=== PATIENT | female | born 1945 | race Asian ===

== ENCOUNTER 2016-10-12 08:51 | Inpatient (IN) | payer OTHER ==
[~2016-10-12] VITALS: Ht 152.4 cm; Wt 57.0 kg
[2016-10-12 08:55] VITALS: Ht 152.4 cm; Wt 57.0 kg
[2016-10-12] MEDS ORDERED: ACETAMINOPHEN 500 MG TAB PO STA (09:26)
[2016-10-12] MEDS ORDERED: SODIUM CHLORIDE 0.9% 1L BAG IV* STA (09:26)
[2016-10-12] MEDS ORDERED: CEFEPIME 2GM/50 ML (PMX) 50 ML IVPB STA (09:26)
[2016-10-12] MEDS ORDERED: VANCOMYCIN 1 GM (PMX) 250 ML IVPB ONE (09:30)
--- NOTE | 2016-10-12 10:11 | RADRPT ---
PROCEDURE: Chest Radiograph. CLINICAL INDICATION: Sepsis TECHNIQUE: Single frontal chest radiograph. COMPARISON: None available FINDINGS: Heart size is within normal limits. Atherosclerotic calcifications are present. There is a mild in terstitial prominence, likely related to chronic lung changes. No infiltrate or effusion is identif ied . There is no pneumothorax. The bones are intact. IMPRESSION: 1. No evidence of acute cardiopulmonary disease. 2. Atherosclerotic vascular disease. RPTAT: KK .Erick Wills MD, Date Time Electronically viewed and signed by .Erick Wills MD, on 10/12/2016 10:11 .B/
[2016-10-12 10:13] LABS: ADD SCAN DIFF NO
[2016-10-12 10:20] LABS: BASOPHILS % 0.2 % (0.0-2.0); HEMOGLOBIN 11.3 g/dl (12.0-16.0); LYMPHOCYTES # 0.7 10^3/ul (0.8-2.9); LYMPHOCYTES % 4.1 % (15.0-51.0); MEAN CORPUSCULAR HEMOGLOBIN 31.5 pg (29.0-33.0); MEAN CORPUSCULAR HGB CONC 34.2 g/dl (32.0-37.0); MEAN CORPUSCULAR VOLUME 91.9 fl (82.0-101.0); MEAN PLATELET VOLUME 10.4 fl (7.4-10.4); MONOCYTE # 0.5 10^3/ul (0.3-0.9); MONOCYTES % 3.2 % (0.0-11.0); NEUTROPHIL # 14.7 10^3/ul (1.6-7.5); NEUTROPHILS % 90.9 % (39.0-77.0); PLATELET COUNT 231 10^3/UL (140-415); RED BLOOD COUNT 3.59 10^6/ul (4.20-5.40); RED CELL DISTRIBUTION WIDTH 12.7 % (11.5-14.5); WHITE BLOOD COUNT 16.1 10^3/ul (4.8-10.8)
[2016-10-12 10:28] LABS: INR 1.4; PROTIME 17.2 Sec (12.2-14.2); PT RATIO 1.3
[2016-10-12 10:29] LABS: PARTIAL THROMBOPLASTIN TIME 38.8 Sec (25.0-35.0)
[2016-10-12 10:51] LABS: ALBUMIN 3.8 g/dl (3.3-4.9); POTASSIUM 3.4 mmol/L (3.5-5.1)
[2016-10-12 10:53] LABS: CREATININE 1.33 mg/dl (0.44-1.00)
[2016-10-12 10:54] LABS: ALBUMIN/GLOBULIN RATIO 1.05; BILIRUBIN,INDIRECT 0.4 mg/dl (0-1.1); BILIRUBIN,TOTAL 0.4 mg/dl (0.2-1.3); TOTAL PROTEIN 7.4 g/dl (6.1-8.1)
[2016-10-12 11:14] LABS: TROPONIN-I 3.84 ng/ml (0.00-0.12)
[2016-10-12 11:21] LABS: ADD UMIC YES; URINE BILIRUBIN (Dip) NEGATIVE (NEGATIVE); URINE BLOOD (Dip) 1+ (NEGATIVE); URINE COLOR LT. YELLOW (YELLOW); URINE GLUCOSE (Dip) NEGATIVE (NEGATIVE); URINE KETONES (Dip) NEGATIVE (NEGATIVE); URINE LEUKOCYTE ESTERASE (Dip) 1+ (NEGATIVE); URINE NITRITE (Dip) NEGATIVE (NEGATIVE); URINE TOTAL PROTEIN (Dip) 1+ (NEGATIVE); URINE UROBILINOGEN (Dip) 0.2 E.U./dL (0.1-1.0)
[2016-10-12] MEDS ORDERED: ASPIRIN 325 MG TAB PO ONE (11:30)
[2016-10-12 11:39] LABS: BACTERIA,URINE FEW
--- NOTE | 2016-10-12 11:58 | ERA ---
ER Documentation Chief Complaint Date/Time DATE: 10/12/16 TIME: 11:42 Chief Complaint bib daughter for fever , dizziness x 1 day , also c/o lt side abd pain HPI This is a 71-year-old female with a past medical history of non-insulin- dependent diabetes mellitus and hypertension. The patient indicates that for the past 24 hours she has been experiencing a tactile fever with shaking and chills. Her symptoms began at 2 AM, 48 hours prior to arrival. She indicates she has not had any chest pain or pressure that radiated to the neck arm back or jaw. She has no shortness of breath at rest or exertion. She denies a productive or nonproductive cough. She indicates she has had frequency urgency and dysuria with mild tenderness in her left lower quadrant and also indicates she has been very thirsty. She went to an urgent care clinic yesterday and was told that she has flulike symptoms and is not currently taking any antibiotics. She denies a headache or changes in vision. She has had no recent travel or prolonged immobilization. The patient had Tylenol at 730am, 2 hours prior to arrival ROS All systems reviewed and are negative except as per history of present illness. Medications Home Meds No Active Prescriptions or Reported Meds Allergies Allergies: Coded Allergies: No Known Allergy (Unverified , 10/12/16) PMhx/Soc History of Surgery: No Anesthesia Reaction: No Hx Neurological Disorder: No Hx Respiratory Disorders: No Hx Cardiac Disorders: No Hx Psychiatric Problems: No Hx Miscellaneous Medical Probl: No Hx Alcohol Use: No Hx Substance Use: No Hx Tobacco Use: No Smoking Status: Never smoker Physical Exam Vitals Vital Signs Date Time Temp Pulse Resp B/P Pulse Ox O2 Delivery O2 Flow Rate FiO2 10/12/16 10:04 Nasal Cannula 10/12/16 10:00 99.2 104 20 118/54 98 Room Air 10/12/16 08:55 102.5 110 18 114/56 98 Physical Exam Constitutional:Well-developed. Well-nourished. HEENT:Normocephalic. Atraumatic.Pupils were equal round reactive to light. Dry mucous membranes.No tonsillar exudates. Neck: No nuchal rigidity. No lymphadenopathy. No posterior cervical spine tenderness or step-offs. Respiratory: Not using accessory muscles of respiration.Lungs were clear to auscultation bilaterally. No rhonchi. No rales. No wheezing. Cardiovascular: Regular rate regular rhythm.No murmurs. No rubs were appreciated.S1, S2 normal. Distal pulses are palpable 2+ bilaterally. GI: Abdomen was soft. No tenderness in the left lower quadrant of the right lower quadrant. CVA tenderness. Non Distended. No pulsatile abdominal masses or bruits. No rebound. No guarding. Bowel sounds were present and normal. Muscle skeletal: Full range of motion of both the upper and lower extremities bilaterally.Normal muscle tone.No assymetrical calf tenderness or swelling. Skin: No petechia, no purpura. No lesions on the palms or the soles of the feet. No maculopapular rash. NEURO: Patient was alert, awake, orientated x3.No facial droop. Gait observed and normal with no ataxia.Speech had regular rate and rhythm. No focal neurological deficits. Result Diagram: 10/12/16 0957 10/12/16 0957 Results 24 hrs Laboratory Tests Test 10/12/16 09:57 10/12/16 10:26 Activated Partial Thromboplast Time 38.8Sec Alanine Aminotransferase (ALT/SGPT) 61IU/L Albumin 3.8g/dl Albumin/Globulin Ratio 1.05 Alkaline Phosphatase 207IU/L Amylase Level 127U/L Anion Gap 19 Aspartate Amino Transf (AST/SGOT) 71IU/L Basophils # 0.010^3/ul Basophils % 0.2% Blood Urea Nitrogen 19mg/dl Calcium Level 9.0mg/dl Carbon Dioxide Level 21mmol/L Chloride Level 99mmol/L Creatinine 1.33mg/dl Direct Bilirubin 0.00mg/dl Eosinophils # 0.010^3/ul Eosinophils % 0.0% Globulin 3.60g/dl Glucose Level 178mg/dl Hematocrit 33.0% Hemoglobin 11.3g/dl INR International Normalized Ratio 1.40 Indirect Bilirubin 0.4mg/dl Lactic Acid Level 4.2mmol/L Lipase 125U/L Lymphocytes # 0.710^3/ul Lymphocytes % 4.1% Mean Corpuscular Hemoglobin 31.5pg Mean Corpuscular Hemoglobin Concent 34.2g/dl Mean Corpuscular Volume 91.9fl Mean Platelet Volume 10.4fl Monocytes # 0.510^3/ul Monocytes % 3.2% Neutrophils # 14.710^3/ul Neutrophils % 90.9% Nucleated Red Blood Cells # 0.010^3/ul Nucleated Red Blood Cells % 0.0/100WBC Platelet Count 69694^3/UL Potassium Level 3.4mmol/L Prothrombin Time 17.2Sec Prothrombin Time Ratio 1.3 Red Blood Count 3.5910^6/ul Red Cell Distribution Width 12.7% Sodium Level 136mmol/L Total Bilirubin 0.4mg/dl Total Protein 7.4g/dl Troponin I 3.840ng/ml White Blood Count 16.110^3/ul Urine Bacteria FEW Urine Bilirubin NEGATIVE Urine Clarity CLEAR Urine Coarse Granular Casts RARE Urine Color LT. YELLOW Urine Epithelial Cells FEW Urine Glucose NEGATIVE% Urine Granular Casts RARE Urine Hemoglobin 1+ Urine Ketones NEGATIVE Urine Leukocyte Esterase 1+ Urine Microscopic RBC 2-5/HPF Urine Microscopic WBC 25-50/HPF Urine Nitrite NEGATIVE Urine Specific [place] 1.015 Urine Total Protein 1+ Urine Urobilinogen 0.2 E.U./dL Urine pH 5.5 Current Medications Medications (Trade) Dose Ordered Sig/William Route PRN Reason Start Time Stop Time Status Last Admin Dose Admin Sodium Chloride 1770 ml 1,770 ml BOLUS OVER 2 HOURS STAT IV* 10/12/16 09:26 10/12/16 09:29 DC 10/12/16 10:24 Cefepime HCl 50 ml @ 100 mls/hr ONCE STAT IVPB 10/12/16 09:26 10/12/16 09:55 DC 10/12/16 10:23 Vancomycin HCl (Vancocin) 250 ml @ 125 mls/hr ONCE ONCE IVPB 10/12/16 09:30 10/12/16 11:29 DC Acetaminophen (Tylenol Tab) 1,000 mg ONCE STAT PO 10/12/16 09:26 10/12/16 09:29 DC 10/12/16 10:23 Aspirin (Aspirin) 325 mg ONCE ONCE PO 10/12/16 11:30 10/12/16 11:31 DC Procedures/MDM This patient presented to the emergency department with a fever. The patient was treated for sepsis. She was given a 30 cc/kg bolus of normal saline. She was nontoxic in appearance. She was started on broad-spectrum antibiotics initially for an unknown source which included vancomycin and cefepime. 12 Lead EKG tracing ordered and reviewed by myself showed: Normal sinus rhythm of 98 bpm and no arrhythmia. NE interval normal. QRS duration normal. No ST segment elevation No ST segment depression. No changes consistent with acute ischemia. The patient had an elevated troponin of 3.840. The patient denied any chest pain or pressure. This could be result of sepsis however the patient will be admitted for non-STEMI and undergo serial 12-lead EKG tracings and cardiac set of enzymes. She was given aspirin. Patient's infectious symptoms have not stabilized and the patient is at risk of rapid decompensation. The patient will be admitted for careful hydration, antibiotic therapy, and infectious source control. Severe Sepsis Assessment: Infectious Source: pyleonephritis End organ damage indicated by: Lactate > 2.0 mmol/L Severe Sepsis Managment: Blood Cultures X 2 before broad spectrum antibiotics initiated within 3 hours of recognition. 30 ml/kg NS bolus Completed Initial Lactate: 4.2 Repeat Lactate 2.6 One view chest radiograph for and reviewed by myself showed no infiltrates no pneumothorax or pleural effusion Septic Shock Assessment (1 hour post 30 ml/kg fluid bolus): Hypotension (SBP < 90 or 40 mmHg drop, MAP < 65): No Lactic acid > 4.0 YES Perfusion Reassessment for Septic Shock: Temp 99.2, Pulse 104, RR 14, BP 118/54 Heart Exam: Tachycardic Lung Exam: No Crackles Capillary Refill: Normal Peripheral Pulses: Radially present Skin: Normal I considered further perfusion assessment with CVP measurement, SCVO2, bedside ultrasound volume assessment, passive leg raise, trial of further fluid bolus. And preceded with IV fluids. The patient will be admitted in serious condition under the care of Dr. Allen to the telemetry service in serious condition with an anticipated stay of greater than 2 midnights. Critical Care: Time: 50 minutes Treatments/Evaluations: Close monitoring and treatment of unstable vital signs, cardiorespiratory, and neurologic status, while maintaining tight balance of fluid, respiratory, and cardiac interventions. Time does not include performing any of the above billable procedures. Departure Diagnosis: Primary Impression: Severe sepsis Additional Impressions: Pyelonephritis Non-STEMI (non-ST elevated myocardial infarction) Condition: Serious CINTHIASEEMA WAYNEA Oct 12, 2016 11:53
[2016-10-12] MEDS ORDERED: ACETAMINOPHEN 325 MG TAB PO PRN (12:00)
[2016-10-12] MEDS ORDERED: ONDANSETRON 4 MG INJ IV PRN ×2 (12:00→15:30)
--- NOTE | 2016-10-12 14:59 | CONS ---
Date/Time of Note Date/Time of Note DATE: 10/12/16 TIME: 14:53 Assessment/Plan Assessment/Plan Additional Assessment/Plan SIRS Elevated lactate Elevated troponin Acute kidney injury -Patient with severe fever this morning and leukocytosis. Etiology of possible infection is unclear. Patient also with incidental elevated troponin. She denies any chest pain, shortness of breath and ECG without significant ischemic abnormalities. Echocardiogram preliminary being done at bedside with normal ejection fraction. Will obtain serial cardiac enzymes, start aspirin and statin therapy. IV fluids. Sepsis workup. Will start patient on Lovenox at the current time and evaluate trend of troponins. Would consider further cardiac evaluation including possible coronary CTA versus nuclear perfusion study in the near future based on clinical progress and troponin results. Consultation Date/Type/Reason Admit Date/Time Type of Consultation: cv Reason for Consultation Elevated troponin Hx of Present Illness This is a 71-year-old female who presented with severe fevers and chills and weakness which began early this morning. As per the daughter, patient has been tired and weak over the past 24 hours. She denies any chest pain, dizziness, lightheadedness, abdominal pain, nausea, vomiting, shortness of breath. This morning, as per the daughter, patient with fever of 106. She was given Tylenol with improvement but continued to have rigors. Because of the above, patient was brought to the emergency room for further evaluation and care. She feels much better now. She continues to deny chest pain, shortness of breath, abdominal pain or nausea. 12 point review of systems was performed with all pertinent positives and negatives mentioned above and all else is negative Past Surgical History Past Surgical Hx: cholecystectomy Family History Significant Family History: no pertinent family hx Social History Alcohol Use: none Smoking Status: Never smoker Exam/Review of Systems Vital Signs Vitals Vital Signs Date Time Temp Pulse Resp B/P Pulse Ox O2 Delivery O2 Flow Rate FiO2 10/12/16 14:45 98.5 10/12/16 12:00 90 20 106/64 97 Room Air Exam Fatigued, no apparent distress, follows commands Constitutional: alert, oriented Head: normocephalic Neck: supple Respiratory: clear to auscultation, normal air movement Cardiovascular: other (S1-S2 heard), regular rate and rhythm Gastrointestinal: bowel sounds, non-tender, other (No guarding), soft Extremities: other (No edema) Results Result Diagram: 10/12/16 0957 10/12/16 0957 Results 24 hrs Laboratory Tests Test 10/12/16 09:57 10/12/16 10:26 10/12/16 11:25 Activated Partial Thromboplast Time 38.8 H Alanine Aminotransferase (ALT/SGPT) 61 Albumin 3.8 Albumin/Globulin Ratio 1.05 Alkaline Phosphatase 207 H Amylase Level 127 H Anion Gap 19 H Aspartate Amino Transf (AST/SGOT) 71 H Basophils # 0.0 Basophils % 0.2 Blood Urea Nitrogen 19 Calcium Level 9.0 Carbon Dioxide Level 21 Chloride Level 99 Creatinine 1.33 H Direct Bilirubin 0.00 Eosinophils # 0.0 Eosinophils % 0.0 Globulin 3.60 H Glucose Level 178 Hematocrit 33.0 L Hemoglobin 11.3 L INR International Normalized Ratio 1.40 Indirect Bilirubin 0.4 Lactic Acid Level 4.2 *H 2.6 H Lipase 125 Lymphocytes # 0.7 L Lymphocytes % 4.1 L Mean Corpuscular Hemoglobin 31.5 Mean Corpuscular Hemoglobin Concent 34.2 Mean Corpuscular Volume 91.9 Mean Platelet Volume 10.4 Monocytes # 0.5 Monocytes % 3.2 Neutrophils # 14.7 H Neutrophils % 90.9 H Nucleated Red Blood Cells # 0.0 Nucleated Red Blood Cells % 0.0 Platelet Count 231 Potassium Level 3.4 L Prothrombin Time 17.2 H Prothrombin Time Ratio 1.3 Red Blood Count 3.59 L Red Cell Distribution Width 12.7 Sodium Level 136 Total Bilirubin 0.4 Total Protein 7.4 Troponin I 3.840 *H White Blood Count 16.1 H Urine Bacteria FEW Urine Bilirubin NEGATIVE Urine Clarity CLEAR Urine Coarse Granular Casts RARE Urine Color LT. YELLOW Urine Epithelial Cells FEW Urine Glucose NEGATIVE Urine Granular Casts RARE Urine Hemoglobin 1+ H Urine Ketones NEGATIVE Urine Leukocyte Esterase 1+ H Urine Microscopic RBC 2-5 Urine Microscopic WBC 25-50 Urine Nitrite NEGATIVE Urine Specific [place] 1.015 Urine Total Protein 1+ H Urine Urobilinogen 0.2 E.U./dL Urine pH 5.5 Procedures Procedures ECG demonstrates sinus rhythm, normal QRS duration, no significant ischemic STT wave abnormality Singh Thompson DO Oct 12, 2016 14:59
[2016-10-12] MEDS ORDERED: BISACODYL 10 MG SUPP PR PRN (15:30)
[2016-10-12] MEDS ORDERED: NACL 0.9% 3 ML SYG IV SCH (15:30)
[2016-10-12] MEDS ORDERED: VANCOMYCIN IV PER PHARMACY XX SCH (15:30)
[2016-10-12] MEDS ORDERED: HYDROCODONE/APAP (5/325) TAB PO PRN ×2 (15:30)
[2016-10-12] MEDS ORDERED: MAGNESIUM HYDROXIDE 30ML CUP PO PRN (15:30)
[2016-10-12] MEDS ORDERED: DOCUSATE SODIUM 100 MG CAP PO PRN (15:30)
[2016-10-12] MEDS ORDERED: NITROGLYCERIN (SL) 0.4 MG TAB SL PRN (15:30)
[2016-10-12] MEDS ORDERED: LOSA50TA6 PO (15:36)
[2016-10-12] MEDS ORDERED: GLIP5TAB13 PO (15:36)
[2016-10-12] MEDS: ACETAMINOPHEN 325 MG TAB PO PRN (16:05)
[2016-10-12] MEDS: SOD CHLORIDE 0.9% 1,000 ML IV SCH ×2 (16:08→21:58)
[2016-10-12] MEDS ORDERED: GLUCOSE GEL 15 GRAM TUBE PO PRN ×2 (16:30)
[2016-10-12] MEDS ORDERED: GLUCOSE GEL 15 GRAM TUBE BUCCAL PRN (16:30)
[2016-10-12] MEDS ORDERED: GLUCAGON 1 MG INJ IM PRN (16:30)
[2016-10-12] MEDS ORDERED: DEXTROSE 50% 50 ML SYRINGE IV PRN ×2 (16:30)
--- NOTE | 2016-10-12 17:20 | RADRPT ---
Echocardiogram Report Patient Name: KETAN BAEZ Gender: Female Date: 1945 Study Date: 12-Oct-2016 Meeting Coordinator: Mechelle Damon RDCS Location: 9 Ref. Physician: SINGH THOMPSON Quality: Good Procedures: Transthoracic echocardiogram with complete 2D, M-Mode, and doppler examination. Indications: elevated troponin. 2D/M Mode Doppler Measurement Value Normal Ranges Measurement Value Normal Ranges LVIDd 2D 4.8 3.5 - 5.6 cm AV Peak Lam 1.3 m/sec LVIDs 2D 2.9 2.1 - 4.1 cm AV Peak PG 6.5 mmHg LVPWd 2D 0.7 0.6 - 1.1 cm LVOT Peak Lam 0.9 m/sec IVSd 2D 0.6 0.6 - 1.1 cm LVOT Peak PG 3.2 mmHg AoR Diam 2D 2.6 2.0 - 3.7 cm MV E Peak Lam 0.9 m/sec EDV 2D 106.1 cm3 MV A Peak Lam 1.1 m/sec ESV 2D 23.2 cm3 MV E/A 0.8 LA Dimen 2D 3.0 2.3 - 4.0 cm MV Decel Time 166 msec MV Decel [place] 5 MV E/A 0.8 TR Peak Lam 2.2 m/sec TR Peak PG 18.9 mmHg RVSP 27.0 mmHg Findings Left Ventricle: Normal left ventricular systolic function. Normal left ventricular cavity size. Normal left ventricular wall thickness. Ejection fraction is visually estimated at 65 %. Tissue Doppler/Mitral Doppler indices are consistent with impaired relaxation (Stage I diastolic dysfunction). Right Ventricle: Normal right ventricular size. Normal right ventricular systolic function. Left Atrium: The left atrium is normal in size. Right Atrium: The right atrium is normal in size. Mitral Valve: Normal appearance and function of the mitral valve with trace physiologic regurgitation. Aortic Valve: No significant aortic stenosis or insufficiency. Aortic cusps appear mildly calcified. Tricuspid Valve: Normal appearance and function of the tricuspid valve with trace physiologic regurgitation. Estimated peak PA systolic pressure 27 mmHg. Pulmonic Valve: Normal pulmonic valve appearance. Pericardium: Normal pericardium with no significant pericardial effusion. Aorta: Normal aortic root. IVC: Dilated IVC with respiratory collapse consistent with elevated right atrial pressure. Conclusions Normal left ventricular systolic function. Normal left ventricular cavity size. Normal left ventricular wall thickness. Ejection fraction is visually estimated at 65 %. Tissue Doppler/Mitral Doppler indices are consistent with impaired relaxation (Stage I diastolic dysfunction). Normal right ventricular size. Normal right ventricular systolic function. The left atrium is normal in size. The right atrium is normal in size. No significant valvular stenosis or regurgitation seen. Normal pericardium with no significant pericardial effusion. Electronically Signed By: Singh Thompson 12-Oct-2016 17:19:26 -0800 Patient Name: KETAN BAEZ Study Date: 12-Oct-2016 [id number]
[2016-10-12 17:22] VITALS: TEMP 101.9
[2016-10-12 17:35] LABS: CK-MB 4.59 ng/ml (0.0-2.4)
[2016-10-12 17:39] LABS: TROPONIN-I 1.47 ng/ml (0.00-0.12)
[2016-10-12 17:54] LABS: POTASSIUM 4.3 mmol/L (3.5-5.1)
[2016-10-12 17:56] LABS: CREATININE 1.77 mg/dl (0.44-1.00)
[2016-10-12 17:57] LABS: CALCIUM 8.5 mg/dl (8.4-10.2)
--- NOTE | 2016-10-12 18:09 | RADRPT ---
PROCEDURE: Renal US. CLINICAL INDICATION: Flank pain. TECHNIQUE: Multiple sonographic images of the kidneys and urinary bladder were obtained. The imag es were reviewed on a PACS workstation. COMPARISON: No prior studies are available for comparison. FINDINGS: The right kidney measures 10.0 cm. The left kidney measures 11.9 cm. There is no solid renal mass. There is a small benign right renal cyst measuring 0.8 cm. There is no right hydronephrosis. There is moderate left hydronephrosis with no obstructing lesion visualized. There is no renal calculus. Renal parenchymal thickness and echogenicity is normal bilaterally. The perirenal regions are normal with no fluid collection or mass. The urinary bladder is empty. IMPRESSION: 1. Small benign right renal cyst measuring 0 20 cm. 2. No right hydronephrosis. 3. Moderate left hydronephrosis. Correlation with CT scan of abdomen and pelvis advised. 4. Empty urinary bladder. RPTAT: QQ .Jono Bhagat MD, MD Date Time Electronically viewed and signed by .Jono Bhagat MD, on 10/12/2016 18:09 .R/
[2016-10-12] MEDS: INSULIN ASPART [NOVOLOG] 3 ML PEN SC SCH ×2 (21:00→23:25)
[2016-10-12 21:02] VITALS: PULSE 110
[2016-10-12] MEDS: ATORVASTATIN 20 MG TAB PO SCH (21:55)
[2016-10-12] MEDS: FAMOTIDINE 20 MG INJ IV SCH (21:55)
[2016-10-12] MEDS: ENOXAPARIN 60 MG/0.6 ML SYG SC SCH (21:57)
[2016-10-12] MEDS ORDERED: LEVOFLOXACIN 750MG/D5W (PMX) 150 ML IVPB ONE (23:30)
[2016-10-13] VITALS (36 sets, daily range): BP systolic 57–192; BP diastolic 15–82; PULSE 84–154; RESP 14–46
[2016-10-13] MEDS: CEFEPIME 2GM/50 ML (PMX) 50 ML IVPB SCH ×2 (00:20→08:31)
[2016-10-13 01:22] LABS: CK-MB 3.06 ng/ml (0.0-2.4)
[2016-10-13] MEDS: SOD CHLORIDE 0.9% 1,000 ML IV SCH ×3 (01:23→11:23)
[2016-10-13 01:55] LABS: TROPONIN-I 0.932 ng/ml (0.00-0.12)
[2016-10-13] MEDS: ACETAMINOPHEN 325 MG TAB PO PRN (02:58)
[2016-10-13] MEDS ORDERED: IPRATROPIUM (NEB) 0.5 MG/2.5 ML AMP HHN PRN (04:30)
--- NOTE | 2016-10-13 06:15 | PN ---
Date/Time of Note Date/Time of Note DATE: 10/13/16 TIME: 06:05 Assessment/Plan VTE Prophylaxis VTE Prophylaxis Intervention: LMWH Lines/Catheters IV Catheter Type (from [facility]): Peripheral IV Urinary Cath still in place: No Assessment/Plan Assessment/Plan [facility] 71-year-old patient of Dr. Gordo Roberts with diabetes and febrile illness x 24h and history of antibiotic treatment last month for UTI. Now with NSTEMI and blood cultures positive for Gram-negative rods. Probable Enterobacteriaceae infection. Renal ultrasound shows moderate unilateral left hydronephrosis, suggesting possible ureteral obstruction. Creatinine 1.77 yesterday afternoon; unclear if this represents acute vs chronic renal insufficiency. She became tachypneic overnight, requiring oxygen but with no chest pain or nausea. SBP was elevated to 160. Portable chest x-ray was clear last night. Chest is clear on exam this morning. No acute ischemic changes on EKG, despite tachycardia to 140. Lactic acid trending down, with less concern now for SIRS. GNR sepsis, probable urinary source with complaints of small frequent urination, though no urethritis symptoms. * Hold vancomycin, in light of blood culture results and elevated creatinine. * Given a first dose of Levaquin 750mg IV; switch to PO * Continue Cefepime * Start on acidophillus probiotic; patient was already taking at home. * Repeat portable chest x-ray pending. * Troponins trending down, with pending 3rd troponin this morning * BP too low now (SBP 105) for topical nitrates * Hold CT abd/pelvis until repeat creatinine this morning indicates what baseline renal function may be * Echo pending this morning; my thanks to Dr. Thompson for his thorough consult note. Sunny Gonsales MD PhD [phone] Subjective 24 Hr Interval Summary Free Text/Dictation and daughter at bedside. Denies any pain or nausea. Very unusual for her having dyspnea like this. Currently on a probiotic after treatment for five days in August for a urinary tract infection. Exam/Review of Systems Vital Signs Vitals Vital Signs Date Time Temp Pulse Resp B/P Pulse Ox O2 Delivery O2 Flow Rate FiO2 10/13/16 04:42 95 2.0 10/13/16 04:36 141 32 Nasal Cannula 10/12/16 17:22 101.9 156/94 Intake and Output 210/12/16 10/13/16 15:00 23:00 07:00 Intake Total 1770 ml Balance 1770 ml Exam Constitutional: alert, frail, oriented Psych: nl mood/affect, no complaints Head: atraumatic, normocephalic Eyes: EOMI, PERRL, nl conjunctiva ENMT: mucosa pink and moist Neck: non-tender, supple, No jvd, No masses, No nuchal rigidity, No thyromegaly Respiratory: clear to auscultation, labored breathing, normal air movement, other (mild dullness at both bases), No congested cough, No crackles/rales, No diminished breath sounds, No intercostal retraction, No respirations, No wheezing Cardiovascular: nl pulses, regular rate and rhythm, No bruits, No diastolic murmur, No edema, No gallop, No irregular rhythm, No jugular venous distention (JVD), No murmurs/extra sounds, No rub, No systolic murmur Gastrointestinal: nl liver, spleen, non-tender, soft Genitourinary - Female: nl external genitalia, No CVA tenderness Musculoskeletal: muscle tone, nl extremities to inspection, range of motion, No joint tenderness, No muscle weakness, No nl gait and stance, No swelling Extremities: normal pulses, No calf tenderness, No clubbing, No cyanosis, No edema, No palpable cord, No pitting pedal edema, No tenderness Neurological: BELLOWS TESTER II-XII intact, nl mental status, nl speech, nl strength Skin: diaphoresis, nl turgor, No ecchymosis, No laceration, No rash or lesions Lymph: nl lymph nodes Results Result Diagram: 10/12/16 0957 10/12/16 1645 Results 24 hrs Laboratory Tests Test 10/12/16 09:57 10/12/16 10:26 10/12/16 11:25 10/12/16 16:45 Activated Partial Thromboplast Time 38.8 H Alanine Aminotransferase (ALT/SGPT) 61 Albumin 3.8 Albumin/Globulin Ratio 1.05 Alkaline Phosphatase 207 H Amylase Level 127 H Anion Gap 19 H 22 H Aspartate Amino Transf (AST/SGOT) 71 H Basophils # 0.0 Basophils % 0.2 Blood Urea Nitrogen 19 22 H Calcium Level 9.0 8.5 Carbon Dioxide Level 21 16 L Chloride Level 99 100 Creatinine 1.33 H 1.77 H Direct Bilirubin 0.00 Eosinophils # 0.0 Eosinophils % 0.0 Globulin 3.60 H Glucose Level 178 182 Hematocrit 33.0 L Hemoglobin 11.3 L INR International Normalized Ratio 1.40 Indirect Bilirubin 0.4 Lactic Acid Level 4.2 *H 2.6 H 7.1 *H Lipase 125 Lymphocytes # 0.7 L Lymphocytes % 4.1 L Mean Corpuscular Hemoglobin 31.5 Mean Corpuscular Hemoglobin Concent 34.2 Mean Corpuscular Volume 91.9 Mean Platelet Volume 10.4 Monocytes # 0.5 Monocytes % 3.2 Neutrophils # 14.7 H Neutrophils % 90.9 H Nucleated Red Blood Cells # 0.0 Nucleated Red Blood Cells % 0.0 Platelet Count 231 Potassium Level 3.4 L 4.3 Prothrombin Time 17.2 H Prothrombin Time Ratio 1.3 Red Blood Count 3.59 L Red Cell Distribution Width 12.7 Sodium Level 136 134 L Total Bilirubin 0.4 Total Protein 7.4 Troponin I 3.840 *H 1.470 *H White Blood Count 16.1 H Urine Bacteria FEW Urine Bilirubin NEGATIVE Urine Clarity CLEAR Urine Coarse Granular Casts RARE Urine Color LT. YELLOW Urine Epithelial Cells FEW Urine Glucose NEGATIVE Urine Granular Casts RARE Urine Hemoglobin 1+ H Urine Ketones NEGATIVE Urine Leukocyte Esterase 1+ H Urine Microscopic RBC 2-5 Urine Microscopic WBC 25-50 Urine Nitrite NEGATIVE Urine Specific [place] 1.015 Urine Total Protein 1+ H Urine Urobilinogen 0.2 E.U./dL Urine pH 5.5 Creatine Kinase 519 H Creatine Kinase Index 0.9 Creatinine Kinase MB (Mass) 4.59 H Test 10/12/16 18:53 10/12/16 21:02 10/12/16 22:02 10/13/16 00:48 Bedside Glucose 146 182 Lactic Acid Level 3.0 H Creatine Kinase 486 H Creatine Kinase Index 0.6 Creatinine Kinase MB (Mass) 3.06 H Troponin I 0.932 *H Test 10/13/16 01:05 10/13/16 03:57 Bedside Glucose 192 210 Medications Medications Current Medications Sodium Chloride (NS) 1,000 ml @ 75 mls/hr [id number] IV Last administered on 10/12t 21:58; Admin Dose 75 MLS/HR; Start 10/12/16 at 15:00; Stop 10/13/16 at 17: 39 Aspirin (Aspirin) 81 mg DAILY PO ; Start 10/13/16 at 09:00 Atorvastatin Calcium (Lipitor) 20 mg HS PO Last administered on 10/12/16 21:55 ; Admin Dose 20 MG; Start 10/12/16 at 21:00 Enoxaparin Sodium 55 mg 55 mg Q24H SC Last administered on 10/12/16 21:57; Admin Dose 55 MG; Start 10/12/16 at 21:00 Sodium Chloride (NS) 1,000 ml @ 100 mls/hr Q10H IV Last administered on 16:08; Admin Dose 100 MLS/HR; Start 10/12/16 at 15:23 Ondansetron HCl (Zofran Inj) 4 mg Q6H PRN IV NAUSEA AND/OR VOMITING; Start at 15:30 Nitroglycerin (Nitroglycerin (Sl Tab) 0.4 Mg) 1 tab Q5M PRN SL CHEST PAIN; Start 10/12/16 at 15:30 Acetaminophen (Tylenol Tab) 650 mg Q6H PRN PO PAIN LEVEL 1-3 OR FEVER Last administered on 10/13/16 02:58; Admin Dose 650 MG; Start 10/12/16 at 15:30 Acetaminophen/ Hydrocodone Bitart ([place] (5/325)) 1 tab Q6H PRN PO PAIN LEVEL 4 -6; Start 10/12/16 at 15:30 Acetaminophen/ Hydrocodone Bitart ([place] (5/325)) 2 tab Q6H PRN PO PAIN LEVEL 7 -10; Start 10/12/16 at 15:30 Morphine Sulfate (morphine) 2 mg Q4H PRN IV PAIN LEVEL 7-10; Start 10/12/16 at 15:30 Docusate Sodium (Colace) 100 mg Q12H PRN PO CONSTIPATION; Start 10/12/16 at 15: 30 Magnesium Hydroxide (Milk Of Mag) 30 ml DAILY PRN PO CONSTIPATION; Start at 15:30 Bisacodyl (Dulcolax Supp) 10 mg DAILY PRN [place] CONSTIPATION; Start 10/12/16 at 15 :30 Famotidine 20 mg 20 mg Q24H IV Last administered on 10/12/16 21:55; Admin Dose 20 MG; Start 10/12/16 at 21:00 Cefepime HCl (Maxipime 2gm/50 ml (Pmx)) 50 ml @ 100 mls/hr Q12 IVPB Last administered on 10/13/16t 00:20; Admin Dose 100 MLS/HR; Start 10/12/16 at 21:00 Miscellaneous Information 1 ea NOTE XX ; Start 10/12/16 at 16:30 Glucose (Glutose) 15 gm Q15M PRN PO DECREASED GLUCOSE; Start 10/12/16 at 16:30 Glucose (Glutose) 22.5 gm Q15M PRN PO DECREASED GLUCOSE; Start 10/12/16 at 16: 30 Dextrose (D50w Syringe) 25 ml Q15M PRN IV DECREASED GLUCOSE; Start 10/12/16 at 16:30 Dextrose (D50w Syringe) 50 ml Q15M PRN IV DECREASED GLUCOSE; Start 10/12/16 at 16:30 Glucagon (Glucagen) 1 mg Q15M PRN IM DECREASED GLUCOSE; Start 10/12/16 at 16:30 Glucose 15 gm 15 gm Q15M PRN BUCCAL DECREASED GLUCOSE; Start 10/12/16 at 16:30 Vancomycin HCl (Vancocin) 100 ml @ 100 mls/hr Q24H IVPB ; Start 10/13/16 at 12: 00 Miscellaneous Information Patients own medicat... BID@ XX ; Start 10/13/16 at 10:00 JUANIS GONSALES M.D. Oct 13, 2016 06:15
[2016-10-13 07:48] LABS: ADD SCAN DIFF NO
[2016-10-13 07:55] LABS: ABNORMAL IP MESSAGE 1; HEMOGLOBIN 9.4 g/dl (12.0-16.0); MEAN CORPUSCULAR HEMOGLOBIN 31.1 pg (29.0-33.0); MEAN CORPUSCULAR HGB CONC 33.6 g/dl (32.0-37.0); MEAN CORPUSCULAR VOLUME 92.7 fl (82.0-101.0); MEAN PLATELET VOLUME 9.8 fl (7.4-10.4); PLATELET COUNT 144 10^3/UL (140-415); RED BLOOD COUNT 3.02 10^6/ul (4.20-5.40); RED CELL DISTRIBUTION WIDTH 12.3 % (11.5-14.5); WHITE BLOOD COUNT 20.7 10^3/ul (4.8-10.8)
[2016-10-13 08:05] LABS: POTASSIUM 4.1 mmol/L (3.5-5.1)
[2016-10-13 08:07] LABS: CREATININE 2.16 mg/dl (0.44-1.00)
[2016-10-13 08:08] LABS: CHOL/HDL RATIO 2.1 RATIO
[2016-10-13] MEDS: INSULIN ASPART [NOVOLOG] 3 ML PEN SC SCH ×4 (08:30→21:00)
[2016-10-13] MEDS: LACTOBACILLUS CHEW TAB PO SCH ×3 (08:31→21:00)
[2016-10-13] MEDS: ASPIRIN 81 MG TAB PO SCH (08:31)
--- NOTE | 2016-10-13 08:38 | RADRPT ---
PROCEDURE: XR Chest. CLINICAL INDICATION: Shortness of breath TECHNIQUE: An AP view of the chest was obtained. COMPARISON: Chest x-ray dated 10/12/2016 FINDINGS: Lung volumes are low. There is prominence of the interstitial markings. There are right infrahilar interstitial opacities. No pleural effusion or pneumothorax is seen. The cardiomediastinal silhoue tte is mildly enlarged . Calcifications are seen within the aortic arch. The osseous structures de monstrate senescent changes. IMPRESSION: 1. Mild prominence of the interstitial markings, may reflect mild underlying interstitial edema or chronic lung changes. Findings are increased when compared to the prior examination, at least partia lly related to low lung volumes. 2. Right infrahilar interstitial opacities may reflect atelectasis or pneumonitis. 3. Mild cardiomegaly and aortic atherosclerosis. RPTAT: HH .Bridgette Peters MD, MD Date Time Electronically viewed and signed by .Bridgette Peters MD, on 10/13/2016 08:37 .G/
[2016-10-13 09:12] LABS: CK-MB 7.29 ng/ml (0.0-2.4)
[2016-10-13 09:17] LABS: TROPONIN-I 3.03 ng/ml (0.00-0.12)
--- NOTE | 2016-10-13 09:41 | CONS ---
Date/Time of Note Date/Time of Note DATE: 10/13/16 TIME: 09:38 Assessment/Plan Assessment/Plan Chief Complaint/Hosp Course 1) Troponinelevation 2) preserved LV function 3) Anemia 4) Worsening renal function 5) ENRICO 6) Borderline blood pressure with hypotension and evidence of septic shock 7) positive blood cultures 8) Sepsis 9) increase lactate Problems: Additional Assessment/Plan 1) ASA 2) Lovenox 3) off beta blockers and NAKITA due to hypotension 4) medical therapy for now 5) ABX 6) Transfer to ICU if further drop of BP 7) dw family Consultation Date/Type/Reason Admit Date/Time Oct 12, 2016 at 11:59 Initial Consult Date Type of Consultation: cv Detailed Summary Respiratory: no complaints Cardiovascular: no complaints Gastrointestinal: no complaints Genitourinary: no complaints Musculoskeletal: no complaints Skin: no complaints Neurologic: no complaints Exam/Review of Systems Vital Signs Vitals Vital Signs Date Time Temp Pulse Resp B/P Pulse Ox O2 Delivery O2 Flow Rate FiO2 10/13/16 08:14 105 10/13/16 07:52 98.2 20 92/55 98 10/13/16 05:22 Nasal Cannula 3.0 Intake and Output 10/12/16 10/12/16 10/13/16 15:00 23:00 07:00 Intake Total 1770 ml Balance 1770 ml Exam Constitutional: alert, oriented Head: atraumatic, normocephalic Neck: supple Respiratory: clear to auscultation Cardiovascular: regular rate and rhythm Gastrointestinal: soft Musculoskeletal: nl extremities to inspection Extremities: normal pulses Results Result Diagram: 10/13/16 0715 10/13/16 0715 Results 24 hrs Laboratory Tests Test 10/12/16 09:57 10/12/16 10:26 10/12/16 11:25 10/12/16 16:45 Activated Partial Thromboplast Time 38.8 H Alanine Aminotransferase (ALT/SGPT) 61 Albumin 3.8 Albumin/Globulin Ratio 1.05 Alkaline Phosphatase 207 H Amylase Level 127 H Anion Gap 19 H 22 H Aspartate Amino Transf (AST/SGOT) 71 H Basophils # 0.0 Basophils % 0.2 Blood Urea Nitrogen 19 22 H Calcium Level 9.0 8.5 Carbon Dioxide Level 21 16 L Chloride Level 99 100 Creatinine 1.33 H 1.77 H Direct Bilirubin 0.00 Eosinophils # 0.0 Eosinophils % 0.0 Globulin 3.60 H Glucose Level 178 182 Hematocrit 33.0 L Hemoglobin 11.3 L INR International Normalized Ratio 1.40 Indirect Bilirubin 0.4 Lactic Acid Level 4.2 *H 2.6 H 7.1 *H Lipase 125 Lymphocytes # 0.7 L Lymphocytes % 4.1 L Mean Corpuscular Hemoglobin 31.5 Mean Corpuscular Hemoglobin Concent 34.2 Mean Corpuscular Volume 91.9 Mean Platelet Volume 10.4 Monocytes # 0.5 Monocytes % 3.2 Neutrophils # 14.7 H Neutrophils % 90.9 H Nucleated Red Blood Cells # 0.0 Nucleated Red Blood Cells % 0.0 Platelet Count 231 Potassium Level 3.4 L 4.3 Prothrombin Time 17.2 H Prothrombin Time Ratio 1.3 Red Blood Count 3.59 L Red Cell Distribution Width 12.7 Sodium Level 136 134 L Total Bilirubin 0.4 Total Protein 7.4 Troponin I 3.840 *H 1.470 *H White Blood Count 16.1 H Urine Bacteria FEW Urine Bilirubin NEGATIVE Urine Clarity CLEAR Urine Coarse Granular Casts RARE Urine Color LT. YELLOW Urine Epithelial Cells FEW Urine Glucose NEGATIVE Urine Granular Casts RARE Urine Hemoglobin 1+ H Urine Ketones NEGATIVE Urine Leukocyte Esterase 1+ H Urine Microscopic RBC 2-5 Urine Microscopic WBC 25-50 Urine Nitrite NEGATIVE Urine Specific [place] 1.015 Urine Total Protein 1+ H Urine Urobilinogen 0.2 E.U./dL Urine pH 5.5 Creatine Kinase 519 H Creatine Kinase Index 0.9 Creatinine Kinase MB (Mass) 4.59 H Test 10/12/16 18:53 10/12/16 21:02 10/12/16 22:02 10/13/16 00:48 Bedside Glucose 146 182 Lactic Acid Level 3.0 H Creatine Kinase 486 H Creatine Kinase Index 0.6 Creatinine Kinase MB (Mass) 3.06 H Troponin I 0.932 *H Test 10/13/16 01:05 10/13/16 03:57 10/13/16 07:05 10/13/16 07:15 Bedside Glucose 192 210 151 Anion Gap 22 H Basophils # 0.0 Basophils % 0.1 Blood Urea Nitrogen 26 H Calcium Level 8.0 L Carbon Dioxide Level 13 L Chloride Level 99 Cholesterol Level 103 Cholesterol/HDL Ratio 2.1 Creatine Kinase 670 H Creatine Kinase Index 1.1 Creatinine 2.16 H Creatinine Kinase MB (Mass) 7.29 H Eosinophils # 0.0 Eosinophils % 0.0 Glucose Level 142 # HDL Cholesterol 48 Hematocrit 28.0 L Hemoglobin 9.4 L LDL Cholesterol, Calculated 30 Lymphocytes # 0.6 L Lymphocytes % 2.8 L Magnesium Level 1.8 Mean Corpuscular Hemoglobin 31.1 Mean Corpuscular Hemoglobin Concent 33.6 Mean Corpuscular Volume 92.7 Mean Platelet Volume 9.8 Monocytes # 0.6 Monocytes % 3.1 Neutrophils # 18.3 H Neutrophils % 88.4 H Nucleated Red Blood Cells # 0.0 Nucleated Red Blood Cells % 0.0 Platelet Count 144 # Potassium Level 4.1 Red Blood Count 3.02 L Red Cell Distribution Width 12.3 Sodium Level 130 L Triglycerides Level 123 Troponin I 3.030 *H White Blood Count 20.7 #H Test 10/13/16 08:06 Bedside Glucose 159 Medications Medications Current Medications Sodium Chloride (NS) 1,000 ml @ 75 mls/hr [id number] IV Last administered on 10/12 21:58; Admin Dose 75 MLS/HR; Start 10/12/16 at 15:00; Stop 10/13/16 at 17: 39 Aspirin (Aspirin) 81 mg DAILY PO Last administered on 10/13/16 08:31; Admin Dose 81 MG; Start 10/13/16 at 09:00 Atorvastatin Calcium (Lipitor) 20 mg HS PO Last administered on 10/12/16 21:55 ; Admin Dose 20 MG; Start 10/12/16 at 21:00 Enoxaparin Sodium 55 mg 55 mg Q24H SC Last administered on 10/12/16 21:57; Admin Dose 55 MG; Start 10/12/16 at 21:00 Sodium Chloride (NS) 1,000 ml @ 100 mls/hr Q10H IV Last administered on 16:08; Admin Dose 100 MLS/HR; Start 10/12/16 at 15:23 Ondansetron HCl (Zofran Inj) 4 mg Q6H PRN IV NAUSEA AND/OR VOMITING; Start at 15:30 Nitroglycerin (Nitroglycerin (Sl Tab) 0.4 Mg) 1 tab Q5M PRN SL CHEST PAIN; Start 10/12/16 at 15:30 Acetaminophen (Tylenol Tab) 650 mg Q6H PRN PO PAIN LEVEL 1-3 OR FEVER Last administered on 10/13/16 02:58; Admin Dose 650 MG; Start 10/12/16 at 15:30 Acetaminophen/ Hydrocodone Bitart ([place] (5/325)) 1 tab Q6H PRN PO PAIN LEVEL 4 -6; Start 10/12/16 at 15:30 Acetaminophen/ Hydrocodone Bitart ([place] (5/325)) 2 tab Q6H PRN PO PAIN LEVEL 7 -10; Start 10/12/16 at 15:30 Morphine Sulfate (morphine) 2 mg Q4H PRN IV PAIN LEVEL 7-10; Start 10/12/16 at 15:30 Docusate Sodium (Colace) 100 mg Q12H PRN PO CONSTIPATION; Start 10/12/16 at 15: 30 Magnesium Hydroxide (Milk Of Mag) 30 ml DAILY PRN PO CONSTIPATION; Start at 15:30 Bisacodyl (Dulcolax Supp) 10 mg DAILY PRN [place] CONSTIPATION; Start 10/12/16 at 15 :30 Famotidine 20 mg 20 mg Q24H IV Last administered on 10/12/16 21:55; Admin Dose 20 MG; Start 10/12/16 at 21:00 Cefepime HCl (Maxipime 2gm/50 ml (Pmx)) 50 ml @ 100 mls/hr Q12 IVPB Last administered on 10/13/16 08:31; Admin Dose 100 MLS/HR; Start 10/12/16 at 21:00 Miscellaneous Information 1 ea NOTE XX ; Start 10/12/16 at 16:30 Glucose (Glutose) 15 gm Q15M PRN PO DECREASED GLUCOSE; Start 10/12/16 at 16:30 Glucose (Glutose) 22.5 gm Q15M PRN PO DECREASED GLUCOSE; Start 10/12/16 at 16: 30 Dextrose (D50w Syringe) 25 ml Q15M PRN IV DECREASED GLUCOSE; Start 10/12/16 at 16:30 Dextrose (D50w Syringe) 50 ml Q15M PRN IV DECREASED GLUCOSE; Start 10/12/16 at 16:30 Glucagon (Glucagen) 1 mg Q15M PRN IM DECREASED GLUCOSE; Start 10/12/16 at 16:30 Glucose (Glutose) 15 gm Q15M PRN BUCCAL DECREASED GLUCOSE; Start 10/12/16 at 16 :30 Miscellaneous Information Patients own medicat... BID@ XX ; Start 10/13/16 at 10:00 Lactobacillus Acidoph/Bulgaricus (Floranex) 1 tab TID PO Last administered on t 08:31; Admin Dose 1 TAB; Start 10/13/16 at 09:00 COLEEN NOYOLA MD Oct 13, 2016 09:41
[2016-10-13 11:33] LABS: LYMPHOCYTES # 0.6 10^3/ul (0.8-2.9); MONOCYTE # 0.6 10^3/ul (0.3-0.9); NEUTROPHIL # 11.8 10^3/ul (1.6-7.5)
[2016-10-13] MEDS ORDERED: VANCOMYCIN 500MG/NS (PMX) 100 ML IVPB SCH (12:00)
[2016-10-13] MEDS ORDERED: LABETALOL HCL 20MG INJ IV PRN (16:30)
[2016-10-13] MEDS ORDERED: PROPOFOL 100 ML ONE (17:25)
[2016-10-13] MEDS: PROPOFOL 100 ML IV SCH (17:37)
[2016-10-13] MEDS ORDERED: NORepinephrine 8MG/250 ML (PMX 250 ML ONE (17:53)
--- NOTE | 2016-10-13 17:56 | CONS ---
Date/Time of Note Date/Time of Note DATE: 10/13/16 TIME: 17:50 Assessment/Plan Assessment/Plan Additional Assessment/Plan Chest x-ray was reviewed from earlier today which is showing pulmonary edema. Chest x-ray also was reviewed from yesterday which is essentially clear. Urine analysis positive for UTI. Ventilator settings; assist control of 14, tidal volume of 500, PEEP of 5, 100% FiO2. Patient does have a significant spike in leukocytosis. Patient no developing increased serum creatinine. The less metabolic acidosis. Assessment recommendations; next 1. Patient admitted with UTI with fever and chills was also quite hypertensive received labetalol after which the patient blood pressure dropped precipitously leading to cardiac arrest. Status post CPR with revival of vital signs. 2. Patient is getting hypotensive. 3. Worsening renal function. Likely from hypoperfusion. 4. History of diabetes. 5. History of hypertension. 6. Pulmonary edema likely from diastolic dysfunction. Give the patient a liter of normal saline fluid bolus. Discontinue propofol and switch her to Versed for sedation. Continue current ventilator settings. ABG is pending. Continue current antibiotics. Start the patient on Levophed. Chest x-ray is pending. ABG also pending. Once they are available I will review them and make further recommendations. I did have a detailed discussion the patient's son at bedside and answered all his questions prognosis is guarded. Consultation Date/Type/Reason Admit Date/Time Oct 12, 2016 at 11:59 Date of Consultation: Oct 13, 2016 Type of Consultation: Pulmonary/critical care Reason for Consultation Pulmonary consultation obtained for the patient to manage respiratory failure who had cardiac arrest event short while ago on the medical floor. History presenting in; patient is a 70-year-old oriented lady who was admitted yesterday came into the emergency room with complaints of not feeling well for the last day or so nonspecific fever and chills. Upon medicine here the patient was diagnosed with UTI was admitted to the medical floor. The patient became quite hypertensive and received 1 dose of labetalol IV after the pressure dropped precipitously and the patient had a cardiac arrest event. DELVIS AWAN was called and patient underwent CPR with revival of vital signs. Was intubated by the ER physician and then transferred to ICU. By the time I saw the patient patient is orally intubated is quite tachypneic and is getting progressively more hypotensive. History was obtained from medical records. Past medical history; 1. Diabetes 2. Hypertension. 3. No history of any coronary artery disease. Next Medications; were reviewed. Allergies; none. Social history; most of any smoking, alcohol or drug abuse. Family history; patient is has a supportive family. 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 Review of systems; currently unable to be obtained. General examination; elderly lady, or intubated, tachypneic. Sedated. Respiratory: no complaints Cardiovascular: no complaints Gastrointestinal: no complaints Genitourinary: no complaints Musculoskeletal: no complaints Skin: no complaints Neurologic: no complaints Psychological: nl mood/affect, no complaints Past Surgical History Past Surgical Hx: cholecystectomy Social History Alcohol Use: none Smoking Status: Never smoker Exam/Review of Systems Vital Signs Vitals Vital Signs Date Time Temp Pulse Resp B/P Pulse Ox O2 Delivery O2 Flow Rate FiO2 10/13/16 17:28 108 44 98 100 10/13/16 15:02 2.0 10/13/16 11:57 98.3 116/65 10/13/16 08:00 Nasal Cannula Intake and Output 10/12/16 10/12/16 10/13/16 15:00 23:00 07:00 Intake Total 1770 ml Balance 1770 ml Exam H EENT examination; supple neck, positive JVD. No lymphadenopathy. Orally intubated.has bilateral cataracts. Pupils are small bilaterally. No neck masses. No thyromegaly. Chest examination; diminished breath sound bilaterally. S1-S2 audible, no murmurs. Regular rhythm. Tachycardic. Abdomen examination; soft, nondistended. No organomegaly. Bowel sounds are absent. No scars are present. Extremity examination; no peripheral edema. Femoral pulses 2+ bilaterally. SCHEDULING ASSISTANT examination; patient is sedated. Results Result Diagram: 10/13/16 0715 10/13/16 0715 Results 24 hrs Laboratory Tests Test 10/12/16 18:53 10/12/16 21:02 10/12/16 22:02 10/13/16 00:48 Bedside Glucose 146 182 Lactic Acid Level 3.0 H Creatine Kinase 486 H Creatine Kinase Index 0.6 Creatinine Kinase MB (Mass) 3.06 H Troponin I 0.932 *H Test 10/13/16 01:05 10/13/16 03:57 10/13/16 07:05 10/13/16 07:15 Bedside Glucose 192 210 151 Anion Gap 22 H Band Neutrophils % 37.0 H Basophils # Basophils % Blood Urea Nitrogen 26 H Calcium Level 8.0 L Carbon Dioxide Level 13 L Chloride Level 99 Cholesterol Level 103 Cholesterol/HDL Ratio 2.1 Creatine Kinase 670 H Creatine Kinase Index 1.1 Creatinine 2.16 H Creatinine Kinase MB (Mass) 7.29 H Differential Comment Eosinophils # Eosinophils % Glucose Level 142 # HDL Cholesterol 48 Hematocrit 28.0 L Hemoglobin 9.4 L Hemoglobin A1c 7.8 H LDL Cholesterol, Calculated 30 Lymphocytes # 0.6 L Lymphocytes % 3.0 L Magnesium Level 1.8 Mean Corpuscular Hemoglobin 31.1 Mean Corpuscular Hemoglobin Concent 33.6 Mean Corpuscular Volume 92.7 Mean Platelet Volume 9.8 Monocytes # 0.6 Monocytes % 3.0 Neutrophils # 11.8 H Neutrophils % 57.0 Nucleated Red Blood Cells # Nucleated Red Blood Cells % Platelet Count 144 # Potassium Level 4.1 Red Blood Count 3.02 L Red Cell Distribution Width 12.3 Sodium Level 130 L Triglycerides Level 123 Troponin I 3.030 *H White Blood Count 20.7 #H Test 10/13/16 08:06 10/13/16 12:29 10/13/16 16:24 10/13/16 16:35 Bedside Glucose 159 176 175 167 Test 10/13/16 16:41 Bedside Glucose 152 Medications Medications Current Medications Aspirin (Aspirin) 81 mg DAILY PO Last administered on 10/13/16 08:31; Admin Dose 81 MG; Start 10/13/16 at 09:00 Atorvastatin Calcium (Lipitor) 20 mg HS PO Last administered on 10/12/16 21:55 ; Admin Dose 20 MG; Start 10/12/16 at 21:00 Enoxaparin Sodium 55 mg 55 mg Q24H SC Last administered on 10/12/16 21:57; Admin Dose 55 MG; Start 10/12/16 at 21:00 Sodium Chloride (NS) 1,000 ml @ 100 mls/hr Q10H IV Last administered on 16:08; Admin Dose 100 MLS/HR; Start 10/12/16 at 15:23 Ondansetron HCl (Zofran Inj) 4 mg Q6H PRN IV NAUSEA AND/OR VOMITING; Start at 15:30 Nitroglycerin (Nitroglycerin (Sl Tab) 0.4 Mg) 1 tab Q5M PRN SL CHEST PAIN; Start 10/12/16 at 15:30 Acetaminophen (Tylenol Tab) 650 mg Q6H PRN PO PAIN LEVEL 1-3 OR FEVER Last administered on 10/13/16 02:58; Admin Dose 650 MG; Start 10/12/16 at 15:30 Acetaminophen/ Hydrocodone Bitart ([place] (5/325)) 1 tab Q6H PRN PO PAIN LEVEL 4 -6; Start 10/12/16 at 15:30 Acetaminophen/ Hydrocodone Bitart ([place] (5/325)) 2 tab Q6H PRN PO PAIN LEVEL 7 -10; Start 10/12/16 at 15:30 Morphine Sulfate (morphine) 2 mg Q4H PRN IV PAIN LEVEL 7-10; Start 10/12/16 at 15:30 Docusate Sodium (Colace) 100 mg Q12H PRN PO CONSTIPATION; Start 10/12/16 at 15: 30 Magnesium Hydroxide (Milk Of Mag) 30 ml DAILY PRN PO CONSTIPATION; Start at 15:30 Bisacodyl (Dulcolax Supp) 10 mg DAILY PRN [place] CONSTIPATION; Start 10/12/16 at 15 :30 Famotidine (Pepcid Iv) 20 mg Q24H IV Last administered on 10/12/16 21:55; Admin Dose 20 MG; Start 10/12/16 at 21:00 Miscellaneous Information 1 ea NOTE XX ; Start 10/12/16 at 16:30 Glucose (Glutose) 15 gm Q15M PRN PO DECREASED GLUCOSE; Start 10/12/16 at 16:30 Glucose (Glutose) 22.5 gm Q15M PRN PO DECREASED GLUCOSE; Start 10/12/16 at 16: 30 Dextrose (D50w Syringe) 25 ml Q15M PRN IV DECREASED GLUCOSE; Start 10/12/16 at 16:30 Dextrose (D50w Syringe) 50 ml Q15M PRN IV DECREASED GLUCOSE; Start 10/12/16 at 16:30 Glucagon (Glucagen) 1 mg Q15M PRN IM DECREASED GLUCOSE; Start 10/12/16 at 16:30 Glucose (Glutose) 15 gm Q15M PRN BUCCAL DECREASED GLUCOSE; Start 10/12/16 at 16 :30 Miscellaneous Information Patients own medicat... BID@10,16 XX ; Start 10/13/16 at 10:00 Lactobacillus Acidoph/Bulgaricus (Floranex) 1 tab TID PO Last administered on 12:33; Admin Dose 1 TAB; Start 10/13/16 at 09:00 Labetalol HCl 20 mg 20 mg Q6 PRN IV ELEVATED BLOOD PRESSURE Last administered on 10/13/16 17:29; Admin Dose 20 MG; Start 10/13/16 at 16:30 Cefepime HCl (Maxipime 1gm/50 ml (Pmx)) 50 ml @ 100 mls/hr Q24H IVPB ; Start at 09:00 STAN HOLGUIN Oct 13, 2016 17:56
[2016-10-13] MEDS ORDERED: NORepinephrine 8MG/250 ML (PMX 250 ML IV SCH (18:00)
[2016-10-13] MEDS ORDERED: SOD CHLORIDE 0.9% 1,000 ML IV ONE (18:00)
[2016-10-13 18:02] LABS: AADO2 Arterial 602.1 mmHg (7.0-24.0); Allen Test ACCEPTAB; Arterial Base Excess -17.8 mmol/L (-3.0-3); Arterial COHb 0.2 % (0.0-3.0); Arterial Fraction of Oxyhgb 92.7 % (93.0-99.0); Arterial HCO3 9.3 mmol/L (22.0-26.0); Arterial MetHb 0.3 % (0.0-1.5); MODE VENT - AC
[2016-10-13] MEDS ORDERED: NA BICARBONATE 8.4% 50 ML SYG IV ONE (18:30)
--- NOTE | 2016-10-13 18:32 | RADRPT ---
PROCEDURE: Chest xray. CLINICAL INDICATION: Post intubation. TECHNIQUE: A portable semi supine AP view of the chest was obtained. COMPARISON: 10/13/2016 04:55 a.m. FINDINGS: There has been interval intubation with the tip of the endotracheal tube in the mid thoracic trachea . There is stable mild enlargement of the cardiac silhouette. Atherosclerotic calcifications are again noted in the aortic arch. There is diffuse interstitial pulmonary edema, increased when compared t o the prior chest x-ray. No pleural effusion or pneumothorax is identified. The skeletal structure s and soft tissues are unremarkable. IMPRESSION: Interval intubation with satisfactory positioning of the endotracheal tube. Increased diffuse interstitial pulmonary edema, superimposed pneumonia cannot be excluded. Stable mild cardiomegaly. RPTAT:PP .Pooja Valdez MD, Date Time Electronically viewed and signed by .Pooja Valdez MD, on 10/13/2016 18:32 .K/
[2016-10-13 19:14] LABS: D-DIMER 8681.91 ng/ml (<460)
[2016-10-13] MEDS: MIDAZOLAM (DRIP) 50 mg/50 mL 50 ML IV SCH (19:29)
[2016-10-13] MEDS ORDERED: SODIUM BICARBONATE IV SCH ×4 (19:30)
[2016-10-13] MEDS ORDERED: DEXTROSE 5% IV SCH ×4 (19:30)
[2016-10-13] MEDS ORDERED: ROCURONIUM 50 MG INJ IV ONE (19:30)
--- NOTE | 2016-10-13 19:39 | EN ---
Date/Time of Note Date/Time of Note DATE: 10/13/16 TIME: 19:37 Event Note Cardiology Cardiology Event Note Central Line Placement I was in the intensive care unit rounding on other patients, and this patient needed central venous access, and I was asked to place a central line. Consent obtained from family members. Lidocaine used for anesthesia. Using modified Seldinger technique, the right common femoral artery was accessed, a wire passed, and over the wire a triple lumen catheter was placed. Ports were flushed and the line was sutured in place. EBL: 10 cc No complications. DIEGO HERNÁNDEZ Oct 13, 2016 19:39
--- NOTE | 2016-10-13 19:44 | EN ---
Date/Time of Note Date/Time of Note DATE: 10/13/16 TIME: 19:35 Event Note Medicine Medicine Event Note This is a 71-year-old female who was admitted for sepsis. There is a CODE BLUE called. The nurse reports the patient was hypertensive at 240/130 with a heart rate of 150. The nurse was instructed by cardiology to give 20 mg of labetalol and subsequently after it was given the patient's heart rate started to decline but then continued to decline to asystole. My arrival there is CPR in progress the patient just received a milligram of epinephrine. Patient is unconscious Const: Well-developed, well-nourished being bagged by RT Head: Atraumatic, normocephalic Eyes: Normal Conjunctiva, PERRLA, EOMI, normal sclera, no nystagmus ENT: Normal External Ears, small amount of blood in the oropharynx, moist mucus membranes. Neck: Full range of motion. No meningismus, no lymphadenopathy. Resp: Being bagged by RT, slight rhonchi Cardio: No spontaneous cardiac activity t Abd: Soft, n non distended. ,s Skin: No petechiae or rashes, no ecchymosis , no maculopapular rash Back: not examined Ext: No cyanosis, or edema, Neur: GCS of 3] Psych: [Unable to obtain Endotracheal Intubation by me: Pre assessment performed. See preceding note for details. Pre-oxygenation performed with 100% oxygen RSI: Performed w/o complication or hypoxic events. Medications as ordered. Blade: [Mac 4] ET Tube: [7.0] cm Depth: [22] cm at the lip Intubation confirmed by colorimetric CO2, equal breath sounds, quiet over the stomach. Patient was given 2 more rounds of epinephrine and 2 A of bicarb. Pulse was then obtained. Patient was then transferred to the ICU. Condition: Critical Diagnosis: Cardiac arrest with successful resuscitation, intubation Disposition: Transferred to ICU Critical Care Time: 30 minutes Treatments/Evaluations: Close monitoring and treatment of unstable vital signs, cardiorespiratory, and neurologic status, while maintaining tight balance of fluid, respiratory, and cardiac interventions. This time includes discussing the case with the patient and the patient's family. This time does not include all procedures stated elsewhere in this record. This time also includes reviewing old records, labs and radiological studies. This time includes examining and re-examining the patient. Additionally, this time also includes arranging care with admitting and consulting physicians. MILLIE KOVACS DO Oct 13, 2016 19:44
[2016-10-13] MEDS: ATORVASTATIN 20 MG TAB PO SCH (21:00)
[2016-10-13 21:28] LABS: Allen Test ACCEPTAB; Arterial Base Excess -15.6 mmol/L (-3.0-3); Arterial COHb 0.2 % (0.0-3.0); Arterial Fraction of Oxyhgb 96.8 % (93.0-99.0); Arterial HCO3 10.7 mmol/L (22.0-26.0); Arterial MetHb 0.3 % (0.0-1.5); Arterial Total Hemglobin 10.9 g/dl (12.0-18.0); MODE VENT - AC
[2016-10-13] MEDS ORDERED: FUROSEMIDE 20 MG INJ ONE (22:20)
[2016-10-13] MEDS ORDERED: FUROSEMIDE 20 MG INJ IV ONE (22:30)
[2016-10-13] MEDS: ENOXAPARIN 60 MG/0.6 ML SYG SC SCH (23:06)
[2016-10-13] MEDS: FAMOTIDINE 20 MG INJ IV SCH (23:32)
[2016-10-14] VITALS (106 sets, daily range): BP systolic 67–176; BP diastolic 31–76; PULSE 96–108; RESP 17–46
[2016-10-14] MEDS ORDERED: FUROSEMIDE 40 MG INJ ONE (00:25)
[2016-10-14] MEDS: INSULIN ASPART [NOVOLOG] 3 ML PEN SC SCH ×7 (00:30→21:36)
[2016-10-14] MEDS ORDERED: FUROSEMIDE 40 MG INJ IV ONE (00:30)
[2016-10-14] MEDS: PROPOFOL 100 ML IV SCH ×2 (02:07→17:55)
[2016-10-14] MEDS: MIDAZOLAM (DRIP) 50 mg/50 mL 50 ML IV SCH ×3 (02:34→21:21)
[2016-10-14 05:22] LABS: AADO2 Arterial 435.1 mmHg (7.0-24.0); Arterial Base Excess -12.2 mmol/L (-3.0-3); Arterial COHb 0.3 % (0.0-3.0); Arterial Fraction of Oxyhgb 96.8 % (93.0-99.0); Arterial MetHb 0.4 % (0.0-1.5); Arterial Total Hemglobin 11.2 g/dl (12.0-18.0); MODE VENT - AC
[2016-10-14 05:58] LABS: ADD SCAN DIFF NO
[2016-10-14 06:07] LABS: ABNORMAL IP MESSAGE 1; HEMATOCRIT 27.9 % (37.0-47.0); HEMOGLOBIN 9.3 g/dl (12.0-16.0); MEAN CORPUSCULAR HEMOGLOBIN 30.9 pg (29.0-33.0); MEAN CORPUSCULAR HGB CONC 33.3 g/dl (32.0-37.0); MEAN CORPUSCULAR VOLUME 92.7 fl (82.0-101.0); MEAN PLATELET VOLUME 10.7 fl (7.4-10.4); PLATELET COUNT 137 10^3/UL (140-415); RED BLOOD COUNT 3.01 10^6/ul (4.20-5.40); RED CELL DISTRIBUTION WIDTH 12.5 % (11.5-14.5); WHITE BLOOD COUNT 30.7 10^3/ul (4.8-10.8)
[2016-10-14 06:15] LABS: POTASSIUM 4.3 mmol/L (3.5-5.1)
[2016-10-14 06:18] LABS: CALCIUM 7.4 mg/dl (8.4-10.2); CREATININE 2.75 mg/dl (0.44-1.00)
[2016-10-14 06:19] LABS: MAGNESIUM 1.9 mg/dl (1.7-2.5)
[2016-10-14] MEDS: LACTOBACILLUS CHEW TAB PO SCH ×3 (09:00→21:00)
[2016-10-14] MEDS: ASPIRIN 81 MG TAB PO SCH (09:00)
[2016-10-14] MEDS ORDERED: NA BICARBONATE 8.4% 50 ML SYG IV STA (09:09)
--- NOTE | 2016-10-14 09:16 | RADRPT ---
PROCEDURE: XR Chest. CLINICAL INDICATION: Pulmonary edema. TECHNIQUE: Chest x-ray, single view. COMPARISON: 10/13/2016. FINDINGS: The cardiac silhouette is magnified and unchanged in size and configuration. Aortic arch atheroscler otic calcification is observed. Diffuse coarse interstitial pattern is present and unchanged. The endotracheal tube terminates within the mid trachea. Degenerative changes of the spine are present. The visualized upper abdomen is unremarkable. IMPRESSION: Diffuse coarse interstitial pattern, unchanged. RPTAT: HLST .Coty Manzanares MD, MD Date Time Electronically viewed and signed by .Coty Manzanares MD, MD on 10/14/2016 09:16 .T/
--- NOTE | 2016-10-14 09:18 | CONS ---
Date/Time of Note Date/Time of Note DATE: 10/14/16 TIME: 09:12 Assessment/Plan Assessment/Plan Additional Assessment/Plan Ventilator setting; are AC of 16, tidal volume 500, PEEP of 5, 60% FiO2 . Chest x-ray from today is pending. Assessment recommendations; 1. Patient admitted with severe urosepsis. 2. Status post cardiac arrest and CPR. 3. Renal insufficiency. Patient however having adequate urine output. 4. Severe hypotension from gram-negative bacteremia and pneumonia. 4. History of hypertension and diabetes. 5. Metabolic acidosis. Patient has been adequately fluid resuscitated and also has been given sodium bicarb. Next Continue current treatment. Resume vancomycin. Give additional sodium bicarb. Continue cefepime. Once x-rays available I will reviewed and make further recommendations. I did have a detailed discussion the patient's son at bedside and answered all his questions. About 35 minutes of critical care time was spent evaluated the patient. Consultation Date/Type/Reason Admit Date/Time Oct 12, 2016 at 11:59 Initial Consult Date 10/13/16 Type of Consultation: Pulmonary/critical care 24 HR Interval Summary Free Text/Dictation Patient condition remains critical. Requiring Levophed for blood pressure maintenance. Requiring full ventilator support. She is currently sedated. General exam; elderly lady, orally intubated, sedated. Tachypneic. Exam/Review of Systems Vital Signs Vitals Vital Signs Date Time Temp Pulse Resp B/P Pulse Ox O2 Delivery O2 Flow Rate FiO2 10/14/16 08:45 98 10/14/16 08:30 35 131/74 98 10/14/16 08:00 98.1 Mechanical Ventilator 10/14/16 05:36 60 10/13/16 15:02 2.0 Intake and Output 10/13/16 10/13/16 10/14/16 15:00 23:00 07:00 Intake Total 1600 ml 552.38 ml Output Total 155 ml 280 ml Balance 1445 ml 272.38 ml Exam H EENT examination; supple neck, no JVD. No lymphadenopathy. Midline trachea. Pupils are small bilaterally. She is edentulous. Orally intubated. Chest examination; scattered crackles bilaterally. S1-S2 audible, no murmurs. Regular rhythm. Abdomen examination; soft, nondistended. No organomegaly. Bowel sounds are sluggish. Extremity examination; no peripheral edema. OVERCOILER examination; patient is sedated. Results Result Diagram: 10/14/16 0545 10/14/16 0545 Results 24 hrs Laboratory Tests Test 10/13/16 12:29 10/13/16 16:24 10/13/16 16:35 10/13/16 16:41 Bedside Glucose 176 175 167 152 Test 10/13/16 17:43 10/13/16 18:35 10/13/16 20:48 10/13/16 23:14 Arterial Blood HCO3 9.3 *L 10.7 L Arterial Blood Base Excess -17.8 L -15.6 L Arterial Blood Oxygen Saturation 93.2 L 97.3 Jarod Test ACCEPTAB ACCEPTAB Arterial Blood Gas Puncture Site Right Radial Right Radial Arterial Blood Carboxyhemoglobin 0.2 0.2 Arterial Blood Date Drawn 10/13/2016 5:45:50 PM 10/13/2016 9:16:40 PM Arterial Blood Methemoglobin 0.3 0.3 Arterial Blood pCO2 (Temp correct) 26.3 L 26.9 L Arterial Blood pH (Temp corrected) 7.166 *L 7.217 *L Arterial Blood pO2 (Temp corrected) 84.6 115.1 H Blood Gas A-a O2 Differential 602.1 H 571.0 H Blood Gas Actual Respiration Rate 45 31 Blood Gas Critical Value Read Back Sima BOX RN Blood Gas Low PEEP Setting 5.0 5.0 Blood Gas Modality VENT - AC VENT - AC Blood Gas Notified Time 10/13/2016 6:01:35 PM 10/13/2016 9:26:06 PM Blood Gas Notified Whom RDIX MM Blood Gas Respiration Rate 16.0 16.0 Blood Gas Specimen Source Blood arterial Blood arterial Blood Gas Temperature 37.0 37.0 Blood Gas Tidal Volume 500.0 500.0 FiO2 100.0 100.0 Oxyhemoglobin Percent 92.7 L 96.8 Total Hemoglobin 11.0 L 10.9 L D-Dimer 8681.91 H D-Dimer Comment Erythrocyte Sedimentation Rate 91 H Troponin I 2.500 *H Blood Gas Inspiratory Pressure 36.0 Bedside Glucose 30 *L Test 10/13/16 23:36 10/14/16 00:41 10/14/16 03:41 10/14/16 05:00 Bedside Glucose 181 145 185 Arterial Blood HCO3 12.0 L Arterial Blood Base Excess -12.2 L Arterial Blood Oxygen Saturation 97.5 Jarod Test N/A Arterial Blood Gas Puncture Site Right Brachial Arterial Blood Carboxyhemoglobin 0.3 Arterial Blood Date Drawn 10/14/2016 5:15:11 AM Arterial Blood Methemoglobin 0.4 Arterial Blood pCO2 (Temp correct) 23.3 L Arterial Blood pH (Temp corrected) 7.329 L Arterial Blood pO2 (Temp corrected) 110.8 H Blood Gas A-a O2 Differential 435.1 H Blood Gas Actual Respiration Rate 34 Blood Gas Inspiratory Pressure 34.0 Blood Gas Low PEEP Setting 5.0 Blood Gas Modality VENT - AC Blood Gas Notified Time 10/14/2016 5:22:32 AM Blood Gas Notified Whom BR Blood Gas Respiration Rate 20.0 Blood Gas Specimen Source Blood arterial Blood Gas Temperature 37.0 Blood Gas Tidal Volume 500.0 FiO2 80.0 Oxyhemoglobin Percent 96.8 Total Hemoglobin 11.2 L Test 10/14/16 05:45 10/14/16 06:03 Anion Gap 32 #H Basophils # 0.1 Basophils % 0.2 Blood Urea Nitrogen 38 #H Calcium Level 7.4 L Carbon Dioxide Level 13 L Chloride Level 94 L Creatinine 2.75 H Eosinophils # 0.0 Eosinophils % 0.0 Glucose Level 199 Hematocrit 27.9 L Hemoglobin 9.3 L Lymphocytes # 0.9 Lymphocytes % 2.8 L Magnesium Level 1.9 Mean Corpuscular Hemoglobin 30.9 Mean Corpuscular Hemoglobin Concent 33.3 Mean Corpuscular Volume 92.7 Mean Platelet Volume 10.7 H Monocytes # 0.8 Monocytes % 2.5 Neutrophils # 25.4 H Neutrophils % 82.7 H Nucleated Red Blood Cells # 0.0 Nucleated Red Blood Cells % 0.0 Phosphorus Level 6.6 H Platelet Count 137 L Potassium Level 4.3 Red Blood Count 3.01 L Red Cell Distribution Width 12.5 Sodium Level 135 White Blood Count 30.7 #H Bedside Glucose 216 Medications Medications Current Medications Aspirin (Aspirin) 81 mg DAILY PO Last administered on 10/13/16 08:31; Admin Dose 81 MG; Start 10/13/16 at 09:00 Atorvastatin Calcium (Lipitor) 20 mg HS PO Last administered on 10/12/16 21:55 ; Admin Dose 20 MG; Start 10/12/16 at 21:00 Enoxaparin Sodium (Lovenox) 55 mg Q24H SC Last administered on 10/13/16 23:06 ; Admin Dose 55 MG; Start 10/12/16 at 21:00 Ondansetron HCl (Zofran Inj) 4 mg Q6H PRN IV NAUSEA AND/OR VOMITING; Start at 15:30 Nitroglycerin (Nitroglycerin (Sl Tab) 0.4 Mg) 1 tab Q5M PRN SL CHEST PAIN; Start 10/12/16 at 15:30 Acetaminophen (Tylenol Tab) 650 mg Q6H PRN PO PAIN LEVEL 1-3 OR FEVER Last administered on 10/13/16 02:58; Admin Dose 650 MG; Start 10/12/16 at 15:30 Acetaminophen/ Hydrocodone Bitart ([place] (5/325)) 1 tab Q6H PRN PO PAIN LEVEL 4 -6; Start 10/12/16 at 15:30 Acetaminophen/ Hydrocodone Bitart ([place] (5/325)) 2 tab Q6H PRN PO PAIN LEVEL 7 -10; Start 10/12/16 at 15:30 Morphine Sulfate (morphine) 2 mg Q4H PRN IV PAIN LEVEL 7-10; Start 10/12/16 at 15:30 Docusate Sodium (Colace) 100 mg Q12H PRN PO CONSTIPATION; Start 10/12/16 at 15: 30 Magnesium Hydroxide (Milk Of Mag) 30 ml DAILY PRN PO CONSTIPATION; Start at 15:30 Bisacodyl (Dulcolax Supp) 10 mg DAILY PRN [place] CONSTIPATION; Start 10/12/16 at 15 :30 Famotidine (Pepcid Iv) 20 mg Q24H IV Last administered on 10/13/16 23:32; Admin Dose 20 MG; Start 10/12/16 at 21:00 Miscellaneous Information 1 ea NOTE XX ; Start 10/12/16 at 16:30 Glucose (Glutose) 15 gm Q15M PRN PO DECREASED GLUCOSE; Start 10/12/16 at 16:30 Glucose (Glutose) 22.5 gm Q15M PRN PO DECREASED GLUCOSE; Start 10/12/16 at 16: 30 Dextrose (D50w Syringe) 25 ml Q15M PRN IV DECREASED GLUCOSE; Start 10/12/16 at 16:30 Dextrose (D50w Syringe) 50 ml Q15M PRN IV DECREASED GLUCOSE Last administered on 10/13/16 23:17; Admin Dose 50 ML; Start 10/12/16 at 16:30 Glucagon (Glucagen) 1 mg Q15M PRN IM DECREASED GLUCOSE; Start 10/12/16 at 16:30 Glucose (Glutose) 15 gm Q15M PRN BUCCAL DECREASED GLUCOSE; Start 10/12/16 at 16 :30 Miscellaneous Information Patients own medicat... BID@10,16 XX ; Start 10/13/16 at 10:00 Lactobacillus Acidoph/Bulgaricus (Floranex) 1 tab TID PO Last administered on 12:33; Admin Dose 1 TAB; Start 10/13/16 at 09:00 Labetalol HCl 20 mg 20 mg Q6 PRN IV ELEVATED BLOOD PRESSURE Last administered on 10/13/16 17:29; Admin Dose 20 MG; Start 10/13/16 at 16:30 Cefepime HCl 50 ml @ 100 mls/hr Q24H IVPB ; Start 10/14/16 at 09:00 Propofol 100 ml @ 1.71 mls/hr Q12H IV Last administered on 10/14/16 02:07; Admin Dose 1.71 MLS/HR; Start 10/13/16 at 18:00 Midazolam HCl 50 ml @ 1 mls/hr TITRATE IV Last administered on 10/14/16 02:34 ; Admin Dose 6 MLS/HR; Start 10/13/16 at 18:00 Norepinephrine 16 mg/Dextrose 500 ml @ 0 mls/hr TITRATE IV Last administered on 10/14/16 00:17; Admin Dose 37.5 MLS/HR; Start 10/14/16 at 07:00 Sodium Bicarbonate/ Dextrose (Na Bicarb/D5W) 1,200 ml @ 50 mls/hr Q24H IV Last administered on 10/13/16 20:08; Admin Dose 50 MLS/HR; Start 10/13/16 at 19 :30 Insulin Aspart (Novolog Insulin Pen) NOVOLOG *MODERATE* ALGORI... Q3H SC ; Start 10/14/16 at 00:30 STAN HOLGUIN Oct 14, 2016 09:18
[2016-10-14 09:20] LABS: LYMPHOCYTES # 0.6 10^3/ul (0.8-2.9); MONOCYTE # 0.9 10^3/ul (0.3-0.9)
[2016-10-14] MEDS ORDERED: VANCOMYCIN IV PER PHARMACY XX SCH (09:30)
[2016-10-14] MEDS: CEFEPIME 1GM/50 ML IVPB SCH (09:56)
--- NOTE | 2016-10-14 11:23 | PN ---
Date/Time of Note Date/Time of Note DATE: 10/14/16 TIME: 11:13 Assessment/Plan VTE Prophylaxis VTE Prophylaxis Intervention: LMWH Lines/Catheters IV [facility] Central Line Central line still needed: Yes (critically ill) Urinary Cath still in place: Yes Reason Cath still needed: other (indicate) (critically ill) Assessment/Plan Assessment/Plan [facility] 1. Hospital day 3 for this 71-year-old patient admitted with increased dyspnea and a febrile illness x 24h. Admission labs suggested NSTEMI, and blood/urine cultures now positive for de souza-sensitive E.coli. Troponins elevated again yesterday, after trending down prior to the cardiac arrest yesterday afternoon. * Stop labetalol, in light of timing for the bradycardia and asystole following administration yesterday afternoon. 2. Moderate unilateral left hydronephrosis, suggesting possible ureteral obstruction. Creatinine worse today, at 2.75. Received 60mg Lasix IV yesterday , with good response. * Continue Levaquin 750mg IV q48h; Continue Cefepime * Continue on acidophillus probiotic; patient was already taking at home. * Discussed with Dr. Thompson. Hold further diuretics for now. * Hold CT abd/pelvis until repeat creatinine is improved. * Stop vancomycin in light of renal insufficiency. * Anticipate urology consult on Saturday 3. Hypotension, secondary to sepsis. She had poor urine output last night, but responded well to IV Lasix. * Weaning pressors 4. Prophylaxis * DVT prevention with SCDs * Famotidine for GI protection 5. Disposition * Full-code * Anticipate home with family when recovered Sunny Gonsales MD PhD [phone] Subjective 24 Hr Interval Summary Free Text/Dictation Patient in ICU 102, intubated and sedated (Versed, propafol). Son-in-law [place] was visiting, with his Sravanthi (the patient's daughter) waiting outside. Exam/Review of Systems Vital Signs Vitals Vital Signs Date Time Temp Pulse Resp B/P Pulse Ox O2 Delivery O2 Flow Rate FiO2 10/14/16 08:45 98 10/14/16 08:30 35 131/74 98 10/14/16 08:00 98.1 Mechanical Ventilator 10/14/16 05:36 60 10/13/16 15:02 2.0 Intake and Output 10/13/16 10/13/16 10/14/16 15:00 23:00 07:00 Intake Total 1600 ml 552.38 ml Output Total 155 ml 280 ml Balance 1445 ml 272.38 ml Exam Constitutional: Sedated, intubated. HEENT: Normal round pupils, poorly responsive, no jaundice or conjunctivitis. Neck: Supple, with no jvd and no thyromegaly Respiratory: Mild crackles in the bilateral upper lung tee. But no wheezing , and good air movement. Cardiovascular: nl pulses, regular rhythm, normal rate. No murmur. Gastrointestinal: nl liver, spleen, non-tender, soft Musculoskeletal: muscle tone, nl extremities to inspection, range of motion, no joint tenderness, No muscle weakness, No nl gait and stance, No swelling Extremities: normal pulses, no calf tenderness, No clubbing, No cyanosis, No edema, No palpable cord, No pitting pedal edema, No tenderness Neurological: [employer] II-XII intact, nl mental status, nl speech, nl strength Skin: diaphoresis, nl turgor, no ecchymosis, No laceration, No rash or lesions Lymph: nl lymph nodes Results Result Diagram: 10/14/16 0545 10/14/16 0545 Results 24 hrs Laboratory Tests Test 10/13/16 12:29 10/13/16 16:24 10/13/16 16:35 10/13/16 16:41 Bedside Glucose 176 175 167 152 Test 10/13/16 17:43 10/13/16 18:35 10/13/16 20:48 10/13/16 23:14 Arterial Blood HCO3 9.3 *L 10.7 L Arterial Blood Base Excess -17.8 L -15.6 L Arterial Blood Oxygen Saturation 93.2 L 97.3 Jarod Test ACCEPTAB ACCEPTAB Arterial Blood Gas Puncture Site Right Radial Right Radial Arterial Blood Carboxyhemoglobin 0.2 0.2 Arterial Blood Date Drawn 10/13/2016 5:45:50 PM 10/13/2016 9:16:40 PM Arterial Blood Methemoglobin 0.3 0.3 Arterial Blood pCO2 (Temp correct) 26.3 L 26.9 L Arterial Blood pH (Temp corrected) 7.166 *L 7.217 *L Arterial Blood pO2 (Temp corrected) 84.6 115.1 H Blood Gas A-a O2 Differential 602.1 H 571.0 H Blood Gas Actual Respiration Rate 45 31 Blood Gas Critical Value Read Back Sima BOX RN Blood Gas Low PEEP Setting 5.0 5.0 Blood Gas Modality VENT - AC VENT - AC Blood Gas Notified Time 10/13/2016 6:01:35 PM 10/13/2016 9:26:06 PM Blood Gas Notified Whom RDIX MM Blood Gas Respiration Rate 16.0 16.0 Blood Gas Specimen Source Blood arterial Blood arterial Blood Gas Temperature 37.0 37.0 Blood Gas Tidal Volume 500.0 500.0 FiO2 100.0 100.0 Oxyhemoglobin Percent 92.7 L 96.8 Total Hemoglobin 11.0 L 10.9 L D-Dimer 8681.91 H D-Dimer Comment Erythrocyte Sedimentation Rate 91 H Troponin I 2.500 *H Blood Gas Inspiratory Pressure 36.0 Bedside Glucose 30 *L Test 10/13/16 23:36 10/14/16 00:41 10/14/16 03:41 10/14/16 05:00 Bedside Glucose 181 145 185 Arterial Blood HCO3 12.0 L Arterial Blood Base Excess -12.2 L Arterial Blood Oxygen Saturation 97.5 Jarod Test N/A Arterial Blood Gas Puncture Site Right Brachial Arterial Blood Carboxyhemoglobin 0.3 Arterial Blood Date Drawn 10/14/2016 5:15:11 AM Arterial Blood Methemoglobin 0.4 Arterial Blood pCO2 (Temp correct) 23.3 L Arterial Blood pH (Temp corrected) 7.329 L Arterial Blood pO2 (Temp corrected) 110.8 H Blood Gas A-a O2 Differential 435.1 H Blood Gas Actual Respiration Rate 34 Blood Gas Inspiratory Pressure 34.0 Blood Gas Low PEEP Setting 5.0 Blood Gas Modality VENT - AC Blood Gas Notified Time 10/14/2016 5:22:32 AM Blood Gas Notified Whom BR Blood Gas Respiration Rate 20.0 Blood Gas Specimen Source Blood arterial Blood Gas Temperature 37.0 Blood Gas Tidal Volume 500.0 FiO2 80.0 Oxyhemoglobin Percent 96.8 Total Hemoglobin 11.2 L Test 10/14/16 05:45 10/14/16 06:03 10/14/16 09:55 10/14/16 10:44 Anion Gap 32 #H Band Neutrophils % 16.0 H Basophils # Basophils % Blood Urea Nitrogen 38 #H Calcium Level 7.4 L Carbon Dioxide Level 13 L Chloride Level 94 L Creatinine 2.75 H Differential Comment MANUAL DIFF Eosinophils # Eosinophils % Giant Platelets RARE Glucose Level 199 Hematocrit 27.9 L Hemoglobin 9.3 L Lymphocytes # 0.6 L Lymphocytes % 2.0 L Magnesium Level 1.9 Mean Corpuscular Hemoglobin 30.9 Mean Corpuscular Hemoglobin Concent 33.3 Mean Corpuscular Volume 92.7 Mean Platelet Volume 10.7 H Metamyelocytes # 1.2 Metamyelocytes % 4.0 H Monocytes # 0.9 Monocytes % 3.0 Neutrophils # 23.0 H Neutrophils % 75.0 Nucleated Red Blood Cells # Nucleated Red Blood Cells % Phosphorus Level 6.6 H Platelet Count 137 L Potassium Level 4.3 Red Blood Count 3.01 L Red Cell Distribution Width 12.5 Sodium Level 135 White Blood Count 30.7 #H Bedside Glucose 216 202 Random Vancomycin Level 6.4 Medications Medications Current Medications Aspirin (Aspirin) 81 mg DAILY PO Last administered on 10/13/16 08:31; Admin Dose 81 MG; Start 10/13/16 at 09:00 Atorvastatin Calcium (Lipitor) 20 mg HS PO Last administered on 10/12/16 21:55 ; Admin Dose 20 MG; Start 10/12/16 at 21:00 Enoxaparin Sodium (Lovenox) 55 mg Q24H SC Last administered on 10/13/16 23:06 ; Admin Dose 55 MG; Start 10/12/16 at 21:00 Ondansetron HCl (Zofran Inj) 4 mg Q6H PRN IV NAUSEA AND/OR VOMITING; Start at 15:30 Nitroglycerin (Nitroglycerin (Sl Tab) 0.4 Mg) 1 tab Q5M PRN SL CHEST PAIN; Start 10/12/16 at 15:30 Acetaminophen (Tylenol Tab) 650 mg Q6H PRN PO PAIN LEVEL 1-3 OR FEVER Last administered on 10/13/16 02:58; Admin Dose 650 MG; Start 10/12/16 at 15:30 Acetaminophen/ Hydrocodone Bitart ([place] (5/325)) 1 tab Q6H PRN PO PAIN LEVEL 4 -6; Start 10/12/16 at 15:30 Acetaminophen/ Hydrocodone Bitart ([place] (5/325)) 2 tab Q6H PRN PO PAIN LEVEL 7 -10; Start 10/12/16 at 15:30 Morphine Sulfate (morphine) 2 mg Q4H PRN IV PAIN LEVEL 7-10; Start 10/12/16 at 15:30 Docusate Sodium (Colace) 100 mg Q12H PRN PO CONSTIPATION; Start 10/12/16 at 15: 30 Magnesium Hydroxide (Milk Of Mag) 30 ml DAILY PRN PO CONSTIPATION; Start at 15:30 Bisacodyl (Dulcolax Supp) 10 mg DAILY PRN [place] CONSTIPATION; Start 10/12/16 at 15 :30 Famotidine (Pepcid Iv) 20 mg Q24H IV Last administered on 10/13/16 23:32; Admin Dose 20 MG; Start 10/12/16 at 21:00 Miscellaneous Information 1 ea NOTE XX ; Start 10/12/16 at 16:30 Glucose (Glutose) 15 gm Q15M PRN PO DECREASED GLUCOSE; Start 10/12/16 at 16:30 Glucose (Glutose) 22.5 gm Q15M PRN PO DECREASED GLUCOSE; Start 10/12/16 at 16: 30 Dextrose (D50w Syringe) 25 ml Q15M PRN IV DECREASED GLUCOSE; Start 10/12/16 at 16:30 Dextrose (D50w Syringe) 50 ml Q15M PRN IV DECREASED GLUCOSE Last administered on 10/13/16 23:17; Admin Dose 50 ML; Start 10/12/16 at 16:30 Glucagon (Glucagen) 1 mg Q15M PRN IM DECREASED GLUCOSE; Start 10/12/16 at 16:30 Glucose (Glutose) 15 gm Q15M PRN BUCCAL DECREASED GLUCOSE; Start 10/12/16 at 16 :30 Miscellaneous Information Patients own medicat... BID@16 XX ; Start 10/13/16 at 10:00 Lactobacillus Acidoph/Bulgaricus (Floranex) 1 tab TID PO Last administered on 12:33; Admin Dose 1 TAB; Start 10/13/16 at 09:00 Labetalol HCl 20 mg 20 mg Q6 PRN IV ELEVATED BLOOD PRESSURE Last administered on 10/13/16 17:29; Admin Dose 20 MG; Start 10/13/16 at 16:30 Cefepime HCl 50 ml @ 100 mls/hr Q24H IVPB Last administered on 10/14/16 09:56 ; Admin Dose 100 MLS/HR; Start 10/14/16 at 09:00 Propofol 100 ml @ 1.71 mls/hr Q12H IV Last administered on 10/14/16 02:07; Admin Dose 1.71 MLS/HR; Start 10/13/16 at 18:00 Midazolam HCl 50 ml @ 1 mls/hr TITRATE IV Last administered on 10/14/16 02:34 ; Admin Dose 6 MLS/HR; Start 10/13/16 at 18:00 Norepinephrine 16 mg/Dextrose 500 ml @ 0 mls/hr TITRATE IV Last administered on 10/14/16 00:17; Admin Dose 37.5 MLS/HR; Start 10/14/16 at 07:00 Sodium Bicarbonate/ Dextrose (Na Bicarb/D5W) 1,200 ml @ 50 mls/hr Q24H IV Last administered on 10/13/16 20:08; Admin Dose 50 MLS/HR; Start 10/13/16 at 19 :30 Insulin Aspart (Novolog Insulin Pen) NOVOLOG *MODERATE* ALGORI... Q4 SC Last administered on 10/14/16 10:49; Admin Dose 4 UNIT; Start 10/14/16 at 10:00 JUANIS GONSALES M.D. Oct 14, 2016 11:23
[2016-10-14] MEDS ORDERED: LIDOCAINE 1% (MDV) 20 ML INJ SC ONE (12:00)
--- NOTE | 2016-10-14 12:03 | CONS ---
Date/Time of Note Date/Time of Note DATE: 10/14/16 TIME: 12:00 Assessment/Plan Assessment/Plan Additional Assessment/Plan Possible cardiac arrest Preserved ejection fraction Labile blood pressure Respiratory failure SIRS Elevated lactate Elevated troponin Acute kidney injury -Patient with hypertension yesterday, given IV labetalol and as per medical notes, bradycardia leading to asystole. Patient given epinephrine, intubated and CPR. Pulse obtained and patient transferred to ICU. Would continue to wean down IV pressor as blood pressure permits, would hold any diuretics at the current time given rising creatinine and patient requiring IV pressors. Continue anticoagulation, aspirin and statin therapy. No beta-bull given patient hypotensive. Consultation Date/Type/Reason Admit Date/Time Oct 12, 2016 at 11:59 Initial Consult Date 10/13/16 Type of Consultation: cv 24 HR Interval Summary Free Text/Dictation Patient with bradycardia leading to asystole yesterday afternoon after being given labetalol for hypertension. Currently in ICU intubated and sedated. Family at bedside Exam/Review of Systems Vital Signs Vitals Vital Signs Date Time Temp Pulse Resp B/P Pulse Ox O2 Delivery O2 Flow Rate FiO2 10/14/16 08:45 98 10/14/16 08:30 35 131/74 98 10/14/16 08:00 98.1 Mechanical Ventilator 10/14/16 05:36 60 10/13/16 15:02 2.0 Intake and Output 10/13/16 10/13/16 10/14/16 15:00 23:00 07:00 Intake Total 1600 ml 552.38 ml Output Total 155 ml 280 ml Balance 1445 ml 272.38 ml Exam Intubated and sedated, no apparent distress Head: normocephalic ENMT: intubated Respiratory: other (Coarse breath sounds bilaterally, no wheezing) Cardiovascular: other (S1-S2 heard), regular rate and rhythm Gastrointestinal: bowel sounds, other (No grimacing with palpation), soft Extremities: edema (Trace) Results Result Diagram: 10/14/16 0545 10/14/16 0545 Results 24 hrs Laboratory Tests Test 10/13/16 12:29 10/13/16 16:24 10/13/16 16:35 10/13/16 16:41 Bedside Glucose 176 175 167 152 Test 10/13/16 17:43 10/13/16 18:35 10/13/16 20:48 10/13/16 23:14 Arterial Blood HCO3 9.3 *L 10.7 L Arterial Blood Base Excess -17.8 L -15.6 L Arterial Blood Oxygen Saturation 93.2 L 97.3 Jarod Test ACCEPTAB ACCEPTAB Arterial Blood Gas Puncture Site Right Radial Right Radial Arterial Blood Carboxyhemoglobin 0.2 0.2 Arterial Blood Date Drawn 10/13/2016 5:45:50 PM 10/13/2016 9:16:40 PM Arterial Blood Methemoglobin 0.3 0.3 Arterial Blood pCO2 (Temp correct) 26.3 L 26.9 L Arterial Blood pH (Temp corrected) 7.166 *L 7.217 *L Arterial Blood pO2 (Temp corrected) 84.6 115.1 H Blood Gas A-a O2 Differential 602.1 H 571.0 H Blood Gas Actual Respiration Rate 45 31 Blood Gas Critical Value Read Back Sima BOX RN Blood Gas Low PEEP Setting 5.0 5.0 Blood Gas Modality VENT - AC VENT - AC Blood Gas Notified Time 10/13/2016 6:01:35 PM 10/13/2016 9:26:06 PM Blood Gas Notified Whom RDIX MM Blood Gas Respiration Rate 16.0 16.0 Blood Gas Specimen Source Blood arterial Blood arterial Blood Gas Temperature 37.0 37.0 Blood Gas Tidal Volume 500.0 500.0 FiO2 100.0 100.0 Oxyhemoglobin Percent 92.7 L 96.8 Total Hemoglobin 11.0 L 10.9 L D-Dimer 8681.91 H D-Dimer Comment Erythrocyte Sedimentation Rate 91 H Troponin I 2.500 *H Blood Gas Inspiratory Pressure 36.0 Bedside Glucose 30 *L Test 10/13/16 23:36 10/14/16 00:41 10/14/16 03:41 10/14/16 05:00 Bedside Glucose 181 145 185 Arterial Blood HCO3 12.0 L Arterial Blood Base Excess -12.2 L Arterial Blood Oxygen Saturation 97.5 Jarod Test N/A Arterial Blood Gas Puncture Site Right Brachial Arterial Blood Carboxyhemoglobin 0.3 Arterial Blood Date Drawn 10/14/2016 5:15:11 AM Arterial Blood Methemoglobin 0.4 Arterial Blood pCO2 (Temp correct) 23.3 L Arterial Blood pH (Temp corrected) 7.329 L Arterial Blood pO2 (Temp corrected) 110.8 H Blood Gas A-a O2 Differential 435.1 H Blood Gas Actual Respiration Rate 34 Blood Gas Inspiratory Pressure 34.0 Blood Gas Low PEEP Setting 5.0 Blood Gas Modality VENT - AC Blood Gas Notified Time 10/14/2016 5:22:32 AM Blood Gas Notified Whom BR Blood Gas Respiration Rate 20.0 Blood Gas Specimen Source Blood arterial Blood Gas Temperature 37.0 Blood Gas Tidal Volume 500.0 FiO2 80.0 Oxyhemoglobin Percent 96.8 Total Hemoglobin 11.2 L Test 10/14/16 05:45 10/14/16 06:03 10/14/16 09:55 10/14/16 10:44 Anion Gap 32 #H Band Neutrophils % 16.0 H Basophils # Basophils % Blood Urea Nitrogen 38 #H Calcium Level 7.4 L Carbon Dioxide Level 13 L Chloride Level 94 L Creatinine 2.75 H Differential Comment MANUAL DIFF Eosinophils # Eosinophils % Giant Platelets RARE Glucose Level 199 Hematocrit 27.9 L Hemoglobin 9.3 L Lymphocytes # 0.6 L Lymphocytes % 2.0 L Magnesium Level 1.9 Mean Corpuscular Hemoglobin 30.9 Mean Corpuscular Hemoglobin Concent 33.3 Mean Corpuscular Volume 92.7 Mean Platelet Volume 10.7 H Metamyelocytes # 1.2 Metamyelocytes % 4.0 H Monocytes # 0.9 Monocytes % 3.0 Neutrophils # 23.0 H Neutrophils % 75.0 Nucleated Red Blood Cells # Nucleated Red Blood Cells % Phosphorus Level 6.6 H Platelet Count 137 L Potassium Level 4.3 Red Blood Count 3.01 L Red Cell Distribution Width 12.5 Sodium Level 135 White Blood Count 30.7 #H Bedside Glucose 216 202 Random Vancomycin Level 6.4 Medications Medications Current Medications Aspirin (Aspirin) 81 mg DAILY PO Last administered on 10/13/16 08:31; Admin Dose 81 MG; Start 10/13/16 at 09:00 Atorvastatin Calcium (Lipitor) 20 mg HS PO Last administered on 10/12/16 21:55 ; Admin Dose 20 MG; Start 10/12/16 at 21:00 Enoxaparin Sodium (Lovenox) 55 mg Q24H SC Last administered on 10/13/16 23:06 ; Admin Dose 55 MG; Start 10/12/16 at 21:00 Ondansetron HCl (Zofran Inj) 4 mg Q6H PRN IV NAUSEA AND/OR VOMITING; Start at 15:30 Nitroglycerin (Nitroglycerin (Sl Tab) 0.4 Mg) 1 tab Q5M PRN SL CHEST PAIN; Start 10/12/16 at 15:30 Acetaminophen (Tylenol Tab) 650 mg Q6H PRN PO PAIN LEVEL 1-3 OR FEVER Last administered on 10/13/16 02:58; Admin Dose 650 MG; Start 10/12/16 at 15:30 Acetaminophen/ Hydrocodone Bitart ([place] (5/325)) 1 tab Q6H PRN PO PAIN LEVEL 4 -6; Start 10/12/16 at 15:30 Acetaminophen/ Hydrocodone Bitart ([place] (5/325)) 2 tab Q6H PRN PO PAIN LEVEL 7 -10; Start 10/12/16 at 15:30 Morphine Sulfate (morphine) 2 mg Q4H PRN IV PAIN LEVEL 7-10; Start 10/12/16 at 15:30 Docusate Sodium (Colace) 100 mg Q12H PRN PO CONSTIPATION; Start 10/12/16 at 15: 30 Magnesium Hydroxide (Milk Of Mag) 30 ml DAILY PRN PO CONSTIPATION; Start at 15:30 Bisacodyl (Dulcolax Supp) 10 mg DAILY PRN [place] CONSTIPATION; Start 10/12/16 at 15 :30 Famotidine (Pepcid Iv) 20 mg Q24H IV Last administered on 10/13/16 23:32; Admin Dose 20 MG; Start 10/12/16 at 21:00 Miscellaneous Information 1 ea NOTE XX ; Start 10/12/16 at 16:30 Glucose (Glutose) 15 gm Q15M PRN PO DECREASED GLUCOSE; Start 10/12/16 at 16:30 Glucose (Glutose) 22.5 gm Q15M PRN PO DECREASED GLUCOSE; Start 10/12/16 at 16: 30 Dextrose (D50w Syringe) 25 ml Q15M PRN IV DECREASED GLUCOSE; Start 10/12/16 at 16:30 Dextrose (D50w Syringe) 50 ml Q15M PRN IV DECREASED GLUCOSE Last administered on 10/13/16 23:17; Admin Dose 50 ML; Start 10/12/16 at 16:30 Glucagon (Glucagen) 1 mg Q15M PRN IM DECREASED GLUCOSE; Start 10/12/16 at 16:30 Glucose (Glutose) 15 gm Q15M PRN BUCCAL DECREASED GLUCOSE; Start 10/12/16 at 16 :30 Miscellaneous Information Patients own medicat... BID@10,16 XX ; Start 10/13/16 at 10:00 Lactobacillus Acidoph/Bulgaricus (Floranex) 1 tab TID PO Last administered on 12:33; Admin Dose 1 TAB; Start 10/13/16 at 09:00 Labetalol HCl 20 mg 20 mg Q6 PRN IV ELEVATED BLOOD PRESSURE Last administered on 10/13/16 17:29; Admin Dose 20 MG; Start 10/13/16 at 16:30 Cefepime HCl 50 ml @ 100 mls/hr Q24H IVPB Last administered on 10/14/16 09:56 ; Admin Dose 100 MLS/HR; Start 10/14/16 at 09:00 Propofol 100 ml @ 1.71 mls/hr Q12H IV Last administered on 10/14/16 02:07; Admin Dose 1.71 MLS/HR; Start 10/13/16 at 18:00 Midazolam HCl 50 ml @ 1 mls/hr TITRATE IV Last administered on 10/14/16 11:31 ; Admin Dose 6 MLS/HR; Start 10/13/16 at 18:00 Sodium Bicarbonate/ Dextrose (Na Bicarb/D5W) 1,200 ml @ 50 mls/hr Q24H IV Last administered on 10/13/16 20:08; Admin Dose 50 MLS/HR; Start 10/13/16 at 19 :30 Insulin Aspart NOVOLOG *MODERATE* ALGORI... Q4 SC Last administered on 10:49; Admin Dose 4 UNIT; Start 10/14/16 at 10:00 Vancomycin HCl 1.25 gm/Sodium Chloride 250 ml @ 83.333 mls/ hr 1230 IVPB ; Start 10/14/16 at 12:30; Stop 10/14/16 at 23:00 Vancomycin HCl 250 ml @ 125 mls/hr Q48H IVPB ; Start 10/16/16 at 12:00 Norepinephrine/ Dextrose (Levophed/D5W) 500 ml @ 0 mls/hr TITRATE IV ; Start at 12:00 Lidocaine (Xylocaine 1% (Mdv) 20 ml) 20 ml ONCE ONCE SC ; Start 10/14/16 at 12: 00; Stop 10/14/16 at 12:01 Singh Thompson DO Oct 14, 2016 12:03
[2016-10-14 12:17] LABS: Allen Test ACCEPTAB; Arterial Base Excess 3.2 mmol/L (-3.0-3); Arterial COHb 0.2 % (0.0-3.0); Arterial Fraction of Oxyhgb 96.4 % (93.0-99.0); Arterial HCO3 25.8 mmol/L (22.0-26.0); Arterial MetHb 0.4 % (0.0-1.5); Arterial Total Hemglobin 9.7 g/dl (12.0-18.0); MODE VENT - AC
[2016-10-14] MEDS ORDERED: VANCOMYCIN 1.25 GM in SOD CHLORIDE 0.9% 250 ML IVPB SCH (12:30)
[2016-10-14 18:35] LABS: AADO2 Arterial 179.3 mmHg (7.0-24.0); Allen Test ACCEPTAB; Arterial Base Excess 7.5 mmol/L (-3.0-3); Arterial COHb 0.2 % (0.0-3.0); Arterial Fraction of Oxyhgb 93.1 % (93.0-99.0); Arterial HCO3 29.4 mmol/L (22.0-26.0); Arterial MetHb 0.5 % (0.0-1.5); Arterial Total Hemglobin 10.8 g/dl (12.0-18.0); MODE VENT - AC
[2016-10-14] MEDS: ATORVASTATIN 20 MG TAB PO SCH (21:00)
[2016-10-14] MEDS: FAMOTIDINE 20 MG INJ IV SCH (21:21)
[2016-10-14] MEDS: ENOXAPARIN 60 MG/0.6 ML SYG SC SCH (21:22)
[2016-10-15] VITALS (106 sets, daily range): BP systolic 91–157; BP diastolic 52–80; PULSE 86–101; RESP 14–25
[2016-10-15] MEDS: INSULIN ASPART [NOVOLOG] 3 ML PEN SC SCH ×6 (01:55→20:35)
[2016-10-15 06:01] LABS: CREATININE 2.7 mg/dl (0.44-1.00)
[2016-10-15 06:20] LABS: AADO2 Arterial 163.5 mmHg (7.0-24.0); Allen Test ACCEPTAB; Arterial Base Excess 5.8 mmol/L (-3.0-3); Arterial COHb 0.2 % (0.0-3.0); Arterial Fraction of Oxyhgb 95.6 % (93.0-99.0); Arterial HCO3 27.7 mmol/L (22.0-26.0); Arterial MetHb 0.3 % (0.0-1.5); Arterial Total Hemglobin 10.3 g/dl (12.0-18.0); MODE VENT - AC
[2016-10-15] MEDS: MIDAZOLAM (DRIP) 50 mg/50 mL 50 ML IV SCH (06:30)
[2016-10-15 08:02] LABS: ADD SCAN DIFF NO
[2016-10-15 08:13] LABS: ABNORMAL IP MESSAGE 1; BASOPHIL # 0.1 10^3/ul (0.0-0.1); BASOPHILS % 0.3 % (0.0-2.0); EOSINOPHILS % 0.2 % (0.0-7.0); HEMATOCRIT 26.6 % (37.0-47.0); HEMOGLOBIN 9.3 g/dl (12.0-16.0); LYMPHOCYTES # 1.4 10^3/ul (0.8-2.9); MEAN CORPUSCULAR HEMOGLOBIN 31.3 pg (29.0-33.0); MEAN CORPUSCULAR VOLUME 89.6 fl (82.0-101.0); MEAN PLATELET VOLUME 10.3 fl (7.4-10.4); MONOCYTE # 0.8 10^3/ul (0.3-0.9); MONOCYTES % 3.2 % (0.0-11.0); NEUTROPHILS % 89.3 % (39.0-77.0); NUCLEATED RED BLOOD CELLS # 0.1 10^3/ul (0.0-0.0); NUCLEATED RED BLOOD CELLS% 0.3 /100WBC (0.0-0.0); PLATELET COUNT 137 10^3/UL (140-415); RED BLOOD COUNT 2.97 10^6/ul (4.20-5.40); RED CELL DISTRIBUTION WIDTH 12.3 % (11.5-14.5); WHITE BLOOD COUNT 23.5 10^3/ul (4.8-10.8)
--- NOTE | 2016-10-15 08:14 | RADRPT ---
PROCEDURE: XR Chest. CLINICAL INDICATION: Shortness of breath. TECHNIQUE: Single frontal view. COMPARISON: 10/14/2016. FINDINGS: The endotracheal tube is in satisfactory position. The bilateral pulmonary diffuse air space and in terstitial disease consistent with pulmonary edema is unchanged. The heart is mildly enlarged. There is calcification in the aorta consistent with atherosclerosis. There is no pleural effusion. There is no pneumothorax. IMPRESSION: 1. Endotracheal tube. 2. Pulmonary edema, unchanged. 3. Mild cardiomegaly and atherosclerosis. RPTAT: QQ .Jono Bhagat MD, MD Date Time Electronically viewed and signed by .Jono Bhagat MD, MD on 10/15/2016 08:14 .R/
--- NOTE | 2016-10-15 08:15 | HP ---
DATE OF ADMISSION: 10/12/2016 CONSULT ON THIS ADMISSION: Singh Thompson MD from cardiology. PRIMARY CARE PHYSICIAN: Gordo Roberts MD CHIEF COMPLAINT ON ADMISSION: Fevers. HISTORY OF PRESENT ILLNESS: This is a 71-year-old female with history of poj-fylscck-eukghhfmz diab etes mellitus, hypertension, who presented to the emergency department with 48 hours history of feve rs and chills. The patient reports that her symptoms started on Saturday evening, therefore 48 sean rs ago, when she started having episodes of chills. She was noted to be febrile by the next day. A ccording to the family, her fevers were up to 101, 102. She was taken to urgent care 24 hours ago. She was evaluated and apparently diagnosed with possible urinary tract infection. It is unclear as the patient was not given specific treatment and was just asked to follow up with her primary care physician. Over the past 24 hours, the patient kept having episodes of chills and also fevers, acco rding to the family up to 106. Here at [facility], her temperature max was 102.5 . The patient reports chills, nausea, had 1 episode of vomiting. She reports left flank pain that started today. She denies any dysuria, but does report urinary urgency. She is currently having no nausea or vomiting and actually is hungry and would like to eat. In the emergency department, she was found to have leukocytosis, elevated lactate and a positive UA, all indicative of urinary tract infection with sepsis. She is being admitted to a telemetry bed on IV antibiotics and IV fluids. A lso, as part of her workup, she had a troponin drawn which came back at 3.8. Therefore, cardiology was consulted. Dr. Thompson did see the patient. He is recommending anticoagulation with Lovenox and serial troponins. A 2D echocardiogram is done and will reevaluate the patient for possible need o f angiogram versus CTA cardiac or stress test. ALLERGIES: NO KNOWN ALLERGIES. PAST MEDICAL HISTORY: 1. Hypertension. 2. Kwo-voddrof-qveqxhbkx diabetes mellitus. PAST SURGICAL HISTORY: Status post cholecystectomy, remotely. SOCIAL HISTORY: The patient lives with family. She does not drink alcohol or use tobacco. REVIEW OF SYSTEMS: As per HPI. The patient denies any chest pain. She denies any respiratory symp toms. She denies any neurological deficits, just generalized weakness over the past 2 days. She de nies any gastrointestinal symptoms except for episode of nausea and vomiting x1. OUTPATIENT MEDICATIONS: Include: 1. Glipizide 5 mg p.o. b.i.d. 2. Cozaar 50 mg p.o. daily. PHYSICAL EXAMINATION: VITAL SIGNS: Temperature is 98.5 with a temperature max of 102.5, heart rate of 90, respiratory rat e 20, blood pressure 106/64. The patient is saturating 97% on room air. GENERAL: She is alert and oriented x4. She is in no acute distress; however, she is having chills currently. HEENT: Pupils are equally round and reactive to light. Extraocular muscles are intact. Anicteric sclerae. NECK: No JVD, no thyromegaly noted. HEART: Regular rate and rhythm. No murmur, rubs, or gallops. LUNGS: Clear to auscultation bilaterally. ABDOMEN: Soft, nondistended. She does have left flank pain. Otherwise, no other tenderness to pal pation. EXTREMITIES: No edema, clubbing or cyanosis. NEUROLOGIC: Grossly intact with muscle strength 5/5 throughout. LABORATORY/DIAGNOSTIC DATA: White blood cell count is 16.1 with 90% neutrophils, hemoglobin 11.3, h ematocrit 33.0, platelet count of 231. Chemistry with a sodium of 136, potassium 3.4, chloride 99, bicarbonate 21, BUN 19, creatinine 1.33, glucose of 178. Lactic acid was 4.2 on admission, down to 2.6 on recheck. Calcium of 9.0. Total protein 0.4, AST 71, ALT 61, alkaline phosphatase 207. Troponin 3.840. Total protein 7.4, albumin 3.8. Amylase of 127, lipase of 125. INR is 1.40, PTT 38.8, PT 17.2. Urinalysis is 1+ leukocyte esterase, a few bacteria now. Blood cultures and ur ine cultures are pending. Chest x-ray shows no evidence of acute cardiopulmonary disease. EKG shows sinus rhythm, no acute ST or T wave abnormalities. ASSESSMENT AND PLAN: This is a 71-year-old female with: 1. Urinary tract infection with sepsis. The patient is hemodynamically stable. Her lactate is judy nding down. She will be admitted to telemetry. Continue IV fluids, IV antibiotics. We will resume diet. We will follow up on blood cultures and urine cultures for antibiotic adjustments. For now, we will continue cefepime and vancomycin started already in the emergency department. 2. Diabetes mellitus, [id number]-ggbuxdwih. We will check her hemoglobin A1c in the a.m., sliding scale insulin to be continued for now. We will hold off her glipizide currently. 3. Hypertension in the setting of sepsis. The patient is actually normotensive to slightly hypoten sive. Continue IV fluids and hold Cozaar. 4. Acute kidney injury in setting of urinary tract infection and sepsis, likely prerenal azotemia. Continue IV fluids. I will check a renal ultrasound given the patient's flank pain to rule out any nephrolithiasis. Followup urine culture and continue treating urinary tract infection. 5. Elevated troponin, possible non-ST elevation myocardial infarction. We will continue to trend h er troponins. Continue Lovenox. A 2D echocardiogram done, reading is pending. 6. Prophylaxis. The patient is already on Lovenox treatment dose for possible NSTEMI and we will h ave her on Pepcid for gastrointestinal prophylaxis. DISPOSITION: Admit to telemetry. Dr. Thompson will be following for cardiology. Dictated By: ESE HEREDIA/ZACHARY Conf#: [id number] DID#: [id number]
[2016-10-15 08:21] LABS: ALBUMIN 2.7 g/dl (3.3-4.9)
[2016-10-15] MEDS: PROPOFOL 100 ML IV SCH ×2 (08:22→17:13)
[2016-10-15 08:24] LABS: BILIRUBIN,DIRECT 1.1 mg/dl (0.00-0.20); BILIRUBIN,INDIRECT 0.8 mg/dl (0-1.1); BILIRUBIN,TOTAL 1.9 mg/dl (0.2-1.3); CREATININE 2.47 mg/dl (0.44-1.00)
[2016-10-15 08:25] LABS: ALBUMIN/GLOBULIN RATIO 0.93; CALCIUM 7.4 mg/dl (8.4-10.2); TOTAL PROTEIN 5.6 g/dl (6.1-8.1)
[2016-10-15] MEDS: ASPIRIN 81 MG TAB PO SCH (08:27)
[2016-10-15] MEDS: LACTOBACILLUS CHEW TAB PO SCH ×3 (08:27→20:16)
[2016-10-15] MEDS: CEFEPIME 1GM/50 ML IVPB SCH (08:43)
[2016-10-15] MEDS ORDERED: LIDOCAINE 1% (MDV) 20 ML INJ SC ONE (09:00)
[2016-10-15 09:03] LABS: POTASSIUM 2.7 mmol/L (3.5-5.1); TROPONIN-I 0.74 ng/ml (0.00-0.12)
--- NOTE | 2016-10-15 09:41 | PN ---
Date/Time of Note Date/Time of Note DATE: 10/15/16 TIME: 09:14 Assessment/Plan VTE Prophylaxis VTE Prophylaxis Intervention: LMWH Lines/Catheters IV Catheter Type (from [facility] Saline Lock Urinary Cath still in place: Yes Reason Cath still needed: other (indicate) (critically ill ) Assessment/Plan Assessment/Plan 71-year-old female with: 1. S/p Cardiac arrest, s/p intubation and on mechanical ventilation now VSS better and stable on Vent and also Levo Troponin trending down again 2. Acute respiratory failure: intubated post cardiac arrest CXR with pulmonary edema vs bilateral DAVID but also concerns for ARDS, check BNP and currently unclear volume status in setting of severe sepsis Unlikely PE, patient was on anticoag dose of Lovenox on admission due to NSTEMI dx anyways Continue current abx with double gram neg coverage and Vanco added back per Pulmo 3. E coli Severe sepsis and Urinary tract infection. Now in shock state, ? septic shock On Cefepime and Levaquin. Continue pressors for BP support Repeat blood cx pending 4. Diabetes mellitus, [id number]. A1C of 7.8 continue current insulin regimen 5. Hypertension, currently hypotensive in the setting of sepsis. Holding all meds, on Pressors currently. 6. Acute kidney injury in setting of urinary tract infection and sepsis, likely prerenal azotemia. Renal function declined further with hemodynamic instability but currently with UOP up to 70cc/hr I will discuss with cardio and pulmo, needs IV fluids vs Diuretics based on CXR Renal US showing left moderate hydronephrosis, CT A/P pending Continue abx rx, Replete K today and repeat BMP and check magnesium this afternoon 6. Elevated troponin, possible non-ST elevation myocardial infarction. Trop back up after resuscitation but trending down Continue Lovenox. A 2D echocardiogram with stable EF Appreciate Cardiology recommendations Prophylaxis. Already on Lovenox treatment dose for possible NSTEMI and Pepcid for gastrointestinal prophylaxis. DISPOSITION: In ICU, intubated and on pressors. Followup Cardio and pulmo recs Subjective 24 Hr Interval Summary Free Text/Dictation Patient remains critically il on Vent and pressors but titrating pressors down and vent adjustments to be made Labs trending down Afebrile Exam/Review of Systems Vital Signs Vitals Vital Signs Date Time Temp Pulse Resp B/P Pulse Ox O2 Delivery O2 Flow Rate FiO2 2/27/17 08:00 88 20 117/68 99 Mechanical Ventilator 10/15/16 07:30 98.7 10/15/16 07:15 40 10/13/16 15:02 2.0 Intake and Output 10/14/16 10/14/16 10/15/16 15:00 23:00 07:00 Intake Total 881.010 ml 304.01 ml 196.01 ml Output Total 725 ml 675 ml 495 ml Balance 156.010 ml -370.99 ml -298.99 ml Exam Constitutional: other (sedated and intubated ) Respiratory: diminished breath sounds (bases b/l ), other (intubated) Cardiovascular: nl pulses, regular rate and rhythm Gastrointestinal: non-tender, other (no edema, clubbing or cyanosis ), soft Musculoskeletal: nl extremities to inspection Extremities: normal pulses, other (no edema, clubbing or cyanosis) Neurological: other (sedated and intubated ) Results Result Diagram: 10/15/16 0800 10/15/16 0800 Results 24 hrs Laboratory Tests Test 10/14/16 09:55 10/14/16 10:44 10/14/16 12:00 10/14/16 13:12 Random Vancomycin Level 6.4 Bedside Glucose 202 222 H Arterial Blood HCO3 25.8 Arterial Blood Base Excess 3.2 H Arterial Blood Oxygen Saturation 97.0 Jarod Test ACCEPTAB Arterial Blood Gas Puncture Site Right Radial Arterial Blood Carboxyhemoglobin 0.2 Arterial Blood Date Drawn 10/14/2016 12:00:17 PM Arterial Blood Methemoglobin 0.4 Arterial Blood pCO2 (Temp correct) 31.7 L Arterial Blood pH (Temp corrected) 7.528 H Arterial Blood pO2 (Temp corrected) 100.9 H Blood Gas A-a O2 Differential 292.0 H Blood Gas Actual Respiration Rate 23 Blood Gas Low PEEP Setting 5.0 Blood Gas Modality VENT - AC Blood Gas Notified Time 10/14/2016 12:17:25 PM Blood Gas Notified Whom RDIX Blood Gas Respiration Rate 20.0 Blood Gas Specimen Source Blood arterial Blood Gas Temperature 37.0 Blood Gas Tidal Volume 500.0 FiO2 60.0 Oxyhemoglobin Percent 96.4 Total Hemoglobin 9.7 L Test 10/14/16 17:53 10/14/16 18:00 10/14/16 21:31 10/15/16 01:52 Bedside Glucose 218 218 224 H Arterial Blood HCO3 29.4 H Arterial Blood Base Excess 7.5 H Arterial Blood Oxygen Saturation 93.8 L Jarod Test ACCEPTAB Arterial Blood Gas Puncture Site Right Radial Arterial Blood Carboxyhemoglobin 0.2 Arterial Blood Date Drawn 10/14/2016 6:20:00 PM Arterial Blood Methemoglobin 0.5 Arterial Blood pCO2 (Temp correct) 32.2 L Arterial Blood pH (Temp corrected) 7.579 *H Arterial Blood pO2 (Temp corrected) 68.9 L Blood Gas A-a O2 Differential 179.3 H Blood Gas Actual Respiration Rate 24 Blood Gas Critical Value Read Back Sima BERNAL RN Blood Gas Low PEEP Setting 5.0 Blood Gas Modality VENT - AC Blood Gas Notified Time 10/14/2016 6:34:43 PM Blood Gas Notified Whom RDIX Blood Gas Respiration Rate 20.0 Blood Gas Specimen Source Blood arterial Blood Gas Temperature 37.0 Blood Gas Tidal Volume 450.0 FiO2 40.0 Oxyhemoglobin Percent 93.1 Total Hemoglobin 10.8 L Test 10/15/16 04:30 10/15/16 05:47 10/15/16 06:00 10/15/16 08:00 Blood Urea Nitrogen 54 H 49 H Creatinine 2.70 H 2.47 H Bedside Glucose 187 Arterial Blood HCO3 27.7 H Arterial Blood Base Excess 5.8 H Arterial Blood Oxygen Saturation 96.1 Jarod Test ACCEPTAB Arterial Blood Gas Puncture Site Right Radial Arterial Blood Carboxyhemoglobin 0.2 Arterial Blood Date Drawn 10/15/2016 6:10:18 AM Arterial Blood Methemoglobin 0.3 Arterial Blood pCO2 (Temp correct) 30.8 L Arterial Blood pH (Temp corrected) 7.572 *H Arterial Blood pO2 (Temp corrected) 86.3 Blood Gas A-a O2 Differential 163.5 H Blood Gas Actual Respiration Rate 20 Blood Gas Critical Value Read Back John GANN RN Blood Gas Inspiratory Pressure 33.0 Blood Gas Low PEEP Setting 5.0 Blood Gas Modality VENT - AC Blood Gas Notified Time 10/15/2016 6:20:36 AM Blood Gas Notified Whom MM Blood Gas Respiration Rate 20.0 Blood Gas Specimen Source Blood arterial Blood Gas Temperature 37.0 Blood Gas Tidal Volume 450.0 FiO2 40.0 Oxyhemoglobin Percent 95.6 Total Hemoglobin 10.3 L Alanine Aminotransferase (ALT/SGPT) 151 H Albumin 2.7 L Albumin/Globulin Ratio 0.93 Alkaline Phosphatase 246 H Anion Gap 15 # Aspartate Amino Transf (AST/SGOT) 178 H Basophils # 0.1 Basophils % 0.3 Calcium Level 7.4 L Carbon Dioxide Level 36 #H Chloride Level 93 L Direct Bilirubin 1.10 H Eosinophils # 0.0 Eosinophils % 0.2 Globulin 2.90 Glucose Level 165 Hematocrit 26.6 L Hemoglobin 9.3 L Indirect Bilirubin 0.8 Lipase 461 H Lymphocytes # 1.4 Lymphocytes % 6.0 L Mean Corpuscular Hemoglobin 31.3 Mean Corpuscular Hemoglobin Concent 35.0 Mean Corpuscular Volume 89.6 Mean Platelet Volume 10.3 Monocytes # 0.8 Monocytes % 3.2 Neutrophils # 21.0 H Neutrophils % 89.3 H Nucleated Red Blood Cells # 0.1 H Nucleated Red Blood Cells % 0.3 H Platelet Count 137 L Potassium Level 2.7 *L Red Blood Count 2.97 L Red Cell Distribution Width 12.3 Sodium Level 141 Total Bilirubin 1.9 H Total Protein 5.6 L Troponin I 0.740 *H White Blood Count 23.5 #H Test 10/15/16 08:42 Bedside Glucose 167 Medications Medications Current Medications Aspirin (Aspirin) 81 mg DAILY PO Last administered on 10/13/16 08:31; Admin Dose 81 MG; Start 10/13/16 at 09:00 Atorvastatin Calcium (Lipitor) 20 mg HS PO Last administered on 10/12/16 21:55 ; Admin Dose 20 MG; Start 10/12/16 at 21:00 Enoxaparin Sodium (Lovenox) 55 mg Q24H SC Last administered on 10/14/16 21:22 ; Admin Dose 55 MG; Start 10/12/16 at 21:00 Ondansetron HCl (Zofran Inj) 4 mg Q6H PRN IV NAUSEA AND/OR VOMITING; Start at 15:30 Nitroglycerin (Nitroglycerin (Sl Tab) 0.4 Mg) 1 tab Q5M PRN SL CHEST PAIN; Start 10/12/16 at 15:30 Acetaminophen (Tylenol Tab) 650 mg Q6H PRN PO PAIN LEVEL 1-3 OR FEVER Last administered on 10/13/16 02:58; Admin Dose 650 MG; Start 10/12/16 at 15:30 Acetaminophen/ Hydrocodone Bitart ([place] (5/325)) 1 tab Q6H PRN PO PAIN LEVEL 4 -6; Start 10/12/16 at 15:30 Acetaminophen/ Hydrocodone Bitart ([place] (5/325)) 2 tab Q6H PRN PO PAIN LEVEL 7 -10; Start 10/12/16 at 15:30 Morphine Sulfate (morphine) 2 mg Q4H PRN IV PAIN LEVEL 7-10; Start 10/12/16 at 15:30 Docusate Sodium (Colace) 100 mg Q12H PRN PO CONSTIPATION; Start 10/12/16 at 15: 30 Magnesium Hydroxide (Milk Of Mag) 30 ml DAILY PRN PO CONSTIPATION; Start at 15:30 Bisacodyl (Dulcolax Supp) 10 mg DAILY PRN MI CONSTIPATION; Start 10/12/16 at 15 :30 Famotidine (Pepcid Iv) 20 mg Q24H IV Last administered on 10/14/16 21:21; Admin Dose 20 MG; Start 10/12/16 at 21:00 Miscellaneous Information 1 ea NOTE XX ; Start 10/12/16 at 16:30 Glucose (Glutose) 15 gm Q15M PRN PO DECREASED GLUCOSE; Start 10/12/16 at 16:30 Glucose (Glutose) 22.5 gm Q15M PRN PO DECREASED GLUCOSE; Start 10/12/16 at 16: 30 Dextrose (D50w Syringe) 25 ml Q15M PRN IV DECREASED GLUCOSE; Start 10/12/16 at 16:30 Dextrose (D50w Syringe) 50 ml Q15M PRN IV DECREASED GLUCOSE Last administered on 10/13/16 23:17; Admin Dose 50 ML; Start 10/12/16 at 16:30 Glucagon (Glucagen) 1 mg Q15M PRN IM DECREASED GLUCOSE; Start 10/12/16 at 16:30 Glucose (Glutose) 15 gm Q15M PRN BUCCAL DECREASED GLUCOSE; Start 10/12/16 at 16 :30 Miscellaneous Information Patients own medicat... BID@10,16 XX ; Start 10/13/16 at 10:00 Lactobacillus Acidoph/ [place] 1 tab 1 tab TID PO Last administered on 12:33; Admin Dose 1 TAB; Start 10/13/16 at 09:00 Cefepime HCl 50 ml @ 100 mls/hr Q24H IVPB Last administered on 10/15/16 08:43 ; Admin Dose 100 MLS/HR; Start 10/14/16 at 09:00 Propofol 100 ml @ 1.71 mls/hr Q12H IV Last administered on 10/14/16 17:55; Admin Dose 5.13 MLS/HR; Start 10/13/16 at 18:00 Midazolam HCl (Versed) 50 ml @ 1 mls/hr TITRATE IV Last administered on 06:30; Admin Dose 6 MLS/HR; Start 10/13/16 at 18:00 Insulin Aspart NOVOLOG *MODERATE* ALGORI... Q4 SC Last administered on 08:44; Admin Dose 2 UNIT; Start 10/14/16 at 10:00 Norepinephrine/ Dextrose (Levophed/D5W) 500 ml @ 0 mls/hr TITRATE IV Last administered on 10/14/16 16:15; Admin Dose 26.25 MLS/HR; Start 10/14/16 at 12: 00 ESE SORIANO Oct 15, 2016 09:24
[2016-10-15] MEDS ORDERED: POTASSIUM CHLORIDE 20 MEQ in SOD CHLORIDE 0.9% 100 ML IVPB ONE (10:00)
--- NOTE | 2016-10-15 10:25 | CONS ---
Date/Time of Note Date/Time of Note DATE: 10/15/16 TIME: 10:21 Assessment/Plan Assessment/Plan Additional Assessment/Plan Ventilator settings; assist control of 20, tidal volume 450, PEEP of 5, 40% FiO2. Chest x-ray was reviewed from today which is again showing diffuse bilateral infiltrative changes. Perhaps a very slight interval improvement compared to yesterday. Assessment and recommendations; 1. Patient admitted with severe gram-negative sepsis from UTI. 2. Status post cardiac arrest. 3. Acute renal insufficiency. However serum creatinine is slightly improved from today. Patient maintaining adequate urine output. 4. Severe bilateral pneumonia likely hematogenous in etiology. 5. Hypotension with interval improvement. Next 6. Patient had also presented with severe metabolic acidosis with interval improvement. Patient now getting slightly alkalotic. Continue current supportive care. Levaquin has been added by . Decrease assist-control rate to 16. Gnosis remains guarded. Consultation Date/Type/Reason Admit Date/Time Oct 12, 2016 at 11:59 Initial Consult Date 10/13/16 Type of Consultation: Pulmonary/critical care 24 HR Interval Summary Free Text/Dictation Patient's condition remains critical. Remains sedated. Levophed dosing has been decreased to 5 mics per minute. She is maintaining adequate urine output. General exam; elderly lady, orally intubated. Sedated currentlyand in no distress. Exam/Review of Systems Vital Signs Vitals Vital Signs Date Time Temp Pulse Resp B/P Pulse Ox O2 Delivery O2 Flow Rate FiO2 10/15/16 09:25 85 15 99 40 10/15/16 08:00 117/68 Mechanical Ventilator 10/15/16 07:30 98.7 10/13/16 15:02 2.0 Intake and Output 10/14/16 10/14/16 10/15/16 15:00 23:00 07:00 Intake Total 881.010 ml 304.01 ml 196.01 ml Output Total 725 ml 675 ml 495 ml Balance 156.010 ml -370.99 ml -298.99 ml Exam H EENT examination; neck, no JVD. No lymphadenopathy. Orally intubated. Was a small bilaterally. Patient is edentulous. Chest examination; diminished breath sound bilaterally. No added sounds. S1- S2 audible, no murmurs. Regular rhythm. Abdomen examination; soft, nondistended. No organomegaly. Bowel sounds audible. Extremity examination; no peripheral edema. Next MONORAIL OPERATOR examination; patient is sedated. Results Result Diagram: 10/15/16 0800 10/15/16 0800 Results 24 hrs Laboratory Tests Test 10/14/16 10:44 10/14/16 12:00 10/14/16 13:12 10/14/16 17:53 Bedside Glucose 202 222 H 218 Arterial Blood HCO3 25.8 Arterial Blood Base Excess 3.2 H Arterial Blood Oxygen Saturation 97.0 Jarod Test ACCEPTAB Arterial Blood Gas Puncture Site Right Radial Arterial Blood Carboxyhemoglobin 0.2 Arterial Blood Date Drawn 10/14/2016 12:00:17 PM Arterial Blood Methemoglobin 0.4 Arterial Blood pCO2 (Temp correct) 31.7 L Arterial Blood pH (Temp corrected) 7.528 H Arterial Blood pO2 (Temp corrected) 100.9 H Blood Gas A-a O2 Differential 292.0 H Blood Gas Actual Respiration Rate 23 Blood Gas Low PEEP Setting 5.0 Blood Gas Modality VENT - AC Blood Gas Notified Time 10/14/2016 12:17:25 PM Blood Gas Notified Whom RDIX Blood Gas Respiration Rate 20.0 Blood Gas Specimen Source Blood arterial Blood Gas Temperature 37.0 Blood Gas Tidal Volume 500.0 FiO2 60.0 Oxyhemoglobin Percent 96.4 Total Hemoglobin 9.7 L Test 10/14/16 18:00 10/14/16 21:31 10/15/16 01:52 10/15/16 04:30 Arterial Blood HCO3 29.4 H Arterial Blood Base Excess 7.5 H Arterial Blood Oxygen Saturation 93.8 L Jarod Test ACCEPTAB Arterial Blood Gas Puncture Site Right Radial Arterial Blood Carboxyhemoglobin 0.2 Arterial Blood Date Drawn 10/14/2016 6:20:00 PM Arterial Blood Methemoglobin 0.5 Arterial Blood pCO2 (Temp correct) 32.2 L Arterial Blood pH (Temp corrected) 7.579 *H Arterial Blood pO2 (Temp corrected) 68.9 L Blood Gas A-a O2 Differential 179.3 H Blood Gas Actual Respiration Rate 24 Blood Gas Critical Value Read Back Sima BERNAL RN Blood Gas Low PEEP Setting 5.0 Blood Gas Modality VENT - AC Blood Gas Notified Time 10/14/2016 6:34:43 PM Blood Gas Notified Whom RDIX Blood Gas Respiration Rate 20.0 Blood Gas Specimen Source Blood arterial Blood Gas Temperature 37.0 Blood Gas Tidal Volume 450.0 FiO2 40.0 Oxyhemoglobin Percent 93.1 Total Hemoglobin 10.8 L Bedside Glucose 218 224 H Blood Urea Nitrogen 54 H Creatinine 2.70 H Test 10/15/16 05:47 10/15/16 06:00 10/15/16 08:00 10/15/16 08:42 Bedside Glucose 187 167 Arterial Blood HCO3 27.7 H Arterial Blood Base Excess 5.8 H Arterial Blood Oxygen Saturation 96.1 Jarod Test ACCEPTAB Arterial Blood Gas Puncture Site Right Radial Arterial Blood Carboxyhemoglobin 0.2 Arterial Blood Date Drawn 10/15/2016 6:10:18 AM Arterial Blood Methemoglobin 0.3 Arterial Blood pCO2 (Temp correct) 30.8 L Arterial Blood pH (Temp corrected) 7.572 *H Arterial Blood pO2 (Temp corrected) 86.3 Blood Gas A-a O2 Differential 163.5 H Blood Gas Actual Respiration Rate 20 Blood Gas Critical Value Read Back John GANN RN Blood Gas Inspiratory Pressure 33.0 Blood Gas Low PEEP Setting 5.0 Blood Gas Modality VENT - AC Blood Gas Notified Time 10/15/2016 6:20:36 AM Blood Gas Notified Whom MM Blood Gas Respiration Rate 20.0 Blood Gas Specimen Source Blood arterial Blood Gas Temperature 37.0 Blood Gas Tidal Volume 450.0 FiO2 40.0 Oxyhemoglobin Percent 95.6 Total Hemoglobin 10.3 L Alanine Aminotransferase (ALT/SGPT) 151 H Albumin 2.7 L Albumin/Globulin Ratio 0.93 Alkaline Phosphatase 246 H Anion Gap 15 # Aspartate Amino Transf (AST/SGOT) 178 H Basophils # 0.1 Basophils % 0.3 Blood Urea Nitrogen 49 H Calcium Level 7.4 L Carbon Dioxide Level 36 #H Chloride Level 93 L Creatinine 2.47 H Direct Bilirubin 1.10 H Eosinophils # 0.0 Eosinophils % 0.2 Globulin 2.90 Glucose Level 165 Hematocrit 26.6 L Hemoglobin 9.3 L Indirect Bilirubin 0.8 Lipase 461 H Lymphocytes # 1.4 Lymphocytes % 6.0 L Mean Corpuscular Hemoglobin 31.3 Mean Corpuscular Hemoglobin Concent 35.0 Mean Corpuscular Volume 89.6 Mean Platelet Volume 10.3 Monocytes # 0.8 Monocytes % 3.2 Neutrophils # 21.0 H Neutrophils % 89.3 H Nucleated Red Blood Cells # 0.1 H Nucleated Red Blood Cells % 0.3 H Platelet Count 137 L Potassium Level 2.7 *L Red Blood Count 2.97 L Red Cell Distribution Width 12.3 Sodium Level 141 Total Bilirubin 1.9 H Total Protein 5.6 L Troponin I 0.740 *H White Blood Count 23.5 #H Medications Medications Current Medications Aspirin (Aspirin) 81 mg DAILY PO Last administered on 10/13/16 08:31; Admin Dose 81 MG; Start 10/13/16 at 09:00 Atorvastatin Calcium (Lipitor) 20 mg HS PO Last administered on 10/12/16 21:55 ; Admin Dose 20 MG; Start 10/12/16 at 21:00 Enoxaparin Sodium (Lovenox) 55 mg Q24H SC Last administered on 10/14/16 21:22 ; Admin Dose 55 MG; Start 10/12/16 at 21:00 Ondansetron HCl (Zofran Inj) 4 mg Q6H PRN IV NAUSEA AND/OR VOMITING; Start at 15:30 Nitroglycerin (Nitroglycerin (Sl Tab) 0.4 Mg) 1 tab Q5M PRN SL CHEST PAIN; Start 10/12/16 at 15:30 Acetaminophen (Tylenol Tab) 650 mg Q6H PRN PO PAIN LEVEL 1-3 OR FEVER Last administered on 10/13/16 02:58; Admin Dose 650 MG; Start 10/12/16 at 15:30 Acetaminophen/ Hydrocodone Bitart ([place] (5/325)) 1 tab Q6H PRN PO PAIN LEVEL 4 -6; Start 10/12/16 at 15:30 Acetaminophen/ Hydrocodone Bitart ([place] (5/325)) 2 tab Q6H PRN PO PAIN LEVEL 7 -10; Start 10/12/16 at 15:30 Morphine Sulfate (morphine) 2 mg Q4H PRN IV PAIN LEVEL 7-10; Start 10/12/16 at 15:30 Docusate Sodium (Colace) 100 mg Q12H PRN PO CONSTIPATION; Start 10/12/16 at 15: 30 Magnesium Hydroxide (Milk Of Mag) 30 ml DAILY PRN PO CONSTIPATION; Start at 15:30 Bisacodyl (Dulcolax Supp) 10 mg DAILY PRN [place] CONSTIPATION; Start 10/12/16 at 15 :30 Famotidine (Pepcid Iv) 20 mg Q24H IV Last administered on 10/14/16 21:21; Admin Dose 20 MG; Start 10/12/16 at 21:00 Miscellaneous Information 1 ea NOTE XX ; Start 10/12/16 at 16:30 Glucose (Glutose) 15 gm Q15M PRN PO DECREASED GLUCOSE; Start 10/12/16 at 16:30 Glucose (Glutose) 22.5 gm Q15M PRN PO DECREASED GLUCOSE; Start 10/12/16 at 16: 30 Dextrose (D50w Syringe) 25 ml Q15M PRN IV DECREASED GLUCOSE; Start 10/12/16 at 16:30 Dextrose (D50w Syringe) 50 ml Q15M PRN IV DECREASED GLUCOSE Last administered on 10/13/16 23:17; Admin Dose 50 ML; Start 10/12/16 at 16:30 Glucagon (Glucagen) 1 mg Q15M PRN IM DECREASED GLUCOSE; Start 10/12/16 at 16:30 Glucose (Glutose) 15 gm Q15M PRN BUCCAL DECREASED GLUCOSE; Start 10/12/16 at 16 :30 Miscellaneous Information Patients own medicat... BID@10,16 XX ; Start 10/13/16 at 10:00 Lactobacillus Acidoph/ Bulgaricus 1 tab 1 tab TID PO Last administered on 12:33; Admin Dose 1 TAB; Start 10/13/16 at 09:00 Cefepime HCl 50 ml @ 100 mls/hr Q24H IVPB Last administered on 10/15/16 08:43 ; Admin Dose 100 MLS/HR; Start 10/14/16 at 09:00 Propofol 100 ml @ 1.71 mls/hr Q12H IV Last administered on 10/14/16 17:55; Admin Dose 5.13 MLS/HR; Start 10/13/16 at 18:00 Midazolam HCl (Versed) 50 ml @ 1 mls/hr TITRATE IV Last administered on 06:30; Admin Dose 6 MLS/HR; Start 10/13/16 at 18:00 Insulin Aspart NOVOLOG *MODERATE* ALGORI... Q4 SC Last administered on 08:44; Admin Dose 2 UNIT; Start 10/14/16 at 10:00 Norepinephrine 16 mg/Dextrose 500 ml @ 0 mls/hr TITRATE IV Last administered on 10/14/16t 16:15; Admin Dose 26.25 MLS/HR; Start 10/14/16 at 12:00 Levofloxacin/ Dextrose 150 ml @ 100 mls/hr Q48H IVPB ; Start 10/15/16 at 10:00 Potassium Chloride/Sodium Chloride (KCl/NS) 110 ml @ 55 mls/hr ONCE ONCE IVPB ; Start 10/15/16 at 10:00; Stop 10/15/16 at 11:59 STAN HOLGUIN Oct 15, 2016 10:25
[2016-10-15] MEDS: LEVOFLOXACIN 750MG/D5W (PMX) 150 ML IVPB SCH (12:43)
[2016-10-15] MEDS ORDERED: POTASSIUM CHLORIDE 20 MEQ POWDER FOR ORAL SOLN NGT ONE (13:30)
[2016-10-15 14:20] LABS: POTASSIUM 3.2 mmol/L (3.5-5.1)
[2016-10-15] MEDS: SOD CHLORIDE 0.9% 1,000 ML IV SCH (14:20)
[2016-10-15 14:22] LABS: CREATININE 2.13 mg/dl (0.44-1.00)
[2016-10-15 14:23] LABS: CALCIUM 7.3 mg/dl (8.4-10.2); MAGNESIUM 2.1 mg/dl (1.7-2.5)
--- NOTE | 2016-10-15 14:49 | CONS ---
Date/Time of Note Date/Time of Note DATE: 10/15/16 TIME: 14:44 Assessment/Plan Assessment/Plan Additional Assessment/Plan Possible cardiac arrest Preserved ejection fraction Labile blood pressure Respiratory failure SIRS Elevated lactate Elevated troponin Acute kidney injury -IV pressor requirements are decreasing, potassium supplementation has been ordered. Would hold diuretics at the current time given patient still requiring IV pressors. Consultation Date/Type/Reason Admit Date/Time Oct 12, 2016 at 11:59 Initial Consult Date 10/13/16 Type of Consultation: cv 24 HR Interval Summary Free Text/Dictation Was told of patient's cardiac arrest yesterday morning by Dr. Dietrich while in ICU Patient IV pressor requirements are decreasing. Urine output has increased. Exam/Review of Systems Vital Signs Vitals Vital Signs Date Time Temp Pulse Resp B/P Pulse Ox O2 Delivery O2 Flow Rate FiO2 10/15/16 14:15 99 17 121/71 100 Mechanical Ventilator 10/15/16 13:19 40 10/15/16 12:00 99.1 10/13/16 15:02 2.0 Intake and Output 10/14/16 10/14/16 10/15/16 15:00 23:00 07:00 Intake Total 881.010 ml 304.01 ml 196.01 ml Output Total 725 ml 675 ml 545 ml Balance 156.010 ml -370.99 ml -348.99 ml Exam Sedated and intubated, no apparent distress Head: normocephalic ENMT: intubated Respiratory: other (Coarse breath sounds bilaterally, no wheezing) Cardiovascular: other (S1-S2 heard), regular rate and rhythm Gastrointestinal: bowel sounds, non-tender, other (No grimacing with palpation) , soft Extremities: edema Results Result Diagram: 10/15/16 0800 10/15/16 1350 Results 24 hrs Laboratory Tests Test 10/14/16 17:53 10/14/16 18:00 10/14/16 21:31 10/15/16 01:52 Bedside Glucose 218 218 224 H Arterial Blood HCO3 29.4 H Arterial Blood Base Excess 7.5 H Arterial Blood Oxygen Saturation 93.8 L Jarod Test ACCEPTAB Arterial Blood Gas Puncture Site Right Radial Arterial Blood Carboxyhemoglobin 0.2 Arterial Blood Date Drawn 10/14/2016 6:20:00 PM Arterial Blood Methemoglobin 0.5 Arterial Blood pCO2 (Temp correct) 32.2 L Arterial Blood pH (Temp corrected) 7.579 *H Arterial Blood pO2 (Temp corrected) 68.9 L Blood Gas A-a O2 Differential 179.3 H Blood Gas Actual Respiration Rate 24 Blood Gas Critical Value Read Back Sima BERNAL RN Blood Gas Low PEEP Setting 5.0 Blood Gas Modality VENT - AC Blood Gas Notified Time 10/14/2016 6:34:43 PM Blood Gas Notified Whom RDIX Blood Gas Respiration Rate 20.0 Blood Gas Specimen Source Blood arterial Blood Gas Temperature 37.0 Blood Gas Tidal Volume 450.0 FiO2 40.0 Oxyhemoglobin Percent 93.1 Total Hemoglobin 10.8 L Test 10/15/16 04:30 10/15/16 05:47 10/15/16 06:00 10/15/16 08:00 Blood Urea Nitrogen 54 H 49 H Creatinine 2.70 H 2.47 H Bedside Glucose 187 Arterial Blood HCO3 27.7 H Arterial Blood Base Excess 5.8 H Arterial Blood Oxygen Saturation 96.1 Jarod Test ACCEPTAB Arterial Blood Gas Puncture Site Right Radial Arterial Blood Carboxyhemoglobin 0.2 Arterial Blood Date Drawn 10/15/2016 6:10:18 AM Arterial Blood Methemoglobin 0.3 Arterial Blood pCO2 (Temp correct) 30.8 L Arterial Blood pH (Temp corrected) 7.572 *H Arterial Blood pO2 (Temp corrected) 86.3 Blood Gas A-a O2 Differential 163.5 H Blood Gas Actual Respiration Rate 20 Blood Gas Critical Value Read Back John GANN RN Blood Gas Inspiratory Pressure 33.0 Blood Gas Low PEEP Setting 5.0 Blood Gas Modality VENT - AC Blood Gas Notified Time 10/15/2016 6:20:36 AM Blood Gas Notified Whom MM Blood Gas Respiration Rate 20.0 Blood Gas Specimen Source Blood arterial Blood Gas Temperature 37.0 Blood Gas Tidal Volume 450.0 FiO2 40.0 Oxyhemoglobin Percent 95.6 Total Hemoglobin 10.3 L Alanine Aminotransferase (ALT/SGPT) 151 H Albumin 2.7 L Albumin/Globulin Ratio 0.93 Alkaline Phosphatase 246 H Anion Gap 15 # Aspartate Amino Transf (AST/SGOT) 178 H Basophils # 0.1 Basophils % 0.3 Calcium Level 7.4 L Carbon Dioxide Level 36 #H Chloride Level 93 L Direct Bilirubin 1.10 H Eosinophils # 0.0 Eosinophils % 0.2 Globulin 2.90 Glucose Level 165 Hematocrit 26.6 L Hemoglobin 9.3 L Indirect Bilirubin 0.8 Lipase 461 H Lymphocytes # 1.4 Lymphocytes % 6.0 L Mean Corpuscular Hemoglobin 31.3 Mean Corpuscular Hemoglobin Concent 35.0 Mean Corpuscular Volume 89.6 Mean Platelet Volume 10.3 Monocytes # 0.8 Monocytes % 3.2 Neutrophils # 21.0 H Neutrophils % 89.3 H Nucleated Red Blood Cells # 0.1 H Nucleated Red Blood Cells % 0.3 H Platelet Count 137 L Potassium Level 2.7 *L Red Blood Count 2.97 L Red Cell Distribution Width 12.3 Sodium Level 141 Total Bilirubin 1.9 H Total Protein 5.6 L Troponin I 0.740 *H White Blood Count 23.5 #H Test 10/15/16 08:42 10/15/16 12:49 10/15/16 13:50 Bedside Glucose 167 178 Anion Gap 14 Blood Urea Nitrogen 47 H Calcium Level 7.3 L Carbon Dioxide Level 34 H Chloride Level 96 L Creatinine 2.13 H Glucose Level 186 Magnesium Level 2.1 Potassium Level 3.2 L Sodium Level 141 Medications Medications Current Medications Aspirin (Aspirin) 81 mg DAILY PO Last administered on 10/13/16 08:31; Admin Dose 81 MG; Start 10/13/16 at 09:00 Atorvastatin Calcium (Lipitor) 20 mg HS PO Last administered on 10/12/16 21:55 ; Admin Dose 20 MG; Start 10/12/16 at 21:00 Enoxaparin Sodium (Lovenox) 55 mg Q24H SC Last administered on 10/14/16 21:22 ; Admin Dose 55 MG; Start 10/12/16 at 21:00 Ondansetron HCl (Zofran Inj) 4 mg Q6H PRN IV NAUSEA AND/OR VOMITING; Start at 15:30 Nitroglycerin (Nitroglycerin (Sl Tab) 0.4 Mg) 1 tab Q5M PRN SL CHEST PAIN; Start 10/12/16 at 15:30 Acetaminophen (Tylenol Tab) 650 mg Q6H PRN PO PAIN LEVEL 1-3 OR FEVER Last administered on 10/13/16 02:58; Admin Dose 650 MG; Start 10/12/16 at 15:30 Acetaminophen/ Hydrocodone Bitart ([place] (5/325)) 1 tab Q6H PRN PO PAIN LEVEL 4 -6; Start 10/12/16 at 15:30 Acetaminophen/ Hydrocodone Bitart ([place] (5/325)) 2 tab Q6H PRN PO PAIN LEVEL 7 -10; Start 10/12/16 at 15:30 Morphine Sulfate (morphine) 2 mg Q4H PRN IV PAIN LEVEL 7-10; Start 10/12/16 at 15:30 Docusate Sodium (Colace) 100 mg Q12H PRN PO CONSTIPATION; Start 10/12/16 at 15: 30 Magnesium Hydroxide (Milk Of Mag) 30 ml DAILY PRN PO CONSTIPATION; Start at 15:30 Bisacodyl (Dulcolax Supp) 10 mg DAILY PRN [place] CONSTIPATION; Start 10/12/16 at 15 :30 Famotidine (Pepcid Iv) 20 mg Q24H IV Last administered on 10/14/16 21:21; Admin Dose 20 MG; Start 10/12/16 at 21:00 Miscellaneous Information 1 ea NOTE XX ; Start 10/12/16 at 16:30 Glucose (Glutose) 15 gm Q15M PRN PO DECREASED GLUCOSE; Start 10/12/16 at 16:30 Glucose (Glutose) 22.5 gm Q15M PRN PO DECREASED GLUCOSE; Start 10/12/16 at 16: 30 Dextrose (D50w Syringe) 25 ml Q15M PRN IV DECREASED GLUCOSE; Start 10/12/16 at 16:30 Dextrose (D50w Syringe) 50 ml Q15M PRN IV DECREASED GLUCOSE Last administered on 10/13/16 23:17; Admin Dose 50 ML; Start 10/12/16 at 16:30 Glucagon (Glucagen) 1 mg Q15M PRN IM DECREASED GLUCOSE; Start 10/12/16 at 16:30 Glucose (Glutose) 15 gm Q15M PRN BUCCAL DECREASED GLUCOSE; Start 10/12/16 at 16 :30 Miscellaneous Information Patients own medicat... BID@, XX ; Start 10/13/16 at 10:00 Lactobacillus Acidoph/ Bulgaricus 1 tab 1 tab TID PO Last administered on 12:33; Admin Dose 1 TAB; Start 10/13/16 at 09:00 Cefepime HCl 50 ml @ 100 mls/hr Q24H IVPB Last administered on 10/15/16 08:43 ; Admin Dose 100 MLS/HR; Start 10/14/16 at 09:00 Propofol 100 ml @ 1.71 mls/hr Q12H IV Last administered on 10/14/16 17:55; Admin Dose 5.13 MLS/HR; Start 10/13/16 at 18:00 Midazolam HCl (Versed) 50 ml @ 1 mls/hr TITRATE IV Last administered on 06:30; Admin Dose 6 MLS/HR; Start 10/13/16 at 18:00 Insulin Aspart NOVOLOG *MODERATE* ALGORI... Q4 SC Last administered on 12:51; Admin Dose 2 UNIT; Start 10/14/16 at 10:00 Levofloxacin/ Dextrose 150 ml @ 100 mls/hr Q48H IVPB Last administered on 10/15 12:43; Admin Dose 100 MLS/HR; Start 10/15/16 at 10:00 Norepinephrine 16 mg/Dextrose 500 ml @ 0 mls/hr TITRATE IV ; Start 10/15/16 at 13:30 Sodium Chloride (NS) 1,000 ml @ 50 mls/hr Q20H IV Last administered on 14:20; Admin Dose 50 MLS/HR; Start 10/15/16 at 13:30; Stop 10/17/16 at 05:29 Singh Thompson DO Oct 15, 2016 14:49
--- NOTE | 2016-10-15 19:40 | RADRPT ---
PROCEDURE: XR Chest. CLINICAL INDICATION: Shortness of breath. Nasogastric tube placement TECHNIQUE: A single portable view of the chest was obtained. COMPARISON: 10/15/2016 from 07:34 a.m. FINDINGS: The endotracheal tube is unchanged. A nasogastric tube is seen in the gastric lumen with the tip no t visualized. The aorta is tortuous and atherosclerotic. The cardiomediastinal silhouette is other knight enlarged and is stable. Diffuse pulmonary vascular congestion is seen with likely underlying p ulmonary edema and is unchanged. Bilateral pleural effusions are again noted and are stable. The sof t tissues and osseous structures demonstrate benign age related senescent changes. IMPRESSION: 1. Interval placement of a nasogastric tube in the gastric lumen. 2. Radiographic findings of congestive heart failure again seen which is stable. RPTAT: HPNM Physician Narayan Date Time Electronically viewed and signed by Physician Narayan on 10/15/2016 19:40 /
[2016-10-15] MEDS: ATORVASTATIN 20 MG TAB PO SCH (20:16)
[2016-10-15] MEDS: ENOXAPARIN 60 MG/0.6 ML SYG SC SCH (20:34)
[2016-10-15] MEDS: FAMOTIDINE 20 MG INJ IV SCH (23:01)
--- NOTE | 2016-10-15 23:05 | RADRPT ---
PROCEDURE: XR Chest. CLINICAL INDICATION: Right PICC line. TECHNIQUE: PA and Lateral views of the chest were obtained. COMPARISON: Plain film chest dated today, about 3 hours ago. FINDINGS: Malposition right PICC line with tip in the distal brachial cephalic vein. Recommend withdrawing sa me about 5-6 cm and re-imaging to demonstrate tip position in the superior vena cava. Endotracheal intubation is seen with tip about 2 or 3 cm above the mariann. Nasogastric tube again s een with tip and the side port off the bottom of the film. Cardiomegaly. Atherosclerotic calcifications in the thoracic aorta. Bilateral patchy air space dis ease, which appears increased over interval. No signs of pleural fluid or pneumothorax are seen. The osseous structures and soft tissues are unre markable. IMPRESSION: Malposition right PICC line, and recommend repositioning. RPTAT: [facility] Physician Byron Date Time Electronically viewed and signed by Physician Byron on 10/15/2016 23:05 RS/
--- NOTE | 2016-10-15 23:07 | RADRPT ---
PROCEDURE: XR Chest. CLINICAL INDICATION: Second right PICC line film TECHNIQUE: Single frontal view of the chest. COMPARISON: None. FINDINGS: Successful repositioning of right PICC line to place tip in the superior vena cava. Position of endotracheal intubation and nasogastric tube are without significant supervisor policy change clerks interva l. Cardiomegaly and atherosclerotic calcifications in the thoracic aorta. No significant change in kellie ateral patchy air space disease. No signs of pleural fluid or pneumothorax are seen. The osseous str uctures and soft tissues are unremarkable. IMPRESSION: Successful repositioning of right PICC line to place tip in the superior vena cava. RPTAT: [facility] Physician Byron Date Time Electronically viewed and signed by Physician Byron on 10/15/2016 23:07 RS/
[2016-10-16] VITALS (76 sets, daily range): BP systolic 86–134; BP diastolic 51–74; PULSE 83–115; RESP 13–20
[2016-10-16] MEDS: INSULIN ASPART [NOVOLOG] 3 ML PEN SC SCH ×6 (02:06→20:42)
[2016-10-16 04:43] LABS: ADD SCAN DIFF NO
[2016-10-16 04:54] LABS: HEMATOCRIT 25.2 % (37.0-47.0); HEMOGLOBIN 8.2 g/dl (12.0-16.0); MEAN CORPUSCULAR HEMOGLOBIN 30.5 pg (29.0-33.0); MEAN CORPUSCULAR HGB CONC 32.5 g/dl (32.0-37.0); MEAN CORPUSCULAR VOLUME 93.7 fl (82.0-101.0); MEAN PLATELET VOLUME 10.5 fl (7.4-10.4); PLATELET COUNT 117 10^3/UL (140-415); RED BLOOD COUNT 2.69 10^6/ul (4.20-5.40); RED CELL DISTRIBUTION WIDTH 12.9 % (11.5-14.5); WHITE BLOOD COUNT 14.8 10^3/ul (4.8-10.8)
[2016-10-16 04:59] LABS: INR 1.6; PROTIME 19.2 Sec (12.2-14.2); PT RATIO 1.5
[2016-10-16 05:00] LABS: PARTIAL THROMBOPLASTIN TIME 47.4 Sec (25.0-35.0)
[2016-10-16 05:44] LABS: ALBUMIN 2.4 g/dl (3.3-4.9)
[2016-10-16 05:45] LABS: POTASSIUM 3.3 mmol/L (3.5-5.1)
[2016-10-16 05:47] LABS: BILIRUBIN,DIRECT 0.9 mg/dl (0.00-0.20); BILIRUBIN,INDIRECT 0.6 mg/dl (0-1.1); BILIRUBIN,TOTAL 1.5 mg/dl (0.2-1.3); CREATININE 1.76 mg/dl (0.44-1.00)
[2016-10-16 05:48] LABS: ALBUMIN/GLOBULIN RATIO 0.68; CALCIUM 7.6 mg/dl (8.4-10.2); TOTAL PROTEIN 5.9 g/dl (6.1-8.1)
[2016-10-16] MEDS: PROPOFOL 100 ML IV SCH ×2 (06:00→15:36)
[2016-10-16 06:32] LABS: MAGNESIUM 2.1 mg/dl (1.7-2.5); PHOSPHORUS 1.4 mg/dl (2.5-4.9)
[2016-10-16 07:57] LABS: EOSINOPHILS # 0.1 10^3/ul (0.0-0.5); LYMPHOCYTES # 0.9 10^3/ul (0.8-2.9); MONOCYTE # 0.7 10^3/ul (0.3-0.9); MYELOCYTES # 0.1; NEUTROPHIL # 12.3 10^3/ul (1.6-7.5)
[2016-10-16] MEDS: CEFEPIME 1GM/50 ML IVPB SCH (09:04)
[2016-10-16] MEDS: ASPIRIN 81 MG TAB PO SCH (09:04)
[2016-10-16] MEDS: LACTOBACILLUS CHEW TAB PO SCH ×3 (09:04→20:43)
--- NOTE | 2016-10-16 09:28 | CONS ---
Date/Time of Note Date/Time of Note DATE: 10/16/16 TIME: 09:24 Assessment/Plan Assessment/Plan Additional Assessment/Plan Ventilator settings; AC of 14, tidal volume 450, PEEP of 5, 40% FiO2. Assessment and recommendations; 1. Patient admitted with severe gram-negative sepsis from UTI leading to respiratory failure. 2. Severe metabolic acidosis with interval resolution. 3. Severe bilateral pneumonia likely from hematogenous spread. 4. Acute renal failure with marked improvement in serum creatinine today, patient having good urine output. 5. Severe hypotension with interval resolution as well. Patient off pressor support. 6. Mental unresponsiveness likely on account of underlying renal insufficiency with sedated medication recommendation. Continue current treatment for now pending chest x-ray and ABG. Continue current antibiotic regimen. The chest x-ray and ABGs are done I will review them and make further recommendations if required. I did have a detailed discussion the patient's family at bedside and answered all their questions. Consultation Date/Type/Reason Admit Date/Time Oct 12, 2016 at 11:59 Initial Consult Date 10/13/16 Type of Consultation: Pulmonary/critical care 24 HR Interval Summary Free Text/Dictation Patient's condition remains critical however patient has improved hemodynamically. Off pressor support since early this morning. She has been off sedation since yesterday morning and still not arousable. General examination; elderly lady, orally intubated, unresponsive . Currently in no distress. Exam/Review of Systems Vital Signs Vitals Vital Signs Date Time Temp Pulse Resp B/P Pulse Ox O2 Delivery O2 Flow Rate FiO2 10/16/16 08:15 98 15 102/58 100 10/16/16 08:00 40 10/16/16 08:00 99.5 Mechanical Ventilator 10/13/16 15:02 2.0 Intake and Output 10/15/16 10/15/16 10/16/16 15:00 23:00 07:00 Intake Total 364.74 ml 421.35 ml 624.37 ml Output Total 645 ml 780 ml 545 ml Balance -280.26 ml -358.65 ml 79.37 ml Exam H EENT examination; supple neck, no JVD. No lymphadenopathy. Midline trachea. No thyromegaly. Orally intubated. Pupils are small bilaterally. No neck masses. Chest examination; diminished but clear breath sounds bilaterally. S1-S2 audible, no murmurs. Regular rhythm. Abdomen examination; soft, nondistended. No organomegaly. Bowel sounds audible. Extremity examination; no peripheral edema. SUPERVISOR SHOP examination; patient is currently unresponsive. Results Result Diagram: 10/16/16 0350 10/16/16 0350 Results 24 hrs Laboratory Tests Test 10/15/16 12:49 10/15/16 13:50 10/15/16 17:20 10/15/16 20:32 Bedside Glucose 178 173 150 Anion Gap 14 Blood Urea Nitrogen 47 H Calcium Level 7.3 L Carbon Dioxide Level 34 H Chloride Level 96 L Creatinine 2.13 H Glucose Level 186 Magnesium Level 2.1 Potassium Level 3.2 L Sodium Level 141 Test 10/16/16 02:04 10/16/16 03:50 10/16/16 05:24 10/16/16 09:14 Bedside Glucose 171 171 211 Activated Partial Thromboplast Time 47.4 H Alanine Aminotransferase (ALT/SGPT) 118 H Albumin 2.4 L Albumin/Globulin Ratio 0.68 Alkaline Phosphatase 262 H Anion Gap 10 Aspartate Amino Transf (AST/SGOT) 104 H Band Neutrophils % 4.0 Blood Urea Nitrogen 38 H Calcium Level 7.6 L Carbon Dioxide Level 35 H Chloride Level 102 Creatinine 1.76 H Direct Bilirubin 0.90 #H Eosinophils # 0.1 Eosinophils % 1.0 Globulin 3.50 H Glucose Level 179 Hematocrit 25.2 L Hemoglobin 8.2 L INR International Normalized Ratio 1.60 Indirect Bilirubin 0.6 Lymphocytes # 0.9 Lymphocytes % 6.0 L Magnesium Level 2.1 Mean Corpuscular Hemoglobin 30.5 Mean Corpuscular Hemoglobin Concent 32.5 Mean Corpuscular Volume 93.7 Mean Platelet Volume 10.5 H Monocytes # 0.7 Monocytes % 5.0 Myelocytes # 0.1 Myelocytes % 1.0 H Neutrophils # 12.3 H Neutrophils % 83.0 H Nucleated Red Blood Cells % 2.0 H Phosphorus Level 1.4 #L Platelet Count 117 L Potassium Level 3.3 L Prothrombin Time 19.2 H Prothrombin Time Ratio 1.5 Red Blood Count 2.69 L Red Cell Distribution Width 12.9 Sodium Level 144 Total Bilirubin 1.5 H Total Protein 5.9 L White Blood Count 14.8 #H Medications Medications Current Medications Aspirin (Aspirin) 81 mg DAILY PO Last administered on 10/13/16 08:31; Admin Dose 81 MG; Start 10/13/16 at 09:00 Atorvastatin Calcium (Lipitor) 20 mg HS PO Last administered on 10/15/16 20:16 ; Admin Dose 20 MG; Start 10/12/16 at 21:00 Enoxaparin Sodium (Lovenox) 55 mg Q24H SC Last administered on 10/15/16 20:34 ; Admin Dose 55 MG; Start 10/12/16 at 21:00 Ondansetron HCl (Zofran Inj) 4 mg Q6H PRN IV NAUSEA AND/OR VOMITING; Start at 15:30 Nitroglycerin (Nitroglycerin (Sl Tab) 0.4 Mg) 1 tab Q5M PRN SL CHEST PAIN; Start 10/12/16 at 15:30 Acetaminophen (Tylenol Tab) 650 mg Q6H PRN PO PAIN LEVEL 1-3 OR FEVER Last administered on 10/13/16 02:58; Admin Dose 650 MG; Start 10/12/16 at 15:30 Acetaminophen/ Hydrocodone Bitart ([place] (5/325)) 1 tab Q6H PRN PO PAIN LEVEL 4 -6; Start 10/12/16 at 15:30 Acetaminophen/ Hydrocodone Bitart ([place] (5/325)) 2 tab Q6H PRN PO PAIN LEVEL 7 -10; Start 10/12/16 at 15:30 Morphine Sulfate (morphine) 2 mg Q4H PRN IV PAIN LEVEL 7-10; Start 10/12/16 at 15:30 Docusate Sodium (Colace) 100 mg Q12H PRN PO CONSTIPATION; Start 10/12/16 at 15: 30 Magnesium Hydroxide (Milk Of Mag) 30 ml DAILY PRN PO CONSTIPATION; Start at 15:30 Bisacodyl (Dulcolax Supp) 10 mg DAILY PRN [place] CONSTIPATION; Start 10/12/16 at 15 :30 Famotidine (Pepcid Iv) 20 mg Q24H IV Last administered on 10/15/16 23:01; Admin Dose 20 MG; Start 10/12/16 at 21:00 Miscellaneous Information 1 ea NOTE XX ; Start 10/12/16 at 16:30 Glucose (Glutose) 15 gm Q15M PRN PO DECREASED GLUCOSE; Start 10/12/16 at 16:30 Glucose (Glutose) 22.5 gm Q15M PRN PO DECREASED GLUCOSE; Start 10/12/16 at 16: 30 Dextrose (D50w Syringe) 25 ml Q15M PRN IV DECREASED GLUCOSE; Start 10/12/16 at 16:30 Dextrose (D50w Syringe) 50 ml Q15M PRN IV DECREASED GLUCOSE Last administered on 10/13/16 23:17; Admin Dose 50 ML; Start 10/12/16 at 16:30 Glucagon (Glucagen) 1 mg Q15M PRN IM DECREASED GLUCOSE; Start 10/12/16 at 16:30 Glucose (Glutose) 15 gm Q15M PRN BUCCAL DECREASED GLUCOSE; Start 10/12/16 at 16 :30 Miscellaneous Information Patients own medicat... BID@10,16 XX ; Start 10/13/16 at 10:00 Lactobacillus Acidoph/ Bulgaricus 1 tab 1 tab TID PO Last administered on 20:16; Admin Dose 1 TAB; Start 10/13/16 at 09:00 Cefepime HCl 50 ml @ 100 mls/hr Q24H IVPB Last administered on 10/15/16 08:43 ; Admin Dose 100 MLS/HR; Start 10/14/16 at 09:00 Propofol 100 ml @ 1.71 mls/hr Q12H IV Last administered on 10/14/16 17:55; Admin Dose 5.13 MLS/HR; Start 10/13/16 at 18:00 Midazolam HCl (Versed) 50 ml @ 1 mls/hr TITRATE IV Last administered on 06:30; Admin Dose 6 MLS/HR; Start 10/13/16 at 18:00 Insulin Aspart NOVOLOG *MODERATE* ALGORI... Q4 SC Last administered on 05:28; Admin Dose 2 UNIT; Start 10/14/16 at 10:00 Levofloxacin/ Dextrose 150 ml @ 100 mls/hr Q48H IVPB Last administered on 10/15 12:43; Admin Dose 100 MLS/HR; Start 10/15/16 at 10:00 Norepinephrine 16 mg/Dextrose 500 ml @ 0 mls/hr TITRATE IV ; Start 10/15/16 at 13:30 Sodium Chloride (NS) 1,000 ml @ 50 mls/hr Q20H IV Last administered on t 14:20; Admin Dose 50 MLS/HR; Start 10/15/16 at 13:30; Stop 10/17/16 at 05:29 STAN HOLGUIN Oct 16, 2016 09:28
[2016-10-16 09:58] LABS: AADO2 Arterial 130.8 mmHg (7.0-24.0); Allen Test ACCEPTAB; Arterial Base Excess 9.5 mmol/L (-3.0-3); Arterial COHb 0.3 % (0.0-3.0); Arterial Fraction of Oxyhgb 96.8 % (93.0-99.0); Arterial HCO3 33.5 mmol/L (22.0-26.0); Arterial MetHb 0.4 % (0.0-1.5); Arterial Total Hemglobin 9.9 g/dl (12.0-18.0); MODE VENT - AC
[2016-10-16] MEDS ORDERED: POTASSIUM CHLORIDE 20 MEQ POWDER FOR ORAL SOLN NGT ONE (10:00)
[2016-10-16] MEDS: SOD CHLORIDE 0.9% 1,000 ML IV SCH (10:28)
[2016-10-16] MEDS ORDERED: POTASSIUM PHOSPHATE 15 MM in SOD CHLORIDE 0.9% 250 ML IVPB ONE (11:00)
--- NOTE | 2016-10-16 11:03 | PN ---
Date/Time of Note Date/Time of Note DATE: 10/16/16 TIME: 10:50 Assessment/Plan VTE Prophylaxis VTE Prophylaxis Intervention: LMWH (treatment dose ) Lines/Catheters IV Catheter Type (from Nrsg): PICC Line Central line still needed: Yes (for IV access ) Urinary Cath still in place: Yes Reason Cath still needed: other (indicate) ([place] and critically ill ) Assessment/Plan Assessment/Plan 71-year-old female with: 1. S/p Cardiac arrest, s/p intubation and on mechanical ventilation now VSS better, off pressors and stable on Vent, OFF sedation and still minimally responsive Troponin trending down again 2. Acute respiratory failure: intubated post cardiac arrest Latest CXR with pulmonary edema vs bilateral DAVID but also concerns for ARDS, Repeat CXR in AM Unlikely PE, patient was on anticoag dose of Lovenox on admission due to NSTEMI dx anyways Continue current abx with double gram neg coverage and Vanco added back per Pulmo 3. E coli Severe sepsis and Urinary tract infection. S/p cardiogenic vs septic shock Off pressors now On Cefepime and Levaquin. Repeat blood cx pending 4. Diabetes mellitus, [id number]. A1C of 7.8 continue current insulin regimen 5. Hypertension, s/p shock state, OFF pressors as of this AM Holding all antihypertensive currently. 6. Acute kidney injury in setting of urinary tract infection and sepsis, likely prerenal azotemia. Renal function currently improving with UOP up to 70cc/hr Renal US showing left moderate hydronephrosis, CT A/P pending Continue abx rx, Replete K/phos today and repeat BMP this pm 6. Elevated troponin, possible non-ST elevation myocardial infarction. Trop back up after resuscitation but trending down Continue Lovenox. A 2D echocardiogram with stable EF Appreciate Cardiology recommendations Prophylaxis. Already on Lovenox treatment dose for possible NSTEMI and Pepcid for gastrointestinal prophylaxis. DISPOSITION: In ICU, intubated and off sedation and pressors now. Followup Cardio and pulmo recs Prognosis still guarded Subjective 24 Hr Interval Summary Free Text/Dictation Patient has been OFF sedation x 24 hrs and still minimally responsive VSS off levophed Still critically ill Exam/Review of Systems Vital Signs Vitals Vital Signs Date Time Temp Pulse Resp B/P Pulse Ox O2 Delivery O2 Flow Rate FiO2 10/16/16 10:00 101 16 112/56 99 Mechanical Ventilator 10/16/16 08:00 40 10/16/16 08:00 99.5 10/13/16 15:02 2.0 Intake and Output 10/15/16 10/15/16 10/16/16 15:00 23:00 07:00 Intake Total 364.74 ml 421.35 ml 624.37 ml Output Total 645 ml 780 ml 545 ml Balance -280.26 ml -358.65 ml 79.37 ml Exam Constitutional: other (still minimally responsive ) Respiratory: diminished breath sounds (bilaterally ), other (on vent ) Cardiovascular: nl pulses, regular rate and rhythm Gastrointestinal: non-tender, soft Musculoskeletal: nl extremities to inspection Extremities: normal pulses, other (no edema, clubbing or cyanosis ) Neurological: other (minimally responsive still, off Sedation x 24 hrs ) Results Result Diagram: 10/16/16 0350 10/16/16 0350 Results 24 hrs Laboratory Tests Test 10/15/16 12:49 10/15/16 13:50 10/15/16 17:20 10/15/16 20:32 Bedside Glucose 178 173 150 Anion Gap 14 Blood Urea Nitrogen 47 H Calcium Level 7.3 L Carbon Dioxide Level 34 H Chloride Level 96 L Creatinine 2.13 H Glucose Level 186 Magnesium Level 2.1 Potassium Level 3.2 L Sodium Level 141 Test 10/16/16 02:04 10/16/16 03:50 10/16/16 05:24 10/16/16 09:14 Bedside Glucose 171 171 211 Activated Partial Thromboplast Time 47.4 H Alanine Aminotransferase (ALT/SGPT) 118 H Albumin 2.4 L Albumin/Globulin Ratio 0.68 Alkaline Phosphatase 262 H Anion Gap 10 Aspartate Amino Transf (AST/SGOT) 104 H Band Neutrophils % 4.0 Blood Urea Nitrogen 38 H Calcium Level 7.6 L Carbon Dioxide Level 35 H Chloride Level 102 Creatinine 1.76 H Direct Bilirubin 0.90 #H Eosinophils # 0.1 Eosinophils % 1.0 Globulin 3.50 H Glucose Level 179 Hematocrit 25.2 L Hemoglobin 8.2 L INR International Normalized Ratio 1.60 Indirect Bilirubin 0.6 Lymphocytes # 0.9 Lymphocytes % 6.0 L Magnesium Level 2.1 Mean Corpuscular Hemoglobin 30.5 Mean Corpuscular Hemoglobin Concent 32.5 Mean Corpuscular Volume 93.7 Mean Platelet Volume 10.5 H Monocytes # 0.7 Monocytes % 5.0 Myelocytes # 0.1 Myelocytes % 1.0 H Neutrophils # 12.3 H Neutrophils % 83.0 H Nucleated Red Blood Cells % 2.0 H Phosphorus Level 1.4 #L Platelet Count 117 L Potassium Level 3.3 L Prothrombin Time 19.2 H Prothrombin Time Ratio 1.5 Red Blood Count 2.69 L Red Cell Distribution Width 12.9 Sodium Level 144 Total Bilirubin 1.5 H Total Protein 5.9 L White Blood Count 14.8 #H Test 10/16/16 09:31 Arterial Blood HCO3 33.5 H Arterial Blood Base Excess 9.5 H Arterial Blood Oxygen Saturation 97.5 Jarod Test ACCEPTAB Arterial Blood Gas Puncture Site Right Radial Arterial Blood Carboxyhemoglobin 0.3 Arterial Blood Date Drawn 10/16/2016 9:50:11 AM Arterial Blood Methemoglobin 0.4 Arterial Blood pCO2 (Temp correct) 43.8 Arterial Blood pH (Temp corrected) 7.502 H Arterial Blood pO2 (Temp corrected) 104.0 H Blood Gas A-a O2 Differential 130.8 H Blood Gas Actual Respiration Rate 20 Blood Gas Low PEEP Setting 5.0 Blood Gas Modality VENT - AC Blood Gas Notified Time 10/16/2016 9:58:46 AM Blood Gas Notified Whom TM Blood Gas Respiration Rate 14.0 Blood Gas Specimen Source Blood arterial Blood Gas Temperature 37.0 Blood Gas Tidal Volume 450.0 FiO2 40.0 Oxyhemoglobin Percent 96.8 Total Hemoglobin 9.9 L Medications Medications Current Medications Aspirin (Aspirin) 81 mg DAILY PO Last administered on 10/16/16 09:04; Admin Dose 81 MG; Start 10/13/16 at 09:00 Atorvastatin Calcium (Lipitor) 20 mg HS PO Last administered on 10/15/16 20:16 ; Admin Dose 20 MG; Start 10/12/16 at 21:00 Enoxaparin Sodium (Lovenox) 55 mg Q24H SC Last administered on 10/15/16 20:34 ; Admin Dose 55 MG; Start 10/12/16 at 21:00 Ondansetron HCl (Zofran Inj) 4 mg Q6H PRN IV NAUSEA AND/OR VOMITING; Start at 15:30 Nitroglycerin (Nitroglycerin (Sl Tab) 0.4 Mg) 1 tab Q5M PRN SL CHEST PAIN; Start 10/12/16 at 15:30 Acetaminophen (Tylenol Tab) 650 mg Q6H PRN PO PAIN LEVEL 1-3 OR FEVER Last administered on 10/13/16 02:58; Admin Dose 650 MG; Start 10/12/16 at 15:30 Acetaminophen/ Hydrocodone Bitart ([place] (5/325)) 1 tab Q6H PRN PO PAIN LEVEL 4 -6; Start 10/12/16 at 15:30 Acetaminophen/ Hydrocodone Bitart ([place] (5/325)) 2 tab Q6H PRN PO PAIN LEVEL 7 -10; Start 10/12/16 at 15:30 Morphine Sulfate (morphine) 2 mg Q4H PRN IV PAIN LEVEL 7-10; Start 10/12/16 at 15:30 Docusate Sodium (Colace) 100 mg Q12H PRN PO CONSTIPATION; Start 10/12/16 at 15: 30 Magnesium Hydroxide (Milk Of Mag) 30 ml DAILY PRN PO CONSTIPATION; Start at 15:30 Bisacodyl (Dulcolax Supp) 10 mg DAILY PRN [place] CONSTIPATION; Start 10/12/16 at 15 :30 Famotidine (Pepcid Iv) 20 mg Q24H IV Last administered on 10/15/16 23:01; Admin Dose 20 MG; Start 10/12/16 at 21:00 Miscellaneous Information 1 ea NOTE XX ; Start 10/12/16 at 16:30 Glucose (Glutose) 15 gm Q15M PRN PO DECREASED GLUCOSE; Start 10/12/16 at 16:30 Glucose (Glutose) 22.5 gm Q15M PRN PO DECREASED GLUCOSE; Start 10/12/16 at 16: 30 Dextrose (D50w Syringe) 25 ml Q15M PRN IV DECREASED GLUCOSE; Start 10/12/16 at 16:30 Dextrose (D50w Syringe) 50 ml Q15M PRN IV DECREASED GLUCOSE Last administered on 10/13/16 23:17; Admin Dose 50 ML; Start 10/12/16 at 16:30 Glucagon (Glucagen) 1 mg Q15M PRN IM DECREASED GLUCOSE; Start 10/12/16 at 16:30 Glucose (Glutose) 15 gm Q15M PRN BUCCAL DECREASED GLUCOSE; Start 10/12/16 at 16 :30 Miscellaneous Information Patients own medicat... BID@10,16 XX Last administered on 10/16/16 10:11; Admin Dose 1 EA; Start 10/13/16 at 10:00 Lactobacillus Acidoph/ Bulgaricus 1 tab 1 tab TID PO Last administered on 09:04; Admin Dose 1 TAB; Start 10/13/16 at 09:00 Cefepime HCl 50 ml @ 100 mls/hr Q24H IVPB Last administered on 10/16/16 09:04 ; Admin Dose 100 MLS/HR; Start 10/14/16 at 09:00 Propofol 100 ml @ 1.71 mls/hr Q12H IV Last administered on 10/14/16 17:55; Admin Dose 5.13 MLS/HR; Start 10/13/16 at 18:00 Midazolam HCl (Versed) 50 ml @ 1 mls/hr TITRATE IV Last administered on 06:30; Admin Dose 6 MLS/HR; Start 10/13/16 at 18:00 Insulin Aspart NOVOLOG *MODERATE* ALGORI... Q4 SC Last administered on 09:16; Admin Dose 4 UNIT; Start 10/14/16 at 10:00 Levofloxacin/ Dextrose 150 ml @ 100 mls/hr Q48H IVPB Last administered on 10/15 12:43; Admin Dose 100 MLS/HR; Start 10/15/16 at 10:00 Norepinephrine 16 mg/Dextrose 500 ml @ 0 mls/hr TITRATE IV ; Start 10/15/16 at 13:30 Sodium Chloride (NS) 1,000 ml @ 50 mls/hr Q20H IV Last administered on 10:28; Admin Dose 50 MLS/HR; Start 10/15/16 at 13:30; Stop 10/17/16 at 05:29 ESE SORIANO Oct 16, 2016 11:03
--- NOTE | 2016-10-16 11:08 | RADRPT ---
PROCEDURE: US Intravascular Line Insertion CLINICAL INDICATION: PICC line placement TECHNIQUE: Ultrasound was used to guide intravascular line placement. COMPARISON: None FINDINGS: Images were taken during real time ultrasound guided PICC line insertion. IMPRESSION: Ultrasound-guided intravascular PICC line insertion. Physician Laura Date Time Electronically viewed and signed by Yanira Mattson Physician on 10/16/2016 11:07 /
--- NOTE | 2016-10-16 11:10 | RADRPT ---
PROCEDURE: XR Chest AP portable CLINICAL INDICATION: Severe sepsis TECHNIQUE: An AP portable radiograph of the chest was submitted. COMPARISON: 10/15/2016 FINDINGS: Support Hardware: The endotracheal tube, the NG tube, and the right upper extremity PICC catheter a stable positioning. Cardiovascular: The cardiovascular silhouette appears unremarkable except for persistent atheroscler otic change involving the aorta. Lung [place]: The bilateral pulmonary infiltrates have improved and no more interstitial except for a n area of alveolar infiltrate seen to the heart at the left lung base which remains alveolar. Pleural Spaces: No pneumothorax or pleural effusion is identified. Osseous Structures: Degenerative spine changes are again noted. Soft Tissues: The soft tissues appear unremarkable. IMPRESSION: 1. Tubes and lines are stable positioning. 2. The heart is normal in size with aorta atherosclerotic and the pulmonary vasculature is no upper normal. 3. Improving bilateral largely interstitial infiltrates suspicious for resolving pulmonary edema wi th alveolar infiltrate again projecting to the left lung base. Physician Laura Date Time Electronically viewed and signed by Physician Laura on 10/16/2016 11:10 /
[2016-10-16] MEDS: ACETAZOLAMIDE 250 MG TAB GTB SCH ×2 (11:35→20:43)
[2016-10-16] MEDS ORDERED: VANCOMYCIN 1 GM in NS 250 ML IVPB SCH (12:00)
[2016-10-16 12:15] LABS: PLATELET COUNT 113 10^3/UL (140-415)
[2016-10-16] MEDS: ACETAMINOPHEN 325 MG TAB PO PRN (12:32)
[2016-10-16 12:40] LABS: INR 1.47; PROTIME 17.9 Sec (12.2-14.2); PT RATIO 1.4
[2016-10-16 12:41] LABS: PARTIAL THROMBOPLASTIN TIME 40.5 Sec (25.0-35.0)
--- NOTE | 2016-10-16 12:41 | CONS ---
Date/Time of Note Date/Time of Note DATE: 10/16/16 TIME: 12:38 Assessment/Plan Assessment/Plan Additional Assessment/Plan Possible cardiac arrest Preserved ejection fraction Acute decompensated diastolic congestive heart failure Labile blood pressure Respiratory failure SIRS Elevated lactate Elevated troponin Acute kidney injury -Patient off IV pressors since this morning, patient with urine output. If blood pressure remains stable, 1 dose of IV Lasix this afternoon. On potassium and phosphorus supplementation. Would titrate off IV fluids if blood pressure permits. Consultation Date/Type/Reason Admit Date/Time Oct 12, 2016 at 11:59 Initial Consult Date 10/13/16 Type of Consultation: cv 24 HR Interval Summary Free Text/Dictation Patient seen and examined, off IV pressor since this morning as per nursing staff Exam/Review of Systems Vital Signs Vitals Vital Signs Date Time Temp Pulse Resp B/P Pulse Ox O2 Delivery O2 Flow Rate FiO2 10/16/16 12:00 99 10/16/16 10:00 16 112/56 99 Mechanical Ventilator 10/16/16 08:00 40 10/16/16 08:00 99.5 10/13/16 15:02 2.0 Intake and Output 10/15/16 10/15/16 10/16/16 15:00 23:00 07:00 Intake Total 364.74 ml 421.35 ml 624.37 ml Output Total 645 ml 780 ml 545 ml Balance -280.26 ml -358.65 ml 79.37 ml Exam Intubated, no apparent distress, no response to verbal stimuli Head: normocephalic ENMT: intubated Respiratory: other (Coarse breath sounds bilaterally, no wheezing) Cardiovascular: other (s1s2 heard), regular rate and rhythm Gastrointestinal: bowel sounds, non-tender, other (S1-S2 heard no grimacing with palpation), soft Extremities: edema Results Result Diagram: 10/16/16 1138 10/16/16 0350 Results 24 hrs Laboratory Tests Test 10/15/16 12:49 10/15/16 13:50 10/15/16 17:20 10/15/16 20:32 Bedside Glucose 178 173 150 Anion Gap 14 Blood Urea Nitrogen 47 H Calcium Level 7.3 L Carbon Dioxide Level 34 H Chloride Level 96 L Creatinine 2.13 H Glucose Level 186 Magnesium Level 2.1 Potassium Level 3.2 L Sodium Level 141 Test 10/16/16 02:04 10/16/16 03:50 10/16/16 05:24 10/16/16 09:14 Bedside Glucose 171 171 211 Activated Partial Thromboplast Time 47.4 H Alanine Aminotransferase (ALT/SGPT) 118 H Albumin 2.4 L Albumin/Globulin Ratio 0.68 Alkaline Phosphatase 262 H Anion Gap 10 Aspartate Amino Transf (AST/SGOT) 104 H Band Neutrophils % 4.0 Blood Urea Nitrogen 38 H Calcium Level 7.6 L Carbon Dioxide Level 35 H Chloride Level 102 Creatinine 1.76 H Direct Bilirubin 0.90 #H Eosinophils # 0.1 Eosinophils % 1.0 Globulin 3.50 H Glucose Level 179 Hematocrit 25.2 L Hemoglobin 8.2 L INR International Normalized Ratio 1.60 Indirect Bilirubin 0.6 Lymphocytes # 0.9 Lymphocytes % 6.0 L Magnesium Level 2.1 Mean Corpuscular Hemoglobin 30.5 Mean Corpuscular Hemoglobin Concent 32.5 Mean Corpuscular Volume 93.7 Mean Platelet Volume 10.5 H Monocytes # 0.7 Monocytes % 5.0 Myelocytes # 0.1 Myelocytes % 1.0 H Neutrophils # 12.3 H Neutrophils % 83.0 H Nucleated Red Blood Cells % 2.0 H Phosphorus Level 1.4 #L Platelet Count 117 L Potassium Level 3.3 L Prothrombin Time 19.2 H Prothrombin Time Ratio 1.5 Red Blood Count 2.69 L Red Cell Distribution Width 12.9 Sodium Level 144 Total Bilirubin 1.5 H Total Protein 5.9 L White Blood Count 14.8 #H Test 10/16/16 09:31 10/16/16 11:38 Arterial Blood HCO3 33.5 H Arterial Blood Base Excess 9.5 H Arterial Blood Oxygen Saturation 97.5 Jarod Test ACCEPTAB Arterial Blood Gas Puncture Site Right Radial Arterial Blood Carboxyhemoglobin 0.3 Arterial Blood Date Drawn 10/16/2016 9:50:11 AM Arterial Blood Methemoglobin 0.4 Arterial Blood pCO2 (Temp correct) 43.8 Arterial Blood pH (Temp corrected) 7.502 H Arterial Blood pO2 (Temp corrected) 104.0 H Blood Gas A-a O2 Differential 130.8 H Blood Gas Actual Respiration Rate 20 Blood Gas Low PEEP Setting 5.0 Blood Gas Modality VENT - AC Blood Gas Notified Time 10/16/2016 9:58:46 AM Blood Gas Notified Whom TM Blood Gas Respiration Rate 14.0 Blood Gas Specimen Source Blood arterial Blood Gas Temperature 37.0 Blood Gas Tidal Volume 450.0 FiO2 40.0 Oxyhemoglobin Percent 96.8 Total Hemoglobin 9.9 L Activated Partial Thromboplast Time Pending D-Dimer Pending Fibrinogen Pending INR International Normalized Ratio Pending Plasma Fibrin Degradation Products Pending Platelet Count 113 L Prothrombin Time Pending Prothrombin Time Ratio Pending Thrombin Time Pending Medications Medications Current Medications Aspirin (Aspirin) 81 mg DAILY PO Last administered on 10/16/16 09:04; Admin Dose 81 MG; Start 10/13/16 at 09:00 Atorvastatin Calcium (Lipitor) 20 mg HS PO Last administered on 10/15/16 20:16 ; Admin Dose 20 MG; Start 10/12/16 at 21:00 Enoxaparin Sodium (Lovenox) 55 mg Q24H SC Last administered on 10/15/16 20:34 ; Admin Dose 55 MG; Start 10/12/16 at 21:00 Ondansetron HCl (Zofran Inj) 4 mg Q6H PRN IV NAUSEA AND/OR VOMITING; Start at 15:30 Nitroglycerin (Nitroglycerin (Sl Tab) 0.4 Mg) 1 tab Q5M PRN SL CHEST PAIN; Start 10/12/16 at 15:30 Acetaminophen (Tylenol Tab) 650 mg Q6H PRN PO PAIN LEVEL 1-3 OR FEVER Last administered on 10/16/16 12:32; Admin Dose 650 MG; Start 10/12/16 at 15:30 Acetaminophen/ Hydrocodone Bitart ([place] (5/325)) 1 tab Q6H PRN PO PAIN LEVEL 4 -6; Start 10/12/16 at 15:30 Acetaminophen/ Hydrocodone Bitart ([place] (5/325)) 2 tab Q6H PRN PO PAIN LEVEL 7 -10; Start 10/12/16 at 15:30 Morphine Sulfate (morphine) 2 mg Q4H PRN IV PAIN LEVEL 7-10; Start 10/12/16 at 15:30 Docusate Sodium (Colace) 100 mg Q12H PRN PO CONSTIPATION; Start 10/12/16 at 15: 30 Magnesium Hydroxide (Milk Of Mag) 30 ml DAILY PRN PO CONSTIPATION; Start at 15:30 Bisacodyl (Dulcolax Supp) 10 mg DAILY PRN [place] CONSTIPATION; Start 10/12/16 at 15 :30 Famotidine (Pepcid Iv) 20 mg Q24H IV Last administered on 10/15/16 23:01; Admin Dose 20 MG; Start 10/12/16 at 21:00 Miscellaneous Information 1 ea NOTE XX ; Start 10/12/16 at 16:30 Glucose (Glutose) 15 gm Q15M PRN PO DECREASED GLUCOSE; Start 10/12/16 at 16:30 Glucose (Glutose) 22.5 gm Q15M PRN PO DECREASED GLUCOSE; Start 10/12/16 at 16: 30 Dextrose (D50w Syringe) 25 ml Q15M PRN IV DECREASED GLUCOSE; Start 10/12/16 at 16:30 Dextrose (D50w Syringe) 50 ml Q15M PRN IV DECREASED GLUCOSE Last administered on 10/13/16 23:17; Admin Dose 50 ML; Start 10/12/16 at 16:30 Glucagon (Glucagen) 1 mg Q15M PRN IM DECREASED GLUCOSE; Start 10/12/16 at 16:30 Glucose (Glutose) 15 gm Q15M PRN BUCCAL DECREASED GLUCOSE; Start 10/12/16 at 16 :30 Miscellaneous Information Patients own medicat... BID@10,16 XX Last administered on 10/16/16 10:11; Admin Dose 1 EA; Start 10/13/16 at 10:00 Lactobacillus Acidoph/ Bulgaricus 1 tab 1 tab TID PO Last administered on 12:31; Admin Dose 1 TAB; Start 10/13/16 at 09:00 Cefepime HCl 50 ml @ 100 mls/hr Q24H IVPB Last administered on 10/16/16 09:04 ; Admin Dose 100 MLS/HR; Start 10/14/16 at 09:00 Propofol 100 ml @ 1.71 mls/hr Q12H IV Last administered on 10/14/16 17:55; Admin Dose 5.13 MLS/HR; Start 10/13/16 at 18:00 Midazolam HCl (Versed) 50 ml @ 1 mls/hr TITRATE IV Last administered on 06:30; Admin Dose 6 MLS/HR; Start 10/13/16 at 18:00 Insulin Aspart NOVOLOG *MODERATE* ALGORI... Q4 SC Last administered on 09:16; Admin Dose 4 UNIT; Start 10/14/16 at 10:00 Levofloxacin/ Dextrose 150 ml @ 100 mls/hr Q48H IVPB Last administered on 10/15 12:43; Admin Dose 100 MLS/HR; Start 10/15/16 at 10:00 Norepinephrine 16 mg/Dextrose 500 ml @ 0 mls/hr TITRATE IV ; Start 10/15/16 at 13:30 Potassium Phosphate/Sodium Chloride (K Phos (Mm)/NS) 255 ml @ 63.75 mls/ hr ONCE ONCE IVPB Last administered on 10/16/16 11:35; Admin Dose 63.75 MLS/HR; Start 10/16/16 at 11:00; Stop 10/16/16 at 14:59 Acetazolamide (Diamox) 250 mg BID GTB Last administered on 10/16/16 11:35; Admin Dose 250 MG; Start 10/16/16 at 11:30; Stop 10/16/16 at 21:01 Singh Thompson DO Oct 16, 2016 12:41
[2016-10-16 12:45] LABS: THROMBIN TIME 19.4 SEC (13.8-19.1)
[2016-10-16 12:48] LABS: D-DIMER 2035.04 ng/ml (<460)
[2016-10-16 12:50] LABS: FIBRIN SPLIT PRODUCT <10 ug/ml (<10)
[2016-10-16 17:23] LABS: POTASSIUM 3.9 mmol/L (3.5-5.1)
[2016-10-16 17:25] LABS: CREATININE 1.72 mg/dl (0.44-1.00)
[2016-10-16 17:26] LABS: MAGNESIUM 2.3 mg/dl (1.7-2.5); PHOSPHORUS 2.3 mg/dl (2.5-4.9)
--- NOTE | 2016-10-16 17:56 | RADRPT ---
Vent Rate: 152 bpm RR Interval: 0 msec ND Interval: 146 msec QRS Duration: 142 msec QT Interval: 336 msec QTC Interval: 534 msec P-R-T [place]: 85 - 85 - 89 degrees Sinus tachycardia with frequent artefact Right bundle branch block Abnormal ECG Electronically Signed By: Daryl Reyes [id number]
[2016-10-16 18:08] LABS: CALCIUM 7.8 mg/dl (8.4-10.2)
[2016-10-16] MEDS ORDERED: FUROSEMIDE 20 MG INJ IV ONE (18:30)
[2016-10-16] MEDS: ENOXAPARIN 60 MG/0.6 ML SYG SC SCH (20:42)
[2016-10-16] MEDS: INSULIN GLARGINE [LANtus] 3 ML PEN SC SCH (20:42)
[2016-10-16] MEDS: ATORVASTATIN 20 MG TAB PO SCH (20:43)
[2016-10-16] MEDS: FAMOTIDINE 20 MG INJ IV SCH (20:46)
[2016-10-17] VITALS (39 sets, daily range): BP systolic 96–143; BP diastolic 51–90; PULSE 79–110; RESP 14–29
[2016-10-17] MEDS: INSULIN ASPART [NOVOLOG] 3 ML PEN SC SCH ×6 (00:55→22:07)
[2016-10-17 05:00] LABS: ADD SCAN DIFF NO
[2016-10-17 05:04] LABS: ABNORMAL IP MESSAGE 1; BASOPHIL # 0.1 10^3/ul (0.0-0.1); BASOPHILS % 0.7 % (0.0-2.0); EOSINOPHILS # 0.7 10^3/ul (0.0-0.5); EOSINOPHILS % 4.6 % (0.0-7.0); HEMATOCRIT 27.2 % (37.0-47.0); HEMOGLOBIN 8.4 g/dl (12.0-16.0); LYMPHOCYTES # 1.3 10^3/ul (0.8-2.9); LYMPHOCYTES % 9.2 % (15.0-51.0); MEAN CORPUSCULAR HEMOGLOBIN 30.2 pg (29.0-33.0); MEAN CORPUSCULAR HGB CONC 30.9 g/dl (32.0-37.0); MEAN CORPUSCULAR VOLUME 97.8 fl (82.0-101.0); MEAN PLATELET VOLUME 10.8 fl (7.4-10.4); MONOCYTE # 0.8 10^3/ul (0.3-0.9); MONOCYTES % 5.9 % (0.0-11.0); NEUTROPHIL # 10.2 10^3/ul (1.6-7.5); NEUTROPHILS % 71.3 % (39.0-77.0); NUCLEATED RED BLOOD CELLS # 0.2 10^3/ul (0.0-0.0); NUCLEATED RED BLOOD CELLS% 1.5 /100WBC (0.0-0.0); PLATELET COUNT 141 10^3/UL (140-415); RED BLOOD COUNT 2.78 10^6/ul (4.20-5.40); RED CELL DISTRIBUTION WIDTH 13.5 % (11.5-14.5); WHITE BLOOD COUNT 14.3 10^3/ul (4.8-10.8)
[2016-10-17 05:35] LABS: ALBUMIN 2.5 g/dl (3.3-4.9)
[2016-10-17] MEDS: PROPOFOL 100 ML IV SCH ×2 (05:35→18:00)
[2016-10-17 05:36] LABS: POTASSIUM 3.4 mmol/L (3.5-5.1)
[2016-10-17 05:38] LABS: ALBUMIN/GLOBULIN RATIO 0.65; BILIRUBIN,INDIRECT 0.4 mg/dl (0-1.1); BILIRUBIN,TOTAL 0.4 mg/dl (0.2-1.3); CREATININE 1.8 mg/dl (0.44-1.00); MAGNESIUM 2.2 mg/dl (1.7-2.5); PHOSPHORUS 2.1 mg/dl (2.5-4.9); TOTAL PROTEIN 6.3 g/dl (6.1-8.1)
[2016-10-17 05:39] LABS: CALCIUM 8.3 mg/dl (8.4-10.2)
--- NOTE | 2016-10-17 08:57 | RADRPT ---
PROCEDURE: XR Chest. CLINICAL INDICATION: Pneumonia TECHNIQUE: An AP view of the chest was obtained. COMPARISON: Chest x-ray dated 10/16/2016 FINDINGS: The endotracheal tube tip is approximately 3.0 cm above the mariann. The tip of the enteric tube ex tends below the left diaphragm. There is a right upper extremity PICC line with tip in the mid SVC. There are diffuse bilateral interstitial opacities with small left pleural effusion. No pneumothor ax is seen. The cardiomediastinal silhouette is mildly enlarged . Calcifications are seen within t he aortic arch. The osseous structures demonstrate senescent changes. IMPRESSION: 1. Diffuse bilateral interstitial opacities may reflect interstitial edema or multifocal pneumonia. Overall, no significant interval change. 2. Stable, small left pleural effusion. 3. Mild cardiomegaly and aortic atherosclerosis. 4. Tubes and lines, as described above. RPTAT: HH .Bridgette Peters MD, MD Date Time Electronically viewed and signed by .Bridgette Peters MD, on 10/17/2016 08:57 .G/
[2016-10-17] MEDS: CEFEPIME 1GM/50 ML IVPB SCH (09:14)
[2016-10-17] MEDS: ASPIRIN 81 MG TAB PO SCH (09:14)
[2016-10-17] MEDS: LACTOBACILLUS CHEW TAB PO SCH ×3 (09:14→21:08)
--- NOTE | 2016-10-17 10:15 | CONS ---
Date/Time of Note Date/Time of Note DATE: 10/17/16 TIME: 10:10 Assessment/Plan Assessment/Plan Additional Assessment/Plan Chest x-ray was reviewed from today which is showing continued improvement in extensive bilateral infiltrates. Ventilator settings are assist control of 14, tidal volume 450, PEEP of 5, 30% FiO2. Assessment and recommendations; next 1. Patient admitted with severe sepsis from UTI due to gram-negative bacteremia. Next 2. Acute renal failure with marked and continued improvement. 3. Extensive bilateral pneumonia likely hematogenous spread with interval improvement as well. 4. Severe metabolic acidosis with interval correction. 5. Patient also additional gradually waking up. Next 6. Hypotension, patient off Levophed. Continue current treatment. In current antibiotics. Other supportive measures. Free water administration to be increased. Did have a discussion the patient's daughters and granddaughter and apprised him of her condition. Prognosis is fair at this point. She will be given a weaning trial from ventilator in 24 hours provided her mental status continues to improve. Consultation Date/Type/Reason Admit Date/Time Oct 12, 2016 at 11:59 Initial Consult Date 10/13/16 Type of Consultation: Pulmonary/critical care 24 HR Interval Summary Free Text/Dictation Patient's condition remains critical. However patient is improving daily. Has remained hemodynamically stable. Off pressor support. General examination; elderly lady, or intubated, arousable. Currently in no distress. Exam/Review of Systems Vital Signs Vitals Vital Signs Date Time Temp Pulse Resp B/P Pulse Ox O2 Delivery O2 Flow Rate FiO2 10/17/16 07:00 79 15 104/57 100 Mechanical Ventilator 10/17/16 05:12 40 10/17/16 04:00 99.0 10/13/16 15:02 2.0 Intake and Output 10/16/16 10/16/16 10/17/16 15:00 23:00 07:00 Intake Total 740 ml 390 ml 410 ml Output Total 525 ml 1195 ml 925 ml Balance 215 ml -805 ml -515 ml Exam HEENT examination; supple neck, no JVD. No lymphadenopathy. Orally intubated. Patient is edentulous. Pupils are small bilaterally. There is mild subconjunctival edema present. No neck masses. No thyromegaly. No neck bruits. Chest examination; diminished but clear breath sounds bilaterally. S1-S2 audible, no murmurs. Regular rhythm. Abdomen examination; soft, nondistended. No organomegaly. Bowel sounds audible. Extremity examination; no peripheral edema. [employer] examination; patient opens eyes on name calling. Results Result Diagram: 10/17/16 0320 10/17/16 0320 Results 24 hrs Laboratory Tests Test 10/16/16 11:38 10/16/16 12:35 10/16/16 16:57 10/16/16 20:38 Activated Partial Thromboplast Time 40.5 H D-Dimer 2035.04 #H D-Dimer Comment Fibrinogen 562.0 H INR International Normalized Ratio 1.47 Plasma Fibrin Degradation Products <10 Platelet Count 113 L Prothrombin Time 17.9 H Prothrombin Time Ratio 1.4 Thrombin Time 19.4 H Bedside Glucose 200 214 224 H Anion Gap 11 Blood Urea Nitrogen 35 H Calcium Level 7.8 L Carbon Dioxide Level 33 H Chloride Level 105 Creatinine 1.72 H Glucose Level 205 Magnesium Level 2.3 Phosphorus Level 2.3 L Potassium Level 3.9 Sodium Level 145 H Test 10/17/16 00:51 10/17/16 03:20 10/17/16 05:32 10/17/16 09:17 Bedside Glucose 210 203 189 Alanine Aminotransferase (ALT/SGPT) 93 H Albumin 2.5 L Albumin/Globulin Ratio 0.65 Alkaline Phosphatase 350 H Anion Gap 12 Aspartate Amino Transf (AST/SGOT) 66 H Basophils # 0.1 Basophils % 0.7 Blood Urea Nitrogen 35 H Calcium Level 8.3 L Carbon Dioxide Level 32 H Chloride Level 107 Creatinine 1.80 H Direct Bilirubin 0.00 # Eosinophils # 0.7 H Eosinophils % 4.6 Globulin 3.80 H Glucose Level 180 Hematocrit 27.2 L Hemoglobin 8.4 L Indirect Bilirubin 0.4 Lymphocytes # 1.3 Lymphocytes % 9.2 L Magnesium Level 2.2 Mean Corpuscular Hemoglobin 30.2 Mean Corpuscular Hemoglobin Concent 30.9 L Mean Corpuscular Volume 97.8 Mean Platelet Volume 10.8 H Monocytes # 0.8 Monocytes % 5.9 Neutrophils # 10.2 H Neutrophils % 71.3 Nucleated Red Blood Cells # 0.2 H Nucleated Red Blood Cells % 1.5 H Phosphorus Level 2.1 L Platelet Count 141 # Potassium Level 3.4 L Red Blood Count 2.78 L Red Cell Distribution Width 13.5 Sodium Level 148 H Total Bilirubin 0.4 Total Protein 6.3 White Blood Count 14.3 H Medications Medications Current Medications Aspirin (Aspirin) 81 mg DAILY PO Last administered on 10/17/16 09:14; Admin Dose 81 MG; Start 10/13/16 at 09:00 Atorvastatin Calcium (Lipitor) 20 mg HS PO Last administered on 10/16/16 20:43 ; Admin Dose 20 MG; Start 10/12/16 at 21:00 Enoxaparin Sodium (Lovenox) 55 mg Q24H SC Last administered on 10/16/16 20:42 ; Admin Dose 55 MG; Start 10/12/16 at 21:00 Ondansetron HCl (Zofran Inj) 4 mg Q6H PRN IV NAUSEA AND/OR VOMITING; Start at 15:30 Nitroglycerin (Nitroglycerin (Sl Tab) 0.4 Mg) 1 tab Q5M PRN SL CHEST PAIN; Start 10/12/16 at 15:30 Acetaminophen (Tylenol Tab) 650 mg Q6H PRN PO PAIN LEVEL 1-3 OR FEVER Last administered on 10/16/16 12:32; Admin Dose 650 MG; Start 10/12/16 at 15:30 Acetaminophen/ Hydrocodone Bitart ([place] (5/325)) 1 tab Q6H PRN PO PAIN LEVEL 4 -6; Start 10/12/16 at 15:30 Acetaminophen/ Hydrocodone Bitart ([place] (5/325)) 2 tab Q6H PRN PO PAIN LEVEL 7 -10; Start 10/12/16 at 15:30 Morphine Sulfate (morphine) 2 mg Q4H PRN IV PAIN LEVEL 7-10; Start 10/12/16 at 15:30 Docusate Sodium (Colace) 100 mg Q12H PRN PO CONSTIPATION; Start 10/12/16 at 15: 30 Magnesium Hydroxide (Milk Of Mag) 30 ml DAILY PRN PO CONSTIPATION; Start at 15:30 Bisacodyl (Dulcolax Supp) 10 mg DAILY PRN [place] CONSTIPATION; Start 10/12/16 at 15 :30 Famotidine (Pepcid Iv) 20 mg Q24H IV Last administered on 10/16/16 20:46; Admin Dose 20 MG; Start 10/12/16 at 21:00 Miscellaneous Information 1 ea NOTE XX ; Start 10/12/16 at 16:30 Glucose (Glutose) 15 gm Q15M PRN PO DECREASED GLUCOSE; Start 10/12/16 at 16:30 Glucose (Glutose) 22.5 gm Q15M PRN PO DECREASED GLUCOSE; Start 10/12/16 at 16: 30 Dextrose (D50w Syringe) 25 ml Q15M PRN IV DECREASED GLUCOSE; Start 10/12/16 at 16:30 Dextrose (D50w Syringe) 50 ml Q15M PRN IV DECREASED GLUCOSE Last administered on 10/13/16 23:17; Admin Dose 50 ML; Start 10/12/16 at 16:30 Glucagon (Glucagen) 1 mg Q15M PRN IM DECREASED GLUCOSE; Start 10/12/16 at 16:30 Glucose (Glutose) 15 gm Q15M PRN BUCCAL DECREASED GLUCOSE; Start 10/12/16 at 16 :30 Miscellaneous Information Patients own medicat... BID@10,16 XX Last administered on 10/16/16 15:37; Admin Dose 1 EA; Start 10/13/16 at 10:00 Lactobacillus Acidoph/ Bulgaricus 1 tab 1 tab TID PO Last administered on 09:14; Admin Dose 1 TAB; Start 10/13/16 at 09:00 Cefepime HCl 50 ml @ 100 mls/hr Q24H IVPB Last administered on 10/17/16 09:14 ; Admin Dose 100 MLS/HR; Start 10/14/16 at 09:00 Propofol 100 ml @ 1.71 mls/hr Q12H IV Last administered on 10/14/16 17:55; Admin Dose 5.13 MLS/HR; Start 10/13/16 at 18:00 Midazolam HCl (Versed) 50 ml @ 1 mls/hr TITRATE IV Last administered on 06:30; Admin Dose 6 MLS/HR; Start 10/13/16 at 18:00 Insulin Aspart NOVOLOG *MODERATE* ALGORI... Q4 SC Last administered on 09:26; Admin Dose 2 UNIT; Start 10/14/16 at 10:00 Levofloxacin/ Dextrose 150 ml @ 100 mls/hr Q48H IVPB Last administered on 10/15 12:43; Admin Dose 100 MLS/HR; Start 10/15/16 at 10:00 Norepinephrine/ Dextrose (Levophed/D5W) 500 ml @ 0 mls/hr TITRATE IV ; Start at 13:30 Insulin Glargine (Lantus) 10 unit DAILY@20 SC Last administered on 10/16/16t 20 :42; Admin Dose 10 UNIT; Start 10/16/16 at 20:00 STAN HOLGUIN Oct 17, 2016 10:15
--- NOTE | 2016-10-17 10:23 | PN ---
Date/Time of Note Date/Time of Note DATE: 10/17/16 TIME: 10:02 Assessment/Plan VTE Prophylaxis VTE Prophylaxis Intervention: SCD's Lines/Catheters IV Catheter Type (from Nrsg): PICC Line Central line still needed: Yes (for IV access ) Urinary Cath still in place: Yes Reason Cath still needed: other (indicate) ([place] and monitoring UOP) Assessment/Plan Assessment/Plan 71-year-old female with: 1. S/p Cardiac arrest, s/p intubation and on mechanical ventilation now VSS better, off pressors x 2 days and stable on Vent, OFF sedation and becoming more responsive Troponin trending down again 2. Acute respiratory failure: intubated post cardiac arrest CXR today with improving bilateral pulmonary infiltrates, pulmonary edema vs bilateral PNA, Repeat CXR in AM Unlikely PE, patient was on anticoag dose of Lovenox on admission due to NSTEMI dx anyways Continue current abx with double gram neg coverage and Vanco added back per Pulmo 3. E coli Severe sepsis and Urinary tract infection. S/p cardiogenic vs septic shock Off pressors now On Cefepime and Levaquin. Will plan on d/c 1/2 of the abx by the AM Repeat blood cx pending 4. Diabetes mellitus, [id number]. A1C of 7.8 continue current insulin regimen, Lantus added and will adjust Tube feeding and titrate Lantus up as needed 5. Hypertension, s/p shock state, OFF pressors x 2 days with BP more stable. Holding all antihypertensive currently. 6. Acute kidney injury in setting of urinary tract infection and sepsis, likely prerenal azotemia. S/p Lasix and Diamox x 2 yesterday Renal function mostly unchanged from yesterday, good UOP, ? slighly pre renal with NA up and alkalosis Increase Free H2O to 200 cc q6 and monitor labs Renal US showing left moderate hydronephrosis, CT A/P ordered today and pending Continue abx rx, Replete K/phos today and repeat BMP in AM 6. Elevated troponin, possible non-ST elevation myocardial infarction. Trop back up after resuscitation but trending down Continue Lovenox. A 2D echocardiogram with stable EF Appreciate Cardiology recommendations 7. Thrombocytopenia, improving today Prophylaxis: On Lovenox treatment dose for possible NSTEMI and Pepcid for gastrointestinal prophylaxis. DISPOSITION: In ICU, intubated and off sedation and pressors now. Followup Cardio and pulmo recs. f/u CT a/p Prognosis fair. Subjective 24 Hr Interval Summary Free Text/Dictation Patient seems to be improving clinically CXR improved this AM Waking up slowly, OFF versed now x 2 to 3 days VSS stable off pressors today Exam/Review of Systems Vital Signs Vitals Vital Signs Date Time Temp Pulse Resp B/P Pulse Ox O2 Delivery O2 Flow Rate FiO2 10/17/16 07:00 79 15 104/57 100 Mechanical Ventilator 10/17/16 05:12 40 10/17/16 04:00 99.0 10/13/16 15:02 2.0 Intake and Output 10/16/16 10/16/16 10/17/16 15:00 23:00 07:00 Intake Total 740 ml 390 ml 410 ml Output Total 525 ml 1195 ml 925 ml Balance 215 ml -805 ml -515 ml Exam Constitutional: other (waking up slowly ) Respiratory: diminished breath sounds (bases but much improved ), other (on Vent ) Cardiovascular: nl pulses, regular rate and rhythm Gastrointestinal: non-tender, soft Musculoskeletal: nl extremities to inspection Extremities: normal pulses, other (no edema, clubbing or cyanosis ) Neurological: other (sedation wearing off and waking up slowly ) Results Result Diagram: 10/17/16 0320 10/17/16 0320 Results 24 hrs Laboratory Tests Test 10/16/16 11:38 10/16/16 12:35 10/16/16 16:57 10/16/16 20:38 Activated Partial Thromboplast Time 40.5 H D-Dimer 2035.04 #H D-Dimer Comment Fibrinogen 562.0 H INR International Normalized Ratio 1.47 Plasma Fibrin Degradation Products <10 Platelet Count 113 L Prothrombin Time 17.9 H Prothrombin Time Ratio 1.4 Thrombin Time 19.4 H Bedside Glucose 200 214 224 H Anion Gap 11 Blood Urea Nitrogen 35 H Calcium Level 7.8 L Carbon Dioxide Level 33 H Chloride Level 105 Creatinine 1.72 H Glucose Level 205 Magnesium Level 2.3 Phosphorus Level 2.3 L Potassium Level 3.9 Sodium Level 145 H Test 10/17/16 00:51 10/17/16 03:20 10/17/16 05:32 10/17/16 09:17 Bedside Glucose 210 203 189 Alanine Aminotransferase (ALT/SGPT) 93 H Albumin 2.5 L Albumin/Globulin Ratio 0.65 Alkaline Phosphatase 350 H Anion Gap 12 Aspartate Amino Transf (AST/SGOT) 66 H Basophils # 0.1 Basophils % 0.7 Blood Urea Nitrogen 35 H Calcium Level 8.3 L Carbon Dioxide Level 32 H Chloride Level 107 Creatinine 1.80 H Direct Bilirubin 0.00 # Eosinophils # 0.7 H Eosinophils % 4.6 Globulin 3.80 H Glucose Level 180 Hematocrit 27.2 L Hemoglobin 8.4 L Indirect Bilirubin 0.4 Lymphocytes # 1.3 Lymphocytes % 9.2 L Magnesium Level 2.2 Mean Corpuscular Hemoglobin 30.2 Mean Corpuscular Hemoglobin Concent 30.9 L Mean Corpuscular Volume 97.8 Mean Platelet Volume 10.8 H Monocytes # 0.8 Monocytes % 5.9 Neutrophils # 10.2 H Neutrophils % 71.3 Nucleated Red Blood Cells # 0.2 H Nucleated Red Blood Cells % 1.5 H Phosphorus Level 2.1 L Platelet Count 141 # Potassium Level 3.4 L Red Blood Count 2.78 L Red Cell Distribution Width 13.5 Sodium Level 148 H Total Bilirubin 0.4 Total Protein 6.3 White Blood Count 14.3 H Medications Medications Current Medications Aspirin (Aspirin) 81 mg DAILY PO Last administered on 10/17/16 09:14; Admin Dose 81 MG; Start 10/13/16 at 09:00 Atorvastatin Calcium (Lipitor) 20 mg HS PO Last administered on 10/16/16 20:43 ; Admin Dose 20 MG; Start 10/12/16 at 21:00 Enoxaparin Sodium (Lovenox) 55 mg Q24H SC Last administered on 10/16/16 20:42 ; Admin Dose 55 MG; Start 10/12/16 at 21:00 Ondansetron HCl (Zofran Inj) 4 mg Q6H PRN IV NAUSEA AND/OR VOMITING; Start at 15:30 Nitroglycerin (Nitroglycerin (Sl Tab) 0.4 Mg) 1 tab Q5M PRN SL CHEST PAIN; Start 10/12/16 at 15:30 Acetaminophen (Tylenol Tab) 650 mg Q6H PRN PO PAIN LEVEL 1-3 OR FEVER Last administered on 10/16/16 12:32; Admin Dose 650 MG; Start 10/12/16 at 15:30 Acetaminophen/ Hydrocodone Bitart ([place] (5/325)) 1 tab Q6H PRN PO PAIN LEVEL 4 -6; Start 10/12/16 at 15:30 Acetaminophen/ Hydrocodone Bitart ([place] (5/325)) 2 tab Q6H PRN PO PAIN LEVEL 7 -10; Start 10/12/16 at 15:30 Morphine Sulfate (morphine) 2 mg Q4H PRN IV PAIN LEVEL 7-10; Start 10/12/16 at 15:30 Docusate Sodium (Colace) 100 mg Q12H PRN PO CONSTIPATION; Start 10/12/16 at 15: 30 Magnesium Hydroxide (Milk Of Mag) 30 ml DAILY PRN PO CONSTIPATION; Start at 15:30 Bisacodyl (Dulcolax Supp) [address] CONSTIPATION; Start 10/12/16 at 15 :30 Famotidine (Pepcid Iv) 20 mg Q24H IV Last administered on 10/16/16 20:46; Admin Dose 20 MG; Start 10/12/16 at 21:00 Miscellaneous Information 1 ea NOTE XX ; Start 10/12/16 at 16:30 Glucose (Glutose) 15 gm Q15M PRN PO DECREASED GLUCOSE; Start 10/12/16 at 16:30 Glucose (Glutose) 22.5 gm Q15M PRN PO DECREASED GLUCOSE; Start 10/12/16 at 16: 30 Dextrose (D50w Syringe) 25 ml Q15M PRN IV DECREASED GLUCOSE; Start 10/12/16 at 16:30 Dextrose (D50w Syringe) 50 ml Q15M PRN IV DECREASED GLUCOSE Last administered on 10/13/16 23:17; Admin Dose 50 ML; Start 10/12/16 at 16:30 Glucagon (Glucagen) 1 mg Q15M PRN IM DECREASED GLUCOSE; Start 10/12/16 at 16:30 Glucose (Glutose) 15 gm Q15M PRN BUCCAL DECREASED GLUCOSE; Start 10/12/16 at 16 :30 Miscellaneous Information Patients own medicat... BID@16 XX Last administered on 10/16/16 15:37; Admin Dose 1 EA; Start 10/13/16 at 10:00 Lactobacillus Acidoph/ Bulgaricus 1 tab 1 tab TID PO Last administered on 09:14; Admin Dose 1 TAB; Start 10/13/16 at 09:00 Cefepime HCl 50 ml @ 100 mls/hr Q24H IVPB Last administered on 10/17/16 09:14 ; Admin Dose 100 MLS/HR; Start 10/14/16 at 09:00 Propofol 100 ml @ 1.71 mls/hr Q12H IV Last administered on 10/14/16 17:55; Admin Dose 5.13 MLS/HR; Start 10/13/16 at 18:00 Midazolam HCl (Versed) 50 ml @ 1 mls/hr TITRATE IV Last administered on 06:30; Admin Dose 6 MLS/HR; Start 10/13/16 at 18:00 Insulin Aspart NOVOLOG *MODERATE* ALGORI... Q4 SC Last administered on 09:26; Admin Dose 2 UNIT; Start 10/14/16 at 10:00 Levofloxacin/ Dextrose 150 ml @ 100 mls/hr Q48H IVPB Last administered on 10/15 12:43; Admin Dose 100 MLS/HR; Start 10/15/16 at 10:00 Norepinephrine/ Dextrose (Levophed/D5W) 500 ml @ 0 mls/hr TITRATE IV ; Start at 13:30 Insulin Glargine (Lantus) 10 unit DAILY@20 SC Last administered on 10/16/16 20 :42; Admin Dose 10 UNIT; Start 10/16/16 at 20:00 ESE SORIANO Oct 17, 2016 10:20
[2016-10-17] MEDS ORDERED: POTASSIUM PHOSPHATE 30 MM in SOD CHLORIDE 0.9% 250 ML IVPB SCH (11:30)
[2016-10-17] MEDS: LEVOFLOXACIN 750MG/D5W (PMX) 150 ML IVPB SCH (12:44)
--- NOTE | 2016-10-17 13:57 | CONS ---
Date/Time of Note Date/Time of Note DATE: 10/17/16 TIME: 13:55 Assessment/Plan Assessment/Plan Additional Assessment/Plan Possible cardiac arrest Preserved ejection fraction Acute decompensated diastolic congestive heart failure Labile blood pressure Respiratory failure SIRS Elevated troponin Acute kidney injury -Would start gentle IV diuresis as blood pressure and renal function permits. Maintain potassium above 4.0 and magnesium above 2.0. Consultation Date/Type/Reason Admit Date/Time Oct 12, 2016 at 11:59 Initial Consult Date 10/13/16 Type of Consultation: cv 24 HR Interval Summary Free Text/Dictation Patient seen and examined. Exam/Review of Systems Vital Signs Vitals Vital Signs Date Time Temp Pulse Resp B/P Pulse Ox O2 Delivery O2 Flow Rate FiO2 10/17/16 12:20 40 10/17/16 12:00 98.1 84 15 101/55 99 Mechanical Ventilator 10/13/16 15:02 2.0 Intake and Output 10/16/16 10/16/16 10/17/16 15:00 23:00 07:00 Intake Total 740 ml 390 ml 440 ml Output Total 525 ml 1195 ml 1000 ml Balance 215 ml -805 ml -560 ml Exam No response to verbal stimuli, no apparent distress, intubated Head: normocephalic ENMT: intubated Respiratory: other (Coarse breath sounds bilaterally, no wheezing) Cardiovascular: other (S1-S2 heard), regular rate and rhythm Gastrointestinal: bowel sounds, non-tender, other (No guarding or grimacing with palpation), soft Extremities: edema Results Result Diagram: 10/17/16 0320 10/17/16 0320 Results 24 hrs Laboratory Tests Test 10/16/16 16:57 10/16/16 20:38 10/17/16 00:51 10/17/16 03:20 Anion Gap 11 12 Bedside Glucose 214 224 H 210 Blood Urea Nitrogen 35 H 35 H Calcium Level 7.8 L 8.3 L Carbon Dioxide Level 33 H 32 H Chloride Level 105 107 Creatinine 1.72 H 1.80 H Glucose Level 205 180 Magnesium Level 2.3 2.2 Phosphorus Level 2.3 L 2.1 L Potassium Level 3.9 3.4 L Sodium Level 145 H 148 H Alanine Aminotransferase (ALT/SGPT) 93 H Albumin 2.5 L Albumin/Globulin Ratio 0.65 Alkaline Phosphatase 350 H Aspartate Amino Transf (AST/SGOT) 66 H Basophils # 0.1 Basophils % 0.7 Direct Bilirubin 0.00 # Eosinophils # 0.7 H Eosinophils % 4.6 Globulin 3.80 H Hematocrit 27.2 L Hemoglobin 8.4 L Indirect Bilirubin 0.4 Lymphocytes # 1.3 Lymphocytes % 9.2 L Mean Corpuscular Hemoglobin 30.2 Mean Corpuscular Hemoglobin Concent 30.9 L Mean Corpuscular Volume 97.8 Mean Platelet Volume 10.8 H Monocytes # 0.8 Monocytes % 5.9 Neutrophils # 10.2 H Neutrophils % 71.3 Nucleated Red Blood Cells # 0.2 H Nucleated Red Blood Cells % 1.5 H Platelet Count 141 # Red Blood Count 2.78 L Red Cell Distribution Width 13.5 Total Bilirubin 0.4 Total Protein 6.3 White Blood Count 14.3 H Test 10/17/16 05:32 10/17/16 09:17 10/17/16 13:04 Bedside Glucose 203 189 228 H Medications Medications Current Medications Aspirin (Aspirin) 81 mg DAILY PO Last administered on 10/17/16 09:14; Admin Dose 81 MG; Start 10/13/16 at 09:00 Atorvastatin Calcium (Lipitor) 20 mg HS PO Last administered on 10/16/16 20:43 ; Admin Dose 20 MG; Start 10/12/16 at 21:00 Enoxaparin Sodium (Lovenox) 55 mg Q24H SC Last administered on 10/16/16 20:42 ; Admin Dose 55 MG; Start 10/12/16 at 21:00 Ondansetron HCl (Zofran Inj) 4 mg Q6H PRN IV NAUSEA AND/OR VOMITING; Start at 15:30 Nitroglycerin (Nitroglycerin (Sl Tab) 0.4 Mg) 1 tab Q5M PRN SL CHEST PAIN; Start 10/12/16 at 15:30 Acetaminophen (Tylenol Tab) 650 mg Q6H PRN PO PAIN LEVEL 1-3 OR FEVER Last administered on 10/16/16 12:32; Admin Dose 650 MG; Start 10/12/16 at 15:30 Acetaminophen/ Hydrocodone Bitart ([place] (5/325)) 1 tab Q6H PRN PO PAIN LEVEL 4 -6; Start 10/12/16 at 15:30 Acetaminophen/ Hydrocodone Bitart ([place] (5/325)) 2 tab Q6H PRN PO PAIN LEVEL 7 -10; Start 10/12/16 at 15:30 Morphine Sulfate (morphine) 2 mg Q4H PRN IV PAIN LEVEL 7-10; Start 10/12/16 at 15:30 Docusate Sodium (Colace) 100 mg Q12H PRN PO CONSTIPATION; Start 10/12/16 at 15: 30 Magnesium Hydroxide (Milk Of Mag) 30 ml DAILY PRN PO CONSTIPATION; Start at 15:30 Bisacodyl (Dulcolax Supp) 10 mg DAILY PRN [place] CONSTIPATION; Start 10/12/16 at 15 :30 Famotidine (Pepcid Iv) 20 mg Q24H IV Last administered on 10/16/16 20:46; Admin Dose 20 MG; Start 10/12/16 at 21:00 Miscellaneous Information 1 ea NOTE XX ; Start 10/12/16 at 16:30 Glucose (Glutose) 15 gm Q15M PRN PO DECREASED GLUCOSE; Start 10/12/16 at 16:30 Glucose (Glutose) 22.5 gm Q15M PRN PO DECREASED GLUCOSE; Start 10/12/16 at 16: 30 Dextrose (D50w Syringe) 25 ml Q15M PRN IV DECREASED GLUCOSE; Start 10/12/16 at 16:30 Dextrose (D50w Syringe) 50 ml Q15M PRN IV DECREASED GLUCOSE Last administered on 10/13/16 23:17; Admin Dose 50 ML; Start 10/12/16 at 16:30 Glucagon (Glucagen) 1 mg Q15M PRN IM DECREASED GLUCOSE; Start 10/12/16 at 16:30 Glucose (Glutose) 15 gm Q15M PRN BUCCAL DECREASED GLUCOSE; Start 10/12/16 at 16 :30 Miscellaneous Information Patients own medicat... BID@10,16 XX Last administered on 10/16/16 15:37; Admin Dose 1 EA; Start 10/13/16 at 10:00 Lactobacillus Acidoph/ Bulgaricus 1 tab 1 tab TID PO Last administered on 12:44; Admin Dose 1 TAB; Start 10/13/16 at 09:00 Cefepime HCl 50 ml @ 100 mls/hr Q24H IVPB Last administered on 10/17/16 09:14 ; Admin Dose 100 MLS/HR; Start 10/14/16 at 09:00 Propofol 100 ml @ 1.71 mls/hr Q12H IV Last administered on 10/14/16 17:55; Admin Dose 5.13 MLS/HR; Start 10/13/16 at 18:00 Midazolam HCl 50 ml @ 1 mls/hr TITRATE IV Last administered on 10/15/16 06:30 ; Admin Dose 6 MLS/HR; Start 10/13/16 at 18:00 Levofloxacin/ Dextrose 150 ml @ 100 mls/hr Q48H IVPB Last administered on 12:44; Admin Dose 100 MLS/HR; Start 10/15/16 at 10:00 Norepinephrine/ Dextrose (Levophed/D5W) 500 ml @ 0 mls/hr TITRATE IV ; Start at 13:30 Insulin Glargine 10 unit 10 unit DAILY@20 SC Last administered on 10/16/16 20: 42; Admin Dose 10 UNIT; Start 10/16/16 at 20:00 Potassium Phosphate/Sodium Chloride (K Phos (Mm)/NS) 260 ml @ 65 mls/hr ONCE IVPB Last administered on 10/17/16 12:41; Admin Dose 65 MLS/HR; Start 10/17/16 at 11:30; Stop 10/17/16 at 15:29 Insulin Aspart (Novolog Insulin Pen) NOVOLOG *MILD* ALGORITHM Q4 SC Last administered on 10/17/16 13:06; Admin Dose 2 UNIT; Start 10/17/16 at 13:00 Singh Thompson DO Oct 17, 2016 13:57
[2016-10-17] MEDS: morphine 2 MG INJ IV PRN (14:51)
[2016-10-17] MEDS: FUROSEMIDE 20 MG INJ IV SCH (17:20)
[2016-10-17] MEDS: ACETAMINOPHEN 325 MG TAB PO PRN (17:45)
[2016-10-17] MEDS: INSULIN GLARGINE [LANtus] 3 ML PEN SC SCH (20:39)
[2016-10-17] MEDS: FAMOTIDINE 20 MG INJ IV SCH (21:08)
[2016-10-17] MEDS: ATORVASTATIN 20 MG TAB PO SCH (21:08)
[2016-10-17] MEDS: ENOXAPARIN 60 MG/0.6 ML SYG SC SCH (21:15)
[2016-10-17 23:54] LABS: HEPARIN INDUCED PLATELET AB NEGATIVE (NEGATIVE)
[2016-10-18] VITALS (28 sets, daily range): BP systolic 123–163; BP diastolic 64–100; PULSE 84–112; RESP 14–27
[2016-10-18] MEDS: INSULIN ASPART [NOVOLOG] 3 ML PEN SC SCH ×6 (00:56→21:08)
[2016-10-18] MEDS: morphine 2 MG INJ IV PRN ×2 (01:35→06:03)
[2016-10-18 04:51] LABS: ADD SCAN DIFF NO
[2016-10-18 05:01] LABS: ABNORMAL IP MESSAGE 1; BASOPHIL # 0.1 10^3/ul (0.0-0.1); BASOPHILS % 0.3 % (0.0-2.0); EOSINOPHILS # 0.7 10^3/ul (0.0-0.5); HEMATOCRIT 27.5 % (37.0-47.0); HEMOGLOBIN 8.6 g/dl (12.0-16.0); LYMPHOCYTES # 1.8 10^3/ul (0.8-2.9); MEAN CORPUSCULAR HEMOGLOBIN 30.8 pg (29.0-33.0); MEAN CORPUSCULAR HGB CONC 31.3 g/dl (32.0-37.0); MEAN CORPUSCULAR VOLUME 98.6 fl (82.0-101.0); MEAN PLATELET VOLUME 10.2 fl (7.4-10.4); MONOCYTE # 1.2 10^3/ul (0.3-0.9); MONOCYTES % 7.2 % (0.0-11.0); NEUTROPHILS % 65.6 % (39.0-77.0); NUCLEATED RED BLOOD CELLS # 0.1 10^3/ul (0.0-0.0); NUCLEATED RED BLOOD CELLS% 0.4 /100WBC (0.0-0.0); PLATELET COUNT 155 10^3/UL (140-415); RED BLOOD COUNT 2.79 10^6/ul (4.20-5.40); WHITE BLOOD COUNT 16.7 10^3/ul (4.8-10.8)
[2016-10-18] MEDS: FUROSEMIDE 20 MG INJ IV SCH ×2 (05:06→19:07)
[2016-10-18 05:12] LABS: ALBUMIN 2.7 g/dl (3.3-4.9); POTASSIUM 3.7 mmol/L (3.5-5.1)
[2016-10-18 05:14] LABS: BILIRUBIN,DIRECT 0.1 mg/dl (0.00-0.20); BILIRUBIN,INDIRECT 0.5 mg/dl (0-1.1); BILIRUBIN,TOTAL 0.6 mg/dl (0.2-1.3); CREATININE 2.23 mg/dl (0.44-1.00)
[2016-10-18 05:15] LABS: ALBUMIN/GLOBULIN RATIO 0.69; CALCIUM 8.5 mg/dl (8.4-10.2); TOTAL PROTEIN 6.6 g/dl (6.1-8.1)
[2016-10-18 05:43] LABS: MAGNESIUM 1.9 mg/dl (1.7-2.5); PHOSPHORUS 3.4 mg/dl (2.5-4.9)
[2016-10-18] MEDS: LACTOBACILLUS CHEW TAB PO SCH ×3 (08:43→20:59)
[2016-10-18] MEDS: ASPIRIN 81 MG TAB PO SCH (08:43)
--- NOTE | 2016-10-18 08:49 | CONS ---
Date/Time of Note Date/Time of Note DATE: 10/18/16 TIME: 08:45 Assessment/Plan Assessment/Plan Additional Assessment/Plan Ventilator settings AC of 14, tidal volume 450, PEEP of 5, 40% FiO2. Assessment and recommendations; 1. Patient admitted with severe gram-negative sepsis with clinical improvement. 2. Severe bilateral pneumonia likely hematogenous in etiology. 3. Acute renal failure with slight increase in serum creatinine from today. 4. Hypotension with interval resolution. Next 5. Mild increase in leukocytosis. Patient has been switched over to CPAP mode and is currently doing fairly well. Meanwhile I would recommend resuming vancomycin with continuation of cefepime and Levaquin. I did have a detailed discussion the patient's granddaughters and answered all their questions. ABG will be done in about an hour's time to assess patient's ventilatory status and to decide whether she is weanable from ventilator at this point. Obtain a follow-up chest x-ray 24 hours. Consultation Date/Type/Reason Admit Date/Time Oct 12, 2016 at 11:59 Initial Consult Date 10/13/16 Type of Consultation: Pulmonary/critical care 24 HR Interval Summary Free Text/Dictation Patient condition is critical but the patient is markedly improved overall. Has been off sedation and is completely awake and follows simple commands. Has remained hemodynamically stable. Off Levophed. General examination; elderly lady, awake, or intubated. Currently in no distress. Exam/Review of Systems Vital Signs Vitals Vital Signs Date Time Temp Pulse Resp B/P Pulse Ox O2 Delivery O2 Flow Rate FiO2 10/18/16 08:00 108 10/18/16 05:30 23 100 40 10/18/16 01:00 123/64 10/18/16 00:00 98.8 10/17/16 18:00 Mechanical Ventilator Intake and Output 10/17/16 10/17/16 10/18/16 15:00 23:00 07:00 Intake Total 490 ml 870 ml 210 ml Output Total 572 ml 1655 ml 1160 ml Balance -82 ml -785 ml -950 ml Exam HEENT examination; supple neck, no JVD. No lymphadenopathy. Midline trachea. Patient has bilateral cataracts. Mildly icteric. No neck masses. Patient is edentulous. Chest examination; diminished but clear breath sounds bilaterally. S1-S2 audible, no murmurs. Regular rhythm. Abdomen examination; soft, nondistended. No organomegaly. Bowel sounds audible. Extremity examination; no peripheral edema. 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 Moves all 4 extremities. Results Result Diagram: 10/18/160 10/18/16 0400 Results 24 hrs Laboratory Tests Test 10/17/16 09:17 10/17/16 13:04 10/17/16 17:03 10/17/16 20:36 Bedside Glucose 189 228 H 157 199 Test 10/17/16 22:04 10/18/16 00:52 10/18/16 04:00 10/18/16 05:02 Bedside Glucose 185 157 157 Alanine Aminotransferase (ALT/SGPT) 78 H Albumin 2.7 L Albumin/Globulin Ratio 0.69 Alkaline Phosphatase 437 H Anion Gap 16 Aspartate Amino Transf (AST/SGOT) 57 H Basophils # 0.1 Basophils % 0.3 Blood Urea Nitrogen 35 H Calcium Level 8.5 Carbon Dioxide Level 27 Chloride Level 109 Creatinine 2.23 H Direct Bilirubin 0.10 Eosinophils # 0.7 H Eosinophils % 4.0 Globulin 3.90 H Glucose Level 136 # Hematocrit 27.5 L Hemoglobin 8.6 L Indirect Bilirubin 0.5 Lymphocytes # 1.8 Lymphocytes % 11.0 L Magnesium Level 1.9 Mean Corpuscular Hemoglobin 30.8 Mean Corpuscular Hemoglobin Concent 31.3 L Mean Corpuscular Volume 98.6 Mean Platelet Volume 10.2 Monocytes # 1.2 H Monocytes % 7.2 Neutrophils # 11.0 H Neutrophils % 65.6 Nucleated Red Blood Cells # 0.1 H Nucleated Red Blood Cells % 0.4 H Phosphorus Level 3.4 Platelet Count 155 Potassium Level 3.7 Red Blood Count 2.79 L Red Cell Distribution Width 14.0 Sodium Level 148 H Total Bilirubin 0.6 Total Protein 6.6 White Blood Count 16.7 H Medications Medications Current Medications Aspirin (Aspirin) 81 mg DAILY PO Last administered on 10/17/16 09:14; Admin Dose 81 MG; Start 10/13/16 at 09:00 Atorvastatin Calcium (Lipitor) 20 mg HS PO Last administered on 10/17/16 21:08 ; Admin Dose 20 MG; Start 10/12/16 at 21:00 Enoxaparin Sodium (Lovenox) 55 mg Q24H SC Last administered on 10/17/16 21:15; Admin Dose 55 MG; Start 10/12/16 at 21:00 Ondansetron HCl (Zofran Inj) 4 mg Q6H PRN IV NAUSEA AND/OR VOMITING; Start at 15:30 Nitroglycerin (Nitroglycerin (Sl Tab) 0.4 Mg) 1 tab Q5M PRN SL CHEST PAIN; Start 10/12/16 at 15:30 Acetaminophen (Tylenol Tab) 650 mg Q6H PRN PO PAIN LEVEL 1-3 OR FEVER Last administered on 10/17/16 17:45; Admin Dose 650 MG; Start 10/12/16 at 15:30 Acetaminophen/ Hydrocodone Bitart ([place] (5/325)) 1 tab Q6H PRN PO PAIN LEVEL 4 -6; Start 10/12/16 at 15:30 Acetaminophen/ Hydrocodone Bitart ([place] (5/325)) 2 tab Q6H PRN PO PAIN LEVEL 7 -10; Start 10/12/16 at 15:30 Morphine Sulfate (morphine) 2 mg Q4H PRN IV PAIN LEVEL 7-10 Last administered on 10/18/16 06:03; Admin Dose 2 MG; Start 10/12/16 at 15:30 Docusate Sodium (Colace) 100 mg Q12H PRN PO CONSTIPATION; Start 10/12/16 at 15: 30 Magnesium Hydroxide (Milk Of Mag) 30 ml DAILY PRN PO CONSTIPATION; Start at 15:30 Bisacodyl (Dulcolax Supp) 10 mg DAILY PRN [place] CONSTIPATION; Start 10/12/16 at 15 :30 Famotidine (Pepcid Iv) 20 mg Q24H IV Last administered on 10/17/16 21:08; Admin Dose 20 MG; Start 10/12/16 at 21:00 Miscellaneous Information 1 ea NOTE XX ; Start 10/12/16 at 16:30 Glucose (Glutose) 15 gm Q15M PRN PO DECREASED GLUCOSE; Start 10/12/16 at 16:30 Glucose (Glutose) 22.5 gm Q15M PRN PO DECREASED GLUCOSE; Start 10/12/16 at 16: 30 Dextrose (D50w Syringe) 25 ml Q15M PRN IV DECREASED GLUCOSE; Start 10/12/16 at 16:30 Dextrose (D50w Syringe) 50 ml Q15M PRN IV DECREASED GLUCOSE Last administered on 10/13/16 23:17; Admin Dose 50 ML; Start 10/12/16 at 16:30 Glucagon (Glucagen) 1 mg Q15M PRN IM DECREASED GLUCOSE; Start 10/12/16 at 16:30 Glucose (Glutose) 15 gm Q15M PRN BUCCAL DECREASED GLUCOSE; Start 10/12/16 at 16 :30 Miscellaneous Information Patients own medicat... BID@10,16 XX Last administered on 10/16/16 15:37; Admin Dose 1 EA; Start 10/13/16 at 10:00 Lactobacillus Acidoph/ Bulgaricus 1 tab 1 tab TID PO Last administered on 21:08; Admin Dose 1 TAB; Start 10/13/16 at 09:00 Cefepime HCl 50 ml @ 100 mls/hr Q24H IVPB Last administered on 10/17/16 09:14 ; Admin Dose 100 MLS/HR; Start 10/14/16 at 09:00 Propofol 100 ml @ 1.71 mls/hr Q12H IV Last administered on 10/14/16 17:55; Admin Dose 5.13 MLS/HR; Start 10/13/16 at 18:00 Midazolam HCl 50 ml @ 1 mls/hr TITRATE IV Last administered on 10/15/16 06:30 ; Admin Dose 6 MLS/HR; Start 10/13/16 at 18:00 Levofloxacin/ Dextrose 150 ml @ 100 mls/hr Q48H IVPB Last administered on 12:44; Admin Dose 100 MLS/HR; Start 10/15/16 at 10:00 Norepinephrine/ Dextrose (Levophed/D5W) 500 ml @ 0 mls/hr TITRATE IV ; Start at 13:30 Insulin Glargine (Lantus) 10 unit DAILY@20 SC Last administered on 10/17/16 20: 39; Admin Dose 10 UNIT; Start 10/16/16 at 20:00 Insulin Aspart (Novolog Insulin Pen) NOVOLOG *MILD* ALGORITHM Q4 SC Last administered on 10/18/16 05:05; Admin Dose 1 UNIT; Start 10/17/16 at 13:00 STAN HOLGUIN Oct 18, 2016 08:49
[2016-10-18] MEDS: CEFEPIME 1GM/50 ML IVPB SCH (08:51)
[2016-10-18] MEDS ORDERED: VANCOMYCIN IV PER PHARMACY XX SCH (09:00)
--- NOTE | 2016-10-18 09:40 | PN ---
Date/Time of Note Date/Time of Note DATE: 10/18/16 TIME: 09:23 Assessment/Plan VTE Prophylaxis VTE Prophylaxis Intervention: LMWH (treatment dose ) Lines/Catheters IV Catheter Type (from Nrsg): PICC Line Central line still needed: Yes (IV access ) Urinary Cath still in place: Yes Reason Cath still needed: other (indicate) (for ENRICO and monitor UOP ) Assessment/Plan Assessment/Plan 71-year-old female with: 1. S/p Cardiac arrest, s/p intubation and on mechanical ventilation, doing better and on CPAP trial currently VSS better, off pressors x 3 days and stable on Vent, OFF sedation and awake and alert today on CPAP trial. Troponin trending down. 2. Acute respiratory failure: intubated post cardiac arrest, awake and more alert. On CPAP trial CXR yesterday with improving bilateral pulmonary infiltrates, pulmonary edema vs bilateral PNA, Repeat CXR in AM Unlikely PE, patient was on anticoagulation dose of Lovenox on admission due to NSTEMI dx anyways Continue current abx with double gram neg coverage and Vanco added back per Pulmo 3. E coli Severe sepsis and Urinary tract infection. S/p cardiogenic vs septic shock Off pressors now On Cefepime and Levaquin. Will plan on d/c 1/2 of the abx by the AM Repeat blood NGTD. 4. Diabetes mellitus, [id number]. A1C of 7.8 continue current insulin regimen, Lantus added and will adjust Tube feeding and titrate Lantus up as needed 5. Hypertension, s/p shock state, OFF pressors x 3 days with BP more stable. Holding all antihypertensive currently. 6. Acute kidney injury in setting of urinary tract infection and sepsis, likely prerenal azotemia. S/p Lasix and Diamox x 2 yesterday Renal function declining again, good UOP, seems slighly pre renal with NA up. Will hold Lasix or change to daily Increase Free H2O to 250 cc q6 and monitor labs Renal US showing left moderate hydronephrosis, CT A/P ordered yesterday and still pending Continue abx rx, Electrolytes stable today, repeat BMP in AM 6. Elevated troponin, possible non-ST elevation myocardial infarction. Trop back up after resuscitation but trended back down Continue Lovenox. A 2D echocardiogram with stable EF. If OK with Cardiology will change Lovenox to rx dose of 30 mg daily. Appreciate Cardiology recommendations 7. Thrombocytopenia, improving today Prophylaxis: On Lovenox treatment dose for possible NSTEMI and Pepcid for gastrointestinal prophylaxis. DISPOSITION: In ICU, intubated and off sedation and pressors, on CPAP trial now. Followup Cardio and pulmo recs. F/u CT abdo/pelvis. Prognosis fair. Subjective 24 Hr Interval Summary Free Text/Dictation Patient doing better today, on Lasix with slight bump in creat but good UOP CT abdo/pelvis pending No further complaints Exam/Review of Systems Vital Signs Vitals Vital Signs Date Time Temp Pulse Resp B/P Pulse Ox O2 Delivery O2 Flow Rate FiO2 10/18/16 08:00 108 10/18/16 07:30 19 100 40 10/18/16 01:00 123/64 10/18/16 00:00 98.8 10/17/16 18:00 Mechanical Ventilator Intake and Output 10/17/16 10/17/16 10/18/16 15:00 23:00 07:00 Intake Total 490 ml 870 ml 210 ml Output Total 572 ml 1655 ml 1160 ml Balance -82 ml -785 ml -950 ml Exam Constitutional: alert, other (waking up and on CPAP trial ) Respiratory: diminished breath sounds (improved however ), other (on CPAP trial ) Cardiovascular: nl pulses, regular rate and rhythm Gastrointestinal: non-tender, soft Extremities: normal pulses, other (no edema, clubbing or cyanosis ) 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 intact, other (much more awake, on CPAP trial ) Results Result Diagram: 10/18/16 0400 10/18/16 0400 Results 24 hrs Laboratory Tests Test 10/17/16 13:04 10/17/16 17:03 10/17/16 20:36 10/17/16 22:04 Bedside Glucose 228 H 157 199 185 Test 10/18/16 00:52 10/18/16 04:00 10/18/16 05:02 10/18/16 08:53 Bedside Glucose 157 157 187 Alanine Aminotransferase (ALT/SGPT) 78 H Albumin 2.7 L Albumin/Globulin Ratio 0.69 Alkaline Phosphatase 437 H Anion Gap 16 Aspartate Amino Transf (AST/SGOT) 57 H Basophils # 0.1 Basophils % 0.3 Blood Urea Nitrogen 35 H Calcium Level 8.5 Carbon Dioxide Level 27 Chloride Level 109 Creatinine 2.23 H Direct Bilirubin 0.10 Eosinophils # 0.7 H Eosinophils % 4.0 Globulin 3.90 H Glucose Level 136 # Hematocrit 27.5 L Hemoglobin 8.6 L Indirect Bilirubin 0.5 Lymphocytes # 1.8 Lymphocytes % 11.0 L Magnesium Level 1.9 Mean Corpuscular Hemoglobin 30.8 Mean Corpuscular Hemoglobin Concent 31.3 L Mean Corpuscular Volume 98.6 Mean Platelet Volume 10.2 Monocytes # 1.2 H Monocytes % 7.2 Neutrophils # 11.0 H Neutrophils % 65.6 Nucleated Red Blood Cells # 0.1 H Nucleated Red Blood Cells % 0.4 H Phosphorus Level 3.4 Platelet Count 155 Potassium Level 3.7 Red Blood Count 2.79 L Red Cell Distribution Width 14.0 Sodium Level 148 H Total Bilirubin 0.6 Total Protein 6.6 White Blood Count 16.7 H Medications Medications Current Medications Aspirin (Aspirin) 81 mg DAILY PO Last administered on 10/18/16 08:43; Admin Dose 81 MG; Start 10/13/16 at 09:00 Atorvastatin Calcium (Lipitor) 20 mg HS PO Last administered on 10/17/16 21:08 ; Admin Dose 20 MG; Start 10/12/16 at 21:00 Enoxaparin Sodium (Lovenox) 55 mg Q24H SC Last administered on 10/17/16 21:15; Admin Dose 55 MG; Start 10/12/16 at 21:00 Ondansetron HCl (Zofran Inj) 4 mg Q6H PRN IV NAUSEA AND/OR VOMITING; Start at 15:30 Nitroglycerin (Nitroglycerin (Sl Tab) 0.4 Mg) 1 tab Q5M PRN SL CHEST PAIN; Start 10/12/16 at 15:30 Acetaminophen (Tylenol Tab) 650 mg Q6H PRN PO PAIN LEVEL 1-3 OR FEVER Last administered on 10/17/16 17:45; Admin Dose 650 MG; Start 10/12/16 at 15:30 Acetaminophen/ Hydrocodone Bitart ([place] (5/325)) 1 tab Q6H PRN PO PAIN LEVEL 4 -6; Start 10/12/16 at 15:30 Acetaminophen/ Hydrocodone Bitart ([place] (5/325)) 2 tab Q6H PRN PO PAIN LEVEL 7 -10; Start 10/12/16 at 15:30 Morphine Sulfate (morphine) 2 mg Q4H PRN IV PAIN LEVEL 7-10 Last administered on 10/18/16 06:03; Admin Dose 2 MG; Start 10/12/16 at 15:30 Docusate Sodium (Colace) 100 mg Q12H PRN PO CONSTIPATION; Start 10/12/16 at 15: 30 Magnesium Hydroxide (Milk Of Mag) 30 ml DAILY PRN PO CONSTIPATION; Start at 15:30 Bisacodyl (Dulcolax Supp) 10 mg DAILY PRN [place] CONSTIPATION; Start 10/12/16 at 15 :30 Famotidine (Pepcid Iv) 20 mg Q24H IV Last administered on 10/17/16 21:08; Admin Dose 20 MG; Start 10/12/16 at 21:00 Miscellaneous Information 1 ea NOTE XX ; Start 10/12/16 at 16:30 Glucose (Glutose) 15 gm Q15M PRN PO DECREASED GLUCOSE; Start 10/12/16 at 16:30 Glucose (Glutose) 22.5 gm Q15M PRN PO DECREASED GLUCOSE; Start 10/12/16 at 16: 30 Dextrose (D50w Syringe) 25 ml Q15M PRN IV DECREASED GLUCOSE; Start 10/12/16 at 16:30 Dextrose (D50w Syringe) 50 ml Q15M PRN IV DECREASED GLUCOSE Last administered on 10/13/16 23:17; Admin Dose 50 ML; Start 10/12/16 at 16:30 Glucagon (Glucagen) 1 mg Q15M PRN IM DECREASED GLUCOSE; Start 10/12/16 at 16:30 Glucose (Glutose) 15 gm Q15M PRN BUCCAL DECREASED GLUCOSE; Start 10/12/16 at 16 :30 Miscellaneous Information Patients own medicat... BID@10,16 XX Last administered on 10/16/16 15:37; Admin Dose 1 EA; Start 10/13/16 at 10:00 Lactobacillus Acidoph/ Bulgaricus 1 tab 1 tab TID PO Last administered on 08:43; Admin Dose 1 TAB; Start 10/13/16 at 09:00 Cefepime HCl 50 ml @ 100 mls/hr Q24H IVPB Last administered on 10/18/16 08:51 ; Admin Dose 100 MLS/HR; Start 10/14/16 at 09:00 Propofol 100 ml @ 1.71 mls/hr Q12H IV Last administered on 10/14/16 17:55; Admin Dose 5.13 MLS/HR; Start 10/13/16 at 18:00 Midazolam HCl 50 ml @ 1 mls/hr TITRATE IV Last administered on 10/15/16 06:30 ; Admin Dose 6 MLS/HR; Start 10/13/16 at 18:00 Levofloxacin/ Dextrose 150 ml @ 100 mls/hr Q48H IVPB Last administered on 12:44; Admin Dose 100 MLS/HR; Start 10/15/16 at 10:00 Norepinephrine/ Dextrose (Levophed/D5W) 500 ml @ 0 mls/hr TITRATE IV ; Start at 13:30 Insulin Glargine (Lantus) 10 unit DAILY@20 SC Last administered on 10/17/16 20: 39; Admin Dose 10 UNIT; Start 10/16/16 at 20:00 Insulin Aspart NOVOLOG *MILD* ALGORITHM Q4 SC Last administered on 10/18/16 09: 01; Admin Dose 2 UNIT; Start 10/17/16 at 13:00 Vancomycin HCl 1.25 gm/Sodium Chloride 250 ml @ 83.333 mls/ hr ONCE ONCE IVPB ; Start 10/18/16 at 10:30; Stop 10/18/16 at 13:29 Vancomycin HCl (Vancocin) 250 ml @ 125 mls/hr Q48H IVPB ; Start 10/20/16 at 10: 00 ESE SORIANO Oct 18, 2016 09:33
[2016-10-18] MEDS ORDERED: VANCOMYCIN 1.25 GM in SOD CHLORIDE 0.9% 250 ML IVPB ONE (10:30)
[2016-10-18 12:40] LABS: Allen Test ACCEPTAB; Arterial COHb 0.3 % (0.0-3.0); Arterial HCO3 22.8 mmol/L (22.0-26.0); Arterial MetHb 0.3 % (0.0-1.5); Arterial Total Hemglobin 10.4 g/dl (12.0-18.0); Blood Gas PS 10; MODE VENT - AC
--- NOTE | 2016-10-18 12:45 | CONS ---
Date/Time of Note Date/Time of Note DATE: 10/18/16 TIME: 12:43 Assessment/Plan Assessment/Plan Additional Assessment/Plan Possible cardiac arrest Preserved ejection fraction Acute decompensated diastolic congestive heart failure Labile blood pressure Respiratory failure SIRS Elevated troponin Acute kidney injury -Patient with improvement in mental status and following commands. Creatinine slightly elevated, patient still with significant edema. Would continue IV diuretics. IV hydralazine as needed for hypertension. Ventilator weaning as per our pulmonary colleagues. Consultation Date/Type/Reason Admit Date/Time Oct 12, 2016 at 11:59 Initial Consult Date 10/13/16 Type of Consultation: cv 24 HR Interval Summary Free Text/Dictation Patient more awake today, following commands Exam/Review of Systems Vital Signs Vitals Vital Signs Date Time Temp Pulse Resp B/P Pulse Ox O2 Delivery O2 Flow Rate FiO2 10/18/16 12:00 112 10/18/16 07:30 19 100 40 10/18/16 01:00 123/64 10/18/16 00:00 98.8 10/17/16 18:00 Mechanical Ventilator Intake and Output 10/17/16 10/17/16 10/18/16 15:00 23:00 07:00 Intake Total 490 ml 870 ml 210 ml Output Total 572 ml 1655 ml 1160 ml Balance -82 ml -785 ml -950 ml Exam Following commands, no apparent distress, intubated Constitutional: alert Head: normocephalic ENMT: intubated Respiratory: other (Coarse breath sounds bilaterally, no wheezing) Cardiovascular: other (S1-S2 heard), regular rate and rhythm Gastrointestinal: bowel sounds, non-tender, other (No guarding), soft Extremities: edema Results Result Diagram: 10/18/16 0400 10/18/16 0400 Results 24 hrs Laboratory Tests Test 10/17/16 13:04 10/17/16 17:03 10/17/16 20:36 10/17/16 22:04 Bedside Glucose 228 H 157 199 185 Test 10/18/16 00:52 10/18/16 04:00 10/18/16 05:02 10/18/16 08:53 Bedside Glucose 157 157 187 Alanine Aminotransferase (ALT/SGPT) 78 H Albumin 2.7 L Albumin/Globulin Ratio 0.69 Alkaline Phosphatase 437 H Anion Gap 16 Aspartate Amino Transf (AST/SGOT) 57 H Basophils # 0.1 Basophils % 0.3 Blood Urea Nitrogen 35 H Calcium Level 8.5 Carbon Dioxide Level 27 Chloride Level 109 Creatinine 2.23 H Direct Bilirubin 0.10 Eosinophils # 0.7 H Eosinophils % 4.0 Globulin 3.90 H Glucose Level 136 # Hematocrit 27.5 L Hemoglobin 8.6 L Indirect Bilirubin 0.5 Lymphocytes # 1.8 Lymphocytes % 11.0 L Magnesium Level 1.9 Mean Corpuscular Hemoglobin 30.8 Mean Corpuscular Hemoglobin Concent 31.3 L Mean Corpuscular Volume 98.6 Mean Platelet Volume 10.2 Monocytes # 1.2 H Monocytes % 7.2 Neutrophils # 11.0 H Neutrophils % 65.6 Nucleated Red Blood Cells # 0.1 H Nucleated Red Blood Cells % 0.4 H Phosphorus Level 3.4 Platelet Count 155 Potassium Level 3.7 Red Blood Count 2.79 L Red Cell Distribution Width 14.0 Sodium Level 148 H Total Bilirubin 0.6 Total Protein 6.6 White Blood Count 16.7 H Test 10/18/16 11:58 Arterial Blood HCO3 22.8 Arterial Blood Base Excess -1.0 Arterial Blood Oxygen Saturation 97.6 Jarod Test ACCEPTAB Arterial Blood Gas Puncture Site Right Radial Arterial Blood Carboxyhemoglobin 0.3 Arterial Blood Date Drawn 10/18/2016 12:28:56 PM Arterial Blood Methemoglobin 0.3 Arterial Blood pCO2 (Temp correct) 34.6 L Arterial Blood pH (Temp corrected) 7.437 Arterial Blood pO2 (Temp corrected) 101.2 H Blood Gas A-a O2 Differential 72.0 H Blood Gas Actual Respiration Rate 28 Blood Gas Low PEEP Setting 5.0 Blood Gas Modality VENT - AC Blood Gas Notified Time 10/18/2016 12:39:46 PM Blood Gas Notified Whom TM Blood Gas Pressure Support 10 Blood Gas Specimen Source Blood arterial Blood Gas Temperature 37.0 FiO2 30.0 Oxyhemoglobin Percent 97.0 Total Hemoglobin 10.4 L Medications Medications Current Medications Aspirin (Aspirin) 81 mg DAILY PO Last administered on 10/18/16 08:43; Admin Dose 81 MG; Start 10/13/16 at 09:00 Atorvastatin Calcium (Lipitor) 20 mg HS PO Last administered on 10/17/16 21:08 ; Admin Dose 20 MG; Start 10/12/16 at 21:00 Enoxaparin Sodium (Lovenox) 55 mg Q24H SC Last administered on 10/17/16 21:15; Admin Dose 55 MG; Start 10/12/16 at 21:00 Ondansetron HCl (Zofran Inj) 4 mg Q6H PRN IV NAUSEA AND/OR VOMITING; Start at 15:30 Nitroglycerin (Nitroglycerin (Sl Tab) 0.4 Mg) 1 tab Q5M PRN SL CHEST PAIN; Start 10/12/16 at 15:30 Acetaminophen (Tylenol Tab) 650 mg Q6H PRN PO PAIN LEVEL 1-3 OR FEVER Last administered on 10/17/16 17:45; Admin Dose 650 MG; Start 10/12/16 at 15:30 Acetaminophen/ Hydrocodone Bitart ([place] (5/325)) 1 tab Q6H PRN PO PAIN LEVEL 4 -6; Start 10/12/16 at 15:30 Acetaminophen/ Hydrocodone Bitart ([place] (5/325)) 2 tab Q6H PRN PO PAIN LEVEL 7 -10; Start 10/12/16 at 15:30 Morphine Sulfate (morphine) 2 mg Q4H PRN IV PAIN LEVEL 7-10 Last administered on 10/18/16 06:03; Admin Dose 2 MG; Start 10/12/16 at 15:30 Docusate Sodium (Colace) 100 mg Q12H PRN PO CONSTIPATION; Start 10/12/16 at 15: 30 Magnesium Hydroxide (Milk Of Mag) 30 ml DAILY PRN PO CONSTIPATION; Start at 15:30 Bisacodyl (Dulcolax Supp) 10 mg DAILY PRN [place] CONSTIPATION; Start 10/12/16 at 15 :30 Famotidine (Pepcid Iv) 20 mg Q24H IV Last administered on 10/17/16 21:08; Admin Dose 20 MG; Start 10/12/16 at 21:00 Miscellaneous Information 1 ea NOTE XX ; Start 10/12/16 at 16:30 Glucose (Glutose) 15 gm Q15M PRN PO DECREASED GLUCOSE; Start 10/12/16 at 16:30 Glucose (Glutose) 22.5 gm Q15M PRN PO DECREASED GLUCOSE; Start 10/12/16 at 16: 30 Dextrose (D50w Syringe) 25 ml Q15M PRN IV DECREASED GLUCOSE; Start 10/12/16 at 16:30 Dextrose (D50w Syringe) 50 ml Q15M PRN IV DECREASED GLUCOSE Last administered on 10/13/16 23:17; Admin Dose 50 ML; Start 10/12/16 at 16:30 Glucagon (Glucagen) 1 mg Q15M PRN IM DECREASED GLUCOSE; Start 10/12/16 at 16:30 Glucose (Glutose) 15 gm Q15M PRN BUCCAL DECREASED GLUCOSE; Start 10/12/16 at 16 :30 Miscellaneous Information Patients own medicat... BID@10,16 XX Last administered on 10/16/16 15:37; Admin Dose 1 EA; Start 10/13/16 at 10:00 Lactobacillus Acidoph/ Bulgaricus 1 tab 1 tab TID PO Last administered on 08:43; Admin Dose 1 TAB; Start 10/13/16 at 09:00 Cefepime HCl 50 ml @ 100 mls/hr Q24H IVPB Last administered on 10/18/16 08:51 ; Admin Dose 100 MLS/HR; Start 10/14/16 at 09:00 Propofol 100 ml @ 1.71 mls/hr Q12H IV Last administered on 10/14/16 17:55; Admin Dose 5.13 MLS/HR; Start 10/13/16 at 18:00 Midazolam HCl 50 ml @ 1 mls/hr TITRATE IV Last administered on 10/15/16 06:30 ; Admin Dose 6 MLS/HR; Start 10/13/16 at 18:00 Norepinephrine/ Dextrose (Levophed/D5W) 500 ml @ 0 mls/hr TITRATE IV ; Start at 13:30 Insulin Glargine (Lantus) 10 unit DAILY@20 SC Last administered on 10/17/16 20: 39; Admin Dose 10 UNIT; Start 10/16/16 at 20:00 Insulin Aspart NOVOLOG *MILD* ALGORITHM Q4 SC Last administered on 10/18/16 09: 01; Admin Dose 2 UNIT; Start 10/17/16 at 13:00 Vancomycin HCl 1.25 gm/Sodium Chloride 250 ml @ 83.333 mls/ hr ONCE ONCE IVPB Last administered on 10/18/16 11:01; Admin Dose 83.333 MLS/HR; Start 10/18/16 at 10:30; Stop 10/18/16 at 13:29 Vancomycin HCl 250 ml @ 125 mls/hr Q48H IVPB ; Start 10/20/16 at 10:00 Levofloxacin/ Dextrose (Levaquin 500mg/ D5W 100 ml (Pmx)) 100 ml @ 100 mls/hr Q48H IVPB ; Start 10/19/16 at 12:00 Singh Thompson DO Oct 18, 2016 12:45
[2016-10-18] MEDS ORDERED: hydrALAzine 20 MG INJ IV PRN (13:00)
--- NOTE | 2016-10-18 20:47 | RADRPT ---
PROCEDURE: US Upper extremity Venous. CLINICAL INDICATION: Right upper extremity swelling TECHNIQUE: Multiple sonographic images of the right upper extremity deep venous system was obtaine d utilizing grayscale, color-flow, compressive sonography and doppler imaging with augmentation. COMPARISON: None. FINDINGS: There is normal compressibility / flow within the right internal jugular, subclavian, axillary, brac hial, radial, ulnar, cephalic, and basilic veins. IMPRESSION: No sonographic evidence for deep venous thrombosis of the right upper extremity. RPTAT:HJJR Physician Yanelis Date Time Electronically viewed and signed by Physician Yanelis on 10/18/2016 20:47 JR/
[2016-10-18] MEDS: ENOXAPARIN 60 MG/0.6 ML SYG SC SCH (20:59)
[2016-10-18] MEDS: FAMOTIDINE 20 MG INJ IV SCH (20:59)
[2016-10-18] MEDS: ATORVASTATIN 20 MG TAB PO SCH (20:59)
[2016-10-18] MEDS: INSULIN GLARGINE [LANtus] 3 ML PEN SC SCH (21:00)
[2016-10-19] VITALS (24 sets, daily range): BP systolic 120–160; BP diastolic 65–87; PULSE 94–108; RESP 20–28
[2016-10-19] MEDS: INSULIN ASPART [NOVOLOG] 3 ML PEN SC SCH ×8 (00:59→20:37)
--- NOTE | 2016-10-19 04:51 | RADRPT ---
PROCEDURE: CT of the abdomen and pelvis without contrast CLINICAL INDICATION: Left hydronephrosis seen on ultrasound. Acute kidney injury.. TECHNIQUE: Spiral CT images through the abdomen and pelvis without the use of contrast. The admin istered radiation dose is CTDI 7.24 and DLP 351.7. One or more of the following dose reduction tech niques were used: automated exposure control, adjustment of the mA and/or kV according to patient si ze, or use of iterative reconstruction technique. COMPARISON: None FINDINGS: Lack of oral and intravenous contrast somewhat limits evaluation. There are small bilateral pleur al effusions with bibasilar infiltrates and peribronchial thickening seen. Nasogastric tube courses into the distal stomach. Aortic and coronary artery calcification is seen. There is mild cardiome ronald, accentuated by slight pectus deformity. The liver, spleen, adrenals, and pancreas are unremarkable in appearance. The gallbladder appears t o be surgically absent. The common bile duct is slightly dilated, measuring up to 1.2 cm in diamete r. There are multiple small nonobstructing right renal stones measuring up to 3 mm in diameter. Th ere is mild right pelvicaliectasis but no definite stones are seen in the right ureter or within the urinary bladder. A Ramos catheter and air are seen within the urinary bladder. There is marked le ft hydronephrosis and hydroureter to the level of a 6 x 5 mm stone at the L4-5 level. No other uret er stones are seen. There is moderate left perinephric stranding. Edema of the subcutaneous soft t issues is seen. The uterus is slightly enlarged and lobulated in contour consistent with fibroids. Largest visible fibroid is in the fundus and measures 3.9 cm in diameter. No abnormality of the cha wel is seen. No gross adnexal mass is seen. There is degenerative change of the spine. IMPRESSION: 5 x 6 mm stone in the left ureter at the L4-5 level causing marked left hydronephrosis and hydrouret er as well as left perinephric stranding. Several nonobstructing right renal stones. No definite r ight ureter stones. No additional left renal stones. Prior cholecystectomy. Slightly dilated common bile duct up to 1.2 cm in diameter. No definite int rahepatic ductal dilatation. Uterine fibroids. RPTAT: [facility]BE Almita Ahn, Physician Date Time Electronically viewed and signed by Almita Ahn, Physician on 10/19/2016 04:51 LE/
[2016-10-19 05:30] LABS: ADD SCAN DIFF NO
[2016-10-19 05:43] LABS: ABNORMAL IP MESSAGE 1; BASOPHIL # 0.1 10^3/ul (0.0-0.1); BASOPHILS % 0.5 % (0.0-2.0); EOSINOPHILS # 0.4 10^3/ul (0.0-0.5); EOSINOPHILS % 2.7 % (0.0-7.0); HEMATOCRIT 29.5 % (37.0-47.0); HEMOGLOBIN 9.5 g/dl (12.0-16.0); LYMPHOCYTES # 1.2 10^3/ul (0.8-2.9); MEAN CORPUSCULAR HEMOGLOBIN 30.6 pg (29.0-33.0); MEAN CORPUSCULAR HGB CONC 32.2 g/dl (32.0-37.0); MEAN CORPUSCULAR VOLUME 95.2 fl (82.0-101.0); MEAN PLATELET VOLUME 10.1 fl (7.4-10.4); MONOCYTE # 0.8 10^3/ul (0.3-0.9); MONOCYTES % 5.4 % (0.0-11.0); NEUTROPHIL # 10.7 10^3/ul (1.6-7.5); PLATELET COUNT 200 10^3/UL (140-415); RED CELL DISTRIBUTION WIDTH 13.9 % (11.5-14.5); WHITE BLOOD COUNT 14.7 10^3/ul (4.8-10.8)
[2016-10-19 06:07] LABS: ALBUMIN 3.1 g/dl (3.3-4.9)
[2016-10-19 06:08] LABS: POTASSIUM 3.8 mmol/L (3.5-5.1)
[2016-10-19 06:10] LABS: ALBUMIN/GLOBULIN RATIO 0.83; BILIRUBIN,INDIRECT 0.5 mg/dl (0-1.1); BILIRUBIN,TOTAL 0.5 mg/dl (0.2-1.3); CREATININE 2.74 mg/dl (0.44-1.00); TOTAL PROTEIN 6.8 g/dl (6.1-8.1)
[2016-10-19 06:11] LABS: CALCIUM 8.7 mg/dl (8.4-10.2)
[2016-10-19] MEDS: FUROSEMIDE 20 MG INJ IV SCH (06:21)
[2016-10-19 07:43] LABS: MAGNESIUM 2.1 mg/dl (1.7-2.5); PHOSPHORUS 3.5 mg/dl (2.5-4.9)
--- NOTE | 2016-10-19 07:53 | CONS ---
Date/Time of Note Date/Time of Note DATE: 10/19/16 TIME: 07:51 Assessment/Plan Assessment/Plan Additional Assessment/Plan Assessment and recommendations; 1. Patient admitted with severe gram-negative sepsis from UTI with marked overall clinical improvement. 2. Status post successful extubation yesterday afternoon patient exhibiting excellent overall status. 3. Increasing serum creatinine likely on the basis of left hydronephrosis from ureteral stone. 4. Interval resolution of metabolic acidosis as well as resolution of hypotension. 5. Bilateral pneumonia. Continue current treatment. Obtain a urology consult. Patient also can be transferred to the medical floor. Consultation Date/Type/Reason Admit Date/Time Oct 12, 2016 at 11:59 Initial Consult Date 10/13/16 Type of Consultation: Pulmonary/critical care 24 HR Interval Summary Free Text/Dictation Patient condition is stable. She was successfully extubated yesterday afternoon. Has remained hemodynamically stable. Patient is completely awake and alert denies any shortness of breath any abdominal pain nausea vomiting . General exam; elderly lady, awake alert currently in no distress. Exam/Review of Systems Vital Signs Vitals Vital Signs Date Time Temp Pulse Resp B/P Pulse Ox O2 Delivery O2 Flow Rate FiO2 10/19/16 06:00 104 21 132/87 99 Nasal Cannula 10/19/16 04:00 99.3 10/19/16 02:28 2.0 28 Intake and Output 10/18/16 10/18/16 10/19/16 15:00 23:00 07:00 Intake Total 650 ml 440 ml 610 ml Output Total 1540 ml 1495 ml 750 ml Balance -890 ml -1055 ml -140 ml Exam HEENT examination; supple neck, no JVD. No lymphadenopathy. Midline trachea. Patient is edentulous. Pupils are small bilaterally. Mild icterus is present. Chest examination; decreased breath sounds lung bases, upper lobes are clear to auscultation. S1-S2 audible, no murmurs. Regular rhythm. Abdomen examination; soft, nontender, non-distended. No organomegaly. Bowel sounds audible. Extremity examination; no peripheral edema. ACCOUNT DEVELOPMENT REPRESENTATIVE examination; no focal deficit. Results Result Diagram: 10/19/16 0500 10/19/16 0500 Results 24 hrs Laboratory Tests Test 10/18/16 08:53 10/18/16 11:58 10/18/16 12:44 10/18/16 17:00 Bedside Glucose 187 201 169 Arterial Blood HCO3 22.8 Arterial Blood Base Excess -1.0 Arterial Blood Oxygen Saturation 97.6 Jarod Test ACCEPTAB Arterial Blood Gas Puncture Site Right Radial Arterial Blood Carboxyhemoglobin 0.3 Arterial Blood Date Drawn 10/18/2016 12:28:56 PM Arterial Blood Methemoglobin 0.3 Arterial Blood pCO2 (Temp correct) 34.6 L Arterial Blood pH (Temp corrected) 7.437 Arterial Blood pO2 (Temp corrected) 101.2 H Blood Gas A-a O2 Differential 72.0 H Blood Gas Actual Respiration Rate 28 Blood Gas Low PEEP Setting 5.0 Blood Gas Modality VENT - AC Blood Gas Notified Time 10/18/2016 12:39:46 PM Blood Gas Notified Whom TM Blood Gas Pressure Support 10 Blood Gas Specimen Source Blood arterial Blood Gas Temperature 37.0 FiO2 30.0 Oxyhemoglobin Percent 97.0 Total Hemoglobin 10.4 L Test 10/18/16 20:23 10/18/16 21:06 10/19/16 00:56 10/19/16 05:00 Bedside Glucose 217 203 210 Alanine Aminotransferase (ALT/SGPT) 65 Albumin 3.1 L Albumin/Globulin Ratio 0.83 Alkaline Phosphatase 508 H Anion Gap 17 H Aspartate Amino Transf (AST/SGOT) 47 H Basophils # 0.1 Basophils % 0.5 Blood Urea Nitrogen 45 H Calcium Level 8.7 Carbon Dioxide Level 28 Chloride Level 101 Creatinine 2.74 H Direct Bilirubin 0.00 Eosinophils # 0.4 Eosinophils % 2.7 Globulin 3.70 H Glucose Level 218 Hematocrit 29.5 L Hemoglobin 9.5 L Indirect Bilirubin 0.5 Lymphocytes # 1.2 Lymphocytes % 8.0 L Magnesium Level 2.1 Mean Corpuscular Hemoglobin 30.6 Mean Corpuscular Hemoglobin Concent 32.2 Mean Corpuscular Volume 95.2 Mean Platelet Volume 10.1 Monocytes # 0.8 Monocytes % 5.4 Neutrophils # 10.7 H Neutrophils % 73.0 Nucleated Red Blood Cells # 0.0 Nucleated Red Blood Cells % 0.0 Phosphorus Level 3.5 Platelet Count 200 # Potassium Level 3.8 Red Blood Count 3.10 L Red Cell Distribution Width 13.9 Sodium Level 142 Total Bilirubin 0.5 Total Protein 6.8 White Blood Count 14.7 H Test 10/19/16 05:11 Bedside Glucose 211 Medications Medications Current Medications Aspirin (Aspirin) 81 mg DAILY PO Last administered on 10/18/16 08:43; Admin Dose 81 MG; Start 10/13/16 at 09:00 Atorvastatin Calcium (Lipitor) 20 mg HS PO Last administered on 10/18/16 20:59 ; Admin Dose 20 MG; Start 10/12/16 at 21:00 Enoxaparin Sodium (Lovenox) 55 mg Q24H SC Last administered on 10/18/16 20:59; Admin Dose 55 MG; Start 10/12/16 at 21:00 Ondansetron HCl (Zofran Inj) 4 mg Q6H PRN IV NAUSEA AND/OR VOMITING; Start at 15:30 Nitroglycerin (Nitroglycerin (Sl Tab) 0.4 Mg) 1 tab Q5M PRN SL CHEST PAIN; Start 10/12/16 at 15:30 Acetaminophen (Tylenol Tab) 650 mg Q6H PRN PO PAIN LEVEL 1-3 OR FEVER Last administered on 10/17/16 17:45; Admin Dose 650 MG; Start 10/12/16 at 15:30 Acetaminophen/ Hydrocodone Bitart ([place] (5/325)) 1 tab Q6H PRN PO PAIN LEVEL 4 -6; Start 10/12/16 at 15:30 Acetaminophen/ Hydrocodone Bitart ([place] (5/325)) 2 tab Q6H PRN PO PAIN LEVEL 7 -10; Start 10/12/16 at 15:30 Morphine Sulfate (morphine) 2 mg Q4H PRN IV PAIN LEVEL 7-10 Last administered on 10/18/16 06:03; Admin Dose 2 MG; Start 10/12/16 at 15:30 Docusate Sodium (Colace) 100 mg Q12H PRN PO CONSTIPATION; Start 10/12/16 at 15: 30 Magnesium Hydroxide (Milk Of Mag) 30 ml DAILY PRN PO CONSTIPATION; Start at 15:30 Bisacodyl (Dulcolax Supp) 10 mg DAILY PRN [place] CONSTIPATION; Start 10/12/16 at 15 :30 Famotidine (Pepcid Iv) 20 mg Q24H IV Last administered on 10/18/16 20:59; Admin Dose 20 MG; Start 10/12/16 at 21:00 Miscellaneous Information 1 ea NOTE XX ; Start 10/12/16 at 16:30 Glucose (Glutose) 15 gm Q15M PRN PO DECREASED GLUCOSE; Start 10/12/16 at 16:30 Glucose (Glutose) 22.5 gm Q15M PRN PO DECREASED GLUCOSE; Start 10/12/16 at 16: 30 Dextrose (D50w Syringe) 25 ml Q15M PRN IV DECREASED GLUCOSE; Start 10/12/16 at 16:30 Dextrose (D50w Syringe) 50 ml Q15M PRN IV DECREASED GLUCOSE Last administered on 10/13/16 23:17; Admin Dose 50 ML; Start 10/12/16 at 16:30 Glucagon (Glucagen) 1 mg Q15M PRN IM DECREASED GLUCOSE; Start 10/12/16 at 16:30 Glucose (Glutose) 15 gm Q15M PRN BUCCAL DECREASED GLUCOSE; Start 10/12/16 at 16 :30 Miscellaneous Information Patients own medicat... BID@10,16 XX Last administered on 10/16/16 15:37; Admin Dose 1 EA; Start 10/13/16 at 10:00 Lactobacillus Acidoph/ Bulgaricus 1 tab 1 tab TID PO Last administered on 20:59; Admin Dose 1 TAB; Start 10/13/16 at 09:00 Cefepime HCl (Maxipime 1gm/50 ml (Pmx)) 50 ml @ 100 mls/hr Q24H IVPB Last administered on 10/18/16 08:51; Admin Dose 100 MLS/HR; Start 10/14/16 at 09:00 Insulin Glargine (Lantus) 10 unit DAILY@20 SC Last administered on 10/18/16 21: 00; Admin Dose 10 UNIT; Start 10/16/16 at 20:00 Insulin Aspart NOVOLOG *MILD* ALGORITHM Q4 SC Last administered on 10/19/16 05: 16; Admin Dose 1 UNIT; Start 10/17/16 at 13:00 Vancomycin HCl (Vancocin) 250 ml @ 125 mls/hr Q48H IVPB ; Start 10/20/16 at 10: 00 Hydralazine HCl (Apresoline) 10 mg Q6H PRN IV sbp>160; Start 10/18/16 at 13:00 STAN HOLGUIN Oct 19, 2016 07:53
[2016-10-19] MEDS: LACTOBACILLUS CHEW TAB PO SCH ×3 (08:46→20:12)
[2016-10-19] MEDS: ASPIRIN 81 MG TAB PO SCH (08:46)
[2016-10-19] MEDS: CEFEPIME 1GM/50 ML IVPB SCH (08:46)
--- NOTE | 2016-10-19 09:22 | RADRPT ---
PROCEDURE: XR Chest. CLINICAL INDICATION: Pneumonia TECHNIQUE: Single frontal chest x-ray. COMPARISON: 10/17/2016 FINDINGS: The endotracheal tube has been removed. The enteric tube courses below the diaphragm. The right PI CC line is in place. Similar, bilateral interstitial opacities seen in both lungs, without interval change. Small left p leural effusion. No evidence for pneumothorax. The aortic arch is calcified. The cardiac silhouet te is enlarged. The osseous structures are unchanged. IMPRESSION: 1. Interval removal of the endotracheal tube. 2. Similar appearance of the lungs with a persistent small left pleural effusion and left basilar a telectasis versus infiltrate. 3. Supporting tubes and lines in satisfactory position. No evidence for pneumothorax. RPTAT: AA .Panda Funk MD, Date Time Electronically viewed and signed by .Panda Funk MD, on 10/19/2016 09:22 .d/
--- NOTE | 2016-10-19 10:20 | CONS ---
Date/Time of Note Date/Time of Note DATE: 10/19/16 TIME: 10:17 Assessment/Plan Assessment/Plan Additional Assessment/Plan Possible cardiac arrest Preserved ejection fraction Acute decompensated diastolic congestive heart failure Labile blood pressure Respiratory failure status post extubation Sepsis Elevated troponin Acute kidney injury -Patient extubated yesterday. Renal function worsening but CT scan with evidence of hydronephrosis and likely obstructive stone. Awaiting urologic evaluation. Patient still with significant edema and has been improving with IV Lasix. Would give 1 dose today and monitor renal function closely. Blood pressure trend has improved. No AV niko blocking agents given severe bradycardia and possible asystole recently. Consultation Date/Type/Reason Admit Date/Time Oct 12, 2016 at 11:59 Initial Consult Date 10/13/16 Type of Consultation: cv 24 HR Interval Summary Free Text/Dictation Patient extubated, denies shortness of breath, chest pain, feeling much better Exam/Review of Systems Vital Signs Vitals Vital Signs Date Time Temp Pulse Resp B/P Pulse Ox O2 Delivery O2 Flow Rate FiO2 10/19/16 10:00 94 20 137/76 100 Nasal Cannula 2.0 10/19/16 07:00 98.8 10/19/16 02:28 28 Intake and Output 10/18/16 10/18/16 10/19/16 15:00 23:00 07:00 Intake Total 650 ml 440 ml 610 ml Output Total 1540 ml 1495 ml 750 ml Balance -890 ml -1055 ml -140 ml Exam Follows commands, no apparent distress Constitutional: alert, oriented Head: normocephalic Neck: supple Respiratory: other (Coarse breath sounds bilaterally, decreased at the bases, no wheezing) Cardiovascular: other (S1-S2 heard), regular rate and rhythm Gastrointestinal: bowel sounds, non-tender, other (No guarding), soft Extremities: edema, other (No cyanosis) Results Result Diagram: 10/19/16 0500 10/19/16 0500 Results 24 hrs Laboratory Tests Test 10/18/16 11:58 10/18/16 12:44 10/18/16 17:00 10/18/16 20:23 Arterial Blood HCO3 22.8 Arterial Blood Base Excess -1.0 Arterial Blood Oxygen Saturation 97.6 Jarod Test ACCEPTAB Arterial Blood Gas Puncture Site Right Radial Arterial Blood Carboxyhemoglobin 0.3 Arterial Blood Date Drawn 10/18/2016 12:28:56 PM Arterial Blood Methemoglobin 0.3 Arterial Blood pCO2 (Temp correct) 34.6 L Arterial Blood pH (Temp corrected) 7.437 Arterial Blood pO2 (Temp corrected) 101.2 H Blood Gas A-a O2 Differential 72.0 H Blood Gas Actual Respiration Rate 28 Blood Gas Low PEEP Setting 5.0 Blood Gas Modality VENT - AC Blood Gas Notified Time 10/18/2016 12:39:46 PM Blood Gas Notified Whom TM Blood Gas Pressure Support 10 Blood Gas Specimen Source Blood arterial Blood Gas Temperature 37.0 FiO2 30.0 Oxyhemoglobin Percent 97.0 Total Hemoglobin 10.4 L Bedside Glucose 201 169 217 Test 10/18/16 21:06 10/19/16 00:56 10/19/16 05:00 10/19/16 05:11 Bedside Glucose 203 210 211 Alanine Aminotransferase (ALT/SGPT) 65 Albumin 3.1 L Albumin/Globulin Ratio 0.83 Alkaline Phosphatase 508 H Anion Gap 17 H Aspartate Amino Transf (AST/SGOT) 47 H Basophils # 0.1 Basophils % 0.5 Blood Urea Nitrogen 45 H Calcium Level 8.7 Carbon Dioxide Level 28 Chloride Level 101 Creatinine 2.74 H Direct Bilirubin 0.00 Eosinophils # 0.4 Eosinophils % 2.7 Globulin 3.70 H Glucose Level 218 Hematocrit 29.5 L Hemoglobin 9.5 L Indirect Bilirubin 0.5 Lymphocytes # 1.2 Lymphocytes % 8.0 L Magnesium Level 2.1 Mean Corpuscular Hemoglobin 30.6 Mean Corpuscular Hemoglobin Concent 32.2 Mean Corpuscular Volume 95.2 Mean Platelet Volume 10.1 Monocytes # 0.8 Monocytes % 5.4 Neutrophils # 10.7 H Neutrophils % 73.0 Nucleated Red Blood Cells # 0.0 Nucleated Red Blood Cells % 0.0 Phosphorus Level 3.5 Platelet Count 200 # Potassium Level 3.8 Red Blood Count 3.10 L Red Cell Distribution Width 13.9 Sodium Level 142 Total Bilirubin 0.5 Total Protein 6.8 White Blood Count 14.7 H Test 10/19/16 08:48 Bedside Glucose 232 H Medications Medications Current Medications Aspirin (Aspirin) 81 mg DAILY PO Last administered on 10/19/16 08:46; Admin Dose 81 MG; Start 10/13/16 at 09:00 Atorvastatin Calcium (Lipitor) 20 mg HS PO Last administered on 10/18/16 20:59 ; Admin Dose 20 MG; Start 10/12/16 at 21:00 Enoxaparin Sodium (Lovenox) 55 mg Q24H SC Last administered on 10/18/16 20:59; Admin Dose 55 MG; Start 10/12/16 at 21:00 Ondansetron HCl (Zofran Inj) 4 mg Q6H PRN IV NAUSEA AND/OR VOMITING; Start at 15:30 Nitroglycerin (Nitroglycerin (Sl Tab) 0.4 Mg) 1 tab Q5M PRN SL CHEST PAIN; Start 10/12/16 at 15:30 Acetaminophen (Tylenol Tab) 650 mg Q6H PRN PO PAIN LEVEL 1-3 OR FEVER Last administered on 10/17/16 17:45; Admin Dose 650 MG; Start 10/12/16 at 15:30 Acetaminophen/ Hydrocodone Bitart ([place] (5/325)) 1 tab Q6H PRN PO PAIN LEVEL 4 -6; Start 10/12/16 at 15:30 Acetaminophen/ Hydrocodone Bitart ([place] (5/325)) 2 tab Q6H PRN PO PAIN LEVEL 7 -10; Start 10/12/16 at 15:30 Morphine Sulfate (morphine) 2 mg Q4H PRN IV PAIN LEVEL 7-10 Last administered on 10/18/16 06:03; Admin Dose 2 MG; Start 10/12/16 at 15:30 Docusate Sodium (Colace) 100 mg Q12H PRN PO CONSTIPATION; Start 10/12/16 at 15: 30 Magnesium Hydroxide (Milk Of Mag) 30 ml DAILY PRN PO CONSTIPATION; Start at 15:30 Bisacodyl (Dulcolax Supp) 10 mg DAILY PRN [place] CONSTIPATION; Start 10/12/16 at 15 :30 Famotidine (Pepcid Iv) 20 mg Q24H IV Last administered on 10/18/16 20:59; Admin Dose 20 MG; Start 10/12/16 at 21:00 Miscellaneous Information 1 ea NOTE XX ; Start 10/12/16 at 16:30 Glucose (Glutose) 15 gm Q15M PRN PO DECREASED GLUCOSE; Start 10/12/16 at 16:30 Glucose (Glutose) 22.5 gm Q15M PRN PO DECREASED GLUCOSE; Start 10/12/16 at 16: 30 Dextrose (D50w Syringe) 25 ml Q15M PRN IV DECREASED GLUCOSE; Start 10/12/16 at 16:30 Dextrose (D50w Syringe) 50 ml Q15M PRN IV DECREASED GLUCOSE Last administered on 10/13/16 23:17; Admin Dose 50 ML; Start 10/12/16 at 16:30 Glucagon (Glucagen) 1 mg Q15M PRN IM DECREASED GLUCOSE; Start 10/12/16 at 16:30 Glucose (Glutose) 15 gm Q15M PRN BUCCAL DECREASED GLUCOSE; Start 10/12/16 at 16 :30 Miscellaneous Information Patients own medicat... BID@10,16 XX Last administered on 10/16/16 15:37; Admin Dose 1 EA; Start 10/13/16 at 10:00 Lactobacillus Acidoph/ [place] 1 tab 1 tab TID PO Last administered on 08:46; Admin Dose 1 TAB; Start 10/13/16 at 09:00 Cefepime HCl (Maxipime 1gm/50 ml (Pmx)) 50 ml @ 100 mls/hr Q24H IVPB Last administered on 10/19/16 08:46; Admin Dose 100 MLS/HR; Start 10/14/16 at 09:00 Insulin Glargine (Lantus) 10 unit DAILY@20 SC Last administered on 10/18/16 21: 00; Admin Dose 10 UNIT; Start 10/16/16 at 20:00 Insulin Aspart NOVOLOG *MILD* ALGORITHM Q4 SC Last administered on 10/19/16 08: 49; Admin Dose 3 UNIT; Start 10/17/16 at 13:00 Vancomycin HCl (Vancocin) 250 ml @ 125 mls/hr Q48H IVPB ; Start 10/20/16 at 10: 00 Hydralazine HCl (Apresoline) 10 mg Q6H PRN IV sbp>160; Start 10/18/16 at 13:00 Singh Thompson DO Oct 19, 2016 10:20
[2016-10-19] MEDS ORDERED: LEVOFLOXACIN 500MG/D5W (PMX) 100 ML IVPB SCH (12:00)
--- NOTE | 2016-10-19 13:03 | PN ---
Date/Time of Note Date/Time of Note DATE: 10/19/16 TIME: 12:29 Assessment/Plan VTE Prophylaxis VTE Prophylaxis Intervention: SCD's Lines/Catheters IV Catheter Type (from Nrsg): PICC Line Central line still needed: Yes (for IV access ) Urinary Cath still in place: Yes Reason Cath still needed: other (indicate) ([place], need to monitor UOP ) Assessment/Plan Assessment/Plan 71-year-old female with: 1. Acute kidney injury in setting of urinary tract infection and sepsis, likely prerenal azotemia. CT A/P overnight with severe left hydronephrosis and nephrolithiasis, Urology, Dr Massey has been consulted Renal function declining again, good UOP, seems slightly pre renal with Na up also. Will change Lasix to daily dosing. Monitor labs Continue current antibiotics, 2. S/p Cardiac arrest, patient now extubated and on RA. Elevated troponin, possible non-ST elevation myocardial infarction. Resolved 2D echocardiogram with stable EF. Appreciate Cardiology recommendations, discussed with Dr Thompson, patient considered a intermediate to high risk for surgery but in this setting pyelonephritis, sepsis, and complications likely related to obstructive uropathy and benefits outweights the risk so per cardiology should proceed with cystoscopy/lithotrypsy/?ureteral stent Cardiac status stable and back to baseline currently Cardiology following 3. S/p Acute respiratory failure: s/p extubation and on RA now. Respiratory status stable. CXR yesterday with improving bilateral pulmonary infiltrates, pulmonary edema vs bilateral PNA, Continue current abx Cefepime and Vanco. 4. E coli Severe sepsis and Pyelonephritis. S/p cardiogenic vs septic shock On Cefepime now Repeat blood NGTD. 5. Diabetes mellitus, [id number]. Change Accuchecks QAC and HS with SSI and pre meal insulin with Novolog 5 units QAC A1C of 7.8 Continue Lantus and to start ADA puree diet 6. Hypertension, s/p shock state, OFF pressors and now normotensive to hypertensive again. Holding all antihypertensive for now. 7. Thrombocytopenia, resolved. Prophylaxis: On Lovenox treatment dose for possible NSTEMI and Pepcid for gastrointestinal prophylaxis. DISPOSITION: S/p extubation yesterday and on RA now. Follow up Urology evaluation and recommendations. Prognosis fair. Subjective 24 Hr Interval Summary Free Text/Dictation Patient doing better, no complaints this AM and on RA CT a/p finally done and showing severe left hydronephrosis with stranding and pyelonephrosis, Urology consulted Afebrile and VSS Exam/Review of Systems Vital Signs Vitals Vital Signs Date Time Temp Pulse Resp B/P Pulse Ox O2 Delivery O2 Flow Rate FiO2 10/19/16 12:00 102 10/19/16 11:00 21 149/76 97 Room Air 10/19/16 10:00 2.0 10/19/16 07:00 98.8 10/19/16 02:28 28 Intake and Output 10/18/16 10/18/16 10/19/16 15:00 23:00 07:00 Intake Total 650 ml 440 ml 640 ml Output Total 1540 ml 1495 ml 1000 ml Balance -890 ml -1055 ml -360 ml Exam Constitutional: alert, oriented, other (generalised weakness), well developed Respiratory: clear to auscultation, normal air movement Cardiovascular: nl pulses, regular rate and rhythm Gastrointestinal: non-tender, soft Musculoskeletal: nl extremities to inspection, nl gait and stance Extremities: normal pulses, other (no edema, cluibbing or cyanosis ) 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, nl mental status, nl speech, other ( generalised weakness ) Results Result Diagram: 10/19/16 0500 10/19/16 0500 Results 24 hrs Laboratory Tests Test 10/18/16 12:44 10/18/16 17:00 10/18/16 20:23 10/18/16 21:06 Bedside Glucose 201 169 217 203 Test 10/19/16 00:56 10/19/16 05:00 10/19/16 05:11 10/19/16 08:48 Bedside Glucose 210 211 232 H Alanine Aminotransferase (ALT/SGPT) 65 Albumin 3.1 L Albumin/Globulin Ratio 0.83 Alkaline Phosphatase 508 H Anion Gap 17 H Aspartate Amino Transf (AST/SGOT) 47 H Basophils # 0.1 Basophils % 0.5 Blood Urea Nitrogen 45 H Calcium Level 8.7 Carbon Dioxide Level 28 Chloride Level 101 Creatinine 2.74 H Direct Bilirubin 0.00 Eosinophils # 0.4 Eosinophils % 2.7 Globulin 3.70 H Glucose Level 218 Hematocrit 29.5 L Hemoglobin 9.5 L Indirect Bilirubin 0.5 Lymphocytes # 1.2 Lymphocytes % 8.0 L Magnesium Level 2.1 Mean Corpuscular Hemoglobin 30.6 Mean Corpuscular Hemoglobin Concent 32.2 Mean Corpuscular Volume 95.2 Mean Platelet Volume 10.1 Monocytes # 0.8 Monocytes % 5.4 Neutrophils # 10.7 H Neutrophils % 73.0 Nucleated Red Blood Cells # 0.0 Nucleated Red Blood Cells % 0.0 Phosphorus Level 3.5 Platelet Count 200 # Potassium Level 3.8 Red Blood Count 3.10 L Red Cell Distribution Width 13.9 Sodium Level 142 Total Bilirubin 0.5 Total Protein 6.8 White Blood Count 14.7 H Medications Medications Current Medications Aspirin (Aspirin) 81 mg DAILY PO Last administered on 10/19/16 08:46; Admin Dose 81 MG; Start 10/13/16 at 09:00 Atorvastatin Calcium (Lipitor) 20 mg HS PO Last administered on 10/18/16 20:59 ; Admin Dose 20 MG; Start 10/12/16 at 21:00 Enoxaparin Sodium (Lovenox) 55 mg Q24H SC Last administered on 10/18/16 20:59; Admin Dose 55 MG; Start 10/12/16 at 21:00 Ondansetron HCl (Zofran Inj) 4 mg Q6H PRN IV NAUSEA AND/OR VOMITING; Start at 15:30 Nitroglycerin (Nitroglycerin (Sl Tab) 0.4 Mg) 1 tab Q5M PRN SL CHEST PAIN; Start 10/12/16 at 15:30 Acetaminophen (Tylenol Tab) 650 mg Q6H PRN PO PAIN LEVEL 1-3 OR FEVER Last administered on 10/17/16 17:45; Admin Dose 650 MG; Start 10/12/16 at 15:30 Acetaminophen/ Hydrocodone Bitart ([place] (5/325)) 1 tab Q6H PRN PO PAIN LEVEL 4 -6; Start 10/12/16 at 15:30 Acetaminophen/ Hydrocodone Bitart ([place] (5/325)) 2 tab Q6H PRN PO PAIN LEVEL 7 -10; Start 10/12/16 at 15:30 Morphine Sulfate (morphine) 2 mg Q4H PRN IV PAIN LEVEL 7-10 Last administered on 10/18/16 06:03; Admin Dose 2 MG; Start 10/12/16 at 15:30 Docusate Sodium (Colace) 100 mg Q12H PRN PO CONSTIPATION; Start 10/12/16 at 15: 30 Magnesium Hydroxide (Milk Of Mag) 30 ml DAILY PRN PO CONSTIPATION; Start at 15:30 Bisacodyl (Dulcolax Supp) 10 mg DAILY PRN [place] CONSTIPATION; Start 10/12/16 at 15 :30 Famotidine (Pepcid Iv) 20 mg Q24H IV Last administered on 10/18/16 20:59; Admin Dose 20 MG; Start 10/12/16 at 21:00 Miscellaneous Information 1 ea NOTE XX ; Start 10/12/16 at 16:30 Glucose (Glutose) 15 gm Q15M PRN PO DECREASED GLUCOSE; Start 10/12/16 at 16:30 Glucose (Glutose) 22.5 gm Q15M PRN PO DECREASED GLUCOSE; Start 10/12/16 at 16: 30 Dextrose (D50w Syringe) 25 ml Q15M PRN IV DECREASED GLUCOSE; Start 10/12/16 at 16:30 Dextrose (D50w Syringe) 50 ml Q15M PRN IV DECREASED GLUCOSE Last administered on 10/13/16 23:17; Admin Dose 50 ML; Start 10/12/16 at 16:30 Glucagon (Glucagen) 1 mg Q15M PRN IM DECREASED GLUCOSE; Start 10/12/16 at 16:30 Glucose (Glutose) 15 gm Q15M PRN BUCCAL DECREASED GLUCOSE; Start 10/12/16 at 16 :30 Miscellaneous Information Patients own medicat... BID@10,16 XX Last administered on 10/16/16 15:37; Admin Dose 1 EA; Start 10/13/16 at 10:00 Lactobacillus Acidoph/ Bulgaricus 1 tab 1 tab TID PO Last administered on 08:46; Admin Dose 1 TAB; Start 10/13/16 at 09:00 Cefepime HCl (Maxipime 1gm/50 ml (Pmx)) 50 ml @ 100 mls/hr Q24H IVPB Last administered on 10/19/16 08:46; Admin Dose 100 MLS/HR; Start 10/14/16 at 09:00 Insulin Glargine (Lantus) 10 unit DAILY@20 SC Last administered on 10/18/16 21: 00; Admin Dose 10 UNIT; Start 10/16/16 at 20:00 Insulin Aspart NOVOLOG *MILD* ALGORITHM Q4 SC Last administered on 10/19/16t 08: 49; Admin Dose 3 UNIT; Start 10/17/16 at 13:00 Vancomycin HCl (Vancocin) 250 ml @ 125 mls/hr Q48H IVPB ; Start 10/20/16 at 10: 00 Hydralazine HCl (Apresoline) 10 mg Q6H PRN IV sbp>160; Start 10/18/16 at 13:00 Procedures Procedures PROCEDURE: CT of the abdomen and pelvis without contrast CLINICAL INDICATION: Left hydronephrosis seen on ultrasound. Acute kidney injury.. TECHNIQUE: Spiral CT images through the abdomen and pelvis without the use of contrast. The administered radiation dose is CTDI 7.24 and DLP 351.7. One or more of the following dose reduction techniques were used: automated exposure control, adjustment of the mA and/or kV according to patient size, or use of iterative reconstruction technique. COMPARISON: None FINDINGS: Lack of oral and intravenous contrast somewhat limits evaluation. There are small bilateral pleural effusions with bibasilar infiltrates and peribronchial thickening seen. Nasogastric tube courses into the distal stomach. Aortic and coronary artery calcification is seen. There is mild cardiomegaly, accentuated by slight pectus deformity. The liver, spleen, adrenals, and pancreas are unremarkable in appearance. The gallbladder appears to be surgically absent. The common bile duct is slightly dilated, measuring up to 1.2 cm in diameter. There are multiple small nonobstructing right renal stones measuring up to 3 mm in diameter. There is mild right pelvicaliectasis but no definite stones are seen in the right ureter or within the urinary bladder. A Ramos catheter and air are seen within the urinary bladder. There is marked left hydronephrosis and hydroureter to the level of a 6 x 5 mm stone at the L4-5 level. No other ureter stones are seen. There is moderate left perinephric stranding. Edema of the subcutaneous soft tissues is seen. The uterus is slightly enlarged and lobulated in contour consistent with fibroids. Largest visible fibroid is in the fundus and measures 3.9 cm in diameter. No abnormality of the bowel is seen. No gross adnexal mass is seen. There is degenerative change of the spine. IMPRESSION: 5 x 6 mm stone in the left ureter at the L4-5 level causing marked left hydronephrosis and hydroureter as well as left perinephric stranding. Several nonobstructing right renal stones. No definite right ureter stones. No additional left renal stones. Prior cholecystectomy. Slightly dilated common bile duct up to 1.2 cm in diameter. No definite intrahepatic ductal dilatation. Uterine fibroids. ESE SORIANO Oct 19, 2016 12:40
--- NOTE | 2016-10-19 17:26 | CONS ---
Date/Time of Note Date/Time of Note DATE: 10/19/16 TIME: 17:20 Assessment/Plan Assessment/Plan Chief Complaint/Hosp Course Pt needs left ureteroscopy with laser litho and jj stent, scheduled for Saturday at 530 PM Procedure explained in detail to pt and and daughter thru recruiting team lead Pt agrees to proceed laser not available til Saturday Problems: Consultation Date/Type/Reason Admit Date/Time Oct 12, 2016 at 11:59 Date of Consultation: Oct 19, 2016 Type of Consultation: Urology Reason for Consultation Obstructing left ureteral stone Hx of Present Illness 6 mm left mid ureteral stone with recent sepsis Respiratory: no complaints Cardiovascular: no complaints Gastrointestinal: no complaints Genitourinary: no complaints Musculoskeletal: no complaints Skin: no complaints Neurologic: no complaints Psychological: nl mood/affect, no complaints Past Surgical History Past Surgical Hx: cholecystectomy Social History Alcohol Use: none Smoking Status: Never smoker Exam/Review of Systems Vital Signs Vitals Vital Signs Date Time Temp Pulse Resp B/P Pulse Ox O2 Delivery O2 Flow Rate FiO2 10/19/16 16:00 104 23 139/75 93 Room Air 10/19/16 12:00 98.9 10/19/16 10:00 2.0 10/19/16 02:28 28 Intake and Output 10/18/16 10/18/16 10/19/16 15:00 23:00 07:00 Intake Total 650 ml 440 ml 640 ml Output Total 1540 ml 1495 ml 1000 ml Balance -890 ml -1055 ml -360 ml Results Result Diagram: 10/19/16 0500 10/19/16 0500 Results 24 hrs Laboratory Tests Test 10/18/16 20:23 10/18/16 21:06 10/19/16 00:56 10/19/16 05:00 Bedside Glucose 217 203 210 Alanine Aminotransferase (ALT/SGPT) 65 Albumin 3.1 L Albumin/Globulin Ratio 0.83 Alkaline Phosphatase 508 H Anion Gap 17 H Aspartate Amino Transf (AST/SGOT) 47 H Basophils # 0.1 Basophils % 0.5 Blood Urea Nitrogen 45 H Calcium Level 8.7 Carbon Dioxide Level 28 Chloride Level 101 Creatinine 2.74 H Direct Bilirubin 0.00 Eosinophils # 0.4 Eosinophils % 2.7 Globulin 3.70 H Glucose Level 218 Hematocrit 29.5 L Hemoglobin 9.5 L Indirect Bilirubin 0.5 Lymphocytes # 1.2 Lymphocytes % 8.0 L Magnesium Level 2.1 Mean Corpuscular Hemoglobin 30.6 Mean Corpuscular Hemoglobin Concent 32.2 Mean Corpuscular Volume 95.2 Mean Platelet Volume 10.1 Monocytes # 0.8 Monocytes % 5.4 Neutrophils # 10.7 H Neutrophils % 73.0 Nucleated Red Blood Cells # 0.0 Nucleated Red Blood Cells % 0.0 Phosphorus Level 3.5 Platelet Count 200 # Potassium Level 3.8 Red Blood Count 3.10 L Red Cell Distribution Width 13.9 Sodium Level 142 Total Bilirubin 0.5 Total Protein 6.8 White Blood Count 14.7 H Test 10/19/16 05:11 10/19/16 08:48 10/19/16 13:23 Bedside Glucose 211 232 H 203 Medications Medications Current Medications Aspirin (Aspirin) 81 mg DAILY PO Last administered on 10/19/16 08:46; Admin Dose 81 MG; Start 10/13/16 at 09:00 Atorvastatin Calcium (Lipitor) 20 mg HS PO Last administered on 10/18/16 20:59 ; Admin Dose 20 MG; Start 10/12/16 at 21:00 Ondansetron HCl (Zofran Inj) 4 mg Q6H PRN IV NAUSEA AND/OR VOMITING; Start at 15:30 Nitroglycerin (Nitroglycerin (Sl Tab) 0.4 Mg) 1 tab Q5M PRN SL CHEST PAIN; Start 10/12/16 at 15:30 Acetaminophen (Tylenol Tab) 650 mg Q6H PRN PO PAIN LEVEL 1-3 OR FEVER Last administered on 10/17/16 17:45; Admin Dose 650 MG; Start 10/12/16 at 15:30 Acetaminophen/ Hydrocodone Bitart ([place] (5/325)) 1 tab Q6H PRN PO PAIN LEVEL 4 -6; Start 10/12/16 at 15:30 Acetaminophen/ Hydrocodone Bitart ([place] (5/325)) 2 tab Q6H PRN PO PAIN LEVEL 7 -10; Start 10/12/16 at 15:30 Morphine Sulfate (morphine) 2 mg Q4H PRN IV PAIN LEVEL 7-10 Last administered on 10/18/16 06:03; Admin Dose 2 MG; Start 10/12/16 at 15:30 Docusate Sodium (Colace) 100 mg Q12H PRN PO CONSTIPATION; Start 10/12/16 at 15: 30 Magnesium Hydroxide (Milk Of Mag) 30 ml DAILY PRN PO CONSTIPATION; Start at 15:30 Bisacodyl (Dulcolax Supp) 10 mg DAILY PRN [place] CONSTIPATION; Start 10/12/16 at 15 :30 Famotidine (Pepcid Iv) 20 mg Q24H IV Last administered on 10/18/16 20:59; Admin Dose 20 MG; Start 10/12/16 at 21:00 Miscellaneous Information 1 ea NOTE XX ; Start 10/12/16 at 16:30 Glucose (Glutose) 15 gm Q15M PRN PO DECREASED GLUCOSE; Start 10/12/16 at 16:30 Glucose (Glutose) 22.5 gm Q15M PRN PO DECREASED GLUCOSE; Start 10/12/16 at 16: 30 Dextrose (D50w Syringe) 25 ml Q15M PRN IV DECREASED GLUCOSE; Start 10/12/16 at 16:30 Dextrose (D50w Syringe) 50 ml Q15M PRN IV DECREASED GLUCOSE Last administered on 10/13/16 23:17; Admin Dose 50 ML; Start 10/12/16 at 16:30 Glucagon (Glucagen) 1 mg Q15M PRN IM DECREASED GLUCOSE; Start 10/12/16 at 16:30 Glucose (Glutose) 15 gm Q15M PRN BUCCAL DECREASED GLUCOSE; Start 10/12/16 at 16 :30 Miscellaneous Information Patients own medicat... BID@10,16 XX Last administered on 10/16/16 15:37; Admin Dose 1 EA; Start 10/13/16 at 10:00 Lactobacillus Acidoph/ Bulgaricus 1 tab 1 tab TID PO Last administered on 13:24; Admin Dose 1 TAB; Start 10/13/16 at 09:00 Cefepime HCl (Maxipime 1gm/50 ml (Pmx)) 50 ml @ 100 mls/hr Q24H IVPB Last administered on 10/19/16 08:46; Admin Dose 100 MLS/HR; Start 10/14/16 at 09:00 Insulin Glargine 10 unit 10 unit DAILY@20 SC Last administered on 10/18/16 21: 00; Admin Dose 10 UNIT; Start 10/16/16 at 20:00 Vancomycin HCl (Vancocin) 250 ml @ 125 mls/hr Q48H IVPB ; Start 10/20/16 at 10: 00 Hydralazine HCl (Apresoline) 10 mg Q6H PRN IV sbp>160; Start 10/18/16 at 13:00 Diagnostic Test (Pha) (Accucheck) 1 ea 02 XX ; Start 10/20/16 at 02:00 Heparin Sodium (Porcine) (Heparin (5000 Units/0.5 ml)) 5,000 unit BID SC ; Start 10/19/16 at 21:00 GALLO CUI MD Oct 19, 2016 17:26
[2016-10-19] MEDS: ATORVASTATIN 20 MG TAB PO SCH (20:12)
[2016-10-19] MEDS: FAMOTIDINE 20 MG INJ IV SCH (20:12)
[2016-10-19] MEDS: INSULIN GLARGINE [LANtus] 3 ML PEN SC SCH (20:36)
[2016-10-19] MEDS: HEPARIN 5,000 UNIT/0.5 ML SYG SC SCH (20:37)
[2016-10-20] VITALS (16 sets, daily range): BP systolic 126–147; BP diastolic 68–98; PULSE 86–100; RESP 16–25
[2016-10-20] MEDS: ACCUCHECK XX SCH (02:00)
[2016-10-20 05:01] LABS: ADD SCAN DIFF NO
[2016-10-20 05:18] LABS: ABNORMAL IP MESSAGE 1; BASOPHILS % 0.3 % (0.0-2.0); EOSINOPHILS # 0.2 10^3/ul (0.0-0.5); EOSINOPHILS % 1.6 % (0.0-7.0); HEMATOCRIT 31.1 % (37.0-47.0); LYMPHOCYTES # 1.3 10^3/ul (0.8-2.9); LYMPHOCYTES % 9.5 % (15.0-51.0); MEAN CORPUSCULAR HEMOGLOBIN 30.2 pg (29.0-33.0); MEAN CORPUSCULAR HGB CONC 32.2 g/dl (32.0-37.0); MONOCYTE # 0.8 10^3/ul (0.3-0.9); MONOCYTES % 6.3 % (0.0-11.0); NEUTROPHIL # 9.8 10^3/ul (1.6-7.5); NEUTROPHILS % 74.8 % (39.0-77.0); PLATELET COUNT 254 10^3/UL (140-415); RED BLOOD COUNT 3.31 10^6/ul (4.20-5.40); RED CELL DISTRIBUTION WIDTH 13.9 % (11.5-14.5); WHITE BLOOD COUNT 13.1 10^3/ul (4.8-10.8)
[2016-10-20 07:31] LABS: POTASSIUM 3.5 mmol/L (3.5-5.1)
[2016-10-20 07:33] LABS: CREATININE 2.68 mg/dl (0.44-1.00)
[2016-10-20 07:34] LABS: CALCIUM 8.6 mg/dl (8.4-10.2)
--- NOTE | 2016-10-20 07:49 | CONS ---
Date/Time of Note Date/Time of Note DATE: 10/20/16 TIME: 07:46 Assessment/Plan Assessment/Plan Chief Complaint/Hosp Course Possible cardiac arrest Preserved ejection fraction Acute decompensated diastolic congestive heart failure Labile blood pressure Respiratory failure status post extubation Sepsis Elevated troponin Acute kidney injury Sepsis Problems: Additional Assessment/Plan 1) Avoid AV niko blockers though unclear whether this was cause if events 2) patient at intermediate to high risk of cardiac events amid uro procedure, however, given lifethreatening nature of underlying uro issues the benefits of the procedure/surgery may well outweigh the risk. councelled and family agrees. No new cardiac studies are suited to minmize the risk Consultation Date/Type/Reason Admit Date/Time Oct 12, 2016 at 11:59 Type of Consultation: cv 24 HR Interval Summary Subjective hx not possible: pt critical status Detailed Summary Respiratory: no complaints Cardiovascular: no complaints Gastrointestinal: no complaints Genitourinary: flank pain Musculoskeletal: no complaints Exam/Review of Systems Vital Signs Vitals Vital Signs Date Time Temp Pulse Resp B/P Pulse Ox O2 Delivery O2 Flow Rate FiO2 10/20/16 07:26 126/98 Room Air 10/20/16 06:00 88 22 95 10/20/16 04:00 98.6 10/20/16 02:08 2.0 28 Intake and Output 10/19/16 10/19/16 10/20/16 15:00 23:00 07:00 Intake Total 290 ml 150 ml 240 ml Output Total 1500 ml 830 ml 640 ml Balance -1210 ml -680 ml -400 ml Exam Constitutional: alert Head: atraumatic, normocephalic Neck: supple Respiratory: clear to auscultation Cardiovascular: regular rate and rhythm Musculoskeletal: nl extremities to inspection Extremities: normal pulses Results Result Diagram: 10/20/16 0400 10/20/16 0400 Results 24 hrs Laboratory Tests Test 10/19/16 08:48 10/19/16 13:23 10/19/16 17:35 10/19/16 20:09 Bedside Glucose 232 H 203 147 162 Test 10/20/16 01:45 10/20/16 04:00 Bedside Glucose 156 Anion Gap 20 H Basophils # 0.0 Basophils % 0.3 Blood Urea Nitrogen 50 H Calcium Level 8.6 Carbon Dioxide Level 23 Chloride Level 106 Creatinine 2.68 H Eosinophils # 0.2 Eosinophils % 1.6 Glucose Level 151 Hematocrit 31.1 L Hemoglobin 10.0 L Lymphocytes # 1.3 Lymphocytes % 9.5 L Mean Corpuscular Hemoglobin 30.2 Mean Corpuscular Hemoglobin Concent 32.2 Mean Corpuscular Volume 94.0 Mean Platelet Volume 10.0 Monocytes # 0.8 Monocytes % 6.3 Neutrophils # 9.8 H Neutrophils % 74.8 Nucleated Red Blood Cells # 0.0 Nucleated Red Blood Cells % 0.0 Phosphorus Level 3.5 Platelet Count 254 # Potassium Level 3.5 Red Blood Count 3.31 L Red Cell Distribution Width 13.9 Sodium Level 145 H White Blood Count 13.1 H Medications Medications Current Medications Aspirin (Aspirin) 81 mg DAILY PO Last administered on 10/19/16 08:46; Admin Dose 81 MG; Start 10/13/16 at 09:00 Atorvastatin Calcium (Lipitor) 20 mg HS PO Last administered on 10/19/16 20:12 ; Admin Dose 20 MG; Start 10/12/16 at 21:00 Ondansetron HCl (Zofran Inj) 4 mg Q6H PRN IV NAUSEA AND/OR VOMITING; Start at 15:30 Nitroglycerin (Nitroglycerin (Sl Tab) 0.4 Mg) 1 tab Q5M PRN SL CHEST PAIN; Start 10/12/16 at 15:30 Acetaminophen (Tylenol Tab) 650 mg Q6H PRN PO PAIN LEVEL 1-3 OR FEVER Last administered on 10/17/16 17:45; Admin Dose 650 MG; Start 10/12/16 at 15:30 Acetaminophen/ Hydrocodone Bitart ([place] (5/325)) 1 tab Q6H PRN PO PAIN LEVEL 4 -6; Start 10/12/16 at 15:30 Acetaminophen/ Hydrocodone Bitart ([place] (5/325)) 2 tab Q6H PRN PO PAIN LEVEL 7 -10; Start 10/12/16 at 15:30 Morphine Sulfate (morphine) 2 mg Q4H PRN IV PAIN LEVEL 7-10 Last administered on 10/18/16 06:03; Admin Dose 2 MG; Start 10/12/16 at 15:30 Docusate Sodium (Colace) 100 mg Q12H PRN PO CONSTIPATION; Start 10/12/16 at 15: 30 Magnesium Hydroxide (Milk Of Mag) 30 ml DAILY PRN PO CONSTIPATION; Start at 15:30 Bisacodyl (Dulcolax Supp) 10 mg DAILY PRN [place] CONSTIPATION; Start 10/12/16 at 15 :30 Famotidine (Pepcid Iv) 20 mg Q24H IV Last administered on 10/19/16 20:12; Admin Dose 20 MG; Start 10/12/16 at 21:00 Miscellaneous Information 1 ea NOTE XX ; Start 10/12/16 at 16:30 Glucose (Glutose) 15 gm Q15M PRN PO DECREASED GLUCOSE; Start 10/12/16 at 16:30 Glucose (Glutose) 22.5 gm Q15M PRN PO DECREASED GLUCOSE; Start 10/12/16 at 16: 30 Dextrose (D50w Syringe) 25 ml Q15M PRN IV DECREASED GLUCOSE; Start 10/12/16 at 16:30 Dextrose (D50w Syringe) 50 ml Q15M PRN IV DECREASED GLUCOSE Last administered on 10/13/16 23:17; Admin Dose 50 ML; Start 10/12/16 at 16:30 Glucagon (Glucagen) 1 mg Q15M PRN IM DECREASED GLUCOSE; Start 10/12/16 at 16:30 Glucose (Glutose) 15 gm Q15M PRN BUCCAL DECREASED GLUCOSE; Start 10/12/16 at 16 :30 Miscellaneous Information Patients own medicat... BID@10,16 XX Last administered on 10/16/16 15:37; Admin Dose 1 EA; Start 10/13/16 at 10:00 Lactobacillus Acidoph/ [place]icus 1 tab 1 tab TID PO Last administered on 20:12; Admin Dose 1 TAB; Start 10/13/16 at 09:00 Cefepime HCl (Maxipime 1gm/50 ml (Pmx)) 50 ml @ 100 mls/hr Q24H IVPB Last administered on 10/19/16 08:46; Admin Dose 100 MLS/HR; Start 10/14/16 at 09:00 Insulin Glargine 10 unit 10 unit DAILY@20 SC Last administered on 10/19/16 20: 36; Admin Dose 10 UNIT; Start 10/16/16 at 20:00 Vancomycin HCl (Vancocin) 250 ml @ 125 mls/hr Q48H IVPB ; Start 10/20/16 at 10: 00 Hydralazine HCl (Apresoline) 10 mg Q6H PRN IV sbp>160; Start 10/18/16 at 13:00 Diagnostic Test (Pha) (Accucheck) 1 XX ; Start 10/20/16 at 02:00 Heparin Sodium (Porcine) (Heparin (5000 Units/0.5 ml)) 5,000 unit BID SC Last administered on 10/19/16t 20:37; Admin Dose 5,000 UNIT; Start 10/19/16 at 21:00 COLEEN NOYOLA MD Oct 20, 2016 07:48
[2016-10-20] MEDS: INSULIN ASPART [NOVOLOG] 3 ML PEN SC SCH ×9 (08:00→21:00)
[2016-10-20] MEDS: CEFEPIME 1GM/50 ML IVPB SCH (09:36)
[2016-10-20] MEDS: ASPIRIN 81 MG TAB PO SCH (09:36)
[2016-10-20] MEDS: LACTOBACILLUS CHEW TAB PO SCH ×3 (09:36→21:14)
[2016-10-20] MEDS: HEPARIN 5,000 UNIT/0.5 ML SYG SC SCH ×2 (09:38→21:15)
[2016-10-20] MEDS ORDERED: VANCOMYCIN 1 GM in NS 250 ML IVPB SCH (10:00)
--- NOTE | 2016-10-20 10:57 | PN ---
Date/Time of Note Date/Time of Note DATE: 10/20/16 TIME: 10:49 Assessment/Plan VTE Prophylaxis VTE Prophylaxis Intervention: heparin Lines/Catheters IV Catheter Type (from Nrsg): PICC Line Central line still needed: Yes (for IV access ) Urinary Cath still in place: Yes Reason Cath still needed: other (indicate) ([place]) Assessment/Plan Assessment/Plan 71-year-old female with: 1. Acute kidney injury in setting of urinary tract infection and sepsis, likely prerenal azotemia. CT A/P with severe left hydronephrosis and nephrolithiasis, Urology, Dr Massey has been consulted and plan for lithotripsy on Saturday at 5 30pm Renal function expected to improve post stone removal hopefully, for now unchanged Good UOP, Lasix discontinued Monitor labs Continue current antibiotics. 2. S/p Cardiac arrest, patient now extubated and on RA. Elevated troponin, possible non-ST elevation myocardial infarction. Resolved 2D echocardiogram with stable EF. Appreciate Cardiology recommendations, discussed with Dr Thompson, patient considered a intermediate to high risk for surgery but in this setting pyelonephritis, sepsis, and complications likely related to obstructive uropathy and benefits outweighs the risk so per cardiology should proceed with cystoscopy/lithotripsy/?ureteral stent Cardiac status stable and back to baseline currently Cardiology following 3. S/p Acute respiratory failure: s/p extubation and on RA now. Respiratory status stable. Latest CXR with improving bilateral pulmonary infiltrates, pulmonary edema vs bilateral PNA, Continue current abx Cefepime and Vanco. 4. E coli Severe sepsis and Pyelonephritis. S/p cardiogenic vs septic shock On Cefepime. Repeat blood NGTD. 5. Diabetes mellitus, [id number]. Change Accuchecks QAC and HS with SSI and pre meal insulin with Novolog 5 units QAC A1C of 7.8 Continue Lantus and to start ADA diet 6. Hypertension, s/p shock state, OFF pressors and now normotensive to hypertensive again. Hydralazine added. 7. Thrombocytopenia, resolved. Prophylaxis: Heparin SC for DVT ppx and Pepcid for gastrointestinal prophylaxis. DISPOSITION: On Tele on RA now. Appreciate Urology evaluation and plan for lithotripsy Saturday . Prognosis good. Subjective 24 Hr Interval Summary Free Text/Dictation Patient remains stable on RA Afebrile and WBC trending down slowly No complaints Appreciate recommendations from Urology and cardiology Exam/Review of Systems Vital Signs Vitals Vital Signs Date Time Temp Pulse Resp B/P Pulse Ox O2 Delivery O2 Flow Rate FiO2 10/20/16 08:26 96 10/20/16 07:55 98.5 18 147/78 95 10/20/16 07:26 Room Air 10/20/16 02:08 2.0 28 Intake and Output 10/19/16 10/19/16 10/20/16 15:00 23:00 07:00 Intake Total 290 ml 150 ml 240 ml Output Total 1500 ml 830 ml 640 ml Balance -1210 ml -680 ml -400 ml Exam Constitutional: alert, oriented, well developed Respiratory: clear to auscultation, normal air movement Cardiovascular: nl pulses, regular rate and rhythm Gastrointestinal: non-tender, soft Musculoskeletal: nl extremities to inspection Extremities: normal pulses, other (no edema, clubbing or cyanosis ) 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, nl mental status, nl speech, other ( generalised weakness ) Results Result Diagram: 10/20/16 0400 10/20/16 0400 Results 24 hrs Laboratory Tests Test 10/19/16 13:23 10/19/16 17:35 10/19/16 20:09 10/20/16 01:45 Bedside Glucose 203 147 162 156 Test 10/20/16 04:00 10/20/16 07:56 Anion Gap 20 H Basophils # 0.0 Basophils % 0.3 Blood Urea Nitrogen 50 H Calcium Level 8.6 Carbon Dioxide Level 23 Chloride Level 106 Creatinine 2.68 H Eosinophils # 0.2 Eosinophils % 1.6 Glucose Level 151 Hematocrit 31.1 L Hemoglobin 10.0 L Lymphocytes # 1.3 Lymphocytes % 9.5 L Mean Corpuscular Hemoglobin 30.2 Mean Corpuscular Hemoglobin Concent 32.2 Mean Corpuscular Volume 94.0 Mean Platelet Volume 10.0 Monocytes # 0.8 Monocytes % 6.3 Neutrophils # 9.8 H Neutrophils % 74.8 Nucleated Red Blood Cells # 0.0 Nucleated Red Blood Cells % 0.0 Phosphorus Level 3.5 Platelet Count 254 # Potassium Level 3.5 Red Blood Count 3.31 L Red Cell Distribution Width 13.9 Sodium Level 145 H White Blood Count 13.1 H Bedside Glucose 158 Medications Medications Current Medications Aspirin (Aspirin) 81 mg DAILY PO Last administered on 10/20/16 09:36; Admin Dose 81 MG; Start 10/13/16 at 09:00 Atorvastatin Calcium (Lipitor) 20 mg HS PO Last administered on 10/19/16 20:12 ; Admin Dose 20 MG; Start 10/12/16 at 21:00 Ondansetron HCl (Zofran Inj) 4 mg Q6H PRN IV NAUSEA AND/OR VOMITING; Start at 15:30 Nitroglycerin (Nitroglycerin (Sl Tab) 0.4 Mg) 1 tab Q5M PRN SL CHEST PAIN; Start 10/12/16 at 15:30 Acetaminophen (Tylenol Tab) 650 mg Q6H PRN PO PAIN LEVEL 1-3 OR FEVER Last administered on 10/17/16 17:45; Admin Dose 650 MG; Start 10/12/16 at 15:30 Acetaminophen/ Hydrocodone Bitart ([place] (5/325)) 1 tab Q6H PRN PO PAIN LEVEL 4 -6; Start 10/12/16 at 15:30 Acetaminophen/ Hydrocodone Bitart ([place] (5/325)) 2 tab Q6H PRN PO PAIN LEVEL 7 -10; Start 10/12/16 at 15:30 Morphine Sulfate (morphine) 2 mg Q4H PRN IV PAIN LEVEL 7-10 Last administered on 10/18/16 06:03; Admin Dose 2 MG; Start 10/12/16 at 15:30 Docusate Sodium (Colace) 100 mg Q12H PRN PO CONSTIPATION; Start 10/12/16 at 15: 30 Magnesium Hydroxide (Milk Of Mag) 30 ml DAILY PRN PO CONSTIPATION; Start at 15:30 Bisacodyl (Dulcolax Supp) 10 mg DAILY PRN [place] CONSTIPATION; Start 10/12/16 at 15 :30 Famotidine (Pepcid Iv) 20 mg Q24H IV Last administered on 10/19/16 20:12; Admin Dose 20 MG; Start 10/12/16 at 21:00 Miscellaneous Information 1 ea NOTE XX ; Start 10/12/16 at 16:30 Glucose (Glutose) 15 gm Q15M PRN PO DECREASED GLUCOSE; Start 10/12/16 at 16:30 Glucose (Glutose) 22.5 gm Q15M PRN PO DECREASED GLUCOSE; Start 10/12/16 at 16: 30 Dextrose (D50w Syringe) 25 ml Q15M PRN IV DECREASED GLUCOSE; Start 10/12/16 at 16:30 Dextrose (D50w Syringe) 50 ml Q15M PRN IV DECREASED GLUCOSE Last administered on 10/13/16 23:17; Admin Dose 50 ML; Start 10/12/16 at 16:30 Glucagon (Glucagen) 1 mg Q15M PRN IM DECREASED GLUCOSE; Start 10/12/16 at 16:30 Glucose (Glutose) 15 gm Q15M PRN BUCCAL DECREASED GLUCOSE; Start 10/12/16 at 16 :30 Miscellaneous Information Patients own medicat... BID@10,16 XX Last administered on 10/20/16 09:46; Admin Dose 1 EA; Start 10/13/16 at 10:00 Lactobacillus Acidoph/ Bulgaricus 1 tab 1 tab TID PO Last administered on 09:36; Admin Dose 1 TAB; Start 10/13/16 at 09:00 Cefepime HCl (Maxipime 1gm/50 ml (Pmx)) 50 ml @ 100 mls/hr Q24H IVPB Last administered on 10/20/16 09:36; Admin Dose 100 MLS/HR; Start 10/14/16 at 09:00 Insulin Glargine 10 unit 10 unit DAILY@20 SC Last administered on 10/19/16 20: 36; Admin Dose 10 UNIT; Start 10/16/16 at 20:00 Vancomycin HCl (Vancocin) 250 ml @ 125 mls/hr Q48H IVPB ; Start 10/20/16 at 10: 00 Hydralazine HCl (Apresoline) 10 mg Q6H PRN IV sbp>160; Start 10/18/16 at 13:00 Diagnostic Test (Pha) (Accucheck) 1 ea 02 XX ; Start 10/20/16 at 02:00 Heparin Sodium (Porcine) (Heparin (5000 Units/0.5 ml)) 5,000 unit BID SC Last administered on 10/20/16 09:38; Admin Dose 5,000 UNIT; Start 10/19/16 at 21:00 ESE SORIANO Oct 20, 2016 10:57
--- NOTE | 2016-10-20 16:17 | CONS ---
Date/Time of Note Date/Time of Note DATE: 10/20/16 TIME: 16:15 Consult Date/Type/Reason Admit Date/Time Oct 12, 2016 at 11:59 Initial Consult Date 10/19/16 Type of Consultation: Pulm Subjective No events. On room air. Objective Vital Signs Date Time Temp Pulse Resp B/P Pulse Ox O2 Delivery O2 Flow Rate FiO2 10/20/16 15:54 98.8 90 16 142/75 94 10/20/16 07:26 Room Air 10/20/16 02:08 2.0 28 Intake and Output 10/19/16 10/19/16 10/20/16 15:00 23:00 07:00 Intake Total 290 ml 150 ml 240 ml Output Total 1500 ml 830 ml 640 ml Balance -1210 ml -680 ml -400 ml HEENT: Neck supple; no JVD; no LAD CVS: RRR, S1 and S2 CHEST: Coarse bs at bases b/l ABD: Soft, NT, + BS EXT: No c/c/e Results/Medications Result Diagram: 10/20/16 0400 10/20/16 0400 Results 24 hrs Laboratory Tests Test 10/19/16 17:35 10/19/16 20:09 10/20/16 01:45 10/20/16 04:00 Bedside Glucose 147 162 156 Anion Gap 20 H Basophils # 0.0 Basophils % 0.3 Blood Urea Nitrogen 50 H Calcium Level 8.6 Carbon Dioxide Level 23 Chloride Level 106 Creatinine 2.68 H Eosinophils # 0.2 Eosinophils % 1.6 Glucose Level 151 Hematocrit 31.1 L Hemoglobin 10.0 L Lymphocytes # 1.3 Lymphocytes % 9.5 L Mean Corpuscular Hemoglobin 30.2 Mean Corpuscular Hemoglobin Concent 32.2 Mean Corpuscular Volume 94.0 Mean Platelet Volume 10.0 Monocytes # 0.8 Monocytes % 6.3 Neutrophils # 9.8 H Neutrophils % 74.8 Nucleated Red Blood Cells # 0.0 Nucleated Red Blood Cells % 0.0 Phosphorus Level 3.5 Platelet Count 254 # Potassium Level 3.5 Red Blood Count 3.31 L Red Cell Distribution Width 13.9 Sodium Level 145 H White Blood Count 13.1 H Test 10/20/16 07:56 10/20/16 11:59 Bedside Glucose 158 180 Medications Current Medications Aspirin (Aspirin) 81 mg DAILY PO Last administered on 10/20/16 09:36; Admin Dose 81 MG; Start 10/13/16 at 09:00 Atorvastatin Calcium (Lipitor) 20 mg HS PO Last administered on 10/19/16 20:12 ; Admin Dose 20 MG; Start 10/12/16 at 21:00 Ondansetron HCl (Zofran Inj) 4 mg Q6H PRN IV NAUSEA AND/OR VOMITING; Start at 15:30 Nitroglycerin (Nitroglycerin (Sl Tab) 0.4 Mg) 1 tab Q5M PRN SL CHEST PAIN; Start 10/12/16 at 15:30 Acetaminophen (Tylenol Tab) 650 mg Q6H PRN PO PAIN LEVEL 1-3 OR FEVER Last administered on 10/17/16 17:45; Admin Dose 650 MG; Start 10/12/16 at 15:30 Acetaminophen/ Hydrocodone Bitart ([place] (5/325)) 1 tab Q6H PRN PO PAIN LEVEL 4 -6; Start 10/12/16 at 15:30 Acetaminophen/ Hydrocodone Bitart ([place] (5/325)) 2 tab Q6H PRN PO PAIN LEVEL 7 -10; Start 10/12/16 at 15:30 Morphine Sulfate (morphine) 2 mg Q4H PRN IV PAIN LEVEL 7-10 Last administered on 10/18/16 06:03; Admin Dose 2 MG; Start 10/12/16 at 15:30 Docusate Sodium (Colace) 100 mg Q12H PRN PO CONSTIPATION; Start 10/12/16 at 15: 30 Magnesium Hydroxide (Milk Of Mag) 30 ml DAILY PRN PO CONSTIPATION; Start at 15:30 Bisacodyl (Dulcolax Supp) 10 mg DAILY PRN [place] CONSTIPATION; Start 10/12/16 at 15 :30 Famotidine (Pepcid Iv) 20 mg Q24H IV Last administered on 10/19/16 20:12; Admin Dose 20 MG; Start 10/12/16 at 21:00 Miscellaneous Information 1 ea NOTE XX ; Start 10/12/16 at 16:30 Glucose (Glutose) 15 gm Q15M PRN PO DECREASED GLUCOSE; Start 10/12/16 at 16:30 Glucose (Glutose) 22.5 gm Q15M PRN PO DECREASED GLUCOSE; Start 10/12/16 at 16: 30 Dextrose (D50w Syringe) 25 ml Q15M PRN IV DECREASED GLUCOSE; Start 10/12/16 at 16:30 Dextrose (D50w Syringe) 50 ml Q15M PRN IV DECREASED GLUCOSE Last administered on 10/13/16 23:17; Admin Dose 50 ML; Start 10/12/16 at 16:30 Glucagon (Glucagen) 1 mg Q15M PRN IM DECREASED GLUCOSE; Start 10/12/16 at 16:30 Glucose (Glutose) 15 gm Q15M PRN BUCCAL DECREASED GLUCOSE; Start 10/12/16 at 16 :30 Miscellaneous Information Patients own medicat... BID@10,16 XX Last administered on 10/20/16 15:39; Admin Dose 1 EA; Start 10/13/16 at 10:00 Lactobacillus Acidoph/ [place]icus 1 tab 1 tab TID PO Last administered on 12:44; Admin Dose 1 TAB; Start 10/13/16 at 09:00 Cefepime HCl (Maxipime 1gm/50 ml (Pmx)) 50 ml @ 100 mls/hr Q24H IVPB Last administered on 10/20/16 09:36; Admin Dose 100 MLS/HR; Start 10/14/16 at 09:00 Insulin Glargine 10 unit 10 unit DAILY@20 SC Last administered on 10/19/16 20: 36; Admin Dose 10 UNIT; Start 10/16/16 at 20:00 Vancomycin HCl (Vancocin) 250 ml @ 125 mls/hr Q48H IVPB Last administered on 13:22; Admin Dose 125 MLS/HR; Start 10/20/16 at 10:00 Hydralazine HCl (Apresoline) 10 mg Q6H PRN IV sbp>160; Start 10/18/16 at 13:00 Diagnostic Test (Pha) (Accucheck) 1 ea 02 XX ; Start 10/20/16 at 02:00 Heparin Sodium (Porcine) (Heparin (5000 Units/0.5 ml)) 5,000 unit BID SC Last administered on 10/20/16 09:38; Admin Dose 5,000 UNIT; Start 10/19/16 at 21:00 Assessment/Plan Additional Assessment/Plan IMP: 1. Urosepsis 2. s/p Resp failure 3. ARF/nephrolithiasis 4. Multilobar pneumonia RECS: 1. continue abx per ID 2. aspiration precautions 3. mobilize OOB CINDI FRY MD Oct 20, 2016 16:17
[2016-10-20] MEDS ORDERED: VITAMIN A & D 5 GM OINT PACKET TOP ONE (18:42)
[2016-10-20] MEDS: FAMOTIDINE 20 MG INJ IV SCH (21:14)
[2016-10-20] MEDS: ATORVASTATIN 20 MG TAB PO SCH (21:14)
[2016-10-20] MEDS: INSULIN GLARGINE [LANtus] 3 ML PEN SC SCH (22:38)
[2016-10-21] VITALS (13 sets, daily range): BP systolic 125–137; BP diastolic 66–73; PULSE 82–141; RESP 15–20
[2016-10-21] MEDS: ACETAMINOPHEN 325 MG TAB PO PRN (01:10)
[2016-10-21] MEDS: ACCUCHECK XX SCH (01:13)
[2016-10-21 06:37] LABS: ADD SCAN DIFF NO
[2016-10-21 06:54] LABS: ABNORMAL IP MESSAGE 1; BASOPHILS % 0.3 % (0.0-2.0); EOSINOPHILS # 0.3 10^3/ul (0.0-0.5); EOSINOPHILS % 2.9 % (0.0-7.0); HEMATOCRIT 31.7 % (37.0-47.0); LYMPHOCYTES # 1.1 10^3/ul (0.8-2.9); LYMPHOCYTES % 10.5 % (15.0-51.0); MEAN CORPUSCULAR HGB CONC 31.5 g/dl (32.0-37.0); MEAN CORPUSCULAR VOLUME 95.2 fl (82.0-101.0); MEAN PLATELET VOLUME 10.9 fl (7.4-10.4); MONOCYTE # 0.7 10^3/ul (0.3-0.9); MONOCYTES % 6.6 % (0.0-11.0); NEUTROPHIL # 8.1 10^3/ul (1.6-7.5); NEUTROPHILS % 74.3 % (39.0-77.0); PLATELET COUNT 248 10^3/UL (140-415); RED BLOOD COUNT 3.33 10^6/ul (4.20-5.40); RED CELL DISTRIBUTION WIDTH 14.1 % (11.5-14.5); WHITE BLOOD COUNT 10.8 10^3/ul (4.8-10.8)
[2016-10-21 07:51] LABS: POTASSIUM 3.8 mmol/L (3.5-5.1)
[2016-10-21 07:54] LABS: CALCIUM 8.4 mg/dl (8.4-10.2); CREATININE 2.48 mg/dl (0.44-1.00)
[2016-10-21] MEDS: LACTOBACILLUS CHEW TAB PO SCH ×3 (08:23→21:44)
[2016-10-21] MEDS: ASPIRIN 81 MG TAB PO SCH (08:23)
[2016-10-21] MEDS: INSULIN ASPART [NOVOLOG] 3 ML PEN SC SCH ×7 (08:24→21:00)
[2016-10-21] MEDS: HEPARIN 5,000 UNIT/0.5 ML SYG SC SCH (08:26)
--- NOTE | 2016-10-21 09:40 | PN ---
Date/Time of Note Date/Time of Note DATE: 10/21/16 TIME: 09:34 Assessment/Plan VTE Prophylaxis VTE Prophylaxis Intervention: SCD's Lines/Catheters IV Catheter Type (from Nrsg): PICC Line Central line still needed: Yes Urinary Cath still in place: Yes Reason Cath still needed: pres ulcer contaminated by urine, other (indicate) Assessment/Plan Assessment/Plan 71-year-old female with: 1. Acute kidney injury in setting of urinary tract infection and sepsis, likely prerenal azotemia. CT A/P with severe left hydronephrosis and nephrolithiasis, Urology, Dr Massey has been consulted and plan for lithotripsy on Saturday at 5 30pm Although some improvement with renal function, will likely improve post stone removal. Good UOP, Lasix discontinued Monitor labs Continue current antibiotics. 2. S/p Cardiac arrest, patient now extubated and on RA. Elevated troponin, possible non-ST elevation myocardial infarction. Resolved 2D echocardiogram with stable EF. Appreciate Cardiology recommendations, discussed with Dr Thompson, patient considered a intermediate to high risk for surgery but in this setting pyelonephritis, sepsis, and complications likely related to obstructive uropathy and benefits outweighs the risk so per cardiology should proceed with cystoscopy/lithotripsy/possible ureteral stent Cardiac status stable and back to baseline currently Cardiology following Holding lovenox secondary to hematuria. Also, procedure tomorrow evening. 3. S/p Acute respiratory failure: s/p extubation and on RA now. Respiratory status stable. Latest CXR with improving bilateral pulmonary infiltrates, pulmonary edema vs bilateral PNA, Continue current abx Cefepime and Vanco. As respiratory status markedly improved, consider changing antibiotics to levaquin if clinically warranted. 4. E coli Severe sepsis and Pyelonephritis. S/p cardiogenic vs septic shock On Cefepime; may consider switching to levaquin post-procedure. Repeat blood NGTD. 5. Diabetes mellitus, [id number]. Change Accuchecks QAC and HS with SSI and pre meal insulin with Novolog 5 units QAC A1C of 7.8 Continue Lantus and to start ADA diet 6. Hypertension, s/p shock state, OFF pressors and now normotensive to hypertensive again. Hydralazine added. 7. Thrombocytopenia, resolved. Prophylaxis: Heparin SC for DVT ppx and Pepcid for gastrointestinal prophylaxis. DISPOSITION: On Tele on RA now. Appreciate Urology evaluation and plan for lithotripsy Saturday. Plan of care d/w family and all questions answered to their satisfaction. Prognosis good. Subjective 24 Hr Interval Summary Free Text/Dictation Feels well, but noticed that she had increased blood in abad catheter. Currently on lovenox. Will hold. No other complaints. Exam/Review of Systems Vital Signs Vitals Vital Signs Date Time Temp Pulse Resp B/P Pulse Ox O2 Delivery O2 Flow Rate FiO2 10/21/16 08:31 98.1 83 17 133/66 95 10/20/16 07:26 Room Air 10/20/16 02:08 2.0 28 Intake and Output 10/20/16 10/20/16 10/21/16 15:00 23:00 07:00 Intake Total 50 ml 250 ml 300 ml Output Total 450 ml Balance 50 ml 250 ml -150 ml Exam Constitutional: alert, oriented, well developed Psych: no complaints Head: normocephalic Eyes: nl conjunctiva ENMT: nl external ears & nose Neck: supple Respiratory: clear to auscultation Cardiovascular: regular rate and rhythm Gastrointestinal: soft Musculoskeletal: nl extremities to inspection Extremities: normal pulses Results Result Diagram: 10/21/16 0524 10/21/16 0524 Results 24 hrs Laboratory Tests Test 10/20/16 11:59 10/20/16 17:07 10/20/16 21:11 10/21/16 05:24 Bedside Glucose 180 129 150 Anion Gap 16 Basophils # 0.0 Basophils % 0.3 Blood Urea Nitrogen 51 H Calcium Level 8.4 Carbon Dioxide Level 24 Chloride Level 107 Creatinine 2.48 H Eosinophils # 0.3 Eosinophils % 2.9 Glucose Level 142 Hematocrit 31.7 L Hemoglobin 10.0 L Lymphocytes # 1.1 Lymphocytes % 10.5 L Magnesium Level 2.5 Mean Corpuscular Hemoglobin 30.0 Mean Corpuscular Hemoglobin Concent 31.5 L Mean Corpuscular Volume 95.2 Mean Platelet Volume 10.9 H Monocytes # 0.7 Monocytes % 6.6 Neutrophils # 8.1 H Neutrophils % 74.3 Nucleated Red Blood Cells # 0.0 Nucleated Red Blood Cells % 0.0 Platelet Count 248 Potassium Level 3.8 Red Blood Count 3.33 L Red Cell Distribution Width 14.1 Sodium Level 143 White Blood Count 10.8 Test 10/21/16 07:20 Bedside Glucose 145 Medications Medications Current Medications Aspirin (Aspirin) 81 mg DAILY PO Last administered on 10/21/16 08:23; Admin Dose 81 MG; Start 10/13/16 at 09:00 Atorvastatin Calcium (Lipitor) 20 mg HS PO Last administered on 10/20/16 21:14 ; Admin Dose 20 MG; Start 10/12/16 at 21:00 Ondansetron HCl (Zofran Inj) 4 mg Q6H PRN IV NAUSEA AND/OR VOMITING; Start at 15:30 Nitroglycerin (Nitroglycerin (Sl Tab) 0.4 Mg) 1 tab Q5M PRN SL CHEST PAIN; Start 10/12/16 at 15:30 Acetaminophen (Tylenol Tab) 650 mg Q6H PRN PO PAIN LEVEL 1-3 OR FEVER Last administered on 10/21/16 01:10; Admin Dose 650 MG; Start 10/12/16 at 15:30 Acetaminophen/ Hydrocodone Bitart ([place] (5/325)) 1 tab Q6H PRN PO PAIN LEVEL 4 -6; Start 10/12/16 at 15:30 Acetaminophen/ Hydrocodone Bitart ([place] (5/325)) 2 tab Q6H PRN PO PAIN LEVEL 7 -10; Start 10/12/16 at 15:30 Morphine Sulfate (morphine) 2 mg Q4H PRN IV PAIN LEVEL 7-10 Last administered on 10/18/16 06:03; Admin Dose 2 MG; Start 10/12/16 at 15:30 Docusate Sodium (Colace) 100 mg Q12H PRN PO CONSTIPATION; Start 10/12/16 at 15: 30 Magnesium Hydroxide (Milk Of Mag) 30 ml DAILY PRN PO CONSTIPATION; Start at 15:30 Bisacodyl (Dulcolax Supp) 10 mg DAILY PRN [place] CONSTIPATION; Start 10/12/16 at 15 :30 Famotidine (Pepcid Iv) 20 mg Q24H IV Last administered on 10/20/16 21:14; Admin Dose 20 MG; Start 10/12/16 at 21:00 Miscellaneous Information 1 ea NOTE XX ; Start 10/12/16 at 16:30 Glucose (Glutose) 15 gm Q15M PRN PO DECREASED GLUCOSE; Start 10/12/16 at 16:30 Glucose (Glutose) 22.5 gm Q15M PRN PO DECREASED GLUCOSE; Start 10/12/16 at 16: 30 Dextrose (D50w Syringe) 25 ml Q15M PRN IV DECREASED GLUCOSE; Start 10/12/16 at 16:30 Dextrose (D50w Syringe) 50 ml Q15M PRN IV DECREASED GLUCOSE Last administered on 10/13/16 23:17; Admin Dose 50 ML; Start 10/12/16 at 16:30 Glucagon (Glucagen) 1 mg Q15M PRN IM DECREASED GLUCOSE; Start 10/12/16 at 16:30 Glucose (Glutose) 15 gm Q15M PRN BUCCAL DECREASED GLUCOSE; Start 10/12/16 at 16 :30 Miscellaneous Information Patients own medicat... BID@10,16 XX Last administered on 10/21/16 08:19; Admin Dose 1 EA; Start 10/13/16 at 10:00 Lactobacillus Acidoph/ [place]icus 1 tab 1 tab TID PO Last administered on 08:23; Admin Dose 1 TAB; Start 10/13/16 at 09:00 Cefepime HCl (Maxipime 1gm/50 ml (Pmx)) 50 ml @ 100 mls/hr Q24H IVPB Last administered on 10/20/16 09:36; Admin Dose 100 MLS/HR; Start 10/14/16 at 09:00 Insulin Glargine 10 unit 10 unit DAILY@20 SC Last administered on 10/20/16 22: 38; Admin Dose 10 UNIT; Start 10/16/16 at 20:00 Vancomycin HCl (Vancocin) 250 ml @ 125 mls/hr Q48H IVPB Last administered on 13:22; Admin Dose 125 MLS/HR; Start 10/20/16 at 10:00 Hydralazine HCl (Apresoline) 10 mg Q6H PRN IV sbp>160; Start 10/18/16 at 13:00 Diagnostic Test (Pha) (Accucheck) 1 ea 02 XX ; Start 10/20/16 at 02:00 Miscellaneous Information (*Rx Drug Level Order Reminder*) RANDOM VANCOMYCIN LEVEL IN AM ONCE ONCE XX ; Start 10/22/16 at 05:00; Stop 10/22/16 at 05:01 KEILY RODAS MD Oct 21, 2016 09:40
[2016-10-21] MEDS: CEFEPIME 1GM/50 ML IVPB SCH (12:36)
--- NOTE | 2016-10-21 13:54 | CONS ---
Date/Time of Note Date/Time of Note DATE: 10/21/16 TIME: 13:51 Assessment/Plan Assessment/Plan Additional Assessment/Plan Possible cardiac arrest Preserved ejection fraction Acute decompensated diastolic congestive heart failure Labile blood pressure Respiratory failure status post extubation Sepsis Elevated troponin Acute kidney injury -Patient with obstructive uropathy likely sepsis secondary to pyelonephritis. Extensive discussion had with patient and family at bedside. Given recent elevated troponin, possible cardiac arrest, patient had a intermediate to high risk for any untoward cardiac events for any procedures. Furthermore, given obstructive uropathy and pyelonephritis is likely the etiology of her sepsis, intervention needs to be performed. Would recommend the least invasive method for correction. This was discussed with the patient and family in detail. Consultation Date/Type/Reason Admit Date/Time Oct 12, 2016 at 11:59 Initial Consult Date 10/13/16 Type of Consultation: cv 24 HR Interval Summary Free Text/Dictation Shortness of breath continues to improve. Denies chest pain, palpitations or dizziness Exam/Review of Systems Vital Signs Vitals Vital Signs Date Time Temp Pulse Resp B/P Pulse Ox O2 Delivery O2 Flow Rate FiO2 10/21/16 12:40 88 10/21/16 12:18 98.9 17 128/72 96 10/20/16 07:26 Room Air 10/20/16 02:08 2.0 28 Intake and Output 10/20/16 10/20/16 10/21/16 15:00 23:00 07:00 Intake Total 50 ml 250 ml 300 ml Output Total 450 ml Balance 50 ml 250 ml -150 ml Exam No apparent distress, sitting up in bed Constitutional: alert, oriented Head: normocephalic Neck: supple Respiratory: other (Coarse breath sounds bilaterally, no wheezing rhonchi) Cardiovascular: other (S1-S2 heard), regular rate and rhythm Gastrointestinal: bowel sounds, non-tender, other (No guarding), soft Extremities: edema (Trace), other (No cyanosis) Results Result Diagram: 10/21/1624 10/21/16 0524 Results 24 hrs Laboratory Tests Test 10/20/16 17:07 10/20/16 21:11 10/21/16 05:24 10/21/16 07:20 Bedside Glucose 129 150 145 Anion Gap 16 Basophils # 0.0 Basophils % 0.3 Blood Urea Nitrogen 51 H Calcium Level 8.4 Carbon Dioxide Level 24 Chloride Level 107 Creatinine 2.48 H Eosinophils # 0.3 Eosinophils % 2.9 Glucose Level 142 Hematocrit 31.7 L Hemoglobin 10.0 L Lymphocytes # 1.1 Lymphocytes % 10.5 L Magnesium Level 2.5 Mean Corpuscular Hemoglobin 30.0 Mean Corpuscular Hemoglobin Concent 31.5 L Mean Corpuscular Volume 95.2 Mean Platelet Volume 10.9 H Monocytes # 0.7 Monocytes % 6.6 Neutrophils # 8.1 H Neutrophils % 74.3 Nucleated Red Blood Cells # 0.0 Nucleated Red Blood Cells % 0.0 Platelet Count 248 Potassium Level 3.8 Red Blood Count 3.33 L Red Cell Distribution Width 14.1 Sodium Level 143 White Blood Count 10.8 Test 10/21/16 11:48 Bedside Glucose 126 Medications Medications Current Medications Aspirin (Aspirin) 81 mg DAILY PO Last administered on 10/21/16 08:23; Admin Dose 81 MG; Start 10/13/16 at 09:00 Atorvastatin Calcium (Lipitor) 20 mg HS PO Last administered on 10/20/16 21:14 ; Admin Dose 20 MG; Start 10/12/16 at 21:00 Ondansetron HCl (Zofran Inj) 4 mg Q6H PRN IV NAUSEA AND/OR VOMITING; Start at 15:30 Nitroglycerin (Nitroglycerin (Sl Tab) 0.4 Mg) 1 tab Q5M PRN SL CHEST PAIN; Start 10/12/16 at 15:30 Acetaminophen (Tylenol Tab) 650 mg Q6H PRN PO PAIN LEVEL 1-3 OR FEVER Last administered on 10/21/16 01:10; Admin Dose 650 MG; Start 10/12/16 at 15:30 Acetaminophen/ Hydrocodone Bitart ([place] (5/325)) 1 tab Q6H PRN PO PAIN LEVEL 4 -6; Start 10/12/16 at 15:30 Acetaminophen/ Hydrocodone Bitart ([place] (5/325)) 2 tab Q6H PRN PO PAIN LEVEL 7 -10; Start 10/12/16 at 15:30 Morphine Sulfate (morphine) 2 mg Q4H PRN IV PAIN LEVEL 7-10 Last administered on 10/18/16 06:03; Admin Dose 2 MG; Start 10/12/16 at 15:30 Docusate Sodium (Colace) 100 mg Q12H PRN PO CONSTIPATION; Start 10/12/16 at 15: 30 Magnesium Hydroxide (Milk Of Mag) 30 ml DAILY PRN PO CONSTIPATION; Start at 15:30 Bisacodyl (Dulcolax Supp) 10 mg DAILY PRN [place] CONSTIPATION; Start 10/12/16 at 15 :30 Famotidine (Pepcid Iv) 20 mg Q24H IV Last administered on 10/20/16 21:14; Admin Dose 20 MG; Start 10/12/16 at 21:00 Miscellaneous Information 1 ea NOTE XX ; Start 10/12/16 at 16:30 Glucose (Glutose) 15 gm Q15M PRN PO DECREASED GLUCOSE; Start 10/12/16 at 16:30 Glucose (Glutose) 22.5 gm Q15M PRN PO DECREASED GLUCOSE; Start 10/12/16 at 16: 30 Dextrose (D50w Syringe) 25 ml Q15M PRN IV DECREASED GLUCOSE; Start 10/12/16 at 16:30 Dextrose (D50w Syringe) 50 ml Q15M PRN IV DECREASED GLUCOSE Last administered on 10/13/16 23:17; Admin Dose 50 ML; Start 10/12/16 at 16:30 Glucagon (Glucagen) 1 mg Q15M PRN IM DECREASED GLUCOSE; Start 10/12/16 at 16:30 Glucose (Glutose) 15 gm Q15M PRN BUCCAL DECREASED GLUCOSE; Start 10/12/16 at 16 :30 Miscellaneous Information Patients own medicat... BID@10,16 XX Last administered on 10/21/16 08:19; Admin Dose 1 EA; Start 10/13/16 at 10:00 Lactobacillus Acidoph/ Bulgaricus 1 tab 1 tab TID PO Last administered on 12:24; Admin Dose 1 TAB; Start 10/13/16 at 09:00 Cefepime HCl (Maxipime 1gm/50 ml (Pmx)) 50 ml @ 100 mls/hr Q24H IVPB Last administered on 10/21/16 12:36; Admin Dose 100 MLS/HR; Start 10/14/16 at 09:00 Insulin Glargine 10 unit 10 unit DAILY@20 SC Last administered on 10/20/16 22: 38; Admin Dose 10 UNIT; Start 10/16/16 at 20:00 Vancomycin HCl (Vancocin) 250 ml @ 125 mls/hr Q48H IVPB Last administered on t 13:22; Admin Dose 125 MLS/HR; Start 10/20/16 at 10:00 Hydralazine HCl (Apresoline) 10 mg Q6H PRN IV sbp>160; Start 10/18/16 at 13:00 Diagnostic Test (Pha) (Accucheck) 1 ea 02 XX ; Start 10/20/16 at 02:00 Miscellaneous Information (*Rx Drug Level Order Reminder*) RANDOM VANCOMYCIN LEVEL IN AM ONCE ONCE XX ; Start 10/22/16 at 05:00; Stop 10/22/16 at 05:01 Singh Thompson DO Oct 21, 2016 13:54
--- NOTE | 2016-10-21 14:38 | CONS ---
Date/Time of Note Date/Time of Note DATE: 10/21/16 TIME: 14:28 Consult Date/Type/Reason Admit Date/Time Oct 12, 2016 at 11:59 Initial Consult Date 10/19/16 Type of Consultation: Pulm Subjective No events. Cardiology pre-op input appreciated. Objective Vital Signs Date Time Temp Pulse Resp B/P Pulse Ox O2 Delivery O2 Flow Rate FiO2 10/21/16 12:40 88 10/21/16 12:18 98.9 17 128/72 96 10/20/16 07:26 Room Air 10/20/16 02:08 2.0 28 Intake and Output 10/20/16 10/20/16 10/21/16 15:00 23:00 07:00 Intake Total 50 ml 250 ml 300 ml Output Total 450 ml Balance 50 ml 250 ml -150 ml HEENT: Neck supple; no JVD; no LAD CVS: RRR, S1 and S2 CHEST: Coarse bs at bases b/l ABD: Soft, NT, + BS EXT: No c/c/e Results/Medications Result Diagram: 10/21/16 0524 10/21/16 0524 Results 24 hrs Laboratory Tests Test 10/20/16 17:07 10/20/16 21:11 10/21/16 05:24 10/21/16 07:20 Bedside Glucose 129 150 145 Anion Gap 16 Basophils # 0.0 Basophils % 0.3 Blood Urea Nitrogen 51 H Calcium Level 8.4 Carbon Dioxide Level 24 Chloride Level 107 Creatinine 2.48 H Eosinophils # 0.3 Eosinophils % 2.9 Glucose Level 142 Hematocrit 31.7 L Hemoglobin 10.0 L Lymphocytes # 1.1 Lymphocytes % 10.5 L Magnesium Level 2.5 Mean Corpuscular Hemoglobin 30.0 Mean Corpuscular Hemoglobin Concent 31.5 L Mean Corpuscular Volume 95.2 Mean Platelet Volume 10.9 H Monocytes # 0.7 Monocytes % 6.6 Neutrophils # 8.1 H Neutrophils % 74.3 Nucleated Red Blood Cells # 0.0 Nucleated Red Blood Cells % 0.0 Platelet Count 248 Potassium Level 3.8 Red Blood Count 3.33 L Red Cell Distribution Width 14.1 Sodium Level 143 White Blood Count 10.8 Test 10/21/16 11:48 Bedside Glucose 126 Medications Current Medications Aspirin (Aspirin) 81 mg DAILY PO Last administered on 10/21/16t 08:23; Admin Dose 81 MG; Start 10/13/16 at 09:00 Atorvastatin Calcium (Lipitor) 20 mg HS PO Last administered on 10/20/16 21:14 ; Admin Dose 20 MG; Start 10/12/16 at 21:00 Ondansetron HCl (Zofran Inj) 4 mg Q6H PRN IV NAUSEA AND/OR VOMITING; Start at 15:30 Nitroglycerin (Nitroglycerin (Sl Tab) 0.4 Mg) 1 tab Q5M PRN SL CHEST PAIN; Start 10/12/16 at 15:30 Acetaminophen (Tylenol Tab) 650 mg Q6H PRN PO PAIN LEVEL 1-3 OR FEVER Last administered on 10/21/16 01:10; Admin Dose 650 MG; Start 10/12/16 at 15:30 Acetaminophen/ Hydrocodone Bitart ([place] (5/325)) 1 tab Q6H PRN PO PAIN LEVEL 4 -6; Start 10/12/16 at 15:30 Acetaminophen/ Hydrocodone Bitart ([place] (5/325)) 2 tab Q6H PRN PO PAIN LEVEL 7 -10; Start 10/12/16 at 15:30 Morphine Sulfate (morphine) 2 mg Q4H PRN IV PAIN LEVEL 7-10 Last administered on 10/18/16 06:03; Admin Dose 2 MG; Start 10/12/16 at 15:30 Docusate Sodium (Colace) 100 mg Q12H PRN PO CONSTIPATION; Start 10/12/16 at 15: 30 Magnesium Hydroxide (Milk Of Mag) 30 ml DAILY PRN PO CONSTIPATION; Start at 15:30 Bisacodyl (Dulcolax Supp) 10 mg DAILY PRN [place] CONSTIPATION; Start 10/12/16 at 15 :30 Famotidine (Pepcid Iv) 20 mg Q24H IV Last administered on 10/20/16 21:14; Admin Dose 20 MG; Start 10/12/16 at 21:00 Miscellaneous Information 1 ea NOTE XX ; Start 10/12/16 at 16:30 Glucose (Glutose) 15 gm Q15M PRN PO DECREASED GLUCOSE; Start 10/12/16 at 16:30 Glucose (Glutose) 22.5 gm Q15M PRN PO DECREASED GLUCOSE; Start 10/12/16 at 16: 30 Dextrose (D50w Syringe) 25 ml Q15M PRN IV DECREASED GLUCOSE; Start 10/12/16 at 16:30 Dextrose (D50w Syringe) 50 ml Q15M PRN IV DECREASED GLUCOSE Last administered on 10/13/16 23:17; Admin Dose 50 ML; Start 10/12/16 at 16:30 Glucagon (Glucagen) 1 mg Q15M PRN IM DECREASED GLUCOSE; Start 10/12/16 at 16:30 Glucose (Glutose) 15 gm Q15M PRN BUCCAL DECREASED GLUCOSE; Start 10/12/16 at 16 :30 Miscellaneous Information Patients own medicat... BID@10,16 XX Last administered on 10/21/16 08:19; Admin Dose 1 EA; Start 10/13/16 at 10:00 Lactobacillus Acidoph/ Bulgaricus 1 tab 1 tab TID PO Last administered on 12:24; Admin Dose 1 TAB; Start 10/13/16 at 09:00 Cefepime HCl (Maxipime 1gm/50 ml (Pmx)) 50 ml @ 100 mls/hr Q24H IVPB Last administered on 10/21/16 12:36; Admin Dose 100 MLS/HR; Start 10/14/16 at 09:00 Insulin Glargine 10 unit 10 unit DAILY@20 SC Last administered on 10/20/16 22: 38; Admin Dose 10 UNIT; Start 10/16/16 at 20:00 Vancomycin HCl (Vancocin) 250 ml @ 125 mls/hr Q48H IVPB Last administered on 13:22; Admin Dose 125 MLS/HR; Start 10/20/16 at 10:00 Hydralazine HCl (Apresoline) 10 mg Q6H PRN IV sbp>160; Start 10/18/16 at 13:00 Diagnostic Test (Pha) (Accucheck) 1 ea 02 XX ; Start 10/20/16 at 02:00 Miscellaneous Information (*Rx Drug Level Order Reminder*) RANDOM VANCOMYCIN LEVEL IN AM ONCE ONCE XX ; Start 10/22/16 at 05:00; Stop 10/22/16 at 05:01 Assessment/Plan Additional Assessment/Plan IMP: 1. Urosepsis/nephrolithiasis 2. s/p Resp failure 3. ARF 4. Multilobar pneumonia RECS: 1. continue abx per ID 2. aspiration precautions 3. agree with cardiology that a percutaneous nephrostomy may be more reasonable for the time being in view of maria a-op cardiac risk factors. CINDI FRY MD Oct 21, 2016 14:38
[2016-10-21] MEDS: ATORVASTATIN 20 MG TAB PO SCH (21:44)
[2016-10-21] MEDS: FAMOTIDINE 20 MG INJ IV SCH (21:44)
[2016-10-21] MEDS: INSULIN GLARGINE [LANtus] 3 ML PEN SC SCH (21:45)
[2016-10-22] VITALS (12 sets, daily range): BP systolic 140–158; BP diastolic 63–78; PULSE 88–150; RESP 18–20
[2016-10-22] MEDS: ACCUCHECK XX SCH (02:00)
[2016-10-22 06:46] LABS: ADD SCAN DIFF NO
[2016-10-22 06:51] LABS: BASOPHILS % 0.3 % (0.0-2.0); EOSINOPHILS # 0.3 10^3/ul (0.0-0.5); EOSINOPHILS % 3.4 % (0.0-7.0); HEMATOCRIT 28.8 % (37.0-47.0); HEMOGLOBIN 9.3 g/dl (12.0-16.0); LYMPHOCYTES # 1.4 10^3/ul (0.8-2.9); LYMPHOCYTES % 15.9 % (15.0-51.0); MEAN CORPUSCULAR HEMOGLOBIN 30.4 pg (29.0-33.0); MEAN CORPUSCULAR HGB CONC 32.3 g/dl (32.0-37.0); MEAN CORPUSCULAR VOLUME 94.1 fl (82.0-101.0); MEAN PLATELET VOLUME 9.7 fl (7.4-10.4); MONOCYTE # 0.8 10^3/ul (0.3-0.9); MONOCYTES % 9.5 % (0.0-11.0); NEUTROPHIL # 5.8 10^3/ul (1.6-7.5); NEUTROPHILS % 67.5 % (39.0-77.0); PLATELET COUNT 316 10^3/UL (140-415); RED BLOOD COUNT 3.06 10^6/ul (4.20-5.40); RED CELL DISTRIBUTION WIDTH 13.6 % (11.5-14.5); WHITE BLOOD COUNT 8.6 10^3/ul (4.8-10.8)
[2016-10-22 07:04] LABS: POTASSIUM 3.9 mmol/L (3.5-5.1)
[2016-10-22 07:07] LABS: CALCIUM 8.6 mg/dl (8.4-10.2); CREATININE 0.94 mg/dl (0.44-1.00)
[2016-10-22] MEDS: ASPIRIN 81 MG TAB PO SCH (09:00)
[2016-10-22] MEDS: CEFEPIME 1GM/50 ML IVPB SCH (09:02)
[2016-10-22] MEDS: LACTOBACILLUS CHEW TAB PO SCH ×3 (09:03→20:10)
[2016-10-22] MEDS: INSULIN ASPART [NOVOLOG] 3 ML PEN SC SCH ×8 (09:06→20:15)
[2016-10-22] MEDS ORDERED: VANCOMYCIN 1 GM in NS 250 ML IVPB SCH (10:00)
[2016-10-22 10:59] LABS: INR 1.22; PROTIME 15.5 Sec (12.2-14.2); PT RATIO 1.2
[2016-10-22 11:00] LABS: PARTIAL THROMBOPLASTIN TIME 39.7 Sec (25.0-35.0)
[2016-10-22] MEDS ORDERED: Insulin NOVOLOG SS MODERATE Algorithm(NPO/TPN/ENTERAL FEEDS) SC SCH ×2 (13:00→16:00)
--- NOTE | 2016-10-22 13:31 | PN ---
DATE: 10/22/2016 SUBJECTIVE: The patient is stable this morning. No evidence of respiratory distress. PHYSICAL EXAMINATION: VITAL SIGNS: Temperature 98, pulse is 99, blood pressure 156/78, O2 saturation 96% on room air. NECK: Supple, no JVD or lymphadenopathy. CARDIAC: S1, S2, no added sounds or murmurs. CHEST: Diminished air entry bilaterally. ABDOMEN: Soft, nontender. No guarding or rebound. EXTREMITIES: No cyanosis, clubbing, or edema. NEUROLOGIC: Generalized weakness. IMPRESSION AND PLAN: 1. Multilobar pneumonia. 2. Status post renal failure. 3. Urosepsis with nephrolithiasis. PLAN: 1. Percutaneous nephrostomy per nephrology. 2. Intravenous antibiotics. 3. Encourage out of bed as tolerated. Dictated By: ANGI MARIO/ZACHARY Conf#: [id number] DID#: [id number]
--- NOTE | 2016-10-22 14:55 | PN ---
Date/Time of Note Date/Time of Note DATE: 10/22/16 TIME: 14:50 Assessment/Plan VTE Prophylaxis VTE Prophylaxis Intervention: SCD's Lines/Catheters IV Catheter Type (from Nrs): Peripheral IV Urinary Cath still in place: Yes Reason Cath still needed: other (indicate) ([place]) Assessment/Plan Assessment/Plan 71-year-old female with: 1. Acute kidney injury in setting of urinary tract infection and sepsis, likely prerenal azotemia. CT A/P with severe left hydronephrosis and nephrolithiasis, Urology, Dr Massey has been consulted and plan for lithotripsy +/- ureteral stent today but now may need to settle for nephrostomy tube if the former procedure too invasive. Renal function today wnl .. Repeat Renal US pending to re eval left hydronephrosis Good UOP, Monitor labs Continue current antibiotics. 2. S/p Cardiac arrest, patient now extubated and on RA. Elevated troponin, possible non-ST elevation myocardial infarction. Resolved 2D echocardiogram with stable EF. Appreciate Cardiology recommendations, and note over the weekend reviewed, now per cardiology concerns about patient cardiac risk factors and recent events, would recommended the least invasive option that may end up to be nephrostomy tube.. Dr Thompson to discuss options with Dr Massey and if nephrostomy tube is the plan may need to have IR place it. Cardiac status stable and back to baseline currently Cardiology following 3. S/p Acute respiratory failure: s/p extubation and on RA now. Respiratory status stable and on RA Latest CXR with improving bilateral pulmonary infiltrates, pulmonary edema vs bilateral PNA, Continue current abx Cefepime and Vanco. 4. E coli Severe sepsis and Pyelonephritis. S/p cardiogenic vs septic shock On Cefepime. Repeat blood NGTD. 5. Diabetes mellitus, [id number]. Change Accuchecks QAC and HS with SSI and pre meal insulin with Novolog 5 units QAC A1C of 7.8 Continue Lantus and to start ADA diet 6. Hypertension, s/p shock state, OFF pressors and now normotensive to hypertensive again. Hydralazine added. 7. Thrombocytopenia, resolved. Prophylaxis: SCDs for DVT ppx and Pepcid for gastrointestinal prophylaxis. DISPOSITION: On Tele on RA now. Appreciate Cardiology, Pulmonary recommendations , Urology procedure today with Dr Massey vs IR if repeat Renal US still showing obstructive nephrolithiasis. Prognosis good. Subjective 24 Hr Interval Summary Free Text/Dictation Patient doing Ok Renal function wnl today, per Cardio and Pulmonary by 10/21 now recommending least possible invasive procedure, discussed with Dr Thompson and Dr Massey Exam/Review of Systems Vital Signs Vitals Vital Signs Date Time Temp Pulse Resp B/P Pulse Ox O2 Delivery O2 Flow Rate FiO2 10/22/16 14:38 150 10/22/16 12:19 98.0 18 156/78 98 10/20/16 07:26 Room Air 10/20/16 02:08 2.0 28 Intake and Output 10/21/16 10/21/16 10/22/16 15:00 23:00 07:00 Intake Total 50 ml 900 ml 600 ml Output Total 1050 ml 600 ml Balance 50 ml -150 ml 0 ml Exam Constitutional: alert, oriented, well developed Respiratory: clear to auscultation, normal air movement Cardiovascular: nl pulses, regular rate and rhythm Gastrointestinal: non-tender, soft Musculoskeletal: nl extremities to inspection Extremities: normal pulses, other (no edema, clubbing or cyanosis ) Neurological: PLATER BARREL II-XII intact, nl mental status, nl speech, other (generali) Results Result Diagram: 10/22/16 0600 10/22/16 0600 Results 24 hrs Laboratory Tests Test 10/21/16 16:55 10/21/16 20:33 10/21/16 21:42 10/22/16 06:00 Bedside Glucose 171 81 151 Anion Gap 14 Basophils # 0.0 Basophils % 0.3 Blood Urea Nitrogen 23 #H Calcium Level 8.6 Carbon Dioxide Level 26 Chloride Level 107 Creatinine 0.94 # Eosinophils # 0.3 Eosinophils % 3.4 Glucose Level 129 Hematocrit 28.8 L Hemoglobin 9.3 L Lymphocytes # 1.4 Lymphocytes % 15.9 Mean Corpuscular Hemoglobin 30.4 Mean Corpuscular Hemoglobin Concent 32.3 Mean Corpuscular Volume 94.1 Mean Platelet Volume 9.7 Monocytes # 0.8 Monocytes % 9.5 Neutrophils # 5.8 Neutrophils % 67.5 Nucleated Red Blood Cells # 0.0 Nucleated Red Blood Cells % 0.0 Platelet Count 316 # Potassium Level 3.9 Random Vancomycin Level 7.8 Red Blood Count 3.06 L Red Cell Distribution Width 13.6 Sodium Level 143 White Blood Count 8.6 # Test 10/22/16 08:11 10/22/16 10:11 10/22/16 11:47 Bedside Glucose 154 146 Activated Partial Thromboplast Time 39.7 H INR International Normalized Ratio 1.22 Prothrombin Time 15.5 H Prothrombin Time Ratio 1.2 Medications Medications Current Medications Aspirin (Aspirin) 81 mg DAILY PO Last administered on 10/21/16 08:23; Admin Dose 81 MG; Start 10/13/16 at 09:00 Atorvastatin Calcium (Lipitor) 20 mg HS PO Last administered on 10/21/16 21:44 ; Admin Dose 20 MG; Start 10/12/16 at 21:00 Ondansetron HCl (Zofran Inj) 4 mg Q6H PRN IV NAUSEA AND/OR VOMITING; Start at 15:30 Nitroglycerin (Nitroglycerin (Sl Tab) 0.4 Mg) 1 tab Q5M PRN SL CHEST PAIN; Start 10/12/16 at 15:30 Acetaminophen (Tylenol Tab) 650 mg Q6H PRN PO PAIN LEVEL 1-3 OR FEVER Last administered on 10/21/16 01:10; Admin Dose 650 MG; Start 10/12/16 at 15:30 Acetaminophen/ Hydrocodone Bitart ([place] (5/325)) 1 tab Q6H PRN PO PAIN LEVEL 4 -6; Start 10/12/16 at 15:30 Acetaminophen/ Hydrocodone Bitart ([place] (5/325)) 2 tab Q6H PRN PO PAIN LEVEL 7 -10; Start 10/12/16 at 15:30 Morphine Sulfate (morphine) 2 mg Q4H PRN IV PAIN LEVEL 7-10 Last administered on 10/18/16 06:03; Admin Dose 2 MG; Start 10/12/16 at 15:30 Docusate Sodium (Colace) 100 mg Q12H PRN PO CONSTIPATION; Start 10/12/16 at 15: 30 Magnesium Hydroxide (Milk Of Mag) 30 ml DAILY PRN PO CONSTIPATION; Start at 15:30 Bisacodyl (Dulcolax Supp) 10 mg DAILY PRN [place] CONSTIPATION; Start 10/12/16 at 15 :30 Famotidine (Pepcid Iv) 20 mg Q24H IV Last administered on 10/21/16 21:44; Admin Dose 20 MG; Start 10/12/16 at 21:00 Miscellaneous Information 1 ea NOTE XX ; Start 10/12/16 at 16:30 Glucose (Glutose) 15 gm Q15M PRN PO DECREASED GLUCOSE; Start 10/12/16 at 16:30 Glucose (Glutose) 22.5 gm Q15M PRN PO DECREASED GLUCOSE; Start 10/12/16 at 16: 30 Dextrose (D50w Syringe) 25 ml Q15M PRN IV DECREASED GLUCOSE; Start 10/12/16 at 16:30 Dextrose (D50w Syringe) 50 ml Q15M PRN IV DECREASED GLUCOSE Last administered on 10/13/16 23:17; Admin Dose 50 ML; Start 10/12/16 at 16:30 Glucagon (Glucagen) 1 mg Q15M PRN IM DECREASED GLUCOSE; Start 10/12/16 at 16:30 Glucose (Glutose) 15 gm Q15M PRN BUCCAL DECREASED GLUCOSE; Start 10/12/16 at 16 :30 Miscellaneous Information Patients own medicat... BID@10,16 XX Last administered on 10/21/16 15:42; Admin Dose 1 EA; Start 10/13/16 at 10:00 Lactobacillus Acidoph/ Bulgaricus 1 tab 1 tab TID PO Last administered on 09:03; Admin Dose 1 TAB; Start 10/13/16 at 09:00 Cefepime HCl (Maxipime 1gm/50 ml (Pmx)) 50 ml @ 100 mls/hr Q24H IVPB Last administered on 10/22/16 09:02; Admin Dose 100 MLS/HR; Start 10/14/16 at 09:00 Insulin Glargine (Lantus) 10 unit DAILY@20 SC Last administered on 10/21/16 21: 45; Admin Dose 10 UNIT; Start 10/16/16 at 20:00 Hydralazine HCl (Apresoline) 10 mg Q6H PRN IV sbp>160; Start 10/18/16 at 13:00 Diagnostic Test (Pha) 1 ea 1 ea 02 XX ; Start 10/20/16 at 02:00 Vancomycin HCl (Vancocin) 250 ml @ 125 mls/hr Q36H IVPB Last administered on 09:03; Admin Dose 125 MLS/HR; Start 10/22/16 at 10:00 Insulin Aspart (Novolog Insulin Pen) (Adult SC Insulin - Moder... Q4 SC ; Start 10/22/16 at 16:00 ESE SORIANO Oct 22, 2016 14:55
[2016-10-22] MEDS ORDERED: INSULIN ASPART [NOVOLOG] 3 ML PEN SC SCH (16:00)
--- NOTE | 2016-10-22 16:38 | RADRPT ---
PROCEDURE: Renal US. CLINICAL INDICATION: Renal dysfunction. TECHNIQUE: Multiple sonographic images of the kidneys and urinary bladder were obtained. The imag es were reviewed on a PACS workstation. COMPARISON: CT scan of the abdomen and pelvis dated 10/18/2016 which demonstrated an obstructing c alculus in the left ureter with marked left hydronephrosis, multiple nonobstructing right renal calc landry, and previous cholecystectomy.. FINDINGS: The right kidney measures 10.9 cm. The left kidney measures 10.8 cm. There is no solid renal mass. There is a benign cyst inferiorly in the right kidney measuring 1.1 c m in maximal dimension. There is no right hydronephrosis. There is moderate left hydronephrosis, probably improved when com pared with prior CT scan. The small nonobstructing right renal calculi seen on prior CT scan or not well seen with ultrasound. Renal parenchymal thickness and echogenicity is normal bilaterally. The perirenal regions are normal with no fluid collection or mass. The urinary bladder is unremarkable. IMPRESSION: 1. Small benign cyst inferiorly in the right kidney. 2. No right hydronephrosis. 3. Moderate left hydronephrosis, probably improved when compared with prior scan. 4. Nonobstructing right renal calculi seen on prior CT scan are not well seen with ultrasound. RPTAT: QQ .Jono Bhagat MD, Date Time Electronically viewed and signed by .Jono Bhagat MD, on 10/22/2016 16:38 .R/
[2016-10-22] MEDS: ATORVASTATIN 20 MG TAB PO SCH (20:10)
[2016-10-22] MEDS: FAMOTIDINE 20 MG INJ IV SCH (20:10)
[2016-10-22] MEDS: INSULIN GLARGINE [LANtus] 3 ML PEN SC SCH (20:10)
[2016-10-23] VITALS (10 sets, daily range): BP systolic 119–141; BP diastolic 58–74; PULSE 91–102; RESP 16–19
[2016-10-23] MEDS: ACCUCHECK XX SCH (02:00)
[2016-10-23 07:07] LABS: ADD SCAN DIFF NO
[2016-10-23 07:16] LABS: BASOPHILS % 0.4 % (0.0-2.0); EOSINOPHILS # 0.3 10^3/ul (0.0-0.5); EOSINOPHILS % 3.1 % (0.0-7.0); HEMATOCRIT 30.4 % (37.0-47.0); HEMOGLOBIN 9.7 g/dl (12.0-16.0); LYMPHOCYTES # 1.4 10^3/ul (0.8-2.9); LYMPHOCYTES % 16.3 % (15.0-51.0); MEAN CORPUSCULAR HEMOGLOBIN 30.3 pg (29.0-33.0); MEAN CORPUSCULAR HGB CONC 31.9 g/dl (32.0-37.0); MEAN PLATELET VOLUME 9.5 fl (7.4-10.4); MONOCYTE # 0.9 10^3/ul (0.3-0.9); MONOCYTES % 10.1 % (0.0-11.0); NEUTROPHIL # 5.8 10^3/ul (1.6-7.5); NEUTROPHILS % 68.1 % (39.0-77.0); PLATELET COUNT 382 10^3/UL (140-415); RED CELL DISTRIBUTION WIDTH 13.4 % (11.5-14.5); WHITE BLOOD COUNT 8.5 10^3/ul (4.8-10.8)
[2016-10-23 07:23] LABS: POTASSIUM 4.2 mmol/L (3.5-5.1)
[2016-10-23 07:26] LABS: CREATININE 0.85 mg/dl (0.44-1.00)
[2016-10-23 07:27] LABS: CALCIUM 8.7 mg/dl (8.4-10.2); PHOSPHORUS 2.7 mg/dl (2.5-4.9)
[2016-10-23] MEDS: INSULIN ASPART [NOVOLOG] 3 ML PEN SC SCH ×7 (07:30→21:00)
[2016-10-23] MEDS: CEFEPIME 1GM/50 ML IVPB SCH ×2 (08:38→21:58)
[2016-10-23] MEDS: ASPIRIN 81 MG TAB PO SCH (08:38)
[2016-10-23] MEDS: LACTOBACILLUS CHEW TAB PO SCH ×3 (08:39→21:58)
[2016-10-23] MEDS: VANCOMYCIN 500MG/NS (PMX) 100 ML IVPB SCH (12:16)
--- NOTE | 2016-10-23 13:28 | PN ---
Date/Time of Note Date/Time of Note DATE: 10/23/16 TIME: 13:18 Assessment/Plan VTE Prophylaxis VTE Prophylaxis Intervention: SCD's Lines/Catheters IV Catheter Type (from Nrsg): PICC Line Central line still needed: Yes (IV access ) Urinary Cath still in place: Yes Reason Cath still needed: other (indicate) (monitor UOP ) Assessment/Plan Assessment/Plan 71-year-old female with: 1. Acute kidney injury in setting of urinary tract infection and sepsis, likely prerenal azotemia. CT A/P with severe left hydronephrosis and nephrolithiasis, After discussion yesterday again between Cardio and Urology, plan changed to left nephrostomy tube placement Discussed with IR Dr Bhagat and after discussion with Cardiology also needs Anesthesia fo conscious sedation, patient was NPo for procedure today but had to be rescheduled tomorrow due to anesthesia unavailability today Repeat Renal US yesterday showing left moderate hydro Renal function wnl x 2 days and WBC wnl. Good UOP, Monitor labs Continue current antibiotics. 2. S/p Cardiac arrest, patient now extubated and on RA. Elevated troponin, possible non-ST elevation myocardial infarction. Resolved 2D echocardiogram with stable EF. Appreciate Cardiology recommendations, and note over the weekend reviewed, now per cardiology concerns about patient cardiac risk factors and recent events, would recommended the least invasive option that may end up to be nephrostomy tube, now rescheduled for tomorrow to be done with by IRDr Bhagat. Cardiac status stable and back to baseline currently Cardiology following 3. S/p Acute respiratory failure: s/p extubation and on RA now. Respiratory status stable and on RA Latest CXR with improving bilateral pulmonary infiltrates, pulmonary edema vs bilateral PNA, Continue current abx Cefepime and Vanco. 4. E coli Severe sepsis and Pyelonephritis. S/p cardiogenic vs septic shock On Cefepime. Repeat blood negative. 5. Diabetes mellitus, [id number]. Change Accuchecks QAC and HS with SSI and pre meal insulin with Novolog 5 units QAC A1C of 7.8 Continue Lantus and to start ADA diet 6. Hypertension, s/p shock state, OFF pressors and now normotensive to hypertensive again. Hydralazine added. 7. Thrombocytopenia, resolved. Prophylaxis: SCDs for DVT ppx and Pepcid for gastrointestinal prophylaxis. DISPOSITION: On Tele on RA now. Appreciate Cardiology, Pulmonary recommendations , left nephrostomy placement now rescheduled for tomorrow with Dr Bhagat. Prognosis good. Subjective 24 Hr Interval Summary Free Text/Dictation Patient doing much better and renal function back to normal x 2 days now Afebrile and Left nephrostomy tube placement by IR rescheduled for tomorrow due to lack of anesthesia availability today Exam/Review of Systems Vital Signs Vitals Vital Signs Date Time Temp Pulse Resp B/P Pulse Ox O2 Delivery O2 Flow Rate FiO2 10/23/16 12:15 101 10/23/16 12:04 98.1 17 141/74 98 10/20/16 07:26 Room Air 10/20/16 02:08 2.0 28 Intake and Output 10/22/16 10/22/16 10/23/16 15:00 23:00 07:00 Intake Total 750 ml Output Total 800 ml 700 ml Balance -50 ml -700 ml Exam Constitutional: alert, oriented, well developed Cardiovascular: nl pulses, regular rate and rhythm Gastrointestinal: nl liver, spleen, non-tender, soft Genitourinary - Female: other (Ramos in place ) Musculoskeletal: nl extremities to inspection, nl gait and stance Extremities: normal pulses, other (no edema, clubbing or cyanosis ) Neurological: BLUE 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 II-XII intact, nl mental status, nl speech, other (much improved strength ) Results Result Diagram: 10/23/16 0632 10/23/16 0632 Results 24 hrs Laboratory Tests Test 10/22/16 16:11 10/22/16 17:45 10/22/16 20:13 10/23/16 03:03 Bedside Glucose 113 118 160 109 Test 10/23/16 06:32 10/23/16 08:31 10/23/16 12:02 Anion Gap 16 Basophils # 0.0 Basophils % 0.4 Blood Urea Nitrogen 17 Calcium Level 8.7 Carbon Dioxide Level 25 Chloride Level 107 Creatinine 0.85 Eosinophils # 0.3 Eosinophils % 3.1 Glucose Level 121 Hematocrit 30.4 L Hemoglobin 9.7 L Lymphocytes # 1.4 Lymphocytes % 16.3 Magnesium Level 2.0 Mean Corpuscular Hemoglobin 30.3 Mean Corpuscular Hemoglobin Concent 31.9 L Mean Corpuscular Volume 95.0 Mean Platelet Volume 9.5 Monocytes # 0.9 Monocytes % 10.1 Neutrophils # 5.8 Neutrophils % 68.1 Nucleated Red Blood Cells # 0.0 Nucleated Red Blood Cells % 0.0 Phosphorus Level 2.7 Platelet Count 382 # Potassium Level 4.2 Red Blood Count 3.20 L Red Cell Distribution Width 13.4 Sodium Level 144 White Blood Count 8.5 Bedside Glucose 120 182 Medications Medications Current Medications Aspirin (Aspirin) 81 mg DAILY PO Last administered on 10/21/16 08:23; Admin Dose 81 MG; Start 10/13/16 at 09:00 Atorvastatin Calcium (Lipitor) 20 mg HS PO Last administered on 10/22/16 20:10 ; Admin Dose 20 MG; Start 10/12/16 at 21:00 Ondansetron HCl (Zofran Inj) 4 mg Q6H PRN IV NAUSEA AND/OR VOMITING; Start at 15:30 Nitroglycerin (Nitroglycerin (Sl Tab) 0.4 Mg) 1 tab Q5M PRN SL CHEST PAIN; Start 10/12/16 at 15:30 Acetaminophen (Tylenol Tab) 650 mg Q6H PRN PO PAIN LEVEL 1-3 OR FEVER Last administered on 10/21/16 01:10; Admin Dose 650 MG; Start 10/12/16 at 15:30 Acetaminophen/ Hydrocodone Bitart ([place] (5/325)) 1 tab Q6H PRN PO PAIN LEVEL 4 -6; Start 10/12/16 at 15:30 Acetaminophen/ Hydrocodone Bitart ([place] (5/325)) 2 tab Q6H PRN PO PAIN LEVEL 7 -10; Start 10/12/16 at 15:30 Morphine Sulfate (morphine) 2 mg Q4H PRN IV PAIN LEVEL 7-10 Last administered on 10/18/16 06:03; Admin Dose 2 MG; Start 10/12/16 at 15:30 Docusate Sodium (Colace) 100 mg Q12H PRN PO CONSTIPATION; Start 10/12/16 at 15: 30 Magnesium Hydroxide (Milk Of Mag) 30 ml DAILY PRN PO CONSTIPATION; Start at 15:30 Bisacodyl (Dulcolax Supp) 10 mg DAILY PRN [place] CONSTIPATION; Start 10/12/16 at 15 :30 Famotidine (Pepcid Iv) 20 mg Q24H IV Last administered on 10/22/16 20:10; Admin Dose 20 MG; Start 10/12/16 at 21:00 Miscellaneous Information 1 ea NOTE XX ; Start 10/12/16 at 16:30 Glucose (Glutose) 15 gm Q15M PRN PO DECREASED GLUCOSE; Start 10/12/16 at 16:30 Glucose (Glutose) 22.5 gm Q15M PRN PO DECREASED GLUCOSE; Start 10/12/16 at 16: 30 Dextrose (D50w Syringe) 25 ml Q15M PRN IV DECREASED GLUCOSE; Start 10/12/16 at 16:30 Dextrose (D50w Syringe) 50 ml Q15M PRN IV DECREASED GLUCOSE Last administered on 10/13/16 23:17; Admin Dose 50 ML; Start 10/12/16 at 16:30 Glucagon (Glucagen) 1 mg Q15M PRN IM DECREASED GLUCOSE; Start 10/12/16 at 16:30 Glucose (Glutose) 15 gm Q15M PRN BUCCAL DECREASED GLUCOSE; Start 10/12/16 at 16 :30 Miscellaneous Information Patients own medicat... BID@10,16 XX Last administered on 10/21/16 15:42; Admin Dose 1 EA; Start 10/13/16 at 10:00 Lactobacillus Acidoph/Bulgaricus (Floranex) 1 tab TID PO Last administered on 12:04; Admin Dose 1 TAB; Start 10/13/16 at 09:00 Insulin Glargine (Lantus) 10 unit DAILY@20 SC Last administered on 10/22/16 20: 10; Admin Dose 10 UNIT; Start 10/16/16 at 20:00 Hydralazine HCl (Apresoline) 10 mg Q6H PRN IV sbp>160; Start 10/18/16 at 13:00 Diagnostic Test (Pha) 1 ea 1 ea 02 XX ; Start 10/20/16 at 02:00 Cefepime HCl 50 ml @ 100 mls/hr Q12 IVPB Last administered on 10/23/16 08:38; Admin Dose 100 MLS/HR; Start 10/23/16 at 09:00 Vancomycin HCl (Vancocin) 100 ml @ 100 mls/hr Q24H IVPB Last administered on 12:16; Admin Dose 100 MLS/HR; Start 10/23/16 at 10:00 ESE SORIANO Oct 23, 2016 13:28
[2016-10-23] MEDS ORDERED: GUAIFENESIN/CODEINE 5ML CUP PO PRN (13:30)
--- NOTE | 2016-10-23 17:04 | CONS ---
Date/Time of Note Date/Time of Note DATE: 10/23/16 TIME: 17:01 Assessment/Plan Assessment/Plan Additional Assessment/Plan Possible cardiac arrest Preserved ejection fraction Acute decompensated diastolic congestive heart failure Labile blood pressure Respiratory failure status post extubation Sepsis Elevated troponin Acute kidney injury, improving -Patient planned to undergo percutaneous nephrostomy placement tomorrow. No new cardiac orders at the current time. Consultation Date/Type/Reason Admit Date/Time Oct 12, 2016 at 11:59 Initial Consult Date 10/13/16 Type of Consultation: cv 24 HR Interval Summary Free Text/Dictation Patient denies shortness of breath, chest pain or dizziness Exam/Review of Systems Vital Signs Vitals Vital Signs Date Time Temp Pulse Resp B/P Pulse Ox O2 Delivery O2 Flow Rate FiO2 10/23/16 16:39 97.9 94 17 134/69 98 10/20/16 07:26 Room Air 10/20/16 02:08 2.0 28 Intake and Output 10/22/16 10/22/16 10/23/16 15:00 23:00 07:00 Intake Total 750 ml Output Total 800 ml 700 ml Balance -50 ml -700 ml Exam Undergoing physical therapy, no apparent distress Constitutional: alert, oriented Head: normocephalic Neck: supple Respiratory: other (Coarse breath sounds bilaterally, no wheezing) Cardiovascular: other (S1-S2 heard), regular rate and rhythm Gastrointestinal: bowel sounds, non-tender, other (No guarding), soft Extremities: edema (Trace) Results Result Diagram: 10/23/16 0632 10/23/16 0632 Results 24 hrs Laboratory Tests Test 10/22/16 17:45 10/22/16 20:13 10/23/16 03:03 10/23/16 06:32 Bedside Glucose 118 160 109 Anion Gap 16 Basophils # 0.0 Basophils % 0.4 Blood Urea Nitrogen 17 Calcium Level 8.7 Carbon Dioxide Level 25 Chloride Level 107 Creatinine 0.85 Eosinophils # 0.3 Eosinophils % 3.1 Glucose Level 121 Hematocrit 30.4 L Hemoglobin 9.7 L Lymphocytes # 1.4 Lymphocytes % 16.3 Magnesium Level 2.0 Mean Corpuscular Hemoglobin 30.3 Mean Corpuscular Hemoglobin Concent 31.9 L Mean Corpuscular Volume 95.0 Mean Platelet Volume 9.5 Monocytes # 0.9 Monocytes % 10.1 Neutrophils # 5.8 Neutrophils % 68.1 Nucleated Red Blood Cells # 0.0 Nucleated Red Blood Cells % 0.0 Phosphorus Level 2.7 Platelet Count 382 # Potassium Level 4.2 Red Blood Count 3.20 L Red Cell Distribution Width 13.4 Sodium Level 144 White Blood Count 8.5 Test 10/23/16 08:31 10/23/16 12:02 Bedside Glucose 120 182 Medications Medications Current Medications Aspirin (Aspirin) 81 mg DAILY PO Last administered on 10/21/16 08:23; Admin Dose 81 MG; Start 10/13/16 at 09:00 Atorvastatin Calcium (Lipitor) 20 mg HS PO Last administered on 10/22/16 20:10 ; Admin Dose 20 MG; Start 10/12/16 at 21:00 Ondansetron HCl (Zofran Inj) 4 mg Q6H PRN IV NAUSEA AND/OR VOMITING; Start at 15:30 Nitroglycerin (Nitroglycerin (Sl Tab) 0.4 Mg) 1 tab Q5M PRN SL CHEST PAIN; Start 10/12/16 at 15:30 Acetaminophen (Tylenol Tab) 650 mg Q6H PRN PO PAIN LEVEL 1-3 OR FEVER Last administered on 10/21/16 01:10; Admin Dose 650 MG; Start 10/12/16 at 15:30 Acetaminophen/ Hydrocodone Bitart ([place] (5/325)) 1 tab Q6H PRN PO PAIN LEVEL 4 -6; Start 10/12/16 at 15:30 Acetaminophen/ Hydrocodone Bitart ([place] (5/325)) 2 tab Q6H PRN PO PAIN LEVEL 7 -10; Start 10/12/16 at 15:30 Morphine Sulfate (morphine) 2 mg Q4H PRN IV PAIN LEVEL 7-10 Last administered on 10/18/16 06:03; Admin Dose 2 MG; Start 10/12/16 at 15:30 Docusate Sodium (Colace) 100 mg Q12H PRN PO CONSTIPATION; Start 10/12/16 at 15: 30 Magnesium Hydroxide (Milk Of Mag) 30 ml DAILY PRN PO CONSTIPATION; Start at 15:30 Bisacodyl (Dulcolax Supp) 10 mg DAILY PRN [place] CONSTIPATION; Start 10/12/16 at 15 :30 Famotidine (Pepcid Iv) 20 mg Q24H IV Last administered on 10/22/16 20:10; Admin Dose 20 MG; Start 10/12/16 at 21:00 Miscellaneous Information 1 ea NOTE XX ; Start 10/12/16 at 16:30 Glucose (Glutose) 15 gm Q15M PRN PO DECREASED GLUCOSE; Start 10/12/16 at 16:30 Glucose (Glutose) 22.5 gm Q15M PRN PO DECREASED GLUCOSE; Start 10/12/16 at 16: 30 Dextrose (D50w Syringe) 25 ml Q15M PRN IV DECREASED GLUCOSE; Start 10/12/16 at 16:30 Dextrose (D50w Syringe) 50 ml Q15M PRN IV DECREASED GLUCOSE Last administered on 10/13/16 23:17; Admin Dose 50 ML; Start 10/12/16 at 16:30 Glucagon (Glucagen) 1 mg Q15M PRN IM DECREASED GLUCOSE; Start 10/12/16 at 16:30 Glucose (Glutose) 15 gm Q15M PRN BUCCAL DECREASED GLUCOSE; Start 10/12/16 at 16 :30 Miscellaneous Information Patients own medicat... BID@10,16 XX Last administered on 10/21/16 15:42; Admin Dose 1 EA; Start 10/13/16 at 10:00 Lactobacillus Acidoph/Bulgaricus (Floranex) 1 tab TID PO Last administered on 12:04; Admin Dose 1 TAB; Start 10/13/16 at 09:00 Insulin Glargine (Lantus) 10 unit DAILY@20 SC Last administered on 10/22/16 20: 10; Admin Dose 10 UNIT; Start 10/16/16 at 20:00 Hydralazine HCl (Apresoline) 10 mg Q6H PRN IV sbp>160; Start 10/18/16 at 13:00 Diagnostic Test (Pha) 1 ea 1 ea 02 XX ; Start 10/20/16 at 02:00 Cefepime HCl 50 ml @ 100 mls/hr Q12 IVPB Last administered on 10/23/16 08:38; Admin Dose 100 MLS/HR; Start 10/23/16 at 09:00 Vancomycin HCl (Vancocin) 100 ml @ 100 mls/hr Q24H IVPB Last administered on 12:16; Admin Dose 100 MLS/HR; Start 10/23/16 at 10:00 Guaifenesin/ Codeine Phosphate (Robitussin Ac Liquid Cup) 10 ml Q4H PRN PO COUGH; Start 10/23/16 at 13:30 Singh Thompson DO Oct 23, 2016 17:04
--- NOTE | 2016-10-23 17:12 | PN ---
DATE: 10/23/2016 SUBJECTIVE: The patient Anum remains stable this morning, says she has some shortness of breath o n exertion but overall continuing to improve. OBJECTIVE: VITAL SIGNS: Temperature 98, pulse is 100, blood pressure 140/74, O2 saturation 98% on room air. NECK: Supple. No JVD or lymphadenopathy. CARDIAC: S1, S2. No added sounds or murmurs. CHEST: Diminished air entry bilaterally. ABDOMEN: Soft, nontender. No guarding or rebound. EXTREMITIES: No cyanosis, clubbing, edema. NEUROLOGIC: Generalized weakness. LABORATORY DATA: White count 8.5, hemoglobin 9.7, platelets of 382. BUN 17, creatinine 0.85. IMPRESSION AND PLAN: 1. Status post respiratory failure, now improved hypoxemia. 2. Acute kidney injury with hydronephrosis, slowly improving, also pending changing of nephrostomy tube. 3. History of cardiopulmonary arrest. 4. Escherichia coli sepsis. 5. Diabetes mellitus. The patient to continue with: 1. Renal recommendations. 2. Continue pulmonary toilet. 3. IV antibiotics. 4. Urology recommendations. 5. Discharge planning after change of nephrostomy tube. Dictated By: ANGI MARIO/ZACHARY Conf#: [id number] DID#: [id number]
[2016-10-23] MEDS: ATORVASTATIN 20 MG TAB PO SCH (21:58)
[2016-10-23] MEDS: FAMOTIDINE 20 MG INJ IV SCH (21:58)
[2016-10-23] MEDS: INSULIN GLARGINE [LANtus] 3 ML PEN SC SCH (23:49)
[2016-10-24] VITALS (18 sets, daily range): BP systolic 126–144; BP diastolic 60–74; PULSE 88–110; RESP 16–21
[2016-10-24] MEDS: ACCUCHECK XX SCH (02:00)
[2016-10-24 06:48] LABS: ADD SCAN DIFF NO
[2016-10-24] MEDS ORDERED: CEFAZOLIN 1 GM INJ ONE (07:00)
[2016-10-24 07:01] LABS: INR 1.28; PROTIME 16.1 Sec (12.2-14.2); PT RATIO 1.3
[2016-10-24 07:02] LABS: PARTIAL THROMBOPLASTIN TIME 38.5 Sec (25.0-35.0)
[2016-10-24 07:04] LABS: POTASSIUM 4.8 mmol/L (3.5-5.1)
[2016-10-24 07:06] LABS: BASOPHIL # 0.1 10^3/ul (0.0-0.1); BASOPHILS % 0.7 % (0.0-2.0); EOSINOPHILS # 0.3 10^3/ul (0.0-0.5); EOSINOPHILS % 4.2 % (0.0-7.0); HEMATOCRIT 28.9 % (37.0-47.0); HEMOGLOBIN 9.2 g/dl (12.0-16.0); LYMPHOCYTES # 1.5 10^3/ul (0.8-2.9); LYMPHOCYTES % 20.4 % (15.0-51.0); MEAN CORPUSCULAR HEMOGLOBIN 30.5 pg (29.0-33.0); MEAN CORPUSCULAR HGB CONC 31.8 g/dl (32.0-37.0); MEAN CORPUSCULAR VOLUME 95.7 fl (82.0-101.0); MEAN PLATELET VOLUME 9.2 fl (7.4-10.4); MONOCYTE # 0.7 10^3/ul (0.3-0.9); MONOCYTES % 9.1 % (0.0-11.0); NEUTROPHIL # 4.7 10^3/ul (1.6-7.5); PLATELET COUNT 441 10^3/UL (140-415); RED BLOOD COUNT 3.02 10^6/ul (4.20-5.40); RED CELL DISTRIBUTION WIDTH 13.5 % (11.5-14.5); WHITE BLOOD COUNT 7.3 10^3/ul (4.8-10.8)
[2016-10-24 07:06] LABS: CREATININE 0.9 mg/dl (0.44-1.00)
[2016-10-24] MEDS: INSULIN ASPART [NOVOLOG] 3 ML PEN SC SCH ×7 (07:30→20:19)
--- NOTE | 2016-10-24 08:42 | RADRPT ---
PROCEDURE: XR Chest. CLINICAL INDICATION: Congestive heart failure. TECHNIQUE: Chest x-ray, single view. COMPARISON: 10/19/2016. FINDINGS: The heart is mildly enlarged and unchanged in size and configuration. Aortic arch atherosclerotic c alcification is present. A right upper extremity PICC terminates at the SVC/right atrial junction. Low lung volumes are observed. Mild residual atelectatic changes seen within the left lung base an d improved since prior examination. Degenerative changes of the spine are present. The visualized upper abdomen is unremarkable. IMPRESSION: Low lung volumes with improved atelectatic changes of the left lung base. RPTAT: EE .Coty Manzanares MD, MD Date Time Electronically viewed and signed by .Coty Manzanares MD, MD on 10/24/2016 08:42 .T/
[2016-10-24] MEDS ORDERED: LIDOCAINE 2% (SDV) 5 ML INJ ONE (08:52)
[2016-10-24] MEDS ORDERED: PROPOFOL 20 ML ONE (08:52)
[2016-10-24] MEDS ORDERED: ROCURONIUM 50 MG INJ ONE (08:52)
[2016-10-24] MEDS ORDERED: NEOSTIGMINE 3 MG/3 ML SYRINGE ONE (08:52)
[2016-10-24] MEDS ORDERED: FENTAnyl 50 MCG/ML VIAL ONE (08:52)
[2016-10-24] MEDS ORDERED: GLYCOPYRROLATE 1 MG INJ ONE (08:52)
[2016-10-24] MEDS ORDERED: MIDAZOLAM 1 MG/ML 2 ML INJ ONE (08:52)
[2016-10-24] MEDS ORDERED: MIDAZOLAM 1 MG/ML 2 ML INJ IV PRN (09:00)
[2016-10-24] MEDS ORDERED: hydrALAzine 20 MG INJ IV PRN (09:00)
[2016-10-24] MEDS ORDERED: EPHEDrine SULFATE 50 MG/5 ML SYG IV PRN (09:00)
[2016-10-24] MEDS ORDERED: MEPERIDINE 25 MG INJ IV PRN (09:00)
[2016-10-24] MEDS ORDERED: OXYCODONE/ACETAMINOPHEN (5/325) TAB PO PRN ×2 (09:00)
[2016-10-24] MEDS ORDERED: FENTAnyl 50 MCG/ML VIAL IV PRN ×2 (09:00)
[2016-10-24] MEDS ORDERED: morphine (1 MG/ML) 10ML SYRINGE IV PRN ×3 (09:00)
[2016-10-24] MEDS ORDERED: ATROPINE 1 MG/10 ML SYRINGE IV PRN (09:00)
[2016-10-24] MEDS ORDERED: LABETALOL HCL 20MG INJ IV PRN (09:00)
[2016-10-24] MEDS ORDERED: ONDANSETRON 4 MG INJ IV PRN (09:00)
[2016-10-24] MEDS ORDERED: DIPHENHYDRAMINE 50 MG INJ IV PRN (09:00)
[2016-10-24] MEDS ORDERED: HYDROmorphONE (0.2 MG/ML) 10ML SYG IV PRN ×3 (09:00)
[2016-10-24] MEDS: CEFEPIME 1GM/50 ML IVPB SCH ×2 (09:20→20:18)
--- NOTE | 2016-10-24 11:27 | PN ---
Date/Time of Note Date/Time of Note DATE: 10/24/16 TIME: 11:21 Assessment/Plan VTE Prophylaxis VTE Prophylaxis Intervention: SCD's Lines/Catheters IV Catheter Type (from Nrsg): PICC Line Central line still needed: Yes (for iv access ) Urinary Cath still in place: Yes Reason Cath still needed: other (indicate) ([place], paln to d/c later today or in AM ) Assessment/Plan Assessment/Plan 71-year-old female with: 1. Acute kidney injury in setting of urinary tract infection and sepsis, likely prerenal azotemia. CT A/P with severe left hydronephrosis and nephrolithiasis, After discussion yesterday again between Cardio and Urology, plan changed to left nephrostomy tube placement Discussed with IR Dr Bhagat and after discussion with Cardiology also needs Anesthesia fo conscious sedation, patient NPO for procedure today. Repeat Renal US 2 days ago showing left moderate hydro Renal function wnl x 2 days and WBC wnl. Good UOP, Monitor labs Continue current antibiotics. 2. S/p Cardiac arrest, patient now extubated and on RA. Elevated troponin, possible non-ST elevation myocardial infarction. Resolved 2D echocardiogram with stable EF. Appreciate Cardiology recommendations, and note over the weekend reviewed, now per cardiology concerns about patient cardiac risk factors and recent events, would recommended the least invasive option that may end up to be nephrostomy tube, planned for today with IRDr Bhagat. Cardiac status stable and back to baseline currently Cardiology following 3. S/p Acute respiratory failure: s/p extubation and on RA now. Respiratory status stable and on RA Latest CXR with improving bilateral pulmonary infiltrates, pulmonary edema vs bilateral PNA, Continue current abx Cefepime and Vanco. 4. E coli Severe sepsis and Pyelonephritis. S/p cardiogenic vs septic shock On Cefepime. Repeat blood negative. 5. Diabetes mellitus, [id number]. Change Accuchecks QAC and HS with SSI and pre meal insulin with Novolog 5 units QAC A1C of 7.8 Continue Lantus and to start ADA diet 6. Hypertension: Hydralazine added. 7. Thrombocytopenia, resolved. Prophylaxis: SCDs for DVT ppx and Pepcid for gastrointestinal prophylaxis. DISPOSITION: On Tele on RA now. Appreciate Cardiology, Pulmonary recommendations , left nephrostomy placement planned for today with Dr Bhagat. Prognosis good. Subjective 24 Hr Interval Summary Free Text/Dictation Patient doing well currently on RA and renal function back to normal NPO for left nephrostomy tube placement today by IR Exam/Review of Systems Vital Signs Vitals Vital Signs Date Time Temp Pulse Resp B/P Pulse Ox O2 Delivery O2 Flow Rate FiO2 10/24/16 08:31 96 10/24/16 07:52 98.4 18 126/66 98 10/20/16 07:26 Room Air Exam Constitutional: alert, oriented, well developed Respiratory: clear to auscultation, normal air movement Cardiovascular: nl pulses, regular rate and rhythm Gastrointestinal: non-tender, soft Genitourinary - Female: other (abad cathter in place ) Musculoskeletal: nl extremities to inspection, nl gait and stance Extremities: normal pulses, other (no edema, clubbing oe cyanosis ) Neurological: MERCERIZER MACHINE OPERATOR II-XII intact, nl mental status, nl speech, nl strength ( much improved ) Results Result Diagram: 10/24/16 0605 10/24/16 0607 Results 24 hrs Laboratory Tests Test 10/23/16 12:02 10/23/16 17:21 10/23/16 21:12 10/24/16 06:05 Bedside Glucose 182 131 167 Activated Partial Thromboplast Time 38.5 H Basophils # 0.1 Basophils % 0.7 Eosinophils # 0.3 Eosinophils % 4.2 Hematocrit 28.9 L Hemoglobin 9.2 L INR International Normalized Ratio 1.28 Lymphocytes # 1.5 Lymphocytes % 20.4 Mean Corpuscular Hemoglobin 30.5 Mean Corpuscular Hemoglobin Concent 31.8 L Mean Corpuscular Volume 95.7 Mean Platelet Volume 9.2 Monocytes # 0.7 Monocytes % 9.1 Neutrophils # 4.7 Neutrophils % 64.0 Nucleated Red Blood Cells # 0.0 Nucleated Red Blood Cells % 0.0 Platelet Count 441 H Prothrombin Time 16.1 H Prothrombin Time Ratio 1.3 Red Blood Count 3.02 L Red Cell Distribution Width 13.5 White Blood Count 7.3 Test 10/24/16 06:07 10/24/16 08:10 10/24/16 11:09 Anion Gap 14 Blood Urea Nitrogen 19 Calcium Level 9.0 Carbon Dioxide Level 27 Chloride Level 108 Creatinine 0.90 Glucose Level 140 Magnesium Level 1.9 Potassium Level 4.8 Sodium Level 144 Bedside Glucose 134 117 Medications Medications Current Medications Aspirin (Aspirin) 81 mg DAILY PO Last administered on 10/21/16 08:23; Admin Dose 81 MG; Start 10/13/16 at 09:00 Atorvastatin Calcium (Lipitor) 20 mg HS PO Last administered on 10/23/16 21:58 ; Admin Dose 20 MG; Start 10/12/16 at 21:00 Ondansetron HCl (Zofran Inj) 4 mg Q6H PRN IV NAUSEA AND/OR VOMITING; Start at 15:30 Nitroglycerin (Nitroglycerin (Sl Tab) 0.4 Mg) 1 tab Q5M PRN SL CHEST PAIN; Start 10/12/16 at 15:30 Acetaminophen (Tylenol Tab) 650 mg Q6H PRN PO PAIN LEVEL 1-3 OR FEVER Last administered on 10/21/16 01:10; Admin Dose 650 MG; Start 10/12/16 at 15:30 Acetaminophen/ Hydrocodone Bitart ([place] (5/325)) 1 tab Q6H PRN PO PAIN LEVEL 4 -6; Start 10/12/16 at 15:30 Acetaminophen/ Hydrocodone Bitart ([place] (5/325)) 2 tab Q6H PRN PO PAIN LEVEL 7 -10; Start 10/12/16 at 15:30 Morphine Sulfate (morphine) 2 mg Q4H PRN IV PAIN LEVEL 7-10 Last administered on 10/18/16 06:03; Admin Dose 2 MG; Start 10/12/16 at 15:30 Docusate Sodium (Colace) 100 mg Q12H PRN PO CONSTIPATION; Start 10/12/16 at 15: 30 Magnesium Hydroxide (Milk Of Mag) 30 ml DAILY PRN PO CONSTIPATION; Start at 15:30 Bisacodyl (Dulcolax Supp) 10 mg DAILY PRN [place] CONSTIPATION; Start 10/12/16 at 15 :30 Famotidine (Pepcid Iv) 20 mg Q24H IV Last administered on 10/23/16 21:58; Admin Dose 20 MG; Start 10/12/16 at 21:00 Miscellaneous Information 1 ea NOTE XX ; Start 10/12/16 at 16:30 Glucose (Glutose) 15 gm Q15M PRN PO DECREASED GLUCOSE; Start 10/12/16 at 16:30 Glucose (Glutose) 22.5 gm Q15M PRN PO DECREASED GLUCOSE; Start 10/12/16 at 16: 30 Dextrose (D50w Syringe) 25 ml Q15M PRN IV DECREASED GLUCOSE; Start 10/12/16 at 16:30 Dextrose (D50w Syringe) 50 ml Q15M PRN IV DECREASED GLUCOSE Last administered on 10/13/16 23:17; Admin Dose 50 ML; Start 10/12/16 at 16:30 Glucagon (Glucagen) 1 mg Q15M PRN IM DECREASED GLUCOSE; Start 10/12/16 at 16:30 Glucose (Glutose) 15 gm Q15M PRN BUCCAL DECREASED GLUCOSE; Start 10/12/16 at 16 :30 Miscellaneous Information Patients own medicat... BID@10,16 XX Last administered on 10/21/16 15:42; Admin Dose 1 EA; Start 10/13/16 at 10:00 Lactobacillus Acidoph/Bulgaricus (Floranex) 1 tab TID PO Last administered on 21:58; Admin Dose 1 TAB; Start 10/13/16 at 09:00 Insulin Glargine (Lantus) 10 unit DAILY@20 SC Last administered on 10/23/16 23: 49; Admin Dose 10 UNIT; Start 10/16/16 at 20:00 Hydralazine HCl (Apresoline) 10 mg Q6H PRN IV sbp>160; Start 10/18/16 at 13:00 Diagnostic Test (Pha) 1 ea 1 ea 02 XX ; Start 10/20/16 at 02:00 Cefepime HCl 50 ml @ 100 mls/hr Q12 IVPB Last administered on 10/24/16 09:20; Admin Dose 100 MLS/HR; Start 10/23/16 at 09:00 Vancomycin HCl (Vancocin) 100 ml @ 100 mls/hr Q24H IVPB Last administered on 12:16; Admin Dose 100 MLS/HR; Start 10/23/16 at 10:00 Guaifenesin/ Codeine Phosphate (Robitussin Ac Liquid Cup) 10 ml Q4H PRN PO COUGH; Start 10/23/16 at 13:30 ESE SORIANO Oct 24, 2016 11:27
[2016-10-24] MEDS ORDERED: IOHEXOL 300MG/ML 30 ML BTL ONE (11:58)
--- NOTE | 2016-10-24 12:32 | CONS ---
Date/Time of Note Date/Time of Note DATE: 10/24/16 TIME: 12:27 Assessment/Plan Assessment/Plan Additional Assessment/Plan Possible cardiac arrest Preserved ejection fraction Acute decompensated diastolic congestive heart failure Labile blood pressure Respiratory failure status post extubation Sepsis Elevated troponin Acute kidney injury, improving -Patient planned to undergo percutaneous nephrostomy placement today. No new cardiac orders at the current time. Consultation Date/Type/Reason Admit Date/Time Oct 12, 2016 at 11:59 Initial Consult Date 10/13/16 Type of Consultation: cv 24 HR Interval Summary Free Text/Dictation Patient denies shortness of breath, chest pain or palpitations Exam/Review of Systems Vital Signs Vitals Vital Signs Date Time Temp Pulse Resp B/P Pulse Ox O2 Delivery O2 Flow Rate FiO2 10/24/16 11:58 98.5 103 20 144/74 98 10/20/16 07:26 Room Air Exam No apparent distress, family at bedside Constitutional: alert, oriented Head: normocephalic Neck: supple Respiratory: other (Coarse breath sounds bilaterally, no wheezing) Cardiovascular: other (S1-S2 heard), regular rate and rhythm Gastrointestinal: bowel sounds, non-tender, other (No guarding), soft Extremities: edema (Trace), other (No cyanosis) Results Result Diagram: 10/24/16 0605 10/24/16 0607 Results 24 hrs Laboratory Tests Test 10/23/16 17:21 10/23/16 21:12 10/24/16 06:05 10/24/16 06:07 Bedside Glucose 131 167 Activated Partial Thromboplast Time 38.5 H Basophils # 0.1 Basophils % 0.7 Eosinophils # 0.3 Eosinophils % 4.2 Hematocrit 28.9 L Hemoglobin 9.2 L INR International Normalized Ratio 1.28 Lymphocytes # 1.5 Lymphocytes % 20.4 Mean Corpuscular Hemoglobin 30.5 Mean Corpuscular Hemoglobin Concent 31.8 L Mean Corpuscular Volume 95.7 Mean Platelet Volume 9.2 Monocytes # 0.7 Monocytes % 9.1 Neutrophils # 4.7 Neutrophils % 64.0 Nucleated Red Blood Cells # 0.0 Nucleated Red Blood Cells % 0.0 Platelet Count 441 H Prothrombin Time 16.1 H Prothrombin Time Ratio 1.3 Red Blood Count 3.02 L Red Cell Distribution Width 13.5 White Blood Count 7.3 Anion Gap 14 Blood Urea Nitrogen 19 Calcium Level 9.0 Carbon Dioxide Level 27 Chloride Level 108 Creatinine 0.90 Glucose Level 140 Magnesium Level 1.9 Potassium Level 4.8 Sodium Level 144 Test 10/24/16 08:10 10/24/16 11:09 Bedside Glucose 134 117 Medications Medications Current Medications Aspirin (Aspirin) 81 mg DAILY PO Last administered on 10/21/16 08:23; Admin Dose 81 MG; Start 10/13/16 at 09:00 Atorvastatin Calcium (Lipitor) 20 mg HS PO Last administered on 10/23/16 21:58 ; Admin Dose 20 MG; Start 10/12/16 at 21:00 Ondansetron HCl (Zofran Inj) 4 mg Q6H PRN IV NAUSEA AND/OR VOMITING; Start at 15:30 Nitroglycerin (Nitroglycerin (Sl Tab) 0.4 Mg) 1 tab Q5M PRN SL CHEST PAIN; Start 10/12/16 at 15:30 Acetaminophen (Tylenol Tab) 650 mg Q6H PRN PO PAIN LEVEL 1-3 OR FEVER Last administered on 10/21/16 01:10; Admin Dose 650 MG; Start 10/12/16 at 15:30 Acetaminophen/ Hydrocodone Bitart ([place] (5/325)) 1 tab Q6H PRN PO PAIN LEVEL 4 -6; Start 10/12/16 at 15:30 Acetaminophen/ Hydrocodone Bitart ([place] (5/325)) 2 tab Q6H PRN PO PAIN LEVEL 7 -10; Start 10/12/16 at 15:30 Morphine Sulfate (morphine) 2 mg Q4H PRN IV PAIN LEVEL 7-10 Last administered on 10/18/16 06:03; Admin Dose 2 MG; Start 10/12/16 at 15:30 Docusate Sodium (Colace) 100 mg Q12H PRN PO CONSTIPATION; Start 10/12/16 at 15: 30 Magnesium Hydroxide (Milk Of Mag) 30 ml DAILY PRN PO CONSTIPATION; Start at 15:30 Bisacodyl (Dulcolax Supp) 10 mg DAILY PRN [place] CONSTIPATION; Start 10/12/16 at 15 :30 Famotidine (Pepcid Iv) 20 mg Q24H IV Last administered on 10/23/16 21:58; Admin Dose 20 MG; Start 10/12/16 at 21:00 Miscellaneous Information 1 ea NOTE XX ; Start 10/12/16 at 16:30 Glucose (Glutose) 15 gm Q15M PRN PO DECREASED GLUCOSE; Start 10/12/16 at 16:30 Glucose (Glutose) 22.5 gm Q15M PRN PO DECREASED GLUCOSE; Start 10/12/16 at 16: 30 Dextrose (D50w Syringe) 25 ml Q15M PRN IV DECREASED GLUCOSE; Start 10/12/16 at 16:30 Dextrose (D50w Syringe) 50 ml Q15M PRN IV DECREASED GLUCOSE Last administered on 10/13/16 23:17; Admin Dose 50 ML; Start 10/12/16 at 16:30 Glucagon (Glucagen) 1 mg Q15M PRN IM DECREASED GLUCOSE; Start 10/12/16 at 16:30 Glucose (Glutose) 15 gm Q15M PRN BUCCAL DECREASED GLUCOSE; Start 10/12/16 at 16 :30 Miscellaneous Information Patients own medicat... BID@10,16 XX Last administered on 10/21/16 15:42; Admin Dose 1 EA; Start 10/13/16 at 10:00 Lactobacillus Acidoph/Bulgaricus (Floranex) 1 tab TID PO Last administered on 21:58; Admin Dose 1 TAB; Start 10/13/16 at 09:00 Insulin Glargine (Lantus) 10 unit DAILY@20 SC Last administered on 10/23/16 23: 49; Admin Dose 10 UNIT; Start 10/16/16 at 20:00 Hydralazine HCl (Apresoline) 10 mg Q6H PRN IV sbp>160; Start 10/18/16 at 13:00 Diagnostic Test (Pha) 1 ea 1 ea 02 XX ; Start 10/20/16 at 02:00 Cefepime HCl 50 ml @ 100 mls/hr Q12 IVPB Last administered on 10/24/16 09:20; Admin Dose 100 MLS/HR; Start 10/23/16 at 09:00 Vancomycin HCl (Vancocin) 100 ml @ 100 mls/hr Q24H IVPB Last administered on 12:16; Admin Dose 100 MLS/HR; Start 10/23/16 at 10:00 Guaifenesin/ Codeine Phosphate (Robitussin Ac Liquid Cup) 10 ml Q4H PRN PO COUGH; Start 10/23/16 at 13:30 Singh Thompson DO Oct 24, 2016 12:32
[2016-10-24] MEDS ORDERED: LIDOCAINE 1% (STERILE-PAK) 30 ML INJ ONE (12:51)
[2016-10-24] MEDS: LACTOBACILLUS CHEW TAB PO SCH ×3 (13:00→20:18)
--- NOTE | 2016-10-24 15:16 | RADRPT ---
PROCEDURE: Ultrasound and fluoroscopic guided left nephrostomy. CLINICAL INDICATION: Left hydronephrosis. TECHNIQUE: Informed consent was obtained. The procedure, risks, benefits, complications and alternatives were explained to the patient. Risks including bleeding and infection were explained. The patient underst ood and was willing to proceed. The procedure was performed in the operating room with anesthesiolog y due to recent cardiac event. A procedural pause was performed. The patient's name, date of , and procedure to be performed w ere verified. Using local anesthetic, sterile technique and ultrasound guidance, a 22-gauge Chiba needle was advan galen into a posterior aaron in the lower left kidney. A 0.018 in guidewire was inserted. The tract was dilated to 6-Ugandan. Urine was aspirated and contrast was injected confirming position. A 0.035 -inch Amplatz guidewire was advanced through the catheter into the renal pelvis with fluoroscopic gu idance. The catheter was removed. The tract was dilated to 8-[place]andan. An 8.5 [place]an multipurpose d rainage catheter was advanced over the guidewire into the renal pelvis with fluoroscopic guidance. The guidewire was removed. Additional contrast was injected confirming position. The catheter was then sutured to the patient's skin with 3-0 monofilament. The catheter was connected to a drainage bag. A dressing was applied. The patient tolerated procedure well. COMPARISON: None. FINDINGS: The nephrostogram demonstrates the nephrostomy tube in satisfactory position within the left renal p yvrose. There is a partially obstructing calculus in the mid left ureter at the mid L4 level. IMPRESSION: 1. Successful ultrasound and fluoroscopic guided left nephrostomy. 2. The nephrostogram demonstrates the tube in satisfactory position within the left renal pelvis. 3. Partially obstructing calculus in the mid left ureter at the mid L4 level. RPTAT: QQ .Jono Bhagat MD, Date Time Electronically viewed and signed by .Jono Bhagat MD, on 10/24/2016 15:16 .R/
--- NOTE | 2016-10-24 15:19 | RADRPT ---
PROCEDURE: Ultrasound guidance for placement of needle in left kidney. CLINICAL INDICATION: Left hydronephrosis. TECHNIQUE: Prior to the procedure, informed consent was obtained. Risks including bleeding, infection, and pneu mothorax were explained to the patient. The patient understood and was willing to proceed. A procedu ral pause was performed. The patient's name, date of , and procedure to be performed were verif ied. The needle was inserted with all elements of maximal sterile barrier technique. All of the foll owing were used: head covering, facial mask, sterile gown, sterile gloves, a large sterile sheet, kirkpatrick nd hygiene, and 2% chlorhexidine for cutaneous antisepsis. The left flank was prepped and draped i n usual sterile fashion. Limited sonography of the left flank was then performed. Noted is moderate left hydronephrosis. Ultr asound images were recorded and stored in the patient's medical record. Following the local injection of Xylocaine, using ultrasound guidance, the left kidney was punctured with a 22-gauge needle. The needle is seen to entering the the mid posterior aaron and urine was a spirated. The patient tolerated the procedure well. The remainder of the procedure was performed a nd dictated under separate cover. COMPARISON: Renal ultrasound dated 10/22/2016. FINDINGS: The ultrasound images demonstrate moderate left hydronephrosis. The subsequent images demonstrate t he needle entering the left the mid posterior aaron. IMPRESSION: 1. Ultrasound guidance for a needle placement in left kidney within the mid posterior aaron. RPTAT: QQ .Jono Bhagat MD, Date Time Electronically viewed and signed by .Jono Bhagat MD, on 10/24/2016 15:18 .R/
[2016-10-24] MEDS: VANCOMYCIN 500MG/NS (PMX) 100 ML IVPB SCH (16:14)
[2016-10-24] MEDS: ASPIRIN 81 MG TAB PO SCH (16:14)
--- NOTE | 2016-10-24 16:56 | PN ---
DATE: 10/24/2016 SUBJECTIVE: The patient is stable this morning. No new events. PHYSICAL EXAMINATION: VITAL SIGNS: Temperature 98, pulse is 92, blood pressure 137/70, O2 saturation 96% on room air. NECK: Supple. No JVD or lymphadenopathy. CARDIAC: S1, S2, no added sounds or murmurs. CHEST: Diminished air entry bilaterally. ABDOMEN: Soft, nontender. No guarding or rebound. EXTREMITIES: No cyanosis, clubbing, or edema. NEUROLOGIC: Generalized weakness. LABORATORY DATA: White count 7.3, hemoglobin 9.2, platelets of 441. BUN 19, creatinine 0.9. IMPRESSION AND PLAN: 1. Resolving multilobar pneumonia. 2. Improved hypoxemia. Dictated By: ANGI MARIO/ZACHARY Conf#: [id number] DID#: [id number]
[2016-10-24] MEDS: INSULIN GLARGINE [LANtus] 3 ML PEN SC SCH (20:18)
[2016-10-24] MEDS: FAMOTIDINE 20 MG INJ IV SCH (20:18)
[2016-10-24] MEDS: ATORVASTATIN 20 MG TAB PO SCH (20:18)
[2016-10-25] VITALS (12 sets, daily range): BP systolic 119–166; BP diastolic 60–77; PULSE 94–104; RESP 16–19
[2016-10-25] MEDS: ACCUCHECK XX SCH (02:00)
[2016-10-25 06:43] LABS: ADD SCAN DIFF NO
[2016-10-25 06:50] LABS: BASOPHILS % 0.5 % (0.0-2.0); EOSINOPHILS # 0.3 10^3/ul (0.0-0.5); EOSINOPHILS % 3.3 % (0.0-7.0); HEMATOCRIT 27.8 % (37.0-47.0); HEMOGLOBIN 8.9 g/dl (12.0-16.0); LYMPHOCYTES # 1.4 10^3/ul (0.8-2.9); LYMPHOCYTES % 16.4 % (15.0-51.0); MEAN CORPUSCULAR HEMOGLOBIN 30.7 pg (29.0-33.0); MEAN CORPUSCULAR VOLUME 95.9 fl (82.0-101.0); MEAN PLATELET VOLUME 9.1 fl (7.4-10.4); MONOCYTE # 0.6 10^3/ul (0.3-0.9); MONOCYTES % 7.2 % (0.0-11.0); NEUTROPHILS % 71.8 % (39.0-77.0); PLATELET COUNT 511 10^3/UL (140-415); RED CELL DISTRIBUTION WIDTH 13.3 % (11.5-14.5); WHITE BLOOD COUNT 8.4 10^3/ul (4.8-10.8)
[2016-10-25 07:00] LABS: POTASSIUM 4.1 mmol/L (3.5-5.1)
[2016-10-25 07:02] LABS: CREATININE 0.79 mg/dl (0.44-1.00)
[2016-10-25 07:03] LABS: CALCIUM 8.7 mg/dl (8.4-10.2)
[2016-10-25 07:14] LABS: MAGNESIUM 1.7 mg/dl (1.7-2.5); PHOSPHORUS 2.9 mg/dl (2.5-4.9)
[2016-10-25] MEDS: LACTOBACILLUS CHEW TAB PO SCH ×3 (08:35→20:30)
[2016-10-25] MEDS: CEFEPIME 1GM/50 ML IVPB SCH (08:35)
[2016-10-25] MEDS: ASPIRIN 81 MG TAB PO SCH (08:35)
[2016-10-25] MEDS: INSULIN ASPART [NOVOLOG] 3 ML PEN SC SCH ×7 (08:38→20:32)
[2016-10-25] MEDS ORDERED: MAGNESIUM SULFATE 2 GM/50 ML 50 ML IVPB ONE (10:00)
[2016-10-25] MEDS ORDERED: LEVOFLOXACIN 750 MG TABLET PO SCH (11:00)
--- NOTE | 2016-10-25 11:32 | PN ---
DATE: 10/25/2016 SUBJECTIVE: The patient Anum remains stable this morning. No new events. PHYSICAL EXAMINATION: VITAL SIGNS: Temperature 98, pulse is 100, blood pressure 134/62, O2 saturation 96%, FIO2 of room a ir. NECK: Supple. No JVD or lymphadenopathy. CARDIAC: S1, S2, no added sounds or murmurs. CHEST: Diminished air entry bilaterally. ABDOMEN: Soft, nontender. No guarding or rebound. EXTREMITIES: No cyanosis, clubbing, edema. NEUROLOGIC: Grossly intact. No focal deficits. Chemistry within normal limits. IMPRESSION AND PLAN: 1. Resolving hypoxemia, respiratory failure. 2. Status post nephrostomy tube placement, remains stable. 3. History of hydronephrosis with nephrolithiasis. 4. From a pulmonary standpoint, if the patient continues to improve, she can likely be discharged h ome with a repeat chest x-ray in 2 to 3 weeks' time. Dictated By: ANGI MARIO/ZACHARY Conf#: [id number] DID#: [id number]
[2016-10-25] MEDS: FAMOTIDINE 20 MG TAB PO SCH (11:52)
--- NOTE | 2016-10-25 13:14 | PN ---
Date/Time of Note Date/Time of Note DATE: 10/25/16 TIME: 13:10 Assessment/Plan VTE Prophylaxis VTE Prophylaxis Intervention: SCD's Lines/Catheters IV Catheter Type (from Nrsg): PICC Line Central line still needed: Yes (for IV access ) Urinary Cath still in place: Yes Reason Cath still needed: other (indicate) ([place]) Assessment/Plan Assessment/Plan 71-year-old female with: 1. Acute kidney injury in setting of urinary tract infection and sepsis, likely prerenal azotemia. CT A/P with severe left hydronephrosis and nephrolithiasis, s/p left nephrostomy tube placement POD#1 Renal function and WBC wnl. Good UOP, d/c abad catheter and abx changed to po Levaquin based on sensitivities Monitor labs in AM 2. S/p Cardiac arrest, patient now extubated and on RA. Elevated troponin, possible non-ST elevation myocardial infarction. Resolved 2D echocardiogram with stable EF. Cardiac status stable and back to baseline currently Cardiology following, follow up recs for d/c planning. 3. S/p Acute respiratory failure: s/p extubation and on RA now. Respiratory status stable and on RA Latest CXR 10/24 much improved, IS. Abx changed to Levaquin. 4. E coli Severe sepsis and Pyelonephritis. S/p cardiogenic vs septic shock On Levaquin as of today . Repeat blood negative. 5. Diabetes mellitus, [id number]. Change Accuchecks QAC and HS with SSI and pre meal insulin with Novolog 5 units QAC A1C of 7.8 Continue Lantus and ADA diet 6. Hypertension: Hydralazine. 7. Thrombocytopenia, resolved, actually now with thrombocytosis.... Prophylaxis: SCDs for DVT ppx and Pepcid for gastrointestinal prophylaxis. DISPOSITION: On Tele on RA now. Appreciate Cardiology, Pulmonary recommendations , s/p left nephrostomy tube placement, d/c Abad D/c plan for home within 24 hrs if remains stable. Prognosis good. Subjective 24 Hr Interval Summary Free Text/Dictation Patient doing well D/c Abad catheter today Left Nephrostomy tube in place Labs and renal function wnl Antibiotics regimen being simplified Exam/Review of Systems Vital Signs Vitals Vital Signs Date Time Temp Pulse Resp B/P Pulse Ox O2 Delivery O2 Flow Rate FiO2 10/25/16 12:29 103 3/9/17 11:31 98.1 19 155/64 99 10/25/16 03:40 Room Air Intake and Output 10/24/16 10/24/16 10/25/16 15:00 23:00 07:00 Intake Total 730 ml 470 ml 60 ml Output Total 20 ml 1700 ml 750 ml Balance 710 ml -1230 ml -690 ml Exam Constitutional: alert, oriented, well developed Respiratory: clear to auscultation, normal air movement Cardiovascular: nl pulses, regular rate and rhythm Gastrointestinal: non-tender, soft Genitourinary - Female: other (left nephrostomy tube in place with some mild hematuria ) Musculoskeletal: nl extremities to inspection, nl gait and stance Extremities: normal pulses 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, nl mental status, nl speech Results Result Diagram: 10/25/1612 10/25/16 0612 Results 24 hrs Laboratory Tests Test 10/24/16 14:42 10/24/16 17:33 10/24/16 19:58 10/25/16 05:40 Bedside Glucose 115 110 171 99 Test 10/25/16 06:12 10/25/16 08:17 10/25/16 11:58 Anion Gap 14 Basophils # 0.0 Basophils % 0.5 Blood Urea Nitrogen 12 Calcium Level 8.7 Carbon Dioxide Level 27 Chloride Level 106 Creatinine 0.79 Eosinophils # 0.3 Eosinophils % 3.3 Glucose Level 96 # Hematocrit 27.8 L Hemoglobin 8.9 L Lymphocytes # 1.4 Lymphocytes % 16.4 Magnesium Level 1.7 Mean Corpuscular Hemoglobin 30.7 Mean Corpuscular Hemoglobin Concent 32.0 Mean Corpuscular Volume 95.9 Mean Platelet Volume 9.1 Monocytes # 0.6 Monocytes % 7.2 Neutrophils # 6.0 Neutrophils % 71.8 Nucleated Red Blood Cells # 0.0 Nucleated Red Blood Cells % 0.0 Phosphorus Level 2.9 Platelet Count 511 H Potassium Level 4.1 Red Blood Count 2.90 L Red Cell Distribution Width 13.3 Sodium Level 143 White Blood Count 8.4 Bedside Glucose 190 116 Medications Medications Current Medications Aspirin (Aspirin) 81 mg DAILY PO Last administered on 10/25/16 08:35; Admin Dose 81 MG; Start 10/13/16 at 09:00 Atorvastatin Calcium (Lipitor) 20 mg HS PO Last administered on 10/24/16 20:18 ; Admin Dose 20 MG; Start 10/12/16 at 21:00 Ondansetron HCl (Zofran Inj) 4 mg Q6H PRN IV NAUSEA AND/OR VOMITING; Start at 15:30 Nitroglycerin (Nitroglycerin (Sl Tab) 0.4 Mg) 1 tab Q5M PRN SL CHEST PAIN; Start 10/12/16 at 15:30 Acetaminophen (Tylenol Tab) 650 mg Q6H PRN PO PAIN LEVEL 1-3 OR FEVER Last administered on 10/21/16 01:10; Admin Dose 650 MG; Start 10/12/16 at 15:30 Acetaminophen/ Hydrocodone Bitart ([place] (5/325)) 1 tab Q6H PRN PO PAIN LEVEL 4 -6; Start 10/12/16 at 15:30 Acetaminophen/ Hydrocodone Bitart ([place] (5/325)) 2 tab Q6H PRN PO PAIN LEVEL 7 -10; Start 10/12/16 at 15:30 Morphine Sulfate (morphine) 2 mg Q4H PRN IV PAIN LEVEL 7-10 Last administered on 10/18/16 06:03; Admin Dose 2 MG; Start 10/12/16 at 15:30 Docusate Sodium (Colace) 100 mg Q12H PRN PO CONSTIPATION; Start 10/12/16 at 15: 30 Magnesium Hydroxide (Milk Of Mag) 30 ml DAILY PRN PO CONSTIPATION; Start at 15:30 Bisacodyl (Dulcolax Supp) 10 mg DAILY PRN [place] CONSTIPATION; Start 10/12/16 at 15 :30 Miscellaneous Information 1 ea NOTE XX ; Start 10/12/16 at 16:30 Glucose (Glutose) 15 gm Q15M PRN PO DECREASED GLUCOSE; Start 10/12/16 at 16:30 Glucose (Glutose) 22.5 gm Q15M PRN PO DECREASED GLUCOSE; Start 10/12/16 at 16: 30 Dextrose (D50w Syringe) 25 ml Q15M PRN IV DECREASED GLUCOSE; Start 10/12/16 at 16:30 Dextrose (D50w Syringe) 50 ml Q15M PRN IV DECREASED GLUCOSE Last administered on 10/13/16 23:17; Admin Dose 50 ML; Start 10/12/16 at 16:30 Glucagon (Glucagen) 1 mg Q15M PRN IM DECREASED GLUCOSE; Start 10/12/16 at 16:30 Glucose (Glutose) 15 gm Q15M PRN BUCCAL DECREASED GLUCOSE; Start 10/12/16 at 16 :30 Miscellaneous Information Patients own medicat... BID@10,16 XX Last administered on 10/21/16 15:42; Admin Dose 1 EA; Start 10/13/16 at 10:00 Lactobacillus Acidoph/Bulgaricus (Floranex) 1 tab TID PO Last administered on 08:35; Admin Dose 1 TAB; Start 10/13/16 at 09:00 Insulin Glargine (Lantus) 10 unit DAILY@20 SC Last administered on 10/24/16 20: 18; Admin Dose 10 UNIT; Start 10/16/16 at 20:00 Hydralazine HCl (Apresoline) 10 mg Q6H PRN IV sbp>160; Start 10/18/16 at 13:00 Diagnostic Test (Pha) (Accucheck) 1 ea 02 XX ; Start 10/20/16 at 02:00 Guaifenesin/ Codeine Phosphate (Robitussin Ac Liquid Cup) 10 ml Q4H PRN PO COUGH; Start 10/23/16 at 13:30 Famotidine (Pepcid) 20 mg DAILY PO Last administered on 10/25/16 11:52; Admin Dose 20 MG; Start 10/25/16 at 10:00 Levofloxacin (Levaquin) 750 mg Q48H PO Last administered on 10/25/16 12:02; Admin Dose 750 MG; Start 10/25/16 at 11:00 Procedures Procedures PROCEDURE: Ultrasound and fluoroscopic guided left nephrostomy. CLINICAL INDICATION: Left hydronephrosis. TECHNIQUE: Informed consent was obtained. The procedure, risks, benefits, complications and alternatives were explained to the patient. Risks including bleeding and infection were explained. The patient understood and was willing to proceed. The procedure was performed in the operating room with anesthesiology due to recent cardiac event. A procedural pause was performed. The patient's name, date of , and procedure to be performed were verified. Using local anesthetic, sterile technique and ultrasound guidance, a 22-gauge Chiba needle was advanced into a posterior aaron in the lower left kidney. A 0.018 in guidewire was inserted. The tract was dilated to 6-Congolese. Urine was aspirated and contrast was injected confirming position. A 0.035-inch Amplatz guidewire was advanced through the catheter into the renal pelvis with fluoroscopic guidance. The catheter was removed. The tract was dilated to 8- Congolese. An 8.5 Congolese multipurpose drainage catheter was advanced over the guidewire into the renal pelvis with fluoroscopic guidance. The guidewire was removed. Additional contrast was injected confirming position. The catheter was then sutured to the patient's skin with 3-0 monofilament. The catheter was connected to a drainage bag. A dressing was applied. The patient tolerated procedure well. COMPARISON: None. FINDINGS: The nephrostogram demonstrates the nephrostomy tube in satisfactory position within the left renal pelvis. There is a partially obstructing calculus in the mid left ureter at the mid L4 level. IMPRESSION: 1. Successful ultrasound and fluoroscopic guided left nephrostomy. 2. The nephrostogram demonstrates the tube in satisfactory position within the left renal pelvis. 3. Partially obstructing calculus in the mid left ureter at the mid L4 level. ESE SORIANO Oct 25, 2016 13:14 ESE SORIANO Oct 25, 2016 13:14
--- NOTE | 2016-10-25 15:10 | CONS ---
Date/Time of Note Date/Time of Note DATE: 10/25/16 TIME: 15:02 Assessment/Plan Assessment/Plan Additional Assessment/Plan Possible cardiac arrest Preserved ejection fraction Acute decompensated diastolic congestive heart failure Labile blood pressure Respiratory failure status post extubation Sepsis Elevated troponin Acute kidney injury, improving -Patient status post percutaneous nephrostomy placement yesterday. Doing well today. Supplement potassium to maintain above 4.0 and magnesium above 2.0. Blood pressure remains elevated, given possible issue with beta-bull, would hold off on initiation at the current time. Patient was on losartan at home, renal function is currently improving, given recent ENRICO, would start Norvasc at the current time. Consultation Date/Type/Reason Admit Date/Time Oct 12, 2016 at 11:59 Initial Consult Date 10/13/16 Type of Consultation: cv 24 HR Interval Summary Free Text/Dictation Patient status post procedure yesterday. Denies chest pain or shortness of breath Exam/Review of Systems Vital Signs Vitals Vital Signs Date Time Temp Pulse Resp B/P Pulse Ox O2 Delivery O2 Flow Rate FiO2 10/25/16 12:29 103 10/25/16 11:31 98.1 19 155/64 99 10/25/16 03:40 Room Air Intake and Output 10/24/16 10/24/16 10/25/16 15:00 23:00 07:00 Intake Total 730 ml 470 ml 60 ml Output Total 20 ml 1700 ml 750 ml Balance 710 ml -1230 ml -690 ml Exam Sitting in chair, no apparent distress Constitutional: alert, oriented Head: normocephalic Neck: supple Respiratory: other (Coarse breath sounds bilaterally, no wheezing) Cardiovascular: other (S1-S2 heard), regular rate and rhythm Gastrointestinal: bowel sounds, non-tender, other (No guarding), soft Extremities: edema (Trace), other (No cyanosis) Results Result Diagram: 10/25/16 0612 10/25/16 0612 Results 24 hrs Laboratory Tests Test 10/24/16 17:33 10/24/16 19:58 10/25/16 05:40 10/25/16 06:12 Bedside Glucose 110 171 99 Anion Gap 14 Basophils # 0.0 Basophils % 0.5 Blood Urea Nitrogen 12 Calcium Level 8.7 Carbon Dioxide Level 27 Chloride Level 106 Creatinine 0.79 Eosinophils # 0.3 Eosinophils % 3.3 Glucose Level 96 # Hematocrit 27.8 L Hemoglobin 8.9 L Lymphocytes # 1.4 Lymphocytes % 16.4 Magnesium Level 1.7 Mean Corpuscular Hemoglobin 30.7 Mean Corpuscular Hemoglobin Concent 32.0 Mean Corpuscular Volume 95.9 Mean Platelet Volume 9.1 Monocytes # 0.6 Monocytes % 7.2 Neutrophils # 6.0 Neutrophils % 71.8 Nucleated Red Blood Cells # 0.0 Nucleated Red Blood Cells % 0.0 Phosphorus Level 2.9 Platelet Count 511 H Potassium Level 4.1 Red Blood Count 2.90 L Red Cell Distribution Width 13.3 Sodium Level 143 White Blood Count 8.4 Test 10/25/16 08:17 10/25/16 11:58 Bedside Glucose 190 116 Medications Medications Current Medications Aspirin (Aspirin) 81 mg DAILY PO Last administered on 10/25/16 08:35; Admin Dose 81 MG; Start 10/13/16 at 09:00 Atorvastatin Calcium (Lipitor) 20 mg HS PO Last administered on 10/24/16 20:18 ; Admin Dose 20 MG; Start 10/12/16 at 21:00 Ondansetron HCl (Zofran Inj) 4 mg Q6H PRN IV NAUSEA AND/OR VOMITING; Start at 15:30 Nitroglycerin (Nitroglycerin (Sl Tab) 0.4 Mg) 1 tab Q5M PRN SL CHEST PAIN; Start 10/12/16 at 15:30 Acetaminophen (Tylenol Tab) 650 mg Q6H PRN PO PAIN LEVEL 1-3 OR FEVER Last administered on 10/21/16 01:10; Admin Dose 650 MG; Start 10/12/16 at 15:30 Acetaminophen/ Hydrocodone Bitart ([place] (5/325)) 1 tab Q6H PRN PO PAIN LEVEL 4 -6; Start 10/12/16 at 15:30 Acetaminophen/ Hydrocodone Bitart ([place] (5/325)) 2 tab Q6H PRN PO PAIN LEVEL 7 -10; Start 10/12/16 at 15:30 Morphine Sulfate (morphine) 2 mg Q4H PRN IV PAIN LEVEL 7-10 Last administered on 10/18/16 06:03; Admin Dose 2 MG; Start 10/12/16 at 15:30 Docusate Sodium (Colace) 100 mg Q12H PRN PO CONSTIPATION; Start 10/12/16 at 15: 30 Magnesium Hydroxide (Milk Of Mag) 30 ml DAILY PRN PO CONSTIPATION; Start at 15:30 Bisacodyl (Dulcolax Supp) 10 mg DAILY PRN [place] CONSTIPATION; Start 10/12/16 at 15 :30 Miscellaneous Information 1 ea NOTE XX ; Start 10/12/16 at 16:30 Glucose (Glutose) 15 gm Q15M PRN PO DECREASED GLUCOSE; Start 10/12/16 at 16:30 Glucose (Glutose) 22.5 gm Q15M PRN PO DECREASED GLUCOSE; Start 10/12/16 at 16: 30 Dextrose (D50w Syringe) 25 ml Q15M PRN IV DECREASED GLUCOSE; Start 10/12/16 at 16:30 Dextrose (D50w Syringe) 50 ml Q15M PRN IV DECREASED GLUCOSE Last administered on 10/13/16 23:17; Admin Dose 50 ML; Start 10/12/16 at 16:30 Glucagon (Glucagen) 1 mg Q15M PRN IM DECREASED GLUCOSE; Start 10/12/16 at 16:30 Glucose (Glutose) 15 gm Q15M PRN BUCCAL DECREASED GLUCOSE; Start 10/12/16 at 16 :30 Miscellaneous Information Patients own medicat... BID@10,16 XX Last administered on 10/21/16 15:42; Admin Dose 1 EA; Start 10/13/16 at 10:00 Lactobacillus Acidoph/Bulgaricus (Floranex) 1 tab TID PO Last administered on 13:42; Admin Dose 1 TAB; Start 10/13/16 at 09:00 Insulin Glargine (Lantus) 10 unit DAILY@20 SC Last administered on 10/24/16 20: 18; Admin Dose 10 UNIT; Start 10/16/16 at 20:00 Hydralazine HCl (Apresoline) 10 mg Q6H PRN IV sbp>160; Start 10/18/16 at 13:00 Diagnostic Test (Pha) (Accucheck) 1 ea 02 XX ; Start 10/20/16 at 02:00 Guaifenesin/ Codeine Phosphate (Robitussin Ac Liquid Cup) 10 ml Q4H PRN PO COUGH; Start 10/23/16 at 13:30 Famotidine (Pepcid) 20 mg DAILY PO Last administered on 10/25/16 11:52; Admin Dose 20 MG; Start 10/25/16 at 10:00 Levofloxacin (Levaquin) 750 mg Q48H PO Last administered on 10/25/16 12:02; Admin Dose 750 MG; Start 10/25/16 at 11:00 Singh Thompson DO Oct 25, 2016 15:10
[2016-10-25] MEDS ORDERED: VANCOMYCIN 500MG/NS (PMX) 100 ML IVPB SCH (16:00)
[2016-10-25] MEDS: ATORVASTATIN 20 MG TAB PO SCH (20:30)
[2016-10-25] MEDS: AMLODIPINE 2.5 MG TAB PO SCH (20:31)
[2016-10-25] MEDS: INSULIN GLARGINE [LANtus] 3 ML PEN SC SCH (20:32)
[2016-10-26] VITALS (10 sets, daily range): BP systolic 116–155; BP diastolic 58–74; PULSE 100–161; RESP 17–20
[2016-10-26] MEDS: ACCUCHECK XX SCH (02:04)
[2016-10-26 07:57] LABS: ADD SCAN DIFF NO
[2016-10-26 08:02] LABS: BASOPHILS % 0.5 % (0.0-2.0); EOSINOPHILS # 0.2 10^3/ul (0.0-0.5); EOSINOPHILS % 3.3 % (0.0-7.0); HEMATOCRIT 28.4 % (37.0-47.0); HEMOGLOBIN 8.9 g/dl (12.0-16.0); LYMPHOCYTES # 1.2 10^3/ul (0.8-2.9); LYMPHOCYTES % 18.7 % (15.0-51.0); MEAN CORPUSCULAR HEMOGLOBIN 30.4 pg (29.0-33.0); MEAN CORPUSCULAR HGB CONC 31.3 g/dl (32.0-37.0); MEAN CORPUSCULAR VOLUME 96.9 fl (82.0-101.0); MEAN PLATELET VOLUME 10.2 fl (7.4-10.4); MONOCYTE # 0.6 10^3/ul (0.3-0.9); NEUTROPHIL # 4.2 10^3/ul (1.6-7.5); NEUTROPHILS % 66.9 % (39.0-77.0); PLATELET COUNT 251 10^3/UL (140-415); RED BLOOD COUNT 2.93 10^6/ul (4.20-5.40); RED CELL DISTRIBUTION WIDTH 13.4 % (11.5-14.5); WHITE BLOOD COUNT 6.3 10^3/ul (4.8-10.8)
[2016-10-26 08:26] LABS: POTASSIUM 3.8 mmol/L (3.5-5.1)
[2016-10-26 08:29] LABS: CREATININE 0.79 mg/dl (0.44-1.00)
[2016-10-26] MEDS: LACTOBACILLUS CHEW TAB PO SCH ×2 (08:58→12:06)
[2016-10-26] MEDS: ASPIRIN 81 MG TAB PO SCH (08:59)
[2016-10-26] MEDS: AMLODIPINE 2.5 MG TAB PO SCH (08:59)
[2016-10-26] MEDS: FAMOTIDINE 20 MG TAB PO SCH (08:59)
[2016-10-26] MEDS: INSULIN ASPART [NOVOLOG] 3 ML PEN SC SCH ×4 (09:02→12:02)
[2016-10-26] MEDS ORDERED: METOPROLOL 25 MG TAB PO SCH (11:00)
[2016-10-26 11:01] LABS: POTASSIUM 4.4 mmol/L (3.5-5.1)
[2016-10-26 11:03] LABS: CREATININE 0.75 mg/dl (0.44-1.00)
[2016-10-26 11:04] LABS: CALCIUM 9.2 mg/dl (8.4-10.2); MAGNESIUM 2.1 mg/dl (1.7-2.5)
--- NOTE | 2016-10-26 12:39 | CONS ---
Date/Time of Note Date/Time of Note DATE: 10/26/16 TIME: 12:35 Assessment/Plan Assessment/Plan Additional Assessment/Plan Possible cardiac arrest Preserved ejection fraction Acute decompensated diastolic congestive heart failure Labile blood pressure Respiratory failure status post extubation Sepsis Elevated troponin Acute kidney injury, improving -Patient continues to improve. Heart rate still on the higher end, would start low-dose beta-bull and monitor on telemetry. Blood pressure trend overall better. Continue aspirin and statin therapy if no contraindication. Consultation Date/Type/Reason Admit Date/Time Oct 12, 2016 at 11:59 Initial Consult Date 10/13/16 Type of Consultation: cv 24 HR Interval Summary Free Text/Dictation Patient continued to feel better. Denies chest pain, shortness of breath or dizziness. Exam/Review of Systems Vital Signs Vitals Vital Signs Date Time Temp Pulse Resp B/P Pulse Ox O2 Delivery O2 Flow Rate FiO2 10/26/16 12:26 100 10/26/16 11:00 98.5 20 116/58 95 10/25/16 20:00 Room Air Intake and Output 10/25/16 10/25/16 10/26/16 15:00 23:00 07:00 Intake Total 650 ml 300 ml Output Total 300 ml 1575 ml 1900 ml Balance -300 ml -925 ml -1600 ml Exam Sitting in chair, no apparent distress Constitutional: alert, oriented Head: normocephalic Neck: supple Respiratory: other (Coarse breath sounds bilaterally, no wheezing) Cardiovascular: other (S1-S2 heard), regular rate and rhythm Gastrointestinal: bowel sounds, non-tender, other (No guarding), soft Extremities: edema (Trace), other (No cyanosis) Results Result Diagram: 10/26/16 0725 10/26/16 1030 Results 24 hrs Laboratory Tests Test 10/25/16 17:10 10/25/16 19:43 10/26/16 07:25 10/26/16 07:58 Bedside Glucose 112 142 187 Anion Gap 14 Basophils # 0.0 Basophils % 0.5 Blood Urea Nitrogen 12 Calcium Level 8.0 L Carbon Dioxide Level 24 Chloride Level 95 #L Creatinine 0.79 Eosinophils # 0.2 Eosinophils % 3.3 Glucose Level 114 Hematocrit 28.4 L Hemoglobin 8.9 L Lymphocytes # 1.2 Lymphocytes % 18.7 Mean Corpuscular Hemoglobin 30.4 Mean Corpuscular Hemoglobin Concent 31.3 L Mean Corpuscular Volume 96.9 Mean Platelet Volume 10.2 Monocytes # 0.6 Monocytes % 10.0 Neutrophils # 4.2 Neutrophils % 66.9 Nucleated Red Blood Cells # 0.0 Nucleated Red Blood Cells % 0.0 Platelet Count 251 # Potassium Level 3.8 Red Blood Count 2.93 L Red Cell Distribution Width 13.4 Sodium Level 129 L White Blood Count 6.3 # Test 10/26/16 10:30 10/26/16 11:58 Anion Gap 18 H Blood Urea Nitrogen 14 Calcium Level 9.2 Carbon Dioxide Level 23 Chloride Level 104 Creatinine 0.75 Glucose Level 136 Magnesium Level 2.1 Potassium Level 4.4 Sodium Level 141 Bedside Glucose 170 Medications Medications Current Medications Aspirin (Aspirin) 81 mg DAILY PO Last administered on 10/26/16 08:59; Admin Dose 81 MG; Start 10/13/16 at 09:00 Atorvastatin Calcium (Lipitor) 20 mg HS PO Last administered on 10/25/16 20:30 ; Admin Dose 20 MG; Start 10/12/16 at 21:00 Ondansetron HCl (Zofran Inj) 4 mg Q6H PRN IV NAUSEA AND/OR VOMITING; Start at 15:30 Nitroglycerin (Nitroglycerin (Sl Tab) 0.4 Mg) 1 tab Q5M PRN SL CHEST PAIN; Start 10/12/16 at 15:30 Acetaminophen (Tylenol Tab) 650 mg Q6H PRN PO PAIN LEVEL 1-3 OR FEVER Last administered on 10/21/16 01:10; Admin Dose 650 MG; Start 10/12/16 at 15:30 Acetaminophen/ Hydrocodone Bitart ([place] (5/325)) 1 tab Q6H PRN PO PAIN LEVEL 4 -6; Start 10/12/16 at 15:30 Acetaminophen/ Hydrocodone Bitart ([place] (5/325)) 2 tab Q6H PRN PO PAIN LEVEL 7 -10; Start 10/12/16 at 15:30 Morphine Sulfate (morphine) 2 mg Q4H PRN IV PAIN LEVEL 7-10 Last administered on 10/18/16 06:03; Admin Dose 2 MG; Start 10/12/16 at 15:30 Docusate Sodium (Colace) 100 mg Q12H PRN PO CONSTIPATION; Start 10/12/16 at 15: 30 Magnesium Hydroxide (Milk Of Mag) 30 ml DAILY PRN PO CONSTIPATION; Start at 15:30 Bisacodyl (Dulcolax Supp) 10 mg DAILY PRN [place] CONSTIPATION; Start 10/12/16 at 15 :30 Miscellaneous Information 1 ea NOTE XX ; Start 10/12/16 at 16:30 Glucose (Glutose) 15 gm Q15M PRN PO DECREASED GLUCOSE; Start 10/12/16 at 16:30 Glucose (Glutose) 22.5 gm Q15M PRN PO DECREASED GLUCOSE; Start 10/12/16 at 16: 30 Dextrose (D50w Syringe) 25 ml Q15M PRN IV DECREASED GLUCOSE; Start 10/12/16 at 16:30 Dextrose (D50w Syringe) 50 ml Q15M PRN IV DECREASED GLUCOSE Last administered on 10/13/16 23:17; Admin Dose 50 ML; Start 10/12/16 at 16:30 Glucagon (Glucagen) 1 mg Q15M PRN IM DECREASED GLUCOSE; Start 10/12/16 at 16:30 Glucose (Glutose) 15 gm Q15M PRN BUCCAL DECREASED GLUCOSE; Start 10/12/16 at 16 :30 Miscellaneous Information Patients own medicat... BID@10,16 XX Last administered on 10/21/16 15:42; Admin Dose 1 EA; Start 10/13/16 at 10:00 Lactobacillus Acidoph/Bulgaricus (Floranex) 1 tab TID PO Last administered on 12:06; Admin Dose 1 TAB; Start 10/13/16 at 09:00 Insulin Glargine (Lantus) 10 unit DAILY@20 SC Last administered on 10/25/16 20: 32; Admin Dose 10 UNIT; Start 10/16/16 at 20:00 Hydralazine HCl (Apresoline) 10 mg Q6H PRN IV sbp>160; Start 10/18/16 at 13:00 Diagnostic Test (Pha) (Accucheck) 1 ea 02 XX Last administered on 10/26/16 02: 04; Admin Dose 1 EA; Start 10/20/16 at 02:00 Guaifenesin/ Codeine Phosphate (Robitussin Ac Liquid Cup) 10 ml Q4H PRN PO COUGH; Start 10/23/16 at 13:30 Famotidine (Pepcid) 20 mg DAILY PO Last administered on 10/26/16 08:59; Admin Dose 20 MG; Start 10/25/16 at 10:00 Levofloxacin (Levaquin) 750 mg Q48H PO Last administered on 10/25/16 12:02; Admin Dose 750 MG; Start 10/25/16 at 11:00 Amlodipine Besylate (Norvasc) 2.5 mg BID PO Last administered on 10/26/16 08: 59; Admin Dose 2.5 MG; Start 10/25/16 at 21:00 Metoprolol Tartrate (Lopressor) 25 mg BID PO Last administered on 10/26/16 12: 01; Admin Dose 25 MG; Start 10/26/16 at 11:00 iSngh Thompson DO Oct 26, 2016 12:39
--- NOTE | 2016-10-26 13:35 | PN ---
Date/Time of Note Date/Time of Note DATE: 10/26/16 TIME: 13:29 Assessment/Plan VTE Prophylaxis VTE Prophylaxis Intervention: SCD's Lines/Catheters IV Catheter Type (from Nrs): PICC Line Central line still needed: Yes (to be removed ) Urinary Cath still in place: No Reason Cath still needed: other (indicate) Assessment/Plan Assessment/Plan 71-year-old female with: 1. Acute kidney injury in setting of urinary tract infection and sepsis, likely prerenal azotemia. CT A/P with severe left hydronephrosis and nephrolithiasis, s/p left nephrostomy tube placement POD#2 Renal function and WBC wnl. Good UOP, Abx changed to po Levaquin based on sensitivities D/c home with nephrostomy tube 2. S/p Cardiac arrest, patient now extubated and on RA. Elevated troponin, possible non-ST elevation myocardial infarction. Resolved 2D echocardiogram with stable EF. Cardiac status stable and back to baseline currently Outpatient follow up with Cardiology within 1 to 2 weeks. 3. S/p Acute respiratory failure: s/p extubation and on RA now. Respiratory status stable and on RA Latest CXR 10/24 much improved, IS. Abx changed to Levaquin. 4. E coli Severe sepsis and Pyelonephritis. S/p cardiogenic vs septic shock On Levaquin x . Repeat blood negative. 5. Diabetes mellitus, [id number]. Change Accuchecks QAC and HS with SSI and pre meal insulin with Novolog 5 units QAC A1C of 7.8 Continue Lantus and ADA diet 6. Hypertension: Hydralazine. 7. Thrombocytopenia, resolved, actually now with thrombocytosis.... Prophylaxis: SCDs for DVT ppx and Pepcid for gastrointestinal prophylaxis. DISPOSITION: On Tele on RA now. Appreciate Cardiology, Pulmonary recommendations , s/p left nephrostomy tube placement, d/c PICC line today D/c plan for home with RN check today with f/u with Urology, PCP and high risk clinic within 1 week. Prognosis good. Subjective 24 Hr Interval Summary Free Text/Dictation Patient feels better and abad out with good UOP Left nephrostomy tube in place Labs OK today Exam/Review of Systems Vital Signs Vitals Vital Signs Date Time Temp Pulse Resp B/P Pulse Ox O2 Delivery O2 Flow Rate FiO2 10/26/16 12:26 100 10/26/16 11:00 98.5 20 116/58 95 10/25/16 20:00 Room Air Intake and Output 10/25/16 10/25/16 10/26/16 15:00 23:00 07:00 Intake Total 650 ml 300 ml Output Total 300 ml 1575 ml 1900 ml Balance -300 ml -925 ml -1600 ml Exam Constitutional: alert, oriented, well developed Respiratory: clear to auscultation, normal air movement Cardiovascular: nl pulses, regular rate and rhythm Gastrointestinal: non-tender, soft Genitourinary - Female: other (left nephrostomy tube in place ) Musculoskeletal: nl extremities to inspection Extremities: normal pulses Neurological: FLARE BREAKER II-XII intact, nl mental status, nl speech, other (much improved strength ) Results Result Diagram: 10/26/16 0725 10/26/16 1030 Results 24 hrs Laboratory Tests Test 10/25/16 17:10 10/25/16 19:43 10/26/16 07:25 10/26/16 07:58 Bedside Glucose 112 142 187 Anion Gap 14 Basophils # 0.0 Basophils % 0.5 Blood Urea Nitrogen 12 Calcium Level 8.0 L Carbon Dioxide Level 24 Chloride Level 95 #L Creatinine 0.79 Eosinophils # 0.2 Eosinophils % 3.3 Glucose Level 114 Hematocrit 28.4 L Hemoglobin 8.9 L Lymphocytes # 1.2 Lymphocytes % 18.7 Mean Corpuscular Hemoglobin 30.4 Mean Corpuscular Hemoglobin Concent 31.3 L Mean Corpuscular Volume 96.9 Mean Platelet Volume 10.2 Monocytes # 0.6 Monocytes % 10.0 Neutrophils # 4.2 Neutrophils % 66.9 Nucleated Red Blood Cells # 0.0 Nucleated Red Blood Cells % 0.0 Platelet Count 251 # Potassium Level 3.8 Red Blood Count 2.93 L Red Cell Distribution Width 13.4 Sodium Level 129 L White Blood Count 6.3 # Test 10/26/16 10:30 10/26/16 11:58 Anion Gap 18 H Blood Urea Nitrogen 14 Calcium Level 9.2 Carbon Dioxide Level 23 Chloride Level 104 Creatinine 0.75 Glucose Level 136 Magnesium Level 2.1 Potassium Level 4.4 Sodium Level 141 Bedside Glucose 170 Medications Medications Current Medications Aspirin (Aspirin) 81 mg DAILY PO Last administered on 10/26/16t 08:59; Admin Dose 81 MG; Start 10/13/16 at 09:00 Atorvastatin Calcium (Lipitor) 20 mg HS PO Last administered on 10/25/16 20:30 ; Admin Dose 20 MG; Start 10/12/16 at 21:00 Ondansetron HCl (Zofran Inj) 4 mg Q6H PRN IV NAUSEA AND/OR VOMITING; Start at 15:30 Nitroglycerin (Nitroglycerin (Sl Tab) 0.4 Mg) 1 tab Q5M PRN SL CHEST PAIN; Start 10/12/16 at 15:30 Acetaminophen (Tylenol Tab) 650 mg Q6H PRN PO PAIN LEVEL 1-3 OR FEVER Last administered on 10/21/16 01:10; Admin Dose 650 MG; Start 10/12/16 at 15:30 Acetaminophen/ Hydrocodone Bitart ([place] (5/325)) 1 tab Q6H PRN PO PAIN LEVEL 4 -6; Start 10/12/16 at 15:30 Acetaminophen/ Hydrocodone Bitart ([place] [employer] (5/325)) 2 tab Q6H PRN PO PAIN LEVEL 7 -10; Start 10/12/16 at 15:30 Morphine Sulfate (morphine) 2 mg Q4H PRN IV PAIN LEVEL 7-10 Last administered on 10/18/16 06:03; Admin Dose 2 MG; Start 10/12/16 at 15:30 Docusate Sodium (Colace) 100 mg Q12H PRN PO CONSTIPATION; Start 10/12/16 at 15: 30 Magnesium Hydroxide (Milk Of Mag) 30 ml DAILY PRN PO CONSTIPATION; Start at 15:30 Bisacodyl (Dulcolax Supp) 10 mg DAILY PRN [place] CONSTIPATION; Start 10/12/16 at 15 :30 Miscellaneous Information 1 ea NOTE XX ; Start 10/12/16 at 16:30 Glucose (Glutose) 15 gm Q15M PRN PO DECREASED GLUCOSE; Start 10/12/16 at 16:30 Glucose (Glutose) 22.5 gm Q15M PRN PO DECREASED GLUCOSE; Start 10/12/16 at 16: 30 Dextrose (D50w Syringe) 25 ml Q15M PRN IV DECREASED GLUCOSE; Start 10/12/16 at 16:30 Dextrose (D50w Syringe) 50 ml Q15M PRN IV DECREASED GLUCOSE Last administered on 10/13/16 23:17; Admin Dose 50 ML; Start 10/12/16 at 16:30 Glucagon (Glucagen) 1 mg Q15M PRN IM DECREASED GLUCOSE; Start 10/12/16 at 16:30 Glucose (Glutose) 15 gm Q15M PRN BUCCAL DECREASED GLUCOSE; Start 10/12/16 at 16 :30 Miscellaneous Information Patients own medicat... BID@10,16 XX Last administered on 10/21/16 15:42; Admin Dose 1 EA; Start 10/13/16 at 10:00 Lactobacillus Acidoph/Bulgaricus (Floranex) 1 tab TID PO Last administered on 12:06; Admin Dose 1 TAB; Start 10/13/16 at 09:00 Insulin Glargine (Lantus) 10 unit DAILY@20 SC Last administered on 10/25/16 20: 32; Admin Dose 10 UNIT; Start 10/16/16 at 20:00 Hydralazine HCl (Apresoline) 10 mg Q6H PRN IV sbp>160; Start 10/18/16 at 13:00 Diagnostic Test (Pha) (Accucheck) 1 ea 02 XX Last administered on 10/26/16 02: 04; Admin Dose 1 EA; Start 10/20/16 at 02:00 Guaifenesin/ Codeine Phosphate (Robitussin Ac Liquid Cup) 10 ml Q4H PRN PO COUGH; Start 10/23/16 at 13:30 Famotidine (Pepcid) 20 mg DAILY PO Last administered on 10/26/16 08:59; Admin Dose 20 MG; Start 10/25/16 at 10:00 Levofloxacin (Levaquin) 750 mg Q48H PO Last administered on 10/25/16 12:02; Admin Dose 750 MG; Start 10/25/16 at 11:00 Metoprolol Tartrate (Lopressor) 25 mg BID PO Last administered on 10/26/16 12: 01; Admin Dose 25 MG; Start 10/26/16 at 11:00 Amlodipine Besylate (Norvasc) 2.5 mg DAILY PO ; Start 10/27/16 at 09:00 ESE SORIANO Oct 26, 2016 13:34
--- NOTE | 2016-10-26 14:04 | PDOCDIS ---
Discharge Instructions CONDITION Patient Condition: Stable HOME CARE INSTRUCTIONS: Special Diet: regular, ADA diet ACTIVITY: Activity Restrictions: Slowly Increase Activity Avoid heavy lifting Avoid Heavy Housework FOLLOW UP/APPOINTMENTS Appointments Follow up with Urology, Dr Massey, within 1 week re moderate left nephrolithiasis s/p left nephrostomy tube, will have it removed after re eval from Urology re timing for lithotripsy if still needed Follow up with PCP within 1 week Referral to High risk clinic within 1 to 2 weeks through [facility] Follow up with Cardiology, Dr Romero's group within 1 to2 weeks ESE SORIANO Oct 26, 2016 14:04
[2016-10-26] MEDS ORDERED: ACID1TAB14 PO (14:08)
[2016-10-26] MEDS ORDERED: LEVO500T72 PO (14:08)
[2016-10-26] MEDS ORDERED: AMLO2.5T78 PO (14:08)
[2016-10-26] MEDS ORDERED: METO-448 PO (14:08)
[2016-10-26] MEDS ORDERED: ASPI81TA3 PO (14:08)
[2016-10-26] MEDS ORDERED: ATOR20TA65 PO (14:08)
[2016-10-26] MEDS ORDERED: HYDR-3498 PO (14:08)
--- NOTE | 2016-10-26 14:11 | PN ---
DATE: 10/26/2016 SUBJECTIVE: The patient is stable this morning. No shortness of breath. PHYSICAL EXAMINATION: VITAL SIGNS: Temperature 98, pulse 100, blood pressure 116/58, O2 saturation 98% on room air. NECK: Supple. No JVD or lymphadenopathy. CARDIAC: S1, S2, no added sounds or murmurs. CHEST: Diminished air entry bilaterally. ABDOMEN: Soft, nontender. No guarding or rebound. EXTREMITIES: No cyanosis, clubbing, edema. NEUROLOGIC: Generalized weakness. LABORATORY DATA: Chemistry within normal limits. IMPRESSION AND PLAN: 1. Resolving hypoxemia. 2. Acute kidney injury secondary to nephrolithiasis, status post nephrostomy placement. 3. History of cardiopulmonary arrest. PLAN: 1. Continue urology recommendations. 2. Encourage out of bed. 3. Consider discharge planning. Dictated By: ANGI WHITNEY MD SV/ZACHARY Conf#: [id number] DID#: [id number]
[2016-10-27] MEDS ORDERED: AMLODIPINE 2.5 MG TAB PO SCH (09:00)
== END 2016-10-26 18:20 | disposition home or self-care (01) | DRG 870 ==
LOC: E/R 08:51 → MS4 11:59 → ICU 10-13 17:00 → MS4 10-20 07:47
PROVIDERS: ADMIT Internal Medicine; ATTEND Internal Medicine
PROC: 04HK33Z Insertion of Infusion Device into Right Femoral Artery, Percutaneous Approach (ICD-10-PCS; principal; 2016-10-13)
PROC: 5A1955Z Respiratory Ventilation, Greater than 96 Consecutive Hours (ICD-10-PCS; 2016-10-13)
PROC: 5A12012 Performance of Cardiac Output, Single, Manual (ICD-10-PCS; 2016-10-13)
PROC: 0BH17EZ Insertion of Endotracheal Airway into Trachea, Via Natural or Artificial Opening (ICD-10-PCS; 2016-10-13)
PROC: 02HV33Z Insertion of Infusion Device into Superior Vena Cava, Percutaneous Approach (ICD-10-PCS; 2016-10-15)
PROC: 0T9430Z Drainage of Left Kidney Pelvis with Drainage Device, Percutaneous Approach (ICD-10-PCS; 2016-10-24)
DX: A41.51 Sepsis due to Escherichia coli [E. coli] (principal); J96.01 Acute respiratory failure with hypoxia; I46.9 Cardiac arrest, cause unspecified; R57.9 Shock, unspecified; I50.33 Acute on chronic diastolic (congestive) heart failure; D69.6 Thrombocytopenia, unspecified; J18.9 Pneumonia, unspecified organism; N17.9 Acute kidney failure, unspecified; E87.2 Acidosis; N12 Tubulo-interstitial nephritis, not specified as acute or chronic; N13.2 Hydronephrosis with renal and ureteral calculous obstruction; E11.9 Type 2 diabetes mellitus without complications; I10 Essential (primary) hypertension; R65.20 Severe sepsis without septic shock; Z79.84 Long term (current) use of oral hypoglycemic drugs
CPT/HCPCS: 31500; 36415; 36569; 36600; 71010; 74176; 74475; 76775; 76937; 76942; 80048; 80053; 80061; 80202; 81001; 81003; 82150; 82550; 82553; 82565; 82803; 82962; 83036; 83605; 83690; 83735; 84100; 84132; 84295; 84484; 84520; 85025; 85049; 85362; 85378; 85384; 85610; 85651; 85670; 85730; 86022; 86850; 86900; 86901; 87040; 87081; 87086; 92526; 92610; 92950; 93005; 93306; 93971; 94002; 94003; 94664; 94770; 96361; 96374; 96375; 97110; 97116; 97162; 97530; J1940; J0690; J0692; J1815; J1956; J2250; J2270; J2710; J3010; J3370; J3475; J3480; J7030; J7050; J7070; Q9967

== ENCOUNTER → 2016-12-07 | Outpatient (CLI) | payer OTHER ==
[~2016-12-07] MED LIST: ACID1TAB14 PO; AMLO2.5T78 PO; ASPI81TA3 PO; ATOR20TA65 PO; GLIP5TAB13 PO; HYDR-3498 PO; IOHEXOL 300MG/ML 30 ML BTL ONE; LEVO500T72 PO; LIDOCAINE 1% (MDV) 20 ML INJ ONE; METO-448 PO
--- NOTE | 2016-12-07 16:40 | RADRPT ---
PROCEDURE: Nephrostogram CLINICAL INDICATION: Left ureteral calculus TECHNIQUE: Informed consent was obtained from the patient following careful explanation of the risks and benefi ts of the procedure. The patient was placed prone on the fluoroscopic table and the existing left nephrostomy was prepped and draped in the usual sterile fashion. Fluoroscopy time: 0.4 minute Contrast was injected through the existing left nephrostomy tube which demonstrated moderate left hy dronephrosis and proximal hydroureter to the level of a filling defect in the mid ureter. Contrast was noted to trickle past this filling defect in the mid left ureter in the distal left ureter was n oted to be decompressed. Contrast was also noted to freely flowing to the bladder. A filling defec t of a similar size and location in the mid left ureteral calculus was seen on the prior CT study fr om 10/18/2016. This case was discussed with Dr. Sahil Massey who agreed with the decision to not remove the nephrostomy catheter. The tube was reattached to a drainage bag. The patient tolerated the procedure well. COMPARISON: CT abdomen/pelvis from 10/18/2016 FINDINGS: Nonocclusive mid left ureteral calculus with proximal moderate hydronephrosis and hydroureter. IMPRESSION: Nephrostogram via the existing left nephrostomy demonstrating a nonocclusive mid left ureteral calcu bernie with proximal moderate hydronephrosis and hydroureter. RPTAT: AA Physician Bernice Date Time Electronically viewed and signed by Physician Bernice on 12/07/2016 16:39 /
== END | disposition home or self-care (01) ==
LOC: RAD 12:44
PROVIDERS: ATTEND Urology
DX: N13.2 Hydronephrosis with renal and ureteral calculous obstruction (principal); Z93.6 Other artificial openings of urinary tract status
CPT/HCPCS: 74425; Q9967; Z7610

== ENCOUNTER 2017-02-14 07:26 | Day surgery (SDC) | payer OTHER ==
[2017-02-14] VITALS (9 sets, daily range): BP systolic 137–177; BP diastolic 70–86; PULSE 66–75; RESP 14–20
[~2017-02-14] VITALS: Ht 152.4 cm; Wt 55.4 kg
[~2017-02-14 07:26] MED LIST changes: -IOHEXOL 300MG/ML 30 ML BTL ONE; -LIDOCAINE 1% (MDV) 20 ML INJ ONE
[2017-02-14] MEDS ORDERED: CIPR500T4 PO (08:20)
[2017-02-14] MEDS ORDERED: LIDOCAINE 1% (MDV) 20 ML INJ ONE (08:26)
[2017-02-14] MEDS ORDERED: SOD CHLORIDE 0.9% 1,000 ML IV SCH (08:30)
[2017-02-14] MEDS ORDERED: MIDAZOLAM 1 MG/ML 2 ML INJ ONE (08:35)
[2017-02-14] MEDS ORDERED: DIPHENHYDRAMINE 50 MG INJ ONE (08:35)
[2017-02-14] MEDS ORDERED: FENTAnyl 50 MCG/ML VIAL ONE (08:35)
[2017-02-14] MEDS ORDERED: METO-448 PO (08:55)
[2017-02-14] MEDS ORDERED: IOHEXOL 300MG/ML 30 ML BTL ONE (09:37)
--- NOTE | 2017-02-14 11:09 | RADRPT ---
PROCEDURE: Fluoroscopic guided left nephrostomy tube replacement. CLINICAL INDICATION: Left hydronephrosis. TECHNIQUE: Informed consent was obtained. The procedure, risks, benefits, complications and alternatives were explained to the patient. Risks including bleeding and infection were explained. The patient underst ood and was willing to proceed. A procedural pause was performed. The patient's name, date of , and procedure to be performed w ere verified. 20 ml of Omnipaque-300 was injected through the existing nephrostomy tube and multiple digital image s were obtained. Using local anesthetic, sterile technique and fluoroscopic guidance, a 0.035-inch Amplatz guidewire was advanced through the existing nephrostomy tube into the left renal pelvis with fluoroscopic guidance. The existing nephrostomy tube was removed. The new 8.5 [place] multipurpose drainage catheter was advanced over the guidewire into the left renal pelvis with fluoroscopic guid ance. The guidewire was removed. Additional contrast was injected confirming position. The cathet er was then sutured to the patient's skin with 2-0 silk suture. The catheter was connected to a amado inage bag. A dressing was applied. The patient tolerated procedure well. COMPARISON: 12/07/2016. FINDINGS: The nephrostogram demonstrates the existing nephrostomy tube in satisfactory position within the lef t renal pelvis. Subsequent nephrostogram demonstrates the new nephrostomy tube in satisfactory posi tion coiled in the left renal pelvis. Additional imaging of the left ureter with contrast demonstrat es the partially obstructing calculus in the mid left ureter at the L4 level. This is unchanged fro m 12/07/2016. IMPRESSION: 1. Successful fluoroscopic guided left nephrostomy replacement. 2. The nephrostogram demonstrates the tube in satisfactory position within the left renal pelvis. 3. A partially obstructing calculus in the mid left ureter is unchanged from 12/07/2016. RPTAT: QQ .Jono Bhagat MD, MD Date Time Electronically viewed and signed by .Jono hBagat MD, on 02/14/2017 11:09 .R/
== END 2017-02-14 13:02 | disposition home or self-care (01) ==
LOC: SDS 07:26
PROVIDERS: ATTEND Urology
DX: T83.9XXA Unspecified complication of genitourinary prosthetic device, implant and graft, initial encounter (principal); Y84.8 Other medical procedures as the cause of abnormal reaction of the patient, or of later complication, without mention of misadventure at the time of the procedure; Y92.89 Other specified places as the place of occurrence of the external cause; I10 Essential (primary) hypertension; E11.9 Type 2 diabetes mellitus without complications; N13.30 Unspecified hydronephrosis; I25.2 Old myocardial infarction
CPT/HCPCS: 50435; 74475; 82962; J1200; J2250; J3010; Q9967; Z7610